=== PATIENT | female | born 1950 | race Caucasian/White ===

== ENCOUNTER 2018-11-02 14:32 | Inpatient (IN) ==
[2018-11-02 15:10] LABS: Basophils % 0.3 % (0.1-2.0); Eosinophils % 0.3 % (0.1-12.0); Hematocrit 36.7 % (37.0-47.0); Hemoglobin 11.7 g/dL (12.2-16.2); Lymphocytes # 1.4 K/mm3 (0.7-4.5); Lymphocytes % 10.4 % (10-50); Mean Corpuscular HGB Conc 31.9 g/dL (31.8-35.4); Mean Corpuscular Volume 97.7 fl (81-99); Mean Platelet Volume 9.3 fl (7.4-10.4); Monocytes # 0.6 K/mm3 (0.1-1.0); Monocytes % 4.5 % (1.7-9.3); Neutrophils # 11.2 K/mm3 (1.8-7.8); Neutrophils % 84.6 % (37.0-80.0); Platelet Count 212 K/mm3 (142-424); Red Blood Count 3.76 M/mm3 (4.20-5.40); Red Cell Distribution Width 14.8 % (11.5-17.5); White Blood Count 13.3 K/mm3 (4.8-10.8)
[2018-11-02 15:17] LABS: Albumin Level 3.2 gm/dL (3.4-5.0); Albumin/Globulin Ratio 0.7 (1.1-1.8); Anion Gap 18.6 mEq/L (5-15); Bilirubin,Total 0.7 mg/dL (0.2-1.0); Calcium 9.1 mg/dL (8.5-10.1); Globulin 4.3 gm/dl (1.3-3.2); Total Protein,Serum 7.5 gm/dL (6.4-8.2)
[2018-11-02 15:33] LABS: Microscopic, Urine URINE MICROSCOPIC (MICROSCOPIC)
[2018-11-02 15:38] LABS: Appearance,Urine CLEAR (Clear); Bilirubin,Urine Negative (Negative); Blood, Urine 1+ (Negative); Color,Urine YELLOW (Yellow); Glucose,Urine (UA) Negative (Negative); Ketones,Urine Negative (Negative); Leukocyte Esterase,Urine TRACE (Negative); PH,Urine 7.5 (5.0-8.5); Protein,Urine Negative (Negative); Specific Gravity, Urine 1.015 (1.005-1.030)
--- NOTE | 2018-11-02 15:41 | Emergency Department Note ---
ED Disposition Clinical Impression: LLL pneumonia Disposition: Admitted as Observation Condition on Discharge: Fair Referrals: Provider,Referral, [Primary Care Provider] - Time of Disposition: 16:34 - Critical Care Critical Care Time: No Attestation: On 11/02/18, the high probability of a clinically significant, sudden or life threatening deterioration of the following system(s) required my full and direct attention, intervention and personal management. The time I documented below is in addition to time spent performing reported procedures but includes the following listed in this critical care notation. Medical Decision Making - Medical Records Medical records reviewed: Yes: I reviewed the patient's medical records. - Young Inquiry Pt receiving controlled substance: No Young was queried for this patient: No Vital Signs: 11/02/18 14:47 Temperature 102.7 F H Temperature Source Oral Pulse Rate [Left Radial] 71 Respiratory Rate 20 Blood Pressure [Right Arm] 123/50 L Blood Pressure Mean [Right Arm] 74 Blood Pressure Source [Right Arm] Automatic Cuff Blood Pressure Position [Right Arm] Sitting 02 Sat by Pulse Oximetry 95 Oxygen Delivery Method Room Air - Lab Data Lab results reviewed: Yes: I reviewed the patient's lab results. Lab Results 11/02/18 14:30: WBC 13.3 H, RBC 3.76 L, Hgb 11.7 L, Hct 36.7 L, MCV 97.7, MCH 31.1, MCHC 31.9, RDW 14.8, Plt Count 212, MPV 9.3, Neut % (Auto) 84.6 H, Lymph % (Auto) 10.4, [place] % (Auto) 4.5, Eos % (Auto) 0.3, Baso % (Auto) 0.3, Neut # (Auto) 11.2 H, Lymph # (Auto) 1.4, [place] # (Auto) 0.6, Eos # (Auto) 0.0, Baso # (Auto) 0.0 11/02/18 14:30: Sodium 142, Potassium 3.6, Chloride 101, Carbon Dioxide 26, Anion Gap 18.6 H, BUN 26 H, Creatinine 1.93 H, Estimated Creat Clear 38, Estimated GFR 26 L, Est GFR ( Amer) 31 L, Glucose 189 H, Calcium 9.1, Total Bilirubin 0.7, AST 12 L, ALT 13, Alkaline Phosphatase 79, Total Protein 7.5, Albumin 3.2 L, Globulin 4.3 H, Albumin/Globulin Ratio 0.7 L 11/02/18 15:25: Urine Color Yellow, Urine Appearance Clear, Urine pH 7.5, Ur Specific [place] 1.015, Urine Protein Negative, Urine Glucose (UA) Negative, Urine Ketones Negative, Urine Blood 1+, Urine Nitrate Negative, Urine Bilirubin Negative, Urine Urobilinogen 1.0, Ur Leukocyte Esterase Trace, Urine WBC 5-10, Urine Bacteria 2+ Result diagrams: 11/02/18 14:30 11/02/18 14:30 Orders (Tests/Meds): ED MEDICATIONS Generic Name Dose Route Start Last Admin Trade Name Freq PRN Reason Stop Dose Admin Sodium Chloride 1,000 mls @ 999 mls/hr 11/02/18 16:15 11/02/18 16:19 Sod Chlor 0.9% 1000ml Bag IV 11/02/18 17:15 999 mls/hr .Q1H1M GABI Administration Azithromycin 500 mg/ Sodium 250 mls @ 250 mls/hr 11/02/18 16:30 Chloride IV 11/16/18 16:29 Q24H GABI Protocol Ceftriaxone Sodium 1 gm/ 50 mls @ 100 mls/hr 11/02/18 16:30 Sodium Chloride IV 11/16/18 16:29 Q24H GABI Protocol Discontinued Medications Generic Name Dose Route Start Last Admin Trade Name Freq PRN Reason Stop Dose Admin Acetaminophen 650 mg 11/02/18 15:26 11/02/18 16:02 Acetaminophen 650mg Suppository RC 11/02/18 15:27 Not Given ONCE ONE Acetaminophen 650 mg 11/02/18 16:01 11/02/18 16:02 Acetaminophen 325mg Tab PO 11/02/18 16:02 650 mg ONCE ONE Administration ORDERS Category Date Time Status XR chest portable Stat Exams 11/02/18 14:56 Taken XR pelvis 1-2V Stat Exams 11/02/18 14:58 Taken Blood Culture Stat Micro 11/02/18 15:10 Received Urine Culture Stat Micro 11/02/18 15:25 Received General Adult HPI - General Chief complaint: Fever Stated complaint: Fever Time Seen by Provider: 11/02/18 15:00 Mode of Arrival: EMS Source of Information: EMS Limitations: No Limitations Description of Symptoms (Recalled from ER Triage Doc. by RN): c/o fall earlier today with a decline to come to the ER per EMS. Called by EMS back to [facility] for pt being weak. Upon assessment pt had a fever - History of Present Illness HPI narrative: weakness, sat down twice to floor at [facility], weak on her feet. - Related Data Allergies Allergy/AdvReac Type Severity Reaction Status Date / Time CODEINE Allergy Mild Uncoded 02/16/17 15:39 PCN (PENICILLIN) Allergy Mild Uncoded 02/16/17 15:39 [facility] History - Hepatitis A Screen Drug use history?: No High risk sexual behaviors?: No History of sexually transmitted infection?: No Currently employed?: No Childcare worker?: No Do you have indoor plumbing?: Yes Do you have electricity?: Yes Attestation statement:: This patient has been screened for Hepatitis A risk factors. I have reviewed the patient's past medical history: Yes Medical History: Denies:: Diabetes Mellitus Type 1, Diabetes Mellitus Type 2 - Social History Smoking Status: Unknown if ever smoked Alcohol Intake: never Occupational Status: employed ROS Obtained: Yes unobtainable due to mental status - Constitutional Constitutional: Reports fever(s), Reports weakness - Cardiovascular Cardiovascular: Denies chest pain - Respiratory Respiratory: Yes cough, Yes other (rhonchi left lower lobe) - Gastrointestinal Gastrointestingal: Denies: abdominal pain - Musculoskeletal Musculoskeletal: Reports system reviewed and no additional complaints, except as docu - Integumentary/Breasts Skin/Breast: Reports rash, Reports skin pain - Neurologic Neurologic: Reports system reviewed and no additional complaints, except as docu - Hematologic/Lymphatic Henatologic/Lymphatic: Reports easy bleeding Physical Exam - General General appearance: alert, other (quiet, lying peacefully with eyes closed) - Head Head exam: atraumatic, normocephalic, normal inspection - Eye Eye exam: Present: normal appearance, PERRL, EOMI - ENT ENT exam: Present: normal exam, normal oropharynx, mucous membranes moist, TM's normal bilaterally, normal external ear exam - Neck Neck exam: Present: normal inspection, full ROM, trachea midline. Absent: meningismus, lymphadenopathy - Chest Chest inspection: Present: normal inspection, symmetric chest wall rise. Absent: tenderness - Respiratory Respiratory exam: Present: other (rhonchi left lower lobe). Absent: normal lung sounds bilaterally, respiratory distress - Cardiovascular Cardiovascular exam: Present: regular rate, normal rhythm. Absent: JVD - Abdominal Exam Abdominal exam: Present: soft, distention. Absent: tenderness - Extremities Exam Extremities exam: Present: normal inspection - Back Exam Back exam: Present: normal inspection. Absent: tenderness - Neurological Exam Neurological exam: Present: alert, CN II-XII intact, motor sensory deficit. Absent: oriented X3 - Psychiatric Psychiatric exam: Present: normal affect, normal mood - Skin Skin exam: Present: warm, dry, intact, normal color - Lymphatic Lymphatic Findings: no adenopathy
[2018-11-02 15:55] LABS: Bacteria,Urine 2+ /lpf
--- NOTE | 2018-11-02 20:04 | History & Physical Report ---
*Admission Date: 11/02/18 *Chief complaint: sob *History of present illness: this pt was sent from [facility] for weakness and change in mental status - she had fallen twice at [facility]- fall earlier today with a decline to come to the ER per EMS. Called by EMS back to [facility] for pt being weak. Upon as sessment pt had a fe weakness, sat down twice to floor at [facility], weak on her feet.pt was found to have pneumonia and was admitted - [facility] History I have reviewed the patient's past medical history: Yes Medical History: Reports:: Hyperlipidemia Denies:: Diabetes Mellitus Type 1, Diabetes Mellitus Type 2 *Have you ever received a pneumonia vaccine?: No (unknown) *Have you received a flu vaccine this season?: No (unknown) Other Medical History: Reports: Thyroid Disease (hypothyroidism) - *Social History Smoking Status: Unknown if ever smoked Alcohol Intake: never *Occupational Status:: employed *Travel in the last 8 weeks: None Family Hx:: Non-contributory Review of Systems - Review of Systems Review of systems:: pertinent systems reviewed and negative unless documented below - Constitutional Reports fever(s) - Eyes Denies change in vision - ENT Denies sore throat - *Cardiovascular Denies chest pain at rest - *Respiratory Reports cough, Denies coughing up blood - *Gastrointestinal Denies vomiting - *Genitourinary Denies blood in urine - *Musculoskeletal Denies joint pain - Integumentary/Breasts Denies rash - *Neurologic Reports frequent falls, Reports weakness, Denies seizure-like activity - Psychiatric Denies anxiety Meds Home Medications Medication Instructions Recorded Confirmed Type Atorvastatin Calcium [Atorvastatin 20 mg PO DAILY 11/02/18 11/02/18 History 20mg Tab] Furosemide [Furosemide 40MG tAB] 40 mg PO DAILY 11/02/18 11/02/18 History Levothyroxine Sodium 100 mcg PO DAILY 11/02/18 11/02/18 History [Levothyroxine 100mcg (0.1MG) Tab] Metformin HCl [Glucophage Xr] 500 mg PO DAILY 11/02/18 11/02/18 History Steele-3 Fatty Acids/Fish Oil [Fish 1,000 mg PO DAILY 11/02/18 11/02/18 History Oil 1,000 mg Capsule] Pantoprazole Sodium [Protonix 40mg 40 mg PO DAILY 11/02/18 11/02/18 History tablet] Potassium Chloride 1 dose PO DAILY 11/02/18 11/02/18 History Quetiapine Fumarate 25 mg PO DAILY PRN 11/02/18 11/02/18 History Quetiapine Fumarate 100 mg PO DAILY 11/02/18 11/02/18 History Sertraline HCl [Zoloft 50mg tablet] 50 mg PO DAILY 11/02/18 11/02/18 History Valproic Acid (As Sodium Salt) 1 dose PO DAILY 11/02/18 11/02/18 History [Valproic Acid] cloZAPine [Clozapine] 50 mg PO DAILY 11/02/18 11/02/18 History Allergies Allergy/AdvReac Type Severity Reaction Status Date / Time CODEINE Allergy Mild Uncoded 02/16/17 15:39 PCN (PENICILLIN) Allergy Mild Uncoded 02/16/17 15:39 Exam Vital signs and Labs for Last 24 Hours: Temp Pulse Resp BP Pulse Ox 98.5 F 97 H 20 103/59 L 97 11/02/18 19:46 11/02/18 19:46 11/02/18 19:46 11/02/18 19:46 11/02/18 19:46 Laboratory Results - last 24 hr 11/02/18 14:30: WBC 13.3 H, RBC 3.76 L, Hgb 11.7 L, Hct 36.7 L, MCV 97.7, MCH 31.1, MCHC 31.9, RDW 14.8, Plt Count 212, MPV 9.3, Neut % (Auto) 84.6 H, Lymph % (Auto) 10.4, [place] % (Auto) 4.5, Eos % (Auto) 0.3, Baso % (Auto) 0.3, Neut # (Auto) 11.2 H, Lymph # (Auto) 1.4, [place] # (Auto) 0.6, Eos # (Auto) 0.0, Baso # (Auto) 0.0 11/02/18 14:30: Sodium 142, Potassium 3.6, Chloride 101, Carbon Dioxide 26, Anion Gap 18.6 H, BUN 26 H, Creatinine 1.93 H, Estimated Creat Clear 38, Est imated GFR 26 L, Est GFR ( Amer) 31 L, Glucose 189 H, Calcium 9.1, Total Bilirubin 0.7, AST 12 L, ALT 13, Alkaline Phosphatase 79, Total Protein 7.5, Albumin 3.2 L, Globulin 4.3 H, Albumin/Globulin Ratio 0.7 L 11/02/18 15:08: Lactate 2.6 H 11/02/18 15:25: Urine Color Yellow, Urine Appearance Clear, Urine pH 7.5, Ur Specific [place] 1.015, Urine Protein Negative, Urine Glucose (UA) Negative, Urine Ketones Negative, Urine Blood 1+, Urine Nitrate Negative, Urine Bilirubin Negative, Urine Urobilinogen 1.0, Ur Leukocyte Esterase Trace, Urine WBC 5-10, Urine Bacteria 2+ I & O for Last 24 hours: Intake & Output 10/31/18 11/01/18 11/02/18 11/03/18 11:59 11:59 11:59 11:59 Weight 197 lb 7 oz - Constitutional no acute distress, obese - *Routine HEENT Exam Head: Present: normocephalic Eye: Present: EOMI, PERRL. Absent: conjunctival icterus ENT: Present: mucous membranes dry - *Routine Neck Exam Present: full ROM. Absent: JVD - *Routine Respiratory Exam Present: decreased breath sounds, rhonchi - *Routine Cardiovascular Exam Present: RRR, murmur, S4 - *Routine Abdominal Exam Present: soft - *Routine Extremities Exam Absent: calf tenderness - *Routine Skin Exam Present: intact - *Routine Neurological Exam Present: alert, CN II-XII intact, altered mental status, moving all extremities. Absent: motor deficit - Routine Psychiatric Exam Present: normal affect Assessment and Plan (1) LLL pneumonia Current visit: Yes Status: Acute Qualifiers: Pneumonia type: due to unspecified organism Qualified Code(s): J18.1 - Lobar pneumonia, unspecified organism Category: Medical Code(s): J18.1 - Lobar pneumonia, unspecified organism (2) Severe sepsis Current visit: Yes Status: Acute Category: Medical Code(s): A41.9 - Sepsis, unspecified organism; R65.20 - Severe sepsis without septic shock (3) Septic shock Current visit: Yes Status: Acute Category: Medical Code(s): A41.9 - Sepsis, unspecified organism; R65.21 - Severe sepsis with septic shock (4) Obesity (BMI 30-39.9) Current visit: Yes Status: Acute Category: Medical Code(s): E66.9 - Obesity, unspecified (5) Hypothyroidism (acquired) Current visit: Yes Status: Acute Category: Medical Code(s): E03.9 - Hypothyroidism, unspecified (6) Diabetes 1.5, managed as type 2 Current visit: Yes Status: Acute Category: Medical Code(s): E13.9 - Other specified diabetes mellitus without complications (7) Renal insufficiency Current visit: Yes Status: Acute Category: Medical Code(s): N28.9 - Disorder of kidney and ureter, unspecified (8) UTI (urinary tract infection) Current visit: Yes Status: Acute Qualifiers: Urinary tract infection type: site unspecified Hematuria presence: without hematuria Qualified Code(s): N39.0 - Urinary tract infection, site not specified Category: Medical Code(s): N39.0 - Urinary tract infection, site not specified
--- NOTE | 2018-11-02 23:30 | Sepsis Event Note ---
Tissue Perfusion Evaluation Sepsis Re-Evaluation Performed: Yes Date Performed: 11/02/18 Time Performed: 23:00 Sepsis Follow-Up: Yes: Respiratory exam, Cardiovascular exam, Capillary refill, Peripheral pulse strength, Vital Signs Most Recent Vital Signs: Temperature 98.5 F 11/02/18 19:46 Temperature Source Oral 11/02/18 19:46 Pulse Rate 91 H 11/02/18 21:49 Respiratory Rate 20 11/02/18 19:46 Blood Pressure 103/54 L 11/02/18 21:35 Blood Pressure Mean 70 11/02/18 21:35 Blood Pressure Source Automatic Cuff 11/02/18 21:35 Blood Pressure Position Supine 11/02/18 21:35 02 Sat by Pulse Oximetry 98 11/02/18 21:49 Oxygen Delivery Method 11/02/18 21:49 Oxygen Flow Rate (LPM) 2 11/02/18 21:49
[2018-11-03 07:13] LABS: Basophils % 0.1 % (0.1-2.0); Hematocrit 30.4 % (37.0-47.0); Lymphocytes # 1.4 K/mm3 (0.7-4.5); Lymphocytes % 9.8 % (10-50); Mean Corpuscular HGB Conc 31.7 g/dL (31.8-35.4); Mean Corpuscular Volume 99.3 fl (81-99); Mean Platelet Volume 7.5 fl (7.4-10.4); Monocytes # 0.6 K/mm3 (0.1-1.0); Monocytes % 4.4 % (1.7-9.3); Neutrophils % 85.6 % (37.0-80.0); Platelet Count 162 K/mm3 (142-424); Red Blood Count 3.06 M/mm3 (4.20-5.40); Red Cell Distribution Width 14.8 % (11.5-17.5)
[2018-11-03 07:15] LABS: Anion Gap 11.5 mEq/L (5-15)
[2018-11-03 07:20] LABS: Hemoglobin 9.7 g/dL (12.2-16.2)
[2018-11-03 07:22] LABS: Calcium 7.5 mg/dL (8.5-10.1)
--- NOTE | 2018-11-03 07:34 | Pharmacy Consult Notes ---
[facility] Pharmacy VTE Monitoring - Patient Demographics Admission date: 11/02/18 Report Date: 11/03/18 Time: 07:34 Allergies/Adverse Reactions: Patient Allergies CODEINE Allergy (Mild, Uncoded 02/16/17 15:39) PCN (PENICILLIN) Allergy (Mild, Uncoded 02/16/17 15:39) Height: 1.57 m Weight: 93.242 kg Patient Problems: Current Active Problems LLL pneumonia (Acute) Severe sepsis (Acute) Septic shock (Acute) Obesity (BMI 30-39.9) (Acute) Hypothyroidism (acquired) (Acute) Diabetes 1.5, managed as type 2 (Acute) Renal insufficiency (Acute) UTI (urinary tract infection) (Acute) - VTE Risk Labs: VTE Related Lab Results Hgb 9.7 g/dL (12.2-16.2) L D 11/03/18 06:40 Hct 30.4 % (37.0-47.0) L 11/03/18 06:40 Plt Count 162 K/mm3 (142-424) 11/03/18 06:40 BUN 24 mg/dL (7-18) H 11/03/18 06:40 Creatinine 1.38 mg/dL (0.55-1.02) H D 11/03/18 06:40 Estimated Creat Clear 59 mL/min (50-200) 11/03/18 06:40 - Prophylaxis VTE Prophylaxis Ordered?: Yes Types of VTE Prophylaxis: TEDS Knee High Location of Applied Device: Bilateral Lower Extremeties - VTE Diagnosis Confirmed Treatment or plan recommended: Continue Current Treatment
--- NOTE | 2018-11-03 08:24 | Progress Note ---
Internal Medicine - PN: Subj *Date: 11/03/18 *Time: 08:20 Interval history: pt on venti mask, lethargic, but arrousable to stimulation Exam Vital signs and Labs for Last 24 Hours: Temp Pulse Resp BP Pulse Ox 96.2 F L 95 H 20 100/60 L 90 L 11/03/18 07:37 11/03/18 07:37 11/03/18 07:37 11/03/18 08:08 11/03/18 07:37 Laboratory Results - last 24 hr 11/02/18 14:30: WBC 13.3 H, RBC 3.76 L, Hgb 11.7 L, Hct 36.7 L, MCV 97.7, MCH 31.1, MCHC 31.9, RDW 14.8, Plt Count 212, MPV 9.3, Neut % (Auto) 84.6 H, Lymph % (Auto) 10.4, [place] % (Auto) 4.5, Eos % (Auto) 0.3, Baso % (Auto) 0.3, Neut # (Auto) 11.2 H, Lymph # (Auto) 1.4, [place] # (Auto) 0.6, Eos # (Auto) 0.0, Baso # (Auto) 0.0 11/02/18 14:30: Sodium 142, Potassium 3.6, Chloride 101, Carbon Dioxide 26, Anion Gap 18.6 H, BUN 26 H, Creatinine 1.93 H, Estimated Creat Clear 38, Estimated GFR 26 L, Est GFR ( Amer) 31 L, Glucose 189 H, Calcium 9.1, Total Bilirubin 0.7, AST 12 L, ALT 13, Alkaline Phosphatase 79, Total Protein 7.5, Albumin 3.2 L, Globulin 4.3 H, Albumin/Globulin Ratio 0.7 L 11/02/18 15:08: Lactate 2.6 H 11/02/18 15:25: Urine Color Yellow, Urine Appearance Clear, Urine pH 7.5, Ur Specific [place] 1.015, Urine Protein Negative, Urine Glucose (UA) Negative, Urine Ketones Negative, Urine Blood 1+, Urine Nitrate Negative, Urine Bilirubin Negative, Urine Urobilinogen 1.0, Ur Leukocyte Esterase Trace, Urine WBC 5-10, Urine Bacteria 2+ 11/02/18 21:01: POC Glucose 158 H 11/02/18 21:13: Lactate 1.0 11/03/18 05:09: POC Glucose 193 H 11/03/18 06:40: WBC 14.0 H, RBC 3.06 L, Hgb 9.7 L D, Hct 30.4 L, MCV 99.3 H, MCH 31.5 H, MCHC 31.7 L, RDW 14.8, Plt Count 162, MPV 7.5, Neut % (Auto) 85.6 H, Lymph % (Auto) 9.8 L, [place] % (Auto) 4.4, Eos % (Auto) 0.0 L, Baso % (Auto) 0.1, Neut # (Auto) 12.0 H, Lymph # (Auto) 1.4, [place] # (Auto) 0.6, Eos # (Auto) 0.0, Baso # (Auto) 0.0 11/03/18 06:40: Sodium 145, Potassium 3.5, Chloride 110 H, Carbon Dioxide 27, Anion Gap 11.5, BUN 24 H, Creatinine 1.38 H D, Estimated Creat Clear 59, Estimated GFR 38 L, Est GFR ( Amer) 46 L D, Glucose 174 H, Calcium 7.5 L D I & O for Last 24 hours: Intake & Output 10/31/18 11/01/18 11/02/18 11/03/18 11:59 11:59 11:59 11:59 Intake Total 3326 / 3326 Output Total 1500 / 1500 Balance 1826 / 1826 Weight 205 lb 9 oz Microbiology Reports for the Last 24 Hours: Microbiology 11/02/18 15:25 Urine,Random Urine Culture - Preliminary Gram Negative Rods - Constitutional no acute distress - *Routine HEENT Exam Head: Present: normocephalic Eye: Present: PERRL ENT: Present: mucous membranes moist - *Routine Neck Exam Present: supple. Absent: lymphadenopathy - *Routine Respiratory Exam Present: rhonchi, crackles - *Routine Cardiovascular Exam Present: RRR - *Routine Abdominal Exam Present: soft, normoactive bowel sounds. Absent: tenderness - *Routine Extremities Exam Present: full ROM. Absent: cyanosis, clubbing, edema - *Routine Skin Exam Present: warm. Absent: rash - *Routine Neurological Exam Present: alert lethargic, aroused to stimulation - Routine Psychiatric Exam Present: unable to assess Assessment and Plan (1) LLL pneumonia Current visit: Yes Status: Acute Qualifiers: Pneumonia type: due to unspecified organism Qualified Code(s): J18.1 - Lobar pneumonia, unspecified organism Category: Medical Code(s): J18.1 - Lobar pneumonia, unspecified organism (2) Severe sepsis Current visit: Yes Status: Acute Category: Medical Code(s): A41.9 - Sepsis, unspecified organism; R65.20 - Severe sepsis without septic shock (3) Septic shock Current visit: Yes Status: Acute Category: Medical Code(s): A41.9 - Sepsis, unspecified organism; R65.21 - Severe sepsis with septic shock (4) Obesity (BMI 30-39.9) Current visit: Yes Status: Acute Category: Medical Code(s): E66.9 - Obesity, unspecified (5) Hypothyroidism (acquired) Current visit: Yes Status: Acute Category: Medical Code(s): E03.9 - Hypothyroidism, unspecified (6) Diabetes 1.5, managed as type 2 Current visit: Yes Status: Acute Category: Medical Code(s): E13.9 - Other specified diabetes mellitus without complications (7) Renal insufficiency Current visit: Yes Status: Acute Category: Medical Code(s): N28.9 - Disorder of kidney and ureter, unspecified (8) UTI (urinary tract infection) Current visit: Yes Status: Acute Qualifiers: Urinary tract infection type: site unspecified Hematuria presence: without hematuria Qualified Code(s): N39.0 - Urinary tract infection, site not specified Category: Medical Code(s): N39.0 - Urinary tract infection, site not specified - Assessment and plan all Dx Assessment and Plan for all problems:: Rounded with Dr. Avery all orders per Gena WALKER Start Vapotherm Continue to monitor
[2018-11-03 08:35] LABS: ABG Base Excess -0.4 mmol/L (-2.4-2.3); ABG HCO3 25.3 mmhg (22.0-26.0); ABG Oxygen Saturation 92 % (90-100); ABG PCO2 47.5 mmhg (35.0-45.0); ABG PH 7.34 mmol/L (7.35-7.45); ABG PO2 64.7 mmhg (80-100); ABG TCO2 26.7 mmhg (23-27)
[2018-11-03 08:36] LABS: Allen's Test ACCEPTABLE; Oxygen 30% %
[2018-11-03 08:37] LABS: Lymphocytes % 16 % (10-50); Monocytes % 6 % (2-9); Neutrophils % 76 % (42-76); RBC Morphology Normal; Total Cells Counted 100
--- NOTE | 2018-11-03 18:01 | Electrocardiograph Report ---
APPROVED REPORT Exam: Resting ECG HR:97 bpm ECG Measurements Heart Rate 97 AXES DC 140 P 57 QRSd 82 QRS 0 QT 368 T-29 QTc 467 <Conclusion> Normal sinus rhythm Nonspecific ST and T wave abnormality Abnormal ECG Electronically signed by : Jc Garcia, 11/03/2018 18:00:58
[2018-11-04 06:55] LABS: Basophils % 0.2 % (0.1-2.0); Hematocrit 29.5 % (37.0-47.0); Hemoglobin 9.2 g/dL (12.2-16.2); Lymphocytes # 1.5 K/mm3 (0.7-4.5); Lymphocytes % 12.5 % (10-50); Mean Corpuscular HGB Conc 31.2 g/dL (31.8-35.4); Mean Corpuscular Volume 99.3 fl (81-99); Mean Platelet Volume 8.5 fl (7.4-10.4); Monocytes # 0.5 K/mm3 (0.1-1.0); Monocytes % 4.4 % (1.7-9.3); Neutrophils # 9.8 K/mm3 (1.8-7.8); Platelet Count 186 K/mm3 (142-424); Red Blood Count 2.97 M/mm3 (4.20-5.40); Red Cell Distribution Width 14.9 % (11.5-17.5); White Blood Count 11.8 K/mm3 (4.8-10.8)
[2018-11-04 07:05] LABS: Albumin Level 2.2 gm/dL (3.4-5.0); Albumin/Globulin Ratio 0.6 (1.1-1.8); Anion Gap 13.4 mEq/L (5-15); Bilirubin,Total 0.3 mg/dL (0.2-1.0); Globulin 3.9 gm/dl (1.3-3.2); Total Protein,Serum 6.1 gm/dL (6.4-8.2)
--- NOTE | 2018-11-04 16:51 | Progress Note ---
Internal Medicine - PN: Subj *Date: 11/07/18 *Time: 08:09 Interval history: pt looks better on vasotherm and has pike as pt has sob and low sat and possible volume overload - aide to closely monitor op Exam Vital signs and Labs for Last 24 Hours: Temp Pulse Resp BP Pulse Ox 98.2 F 97 H 17 97/56 L 93 L 11/04/18 15:53 11/04/18 15:53 11/04/18 15:53 11/04/18 15:53 11/04/18 15:53 Laboratory Results - last 24 hr 11/03/18 20:18: POC Glucose 143 H 11/04/18 05:53: POC Glucose 160 H 11/04/18 06:06: WBC 11.8 H, RBC 2.97 L, Hgb 9.2 L, Hct 29.5 L, MCV 99.3 H, MCH 31.0, MCHC 31.2 L, RDW 14.9, Plt Count 186, MPV 8.5, Neut % (Auto) 83.0 H, Lymph % (Auto) 12.5, [place] % (Auto) 4.4, Eos % (Auto) 0.0 L, Baso % (Auto) 0.2, Neut # (Auto) 9.8 H, Lymph # (Auto) 1.5, [place] # (Auto) 0.5, Eos # (Auto) 0.0, Baso # (Auto) 0.0 11/04/18 06:06: Sodium 144, Potassium 3.4 L, Chloride 108 H, Carbon Dioxide 26, Anion Gap 13.4, BUN 30 H, Creatinine 1.48 H, Estimated Creat Clear 55, Estimated GFR 35 L, Est GFR ( Amer) 43 L, Glucose 163 H, Calcium 8.0 L, Total Bilirubin 0.3, AST 31 D, ALT 28 D, Alkaline Phosphatase 54, Total Protein 6.1 L, Albumin 2.2 L, Globulin 3.9 H, Albumin/Globulin Ratio 0.6 L 11/04/18 10:54: POC Glucose 161 H 11/04/18 16:31: POC Glucose 203 H I & O for Last 24 hours: Intake & Output 11/02/18 11/03/18 11/04/18 11/05/18 11:59 11:59 11:59 11:59 Intake Total 3326 / 3326 1190 / 1190 360 / 360 Output Total 1500 / 1500 2100 / 2100 Balance 1826 / 1826 -910 / -910 360 / 360 Weight 205 lb 9 oz 204 lb 6 oz 204 lb 6.002 oz Microbiology Reports for the Last 24 Hours: Microbiology 11/02/18 15:10 Blood Blood Culture - Preliminary NO GROWTH AFTER 48 HOURS 11/02/18 15:10 Blood Blood Culture - Preliminary NO GROWTH AFTER 48 HOURS 11/02/18 15:25 Urine,Random Urine Culture - Final Escherichia coli - Constitutional no acute distress, obese - *Routine HEENT Exam Head: Present: normocephalic Eye: Present: EOMI, PERRL ENT: Present: mucous membranes dry - *Routine Neck Exam Present: supple - *Routine Respiratory Exam Present: decreased breath sounds - *Routine Cardiovascular Exam Present: RRR, murmur, S4 - *Routine Abdominal Exam Present: soft - *Routine Extremities Exam Absent: calf tenderness - *Routine Skin Exam Present: intact - *Routine Neurological Exam Present: alert, CN II-XII intact - Routine Psychiatric Exam Present: normal affect Assessment and Plan (1) LLL pneumonia Current visit: Yes Status: Acute Qualifiers: Pneumonia type: due to unspecified organism Qualified Code(s): J18.1 - Lobar pneumonia, unspecified organism Category: Medical Code(s): J18.1 - Lobar pneumonia, unspecified organism (2) Severe sepsis Current visit: Yes Status: Acute Category: Medical Code(s): A41.9 - Sepsis, unspecified organism; R65.20 - Severe sepsis without septic shock (3) Septic shock Current visit: Yes Status: Acute Category: Medical Code(s): A41.9 - Sepsis, unspecified organism; R65.21 - Severe sepsis with septic shock (4) Obesity (BMI 30-39.9) Current visit: Yes Status: Acute Category: Medical Code(s): E66.9 - Obesity, unspecified (5) Hypothyroidism (acquired) Current visit: Yes Status: Acute Category: Medical Code(s): E03.9 - Hypothyroidism, unspecified (6) Diabetes 1.5, managed as type 2 Current visit: Yes Status: Acute Category: Medical Code(s): E13.9 - Other specified diabetes mellitus without complications (7) Renal insufficiency Current visit: Yes Status: Acute Category: Medical Code(s): N28.9 - Disorder of kidney and ureter, unspecified (8) UTI (urinary tract infection) Current visit: Yes Status: Acute Qualifiers: Urinary tract infection type: site unspecified Hematuria presence: without hematuria Qualified Code(s): N39.0 - Urinary tract infection, site not specified Category: Medical Code(s): N39.0 - Urinary tract infection, site not specified
--- NOTE | 2018-11-04 17:13 | Cardiology Report ---
APPROVED REPORT EXAM: Comprehensive 2D, Doppler, and color-flow Echocardiogram Instrumentation Technician: Radha Guerrero RDCS Ht: 5 ft 2 in Wt: 197lbs BSA: 1.90 BP: 103/59 mmHg Indications: Murmur, Obesity, Dyspnea, Hyperlipidemia 2D Dimensions LVOT 1.80 cm (M/F) 1.5-2.5 M-Mode Dimensions RVDd 2.00 cm (0.9-2.6)LA Diam 4.00 cm (1.9-4.0) LVDd 5.90 cm (3.5-5.7)Ao Diam 3.60 cm (2.0-3.7) LVDs 3.60 cm (3.5-5.7)AV Cusp 1.60 cm (1.5-2.6) IVSd 1.00 cm (0.6-1.1)PWd 1.00 cm (0.6-1.1) EF (Teich) 68.60% FS 39.00% EDV (Teich) 173.00 mLESV (Teich) 54.40 mL LV Diastology E/A Ratio 1.1MED E' 7.80 (< 7 cm/sec) E'/MED E' Ratio11.30 (>14)LAT E' 10.20 (<10 cm/sec) E/LAT E' Ratio 8.70 (>14) Aortic Valve LVOT Max 158.00 (70-110 cm/s)LVOT VTI 34.20 cm AoV Peak Eleazar. 175.00 (50-130 cm/s)AI PHT 407.00 ms AO Peak GR. 12.00 mmHgAO Mean GR. 7.00 (<5 mmHg) AO VTI 38.70 (18-25 cm)LOCO (VTI) 2.24 (2.5-4.5 cm2) Mitral Valve MV E Max Eleazar. 88.40 (40-130 cm/s)MV A Velocity 80.00 (40-130 cm/s) E/A Ratio 1.10 Tricuspid Valve TR P. [id number] cm/sRAP Estimate 10.00 mmHg RVSP 45.00 mmHg Left Ventricle Left atrium is mildly enlarged, left ventricle is normal size, mild concentric left ventricular hypertrophy, visually estimated ejection fraction 55% with no regional wall motion abnormality. Grade 1 diastolic dysfunction seen without tissue Doppler evidence of raise left atrial pressure. Right Ventricle Right atrium and right ventricular mildly enlarged with normal contractility. Aortic Valve Aortic valve is thickened and calcified leaflet continue to display good mobility, there is no aortic stenosis, there is trace aortic insufficiency. Mitral Valve Mitral valve leaflets are minimally thickened, there is no mitral stenosis, there is mild mitral regurgitation. Tricuspid Valve Tricuspid valve is grossly normal, there is mild tricuspid regurgitation, calculated right ventricular systolic pressure is 44 mm of [place] consistent moderate pulmonary hypertension. Pulmonic Valve Pulmonic valve is poorly visualized. Great Vessels Aortic root is normal size. Pericardium No significant pericardial effusion noted. Conclusion 1. Mild biatrial enlargement, normal left ventricular size, mild concentric left ventricular hypertrophy, visually estimated ejection fraction 55% with no regional wall motion abnormality. Grade 1 diastolic dysfunction seen without tissue Doppler evidence of raise left atrial pressure. 2. Mildly enlarged right ventricle with normal contractility. 3. Thickened and calcified aortic valve without aortic stenosis, there is trace aortic insufficiency. 4. Mild mitral and tricuspid regurgitation, calculated right ventricular systolic pressure is 44 mmHg consistent with moderate pulmonary hypertension. 5. No significant pericardial effusion noted. Electronically signed by : Matheus Lovell, 11/04/2018 17:12:53
[2018-11-05 06:50] LABS: Basophils % 0.3 % (0.1-2.0); Eosinophils % 0.1 % (0.1-12.0); Hematocrit 29.1 % (37.0-47.0); Hemoglobin 9.3 g/dL (12.2-16.2); Lymphocytes # 1.5 K/mm3 (0.7-4.5); Lymphocytes % 15.5 % (10-50); Mean Corpuscular HGB Conc 31.9 g/dL (31.8-35.4); Mean Corpuscular Volume 97.9 fl (81-99); Mean Platelet Volume 8.2 fl (7.4-10.4); Monocytes # 0.6 K/mm3 (0.1-1.0); Monocytes % 5.8 % (1.7-9.3); Neutrophils # 7.6 K/mm3 (1.8-7.8); Neutrophils % 78.2 % (37.0-80.0); Platelet Count 215 K/mm3 (142-424); Red Blood Count 2.97 M/mm3 (4.20-5.40); White Blood Count 9.8 K/mm3 (4.8-10.8)
[2018-11-05 06:58] LABS: Albumin Level 2.3 gm/dL (3.4-5.0); Albumin/Globulin Ratio 0.6 (1.1-1.8); Anion Gap 15.8 mEq/L (5-15); Bilirubin,Total 0.2 mg/dL (0.2-1.0); Calcium 8.2 mg/dL (8.5-10.1); Globulin 3.8 gm/dl (1.3-3.2); Total Protein,Serum 6.1 gm/dL (6.4-8.2)
--- NOTE | 2018-11-05 12:00 | Progress Note ---
Internal Medicine - PN: Subj *Date: 11/07/18 *Time: 08:11 Interval history: doing better off vasotherm will try to get off o2 - more alert and is sitting in chair - blood cult ok so far Exam Vital signs and Labs for Last 24 Hours: Temp Pulse Resp BP Pulse Ox 98.0 F 84 21 146/60 H 91 L 11/05/18 08:00 11/05/18 08:00 11/05/18 08:00 11/05/18 08:00 11/05/18 10:20 Laboratory Results - last 24 hr 11/04/18 16:31: POC Glucose 203 H 11/04/18 20:00: POC Glucose 307 H* 11/05/18 06:06: POC Glucose 225 H 11/05/18 06:20: WBC 9.8, RBC 2.97 L, Hgb 9.3 L, Hct 29.1 L, MCV 97.9, MCH 31.2, MCHC 31.9, RDW 15.0, Plt Count 215, MPV 8.2, Neut % (Auto) 78.2, Lymph % (Auto) 15.5, [place] % (Auto) 5.8, Eos % (Auto) 0.1, Baso % (Auto) 0.3, Neut # (Auto) 7.6, Lymph # (Auto) 1.5, Page # (Auto) 0.6, Eos # (Auto) 0.0, Baso # (Auto) 0.0 11/05/18 06:20: Sodium 139, Potassium 3.8, Chloride 102, Carbon Dioxide 25, Anion Gap 15.8 H, BUN 40 H D, Creatinine 1.60 H, Estimated Creat Clear 51, Estimated GFR 32 L, Est GFR ( Amer) 39 L, Glucose 215 H, Calcium 8.2 L, Total Bilirubin 0.2, AST 52 H D, ALT 63 D, Alkaline Phosphatase 54, Total Protein 6.1 L, Albumin 2.3 L, Globulin 3.8 H, Albumin/Globulin Ratio 0.6 L I & O for Last 24 hours: Intake & Output 11/02/18 11/03/18 11/04/18 11/05/18 11:59 11:59 11:59 11:59 Intake Total 3326 / 3326 1190 / 1190 1160 / 1160 Output Total 1500 / 1500 2100 / 2100 1575 / 1575 Balance 1826 / 1826 -910 / -910 -415 / -415 Weight 205 lb 9 oz 204 lb 6 oz 206 lb 6.002 oz Microbiology Reports for the Last 24 Hours: Microbiology 11/02/18 15:10 Blood Blood Culture - Preliminary NO GROWTH AFTER 48 HOURS 11/02/18 15:10 Blood Blood Culture - Preliminary NO GROWTH AFTER 48 HOURS - Constitutional no acute distress, obese - *Routine HEENT Exam Head: Present: normocephalic Eye: Present: EOMI, PERRL ENT: Present: mucous membranes dry - *Routine Neck Exam Present: supple - *Routine Respiratory Exam Present: decreased breath sounds - *Routine Cardiovascular Exam Present: RRR, murmur - *Routine Abdominal Exam Present: soft - *Routine Extremities Exam Absent: calf tenderness - *Routine Skin Exam Present: intact - *Routine Neurological Exam Present: alert, CN II-XII intact - Routine Psychiatric Exam Present: normal affect Assessment and Plan (1) LLL pneumonia Current visit: Yes Status: Acute Qualifiers: Pneumonia type: due to unspecified organism Qualified Code(s): J18.1 - Lobar pneumonia, unspecified organism Category: Medical Code(s): J18.1 - Lobar pneumonia, unspecified organism (2) Severe sepsis Current visit: Yes Status: Acute Category: Medical Code(s): A41.9 - Sepsis, unspecified organism; R65.20 - Severe sepsis without septic shock (3) Septic shock Current visit: Yes Status: Acute Category: Medical Code(s): A41.9 - Sepsis, unspecified organism; R65.21 - Severe sepsis with septic shock (4) Obesity (BMI 30-39.9) Current visit: Yes Status: Acute Category: Medical Code(s): E66.9 - Obesity, unspecified (5) Hypothyroidism (acquired) Current visit: Yes Status: Acute Category: Medical Code(s): E03.9 - Hypothyroidism, unspecified (6) Diabetes 1.5, managed as type 2 Current visit: Yes Status: Acute Category: Medical Code(s): E13.9 - Other specified diabetes mellitus without complications (7) Renal insufficiency Current visit: Yes Status: Acute Category: Medical Code(s): N28.9 - Disorder of kidney and ureter, unspecified (8) UTI (urinary tract infection) Current visit: Yes Status: Acute Qualifiers: Urinary tract infection type: site unspecified Hematuria presence: without hematuria Qualified Code(s): N39.0 - Urinary tract infection, site not specified Category: Medical Code(s): N39.0 - Urinary tract infection, site not specified (9) E. coli UTI (urinary tract infection) Current visit: Yes Status: Acute Category: Medical Code(s): N39.0 - Urinary tract infection, site not specified; B96.20 - Unspecified Escherichia coli [E. coli] as the cause of diseases classified elsewhere (10) Pulmonary HTN Current visit: Yes Status: Acute Category: Medical Code(s): I27.20 - Pulmonary hypertension, unspecified
[2018-11-06 06:57] LABS: Basophils # 0.1 K/mm3 (0-0.2); Basophils % 0.4 % (0.1-2.0); Eosinophils % 0.4 % (0.1-12.0); Hemoglobin 9.5 g/dL (12.2-16.2); Lymphocytes # 2.3 K/mm3 (0.7-4.5); Lymphocytes % 22.1 % (10-50); Mean Corpuscular Volume 98.1 fl (81-99); Mean Platelet Volume 8.8 fl (7.4-10.4); Monocytes # 0.7 K/mm3 (0.1-1.0); Monocytes % 6.8 % (1.7-9.3); Neutrophils # 7.3 K/mm3 (1.8-7.8); Neutrophils % 70.2 % (37.0-80.0); Platelet Count 240 K/mm3 (142-424); Red Blood Count 3.04 M/mm3 (4.20-5.40); White Blood Count 10.4 K/mm3 (4.8-10.8)
[2018-11-06 07:01] LABS: Albumin Level 2.3 gm/dL (3.4-5.0); Albumin/Globulin Ratio 0.6 (1.1-1.8); Anion Gap 13.2 mEq/L (5-15); Bilirubin,Total 0.2 mg/dL (0.2-1.0); Calcium 8.6 mg/dL (8.5-10.1); Globulin 3.8 gm/dl (1.3-3.2); Total Protein,Serum 6.1 gm/dL (6.4-8.2)
[2018-11-06 07:04] LABS: Hematocrit 29.8 % (37.0-47.0)
--- NOTE | 2018-11-06 10:05 | Progress Note ---
Internal Medicine - PN: Subj *Date: 11/07/18 *Time: 08:12 Interval history: pt with slow improvement - pt with persistant cough -cxr pending Exam Vital signs and Labs for Last 24 Hours: Temp Pulse Resp BP Pulse Ox 98.1 F 68 16 128/67 93 L 11/06/18 08:00 11/06/18 08:00 11/06/18 08:00 11/06/18 08:00 11/06/18 08:00 Laboratory Results - last 24 hr 11/05/18 11:33: POC Glucose 182 H 11/05/18 16:47: POC Glucose 201 H 11/05/18 19:59: POC Glucose 191 H 11/06/18 05:33: POC Glucose 220 H 11/06/18 06:05: WBC 10.4, RBC 3.04 L, Hgb 9.5 L, Hct 29.8 L, MCV 98.1, MCH 31.4 H, MCHC 32.0, RDW 15.0, Plt Count 240, MPV 8.8, Neut % (Auto) 70.2, Lymph % (Auto) 22.1, [place] % (Auto) 6.8, Eos % (Auto) 0.4, Baso % (Auto) 0.4, Neut # (Auto) 7.3, Lymph # (Auto) 2.3, [place] # (Auto) 0.7, Eos # (Auto) 0.0, Baso # (Auto) 0.1 11/06/18 06:05: Sodium 139, Potassium 4.2, Chloride 104, Carbon Dioxide 26, Anion Gap 13.2, BUN 41 H, Creatinine 1.39 H, Estimated Creat Clear 59, Estimated GFR 38 L, Est GFR ( Amer) 46 L, Glucose 208 H, Calcium 8.6, Total Bilirubin 0.2, AST 37 D, ALT 54, Alkaline Phosphatase 52, Total Protein 6.1 L, Albumin 2.3 L, Globulin 3.8 H, Albumin/Globulin Ratio 0.6 L I & O for Last 24 hours: Intake & Output 11/03/18 11/04/18 11/05/18 11/06/18 11:59 11:59 11:59 11:59 Intake Total 3326 / 3326 1190 / 1190 1160 / 1160 2034 / 2034 Output Total 1500 / 1500 2100 / 2100 1575 / 1575 975 / 975 Balance 1826 / 1826 -910 / -910 -415 / -415 1060 / 1060 Weight 205 lb 9 oz 204 lb 6 oz 206 lb 6.002 oz 208 lb 6 oz - Constitutional no acute distress, obese - *Routine HEENT Exam Head: Present: normocephalic Eye: Present: EOMI, PERRL ENT: Present: mucous membranes dry - *Routine Neck Exam Present: supple - *Routine Respiratory Exam Present: decreased breath sounds - *Routine Cardiovascular Exam Present: RRR, murmur - *Routine Abdominal Exam Present: soft - *Routine Extremities Exam Absent: calf tenderness - *Routine Skin Exam Present: intact - *Routine Neurological Exam Present: alert, CN II-XII intact - Routine Psychiatric Exam Present: normal affect Assessment and Plan (1) LLL pneumonia Current visit: Yes Status: Acute Qualifiers: Pneumonia type: due to unspecified organism Qualified Code(s): J18.1 - Lobar pneumonia, unspecified organism Category: Medical Code(s): J18.1 - Lobar pneumonia, unspecified organism (2) Severe sepsis Current visit: Yes Status: Acute Category: Medical Code(s): A41.9 - Sepsis, unspecified organism; R65.20 - Severe sepsis without septic shock (3) Septic shock Current visit: Yes Status: Acute Category: Medical Code(s): A41.9 - Sepsis, unspecified organism; R65.21 - Severe sepsis with septic shock (4) Obesity (BMI 30-39.9) Current visit: Yes Status: Acute Category: Medical Code(s): E66.9 - Obesity, unspecified (5) Hypothyroidism (acquired) Current visit: Yes Status: Acute Category: Medical Code(s): E03.9 - Hypothyroidism, unspecified (6) Diabetes 1.5, managed as type 2 Current visit: Yes Status: Acute Category: Medical Code(s): E13.9 - Other specified diabetes mellitus without complications (7) Renal insufficiency Current visit: Yes Status: Acute Category: Medical Code(s): N28.9 - Disorder of kidney and ureter, unspecified (8) UTI (urinary tract infection) Current visit: Yes Status: Acute Qualifiers: Urinary tract infection type: site unspecified Hematuria presence: without hematuria Qualified Code(s): N39.0 - Urinary tract infection, site not specified Category: Medical Code(s): N39.0 - Urinary tract infection, site not specified (9) Pulmonary HTN Current visit: Yes Status: Acute Category: Medical Code(s): I27.20 - Pulmonary hypertension, unspecified (10) E. coli UTI (urinary tract infection) Current visit: Yes Status: Acute Category: Medical Code(s): N39.0 - Urinary tract infection, site not specified; B96.20 - Unspecified Escherichia coli [E. coli] as the cause of diseases classified elsewhere
--- NOTE | 2018-11-07 07:45 | Progress Note ---
Internal Medicine - PN: Subj *Date: 11/07/18 *Time: 07:44 Exam Vital signs and Labs for Last 24 Hours: Temp Pulse Resp BP Pulse Ox 98.6 F 74 20 127/68 94 L 11/07/18 03:54 11/07/18 06:11 11/07/18 03:54 11/07/18 03:54 11/07/18 03:54 Laboratory Results - last 24 hr 11/06/18 11:50: POC Glucose 157 H 11/06/18 16:48: POC Glucose 259 H 11/06/18 20:53: POC Glucose 164 H 11/07/18 06:08: POC Glucose 158 H I & O for Last 24 hours: Intake & Output 11/04/18 11/05/18 11/06/18 11/07/18 23:59 23:59 23:59 23:59 Intake Total 1320 / 1320 922 / 922 1913 / 1913 Output Total 1375 / 1375 1625 / 1625 350 / 350 Balance -55 / -55 -703 / -703 1563 / 1563 Weight 92.703 kg 93.61 kg 94.517 kg 94.914 kg Assessment and Plan (1) LLL pneumonia Current visit: Yes Status: Acute Qualifiers: Pneumonia type: due to unspecified organism Qualified Code(s): J18.1 - Lobar pneumonia, unspecified organism Category: Medical Code(s): J18.1 - Lobar pneumonia, unspecified organism (2) Severe sepsis Current visit: Yes Status: Acute Category: Medical Code(s): A41.9 - Sep sis, unspecified organism; R65.20 - Severe sepsis without septic shock (3) Septic shock Current visit: Yes Status: Acute Category: Medical Code(s): A41.9 - Sepsis, unspecified organism; R65.21 - Severe sepsis with septic shock (4) Obesity (BMI 30-39.9) Current visit: Yes Status: Acute Category: Medical Code(s): E66.9 - Obesity, unspecified (5) Hypothyroidism (acquired) Current visit: Yes Status: Acute Category: Medical Code(s): E03.9 - Hypothyroidism, unspecified (6) Diabetes 1.5, managed as type 2 Current visit: Yes Status: Acute Category: Medical Code(s): E13.9 - Other specified diabetes mellitus without complications (7) Renal insufficiency Current visit: Yes Status: Acute Category: Medical Code(s): N28.9 - Disorder of kidney and ureter, unspecified (8) UTI (urinary tract infection) Current visit: Yes Status: Acute Qualifiers: Urinary tract infection type: site unspecified Hematuria presence: without hematuria Qualified Code(s): N39.0 - Urinary tract infection, site not specified Category: Medical Code(s): N39.0 - Urinary tract infection, site not specified (9) Pulmonary HTN Current visit: Yes Status: Acute Category: Medical Code(s): I27.20 - Pulmonary hypertension, unspecified (10) E. coli UTI (urinary tract infection) Current visit: Yes Status: Acute Category: Medical Code(s): N39.0 - Urinary tract infection, site not specified; B96.20 - Unspecified Escherichia coli [E. coli] as the cause of diseases classified elsewhere The patient's infection will respond to the chosen ABx?: Yes Is the patient receiving the right drug, dose, and route?: Yes Could a more targeted ABx be ordered?: No
--- NOTE | 2018-11-07 12:51 | Discharge Summary ---
General - General Admission date:: 11/02/18 Discharge date: 11/07/18 HPI HPI: [facility] for weakness and change in mental status - she had fallen twice at [facility]- fall earlier today with a decline to come to the ER per EMS. Called by EMS back to [facility] for pt being weak. Upon assessment pt had a fe weakness, sat down twice to floor at [facility], weak on her feet.pt was found to have pneumonia and was admitted - Hospital Course Hospital Course: pt admitted with sepsis with shock requiring fluid resuscitation and pike - pt has cap and dev uti - e coli -esbl - she has responded to iv invanz and labs have improved - pt was seen by pt and ot and zachery diet and off o2 - [facility] today to finish im invanz daily x 6 days and repeat labs in about 2 weeks and xray Objective Vital signs: Temp Pulse Resp BP Pulse Ox 98.4 F 63 20 119/55 L 90 L 11/07/18 07:51 11/07/18 09:36 11/07/18 07:51 11/07/18 07:51 11/07/18 07:51 no acute distress, obese - *Routine HEENT Exam Head: Present: normocephalic Eye: Present: EOMI, PERRL ENT: Present: mucous membranes dry - *Routine Neck Exam Absent: JVD - *Routine Respiratory Exam Present: decreased breath sounds - *Routine Cardiovascular Exam Present: RRR, murmur, S4 - *Routine Abdominal Exam Present: soft - *Routine Extremities Exam Absent: calf tenderness - *Routine Skin Exam Present: intact - *Routine Neurological Exam Present: alert, CN II-XII intact - Routine Psychiatric Exam Present: normal affect Results Labs on day of discharge: Labs from last 24 hours 11/07/18 11/07/18 11/06/18 10:58 06:08 20:53 POC Glucose 96 158 H 164 H 11/06/18 16:48 POC Glucose 259 H Preliminary micro results at discharge 11/02/18 15:10 Blood Culture - Preliminary Blood NO GROWTH AFTER 48 HOURS 11/02/18 15:10 Blood Culture - Preliminary Blood NO GROWTH AFTER 48 HOURS DS: Diagnosis - Discharge Diagnosis (1) LLL pneumonia Status: Acute (2) Severe sepsis Status: Acute (3) Septic shock Status: Acute (4) Obesity (BMI 30-39.9) Status: Acute (5) Hypothyroidism (acquired) Status: Acute (6) Diabetes 1.5, managed as type 2 Status: Acute (7) Renal insufficiency Status: Acute (8) UTI (urinary tract infection) Status: Acute (9) Pulmonary HTN Status: Acute (10) E. coli UTI (urinary tract infection) Status: Acute (11) Anemia Status: Acute (12) UTI due to extended-spectrum beta lactamase (ESBL) producing Escherichia coli Status: Acute Discharge Plan - Patient Discharge Instructions ACTIVITY: Continue current activity DIET: continue same diet Patient Instructions: DI for Pneumonia -- Adult, DI for Urinary Tract Infection (UTI), DI for Sepsis -- Adult, DI for Multiple Drug-resistant Organism (MDRO) Infection, Extended Spectrum Beta-Lactamase Infection - Follow up Plan Follow up with: Margarito Avery MD [Primary Care Provider] - Disposition: Home, Self-[facility] Medications: Home Medications Medication Instructions Recorded Confirmed Type Atorvastatin Calcium [Atorvastatin 20 mg PO DAILY 11/02/18 11/02/18 History 20mg Tab] Furosemide [Furosemide 40MG tAB] 40 mg PO BID 11/02/18 11/03/18 History Levothyroxine Sodium 100 mcg PO DAILY 11/02/18 11/02/18 History [Levothyroxine 100mcg (0.1MG) Tab] Metformin HCl [Glucophage Xr] 500 mg PO BID 11/02/18 11/03/18 History [place]-3 Fatty Acids/Fish Oil [Fish 1,000 mg PO BID 11/02/18 11/03/18 History Oil 1,000 mg Capsule] Pantoprazole Sodium [Protonix 40mg 40 mg PO DAILY 11/02/18 11/02/18 History tablet] Potassium Chloride 15 ml PO BID 11/02/18 11/03/18 History Quetiapine Fumarate 25 mg PO Q4HP PRN 11/02/18 11/03/18 History Quetiapine Fumarate 100 mg PO HS 11/02/18 11/03/18 History Sertraline HCl [Zoloft 50mg tablet] 50 mg PO DAILY 11/02/18 11/02/18 History Valproic Acid (As Sodium Salt) 10 ml PO TID 11/02/18 11/03/18 History [Valproic Acid] cloZAPine [Clozapine] 150 mg PO HS 11/02/18 11/03/18 History Quetiapine Fumarate 50 mg PO DAILY 11/03/18 11/03/18 History Prescriptions/Medication Reconciliation: New Quetiapine Fumarate [Seroquel] 50 mg PO DAILY tablet Continued Quetiapine Fumarate 25 mg PO Q4HP PRN PRN Reason: Agitation Quetiapine Fumarate 100 mg PO HS Pantoprazole Sodium [Protonix 40mg tablet] 40 mg PO DAILY [place]-3 Fatty Acids/Fish Oil [Fish Oil 1,000 mg Capsule] 1,000 mg PO BID Levothyroxine Sodium [Levothyroxine 100mcg (0.1MG) Tab] 100 mcg PO DAILY cloZAPine [Clozapine] 150 mg PO HS Atorvastatin Calcium [Atorvastatin 20mg Tab] 20 mg PO DAILY Quetiapine Fumarate 50 mg PO DAILY Valproic Acid (As Sodium Salt) [Valproic Acid] 10 ml PO TID Sertraline HCl [Zoloft 50mg tablet] 50 mg PO DAILY Metformin HCl [Glucophage Xr] 500 mg PO BID Discontinued Potassium Chloride 15 ml PO BID Furosemide [Furosemide 40MG tAB] 40 mg PO BID - Problem Reconciliation Problems Reviewed?: Yes
== END 2018-11-07 15:54 | disposition home or self-care (01) | DRG 871 ==
LOC: ER 14:32 → 2ND 14:32 → OBSVTOIN 18:09 → 2ND 18:10
PROVIDERS: ADMIT Emergency Medicine; ATTEND Emergency Medicine
CPT/HCPCS: 36415; 71010; 71020; 71045; 71046; 72170; 80048; 80053; 81001; 82803; 82962; 83605; 85007; 85025; 87040; 87086; 87088; 87186; 93005; 93306; 94640; 94761; 96365; 96366; 96367; 96375; 97110; 97116; 97162; 97166; 97535; 99285; J0456; J1335; J1956; J2543

== ENCOUNTER 2018-11-08 13:18 | Outpatient (CLI) | payer MEDICARE, OTHER, SELFPAY ==
[2018-11-08 14:02] VITALS: BP 138/94; PULSE 98; RESP 18; TEMP 36.6; O2SAT 96
== END 2018-11-08 14:19 | disposition home or self-care (01) ==
LOC: INF 13:18
PROVIDERS: Visit Provider Emergency Medicine
DX: J18.1 Lobar pneumonia, unspecified organism (principal); A41.9 Sepsis, unspecified organism; N39.0 Urinary tract infection, site not specified
CPT/HCPCS: 96372; J1335

== ENCOUNTER 2018-11-09 09:55 | Outpatient (CLI) | payer MEDICARE, OTHER, SELFPAY ==
[2018-11-09 10:04] VITALS: BP 115/63; PULSE 87; RESP 18; TEMP 36.6; O2SAT 96
== END 2018-11-09 10:20 | disposition home or self-care (01) ==
LOC: INF 09:55
PROVIDERS: Visit Provider Emergency Medicine
DX: J18.1 Lobar pneumonia, unspecified organism (principal); A41.9 Sepsis, unspecified organism; N39.0 Urinary tract infection, site not specified
CPT/HCPCS: 96372; J1335

== ENCOUNTER 2018-11-10 09:36 | Outpatient (CLI) | payer MEDICARE, OTHER, SELFPAY ==
[2018-11-10 10:05] VITALS: BP 132/61; PULSE 81; RESP 18
== END 2018-11-10 10:05 | disposition home or self-care (01) ==
LOC: INF 09:36
PROVIDERS: Visit Provider Emergency Medicine
DX: J18.1 Lobar pneumonia, unspecified organism (principal); A41.9 Sepsis, unspecified organism; N39.0 Urinary tract infection, site not specified
CPT/HCPCS: 96372; J1335

== ENCOUNTER 2018-11-11 10:45 | Outpatient (CLI) | payer MEDICARE, OTHER, SELFPAY ==
--- NOTE | 2018-11-11 11:13 | PC.NURSE ---
11/11/18 1105 Invanz 500mg IM R hip and 500mg L hip, total of Invanz 1 Gram IM given. Pt zachery well.
== END 2018-11-11 11:26 | disposition home or self-care (01) ==
LOC: INF 10:45
PROVIDERS: Visit Provider Emergency Medicine
DX: J18.1 Lobar pneumonia, unspecified organism (principal); A41.9 Sepsis, unspecified organism; N39.0 Urinary tract infection, site not specified
CPT/HCPCS: 96372; J1335

== ENCOUNTER 2018-11-12 07:54 | Outpatient (CLI) | payer MEDICARE, OTHER, SELFPAY ==
[2018-11-12 08:20] VITALS: BP 125/76; PULSE 82; RESP 12; TEMP 37.1; O2SAT 96
[2018-11-12 08:37] VITALS: BP 130/76; PULSE 82; RESP 20; TEMP 37.1; O2SAT 96
== END 2018-11-12 08:37 | disposition home or self-care (01) ==
LOC: INF 07:55
PROVIDERS: PCP Emergency Medicine; Visit Provider Emergency Medicine
DX: J18.1 Lobar pneumonia, unspecified organism (principal); A41.9 Sepsis, unspecified organism; N39.0 Urinary tract infection, site not specified
CPT/HCPCS: 96372; J1335

== ENCOUNTER → 2018-11-13 07:53 | Outpatient (CLI) | payer MEDICARE, OTHER, SELFPAY ==
[2018-11-13 08:10] VITALS: BP 146/76; PULSE 98; RESP 18; TEMP 36.9; O2SAT 96
== END ==
PROVIDERS: PCP Emergency Medicine; Visit Provider Emergency Medicine
DX: J18.1 Lobar pneumonia, unspecified organism (principal); A41.9 Sepsis, unspecified organism; N39.0 Urinary tract infection, site not specified
CPT/HCPCS: 96372; J1335

== ENCOUNTER → 2018-11-21 13:39 | Outpatient (CLI) | payer MEDICARE, OTHER, SELFPAY ==
--- NOTE | 2018-11-21 13:51 | XR_ITS ---
PROCEDURE: XR CHEST 2V CLINICAL HISTORY: S/P PNEUMONIA Follow-up pneumonia COMPARISON: CXR1 CHEST-PORTABLE from 06/14/2012 XR CHEST PORTABLE from 11/02/2018 XR CHEST PORTABLE from 11/03/2018 XR CHEST 2V from 11/06/2018 FINDINGS: The cardiomediastinal silhouette and pulmonary vascularity are within normal limits. Persistent consolidation in the left lower lobe with atelectatic change and small effusion. Consolidation appears slightly worse. The effusion may also be slightly larger. There is an old fracture of the left humerus proximally. No acute bony abnormalities. IMPRESSION: Slight worsening left lower lobe pneumonia with effusion Dictated by: Isiah Altamirano MD 11/21/2018 14:09 Electronically signed by Isiah Altamirano MD in [place] 11/21/2018 14:09
[2018-11-21 13:59] LABS: Basophils % 0.1 % (0.1-2.0); Eosinophils % 0.5 % (0.1-12.0); Hematocrit 32.1 % (37.0-47.0); Hemoglobin 9.9 g/dL (12.2-16.2); Lymphocytes # 2.3 K/mm3 (0.7-4.5); Lymphocytes % 43.5 % (10-50); Mean Corpuscular HGB Conc 30.7 g/dL (31.8-35.4); Mean Corpuscular Hemoglobin 31.3 pg (27.0-31.2); Mean Corpuscular Volume 101.8 fl (81-99); Mean Platelet Volume 7.5 fl (7.4-10.4); Monocytes # 0.3 K/mm3 (0.1-1.0); Neutrophils # 2.7 K/mm3 (1.8-7.8); Platelet Count 239 K/mm3 (142-424); Red Blood Count 3.16 M/mm3 (4.20-5.40); Red Cell Distribution Width 16.5 % (11.5-17.5); White Blood Count 5.3 K/mm3 (4.8-10.8)
[2018-11-21 15:14] LABS: Alanine Aminotransferase 12 U/L (12-78); Albumin Level 3.1 gm/dL (3.4-5.0); Alkaline Phosphatase 81 U/L (46-116); Anion Gap 16.4 mEq/L (5-15); Aspartate Amino Transferase 8 U/L (15-37); Bilirubin,Total 0.3 mg/dL (0.2-1.0); Blood Urea Nitrogen 5 mg/dL (7-18); Calcium 8.3 mg/dL (8.5-10.1); Carbon Dioxide 25 mmol/L (21.0-32.0); Chloride 108 mmol/L (98-107); Creatinine,Serum 0.97 mg/dL (0.55-1.02); Estimated Glomerular Filt Rate 57 ml/min (>60); GFR (African American) 70 ML/MIN (>60); Globulin 3.1 gm/dl (1.3-3.2); Glucose 112 mg/dL (74-106); Potassium 3.4 mmoL/L (3.5-5.1); Sodium 146 mmol/L (136-145); Total Protein,Serum 6.2 gm/dL (6.4-8.2)
[2018-11-26 13:48] LABS: Folate 7.5 ng/mL (>3.0); Vitamin B12 399 pg/mL (232-1245)
== END ==
PROVIDERS: Physician Assistant; Visit Provider Emergency Medicine
DX: D53.9 Nutritional anemia, unspecified (principal); J18.1 Lobar pneumonia, unspecified organism; A41.9 Sepsis, unspecified organism; N39.0 Urinary tract infection, site not specified
CPT/HCPCS: 36415; 71046; 80053; 82607; 82746; 85025

== ENCOUNTER 2018-11-30 22:36 | Inpatient (IN) ==
[2018-11-30 23:40] LABS: Basophils % 0.1 % (0.1-2.0); Eosinophils % 0.7 % (0.1-12.0); Hematocrit 34.1 % (37.0-47.0); Lymphocytes % 17.5 % (10-50); Mean Corpuscular HGB Conc 29.2 g/dL (31.8-35.4); Mean Corpuscular Volume 103.5 fl (81-99); Mean Platelet Volume 8.6 fl (7.4-10.4); Monocytes # 0.4 K/mm3 (0.1-1.0); Monocytes % 6.7 % (1.7-9.3); Neutrophils # 4.3 K/mm3 (1.8-7.8); Platelet Count 209 K/mm3 (142-424); Red Cell Distribution Width 17.7 % (11.5-17.5); White Blood Count 5.8 K/mm3 (4.8-10.8)
[2018-11-30 23:54] LABS: Alanine Aminotransferase 13 U/L (12-78); Albumin Level 2.8 gm/dL (3.4-5.0); Albumin/Globulin Ratio 0.8 (1.1-1.8); Alkaline Phosphatase 74 U/L (46-116); Anion Gap 14.5 mEq/L (5-15); Aspartate Amino Transferase 19 U/L (15-37); Bilirubin,Total 0.3 mg/dL (0.2-1.0); Blood Urea Nitrogen 14 mg/dL (7-18); Carbon Dioxide 29 mmol/L (21.0-32.0); Chloride 110 mmol/L (98-107); Globulin 3.4 gm/dl (1.3-3.2); Glucose 119 mg/dL (74-106); Sodium 149 mmol/L (136-145); Total Protein,Serum 6.2 gm/dL (6.4-8.2)
[2018-12-01 00:07] LABS: Microscopic, Urine URINE MICROSCOPIC (MICROSCOPIC)
[2018-12-01 00:19] LABS: Erythrocyte Sedimentation Rate 55 mm/hr (0-30)
[2018-12-01 00:27] LABS: Appearance,Urine CLEAR (Clear); Bilirubin,Urine Negative (Negative); Blood, Urine TRACE-I (Negative); Color,Urine YELLOW (Yellow); Glucose,Urine (UA) Negative (Negative); Ketones,Urine Negative (Negative); Leukocyte Esterase,Urine Negative (Negative); PH,Urine 6.5 (5.0-8.5); Protein,Urine Negative (Negative); Specific Gravity, Urine 1.015 (1.005-1.030)
--- NOTE | 2018-12-01 00:27 | Emergency Department Note ---
ED Disposition Clinical Impression: Pulmonary embolism on right, Hypocalcemia, Pulmonary HTN Hypothyroidism Qualifiers: Hypothyroidism type: acquired Qualified Code(s): E03.9 - Hypothyroidism, unspecified Anemia Qualifiers: Anemia type: unspecified type Qualified Code(s): D64.9 - Anemia, unspecified Disposition: Admitted As Inpatient Condition on Discharge: Good - Critical Care Critical Care Time: No Attestation: On 11/30/18, the high probability of a clinically significant, sudden or life threatening deterioration of the following system(s) required my full and direct attention, intervention and personal management. The time I documented below is in addition to time spent performing reported procedures but includes the following listed in this critical care notation. Medical Decision Making - Medical Records Medical records reviewed: Yes: I reviewed the patient's medical records. - Young Inquiry Pt receiving controlled substance: No Vital Signs: 11/30/18 22:37 12/01/18 00:06 12/01/18 02:30 Temperature 99.2 F Temperature Source Rectal Pulse Rate [Left Radial] 106 H 108 H 108 H Respiratory Rate 16 18 18 Blood Pressure [Right Arm] 112/53 L 117/47 L 128/86 Blood Pressure Mean [Right Arm] 72 70 100 Blood Pressure Source [Right Arm] Automatic Cuff 02 Sat by Pulse Oximetry 99 100 95 Oxygen Delivery Method Nasal Cannula Nasal Cannula Room Air Oxygen Flow Rate (LPM) 2 - Lab Data Lab results reviewed: Yes: I reviewed the patient's lab results. Lab Results 11/30/18 23:30: WBC 5.8, RBC 3.30 L, Hgb 10.0 L, Hct 34.1 L, MCV 103.5 H, MCH 30.2, MCHC 29.2 L, RDW 17.7 H, Plt Count 209, MPV 8.6, Neut % (Auto) 75.0, Lymph % (Auto) 17.5, [place] % (Auto) 6.7, Eos % (Auto) 0.7, Baso % (Auto) 0.1, Neut # (Auto) 4.3, Lymph # (Auto) 1.0, [place] # (Auto) 0.4, Eos # (Auto) 0.0, Baso # (Au to) 0.0, ESR 55 H 11/30/18 23:30: Sodium 149 H, Potassium 4.5, Chloride 110 H, Carbon Dioxide 29, Anion Gap 14.5, BUN 14, Creatinine 0.94, Estimated Creat Clear 63, Estimated GFR 60, Est GFR ( Amer) 72, Glucose 119 H, Calcium 6.0 L, Total Bilirubin 0.3, AST 19, ALT 13, Alkaline Phosphatase 74, Troponin I < 0.02, C-Reactive Protein 5.0 H, Total Protein 6.2 L, Albumin 2.8 L, Globulin 3.4 H, Albumin/Globulin Ratio 0.8 L 11/30/18 23:45: Lactate 2.0 11/30/18 23:53: Urine Color Yellow, Urine Appearance Clear, Urine pH 6.5, Ur Specific [place] 1.015, Urine Protein Negative, Urine Glucose (UA) Negative, Urine Ketones Negative, Urine Blood Trace-i, Urine Nitrate Negative, Urine Bilirubin Negative, Urine Urobilinogen 1.0, Ur Leukocyte Esterase Negative, Urine WBC 3-5, Ur Squamous Epith Cells 3-5, Urine Bacteria Trace 12/01/18 00:00: TSH 0.91, Thyroxine (T4) 8.2, Total Valproic Acid 51.2 12/01/18 00:00: HIV 1&2 Antibody Rapid Non-reactive 12/01/18 01:34: Specimen Source Left radial, O2 % Room air, ABG pH 7.42, ABG pCO2 46.9 H, ABG pO2 51.1 L, ABG HCO3 29.5 H, ABG Total CO2 31.0 H, ABG O2 Saturation 87 L*, ABG Base Excess 5.0 H, Isiah Test Patient unable Result diagrams: 11/30/18 23:30 11/30/18 23:30 Orders (Tests/Meds): ED MEDICATIONS Generic Name Dose Route Start Last Admin Trade Name Freq PRN Reason Stop Dose Admin Enoxaparin Sodium 70 mg 12/01/18 09:00 Lovenox 60mg/0.6ml Syringe SQ 12/31/18 08:59 BID GABI Discontinued Medications Generic Name Dose Route Start Last Admin Trade Name Freq PRN Reason Stop Dose Admin Ioversol 70 ml 12/01/18 03:25 12/01/18 03:27 Rad-Optiray 350 100ml Vial IV 12/01/18 03:26 70 ml ONCE ONE Administration Protocol Sodium Chloride 10 ml 12/01/18 03:25 12/01/18 03:27 Rad-Saline Flush 10ml Syringe IV 12/01/18 03:26 10 ml ONCE ONE Administration Sodium Chloride 40 ml 12/01/18 03:25 12/01/18 03:27 Rad-Ns 50ml Vial IV 12/01/18 03:26 40 ml ONCE ONE Administration ORDERS Category Date Time Status CT angio chest Stat Cat Scan 12/01/18 02:[address] head/brain wo con Stat Cat Scan 12/01/18 00:01 Taken Chest XR -- portable [XR chest portable] Stat Exams 11/30/18 22:52 Taken HBsAg Screen Stat Lab 12/01/18 03:00 Received HIV Panel [id number] Stat Lab 12/01/18 03:00 Received Hep B Surface Ab, Qual Stat Lab 12/01/18 03:00 Received Hepatitis C Antibody Stat Lab 12/01/18 03:00 Received Blood Culture Stat Micro 11/30/18 23:30 Received - Radiology Data #1 Image(s): Chest Image Reviewed: Yes I reviewed the patient's radiology image Preliminary Findings: Abnormal (nad) - CT Data CT Scan: Head, Chest Time Received: 06:[address] Reviewed: Yes: I have viewed the radiologist's interpretation Preliminary Findings: Abnormal (rt sided pul emboli) - ECG Data Tracing #1 Normal Sinus Rhythm: Yes Ischemic changes: non-specific ST-T wave changes Weakness HPI - General Chief complaint: Weakness Stated complaint: weakness Time Seen by Provider: 11/30/18 23:00 Mode of Arrival: EMS Source of Information: Patient, EMS, Medical Record Limitations: Physical Limitations Description of Symptoms (Recalled from ER Triage Doc. by RN): pt was found by [facility] staff using the restroom. pt stated she couldnt stand up. staff was unable to transfer her off of the toilet. per [facility] pt has been weak for the last couple of days. pt usually ambulates with a walker but has been having to use a wheelchair. - History of Present Illness HPI Narrative: reported weakness over the last few days- no sob or cough MD Complaint: generalized weakness Onset (ago): day(s) Location: generalized Migration: none Severity: moderate Associated symptoms: denies other symptoms - Related Data Home Medications Medication Instructions Recorded Confirmed Atorvastatin Calcium [Atorvastatin 20 mg PO DAILY 11/02/18 12/01/18 20mg Tab] Levothyroxine Sodium 100 mcg PO DAILY 11/02/18 12/01/18 [Levothyroxine 100mcg (0.1MG) Tab] Metformin HCl [Glucophage Xr] 500 mg PO BID 11/02/18 12/01/18 [place]-3 Fatty Acids/Fish Oil [Fish 1,000 mg PO BID 11/02/18 12/01/18 Oil 1,000 mg Capsule] Pantoprazole Sodium [Protonix 40mg 40 mg PO DAILY 11/02/18 12/01/18 tablet] Quetiapine Fumarate 25 mg PO Q4HP PRN 11/02/18 12/01/18 Quetiapine Fumarate 100 mg PO HS 11/02/18 12/01/18 Sertraline HCl [Zoloft 50mg tablet] 50 mg PO DAILY 11/02/18 12/01/18 Valproic Acid (As Sodium Salt) 10 ml PO TID 11/02/18 12/01/18 [Valproic Acid] cloZAPine [Clozapine] 150 mg PO HS 11/02/18 12/01/18 Quetiapine Fumarate 50 mg PO DAILY 11/03/18 12/01/18 Allergies Allergy/AdvReac Type Severity Reaction Status Date / Time codeine Allergy Mild Unknown Verified 11/03/18 07:51 allergy reaction Penicillins Allergy Mild Unknown Verified 11/03/18 07:51 allergy reaction [facility] History - Hepatitis A Screen Drug use history?: No High risk sexual behaviors?: No History of sexually transmitted infection?: No Currently employed?: No Childcare worker?: No Do you have indoor plumbing?: Yes Do you have electricity?: Yes Attestation statement:: This patient has been screened for Hepatitis A risk factors. I have reviewed the patient's past medical history: Yes Medical History: Reports:: Diabetes Mellitus Type 2, Hyperlipidemia Denies:: Diabetes Mellitus Type 1, Internal Pacemaker Other Medical History: Reports: Hypothyroidism, Thyroid Disease (hypothyroidism) Other Surgeries: No: Pacemaker - Social History Smoking Status: Current some day smoker Tobacco Type: cigarettes # Packs/Day (cigarettes): 1 Alcohol Intake: never Occupational Status: disabled Housing: other Household Members: other Family Hx:: Unable to obtain ROS Obtained: Yes All systems reviewed & no additional complaints - Constitutional Constitutional: Reports as per HPI, Denies fever(s), Reports weakness - Eyes Eyes: Denies change in vision - ENT Ears, Nose, Mouth, and Throat: Denies sore throat - Cardiovascular Cardiovascular: Denies chest pain - Respiratory Respiratory: No cough - Gastrointestinal Gastrointestingal: Denies: abdominal pain - Genitourinary Female Genitourinary: Denies hematuria - Musculoskeletal Musculoskeletal: Denies joint pain - Integumentary/Breasts Skin/Breast: Denies rash - Neurologic Neurologic: Reports as per HPI, Denies frequent falls, Reports weakness Physical Exam - General General appearance: alert - Head Head exam: normocephalic - Eye Eye exam: Present: PERRL, EOMI - ENT ENT exam: Present: mucous membranes dry - Neck Neck exam: Present: trachea midline - Respiratory Respiratory exam: Absent: respiratory distress - Cardiovascular Cardiovascular exam: Present: regular rate, systolic murmur - Abdominal Exam Abdominal exam: Present: soft - Extremities Exam Extremities exam: Present: pedal edema. Absent: calf tenderness - Neurological Exam Neurological exam: Present: alert, CN II-XII intact. Absent: motor sensory deficit - Psychiatric Psychiatric exam: Present: normal affect - Skin Skin exam: Absent: rash
[2018-12-01 00:39] LABS: Bacteria,Urine Trace /lpf
[2018-12-01 02:06] LABS: Thyroid Stimulating Hormone 0.91 uIU/ml (0.358-3.740)
[2018-12-01 02:08] LABS: ABG HCO3 29.5 mmhg (22.0-26.0); ABG Oxygen Saturation 87 % (90-100); ABG PCO2 46.9 mmhg (35.0-45.0); ABG PH 7.42 mmol/L (7.35-7.45); ABG PO2 51.1 mmhg (80-100)
[2018-12-01 02:09] LABS: Oxygen ROOM AIR %
[2018-12-01 02:10] LABS: Allen's Test Patient Unable
--- NOTE | 2018-12-01 07:48 | Pharmacy Consult Notes ---
[facility] Pharmacy VTE Monitoring - Patient Demographics Admission date: 12/01/18 Report Date: 12/01/18 Time: 07:48 Allergies/Adverse Reactions: Patient Allergies codeine Allergy (Mild, Verified 11/03/18 07:51) Unknown allergy reaction Penicillins Allergy (Mild, Verified 11/03/18 07:51) Unknown allergy reaction Height: 1.68 m Weight: 72.575 kg Patient Problems: Current Active Problems Pulmonary HTN (Acute) Anemia (Acute) Pulmonary embolism on right (Acute) Hypothyroidism (Acute) Hypocalcemia (Acute) - VTE Risk Labs: VTE Related Lab Results Hgb 10.0 g/dL (12.2-16.2) L 11/30/18 23:30 Hct 34.1 % (37.0-47.0) L 11/30/18 23:30 Plt Count 209 K/mm3 (142-424) 11/30/18 23:30 BUN 14 mg/dL (7-18) 11/30/18 23:30 Creatinine 0.94 mg/dL (0.55-1.02) 11/30/18 23:30 Estimated Creat Clear 63 mL/min (50-200) 11/30/18 23:30 - Prophylaxis VTE Prophylaxis Ordered?: Yes Types of VTE Prophylaxis: Pharmacological Pharmacologic Type: Enoxaparin - VTE Diagnosis Confirmed Treatment or plan recommended: Continue Current Treatment
--- NOTE | 2018-12-01 09:19 | History & Physical Report ---
*Admission Date: 12/01/18 *Chief complaint: shortness of breath *History of present illness: 67 yr old female presents to the ER per ER note pt was found by [facility] staff using the restroom. pt stated she could not stand up. staff was unable to transfer her off of the toilet. per [facility] pt has been weak for the last couple of days. pt usually ambulates with a walker but has been having to use a wheelchair. Her chest CT was found she had PE on the right patient admitted placed on Vapotherm given Lovenox. [facility] History I have reviewed the patient's past medical history: Yes Medical History: Reports:: Diabetes Mellitus Type 2, Hyperlipidemia Denies:: Diabetes Mellitus Type 1, Internal Pacemaker *Have you ever received a pneumonia vaccine?: No *Have you received a flu vaccine this season?: No Other Medical History: Reports: Hypothyroidism, Thyroid Disease (hypothyroidism) Other Surgeries: No: Pacemaker - *Social History Smoking Status: Current some day smoker Tobacco Type: cigarettes # Packs/Day (cigarettes): 1 Alcohol Intake: never *Occupational Status:: disabled Housing: other Household Members: other *Travel in the last 8 weeks: None Family Hx:: Unable to obtain Review of Systems - Review of Systems Review of systems:: pertinent systems reviewed and negative unless documented below - Constitutional Reports fatigue, Reports weakness - Eyes Denies blurry vision - ENT Denies bleeding gums - *Cardiovascular Reports shortness of breath, Denies chest pain at rest, Denies excessive sweating - *Respiratory Reports shortness of breath, Reports shortness of breath with activity - *Gastrointestinal Denies nausea, Denies vomiting - *Genitourinary Denies urinary urgency - *Musculoskeletal Denies body aches - Integumentary/Breasts Denies rash - *Neurologic Reports weakness, Denies frequent falls - Psychiatric Denies anxiety - Endocrine Denies excessive sweating - Hematologic/Lymphatic Denies enlarged lymph nodes - Allergic/Immunologic Denies lip swelling Meds Home Medications Medication Instructions Recorded Confirmed Type Atorvastatin Calcium [Atorvastatin 20 mg PO DAILY 11/02/18 12/01/18 History 20mg Tab] Levothyroxine Sodium 100 mcg PO DAILY 11/02/18 12/01/18 History [Levothyroxine 100mcg (0.1MG) Tab] Metformin HCl [Glucophage Xr] 500 mg PO BID 11/02/18 12/01/18 History [place]-3 Fatty Acids/Fish Oil [Fish 1,000 mg PO BID 11/02/18 12/01/18 History Oil 1,000 mg Capsule] Pantoprazole Sodium [Protonix 40mg 40 mg PO DAILY 11/02/18 12/01/18 History tablet] Quetiapine Fumarate 25 mg PO Q4HP PRN 11/02/18 12/01/18 History Quetiapine Fumarate 100 mg PO HS 11/02/18 12/01/18 History Sertraline HCl [Zoloft 50mg tablet] 50 mg PO DAILY 11/02/18 12/01/18 History Valproic Acid (As Sodium Salt) 10 ml PO TID 11/02/18 12/01/18 History [Valproic Acid] cloZAPine [Clozapine] 150 mg PO HS 11/02/18 12/01/18 History Quetiapine Fumarate 50 mg PO DAILY 11/03/18 12/01/18 History Allergies Allergy/AdvReac Type Severity Reaction Status Date / Time codeine Allergy Mild Unknown Verified 11/03/18 07:51 allergy reaction Penicillins Allergy Mild Unknown Verified 11/03/18 07:51 allergy reaction Exam Vital signs and Labs for Last 24 Hours: Temp Pulse Resp BP Pulse Ox 98.5 F 98 H 20 120/59 L 99 12/01/18 08:00 12/01/18 08:00 12/01/18 08:00 12/01/18 08:00 12/01/18 08:00 Laboratory Results - last 24 hr 11/30/18 23:30: WBC 5.8, RBC 3.30 L, Hgb 10.0 L, Hct 34.1 L, MCV 103.5 H, MCH 30.2, MCHC 29.2 L, RDW 17.7 H, Plt Count 209, MPV 8.6, Neut % (Auto) 75.0, Lymph % (Auto) 17.5, [place] % (Auto) 6.7, Eos % (Auto) 0.7, Baso % (Auto) 0.1, Neut # (Auto) 4.3, Lymph # (Auto) 1.0, [place] # (Auto) 0.4, Eos # (Auto) 0.0, Baso # (Auto) 0.0, ESR 55 H 11/30/18 23:30: Sodium 149 H, Potassium 4.5, Chloride 110 H, Carbon Dioxide 29, Anion Gap 14.5, BUN 14, Creatinine 0.94, Estimated Creat Clear 63, Estimated GFR 60, Est GFR ( Amer) 72, Glucose 119 H, Calcium 6.0 L, Total Bilirubin 0.3, AST 19, ALT 13, Alkaline Phosphatase 74, Troponin I < 0.02, C-Reactive Protein 5.0 H, Total Protein 6.2 L, Albumin 2.8 L, Globulin 3.4 H, Albumin/Globulin Ratio 0.8 L 11/30/18 23:45: Lactate 2.0 11/30/18 23:53: Urine Color Yellow, Urine Appearance Clear, Urine pH 6.5, Ur Specific [place] 1.015, Urine Protein Negative, Urine Glucose (UA) Negative, Urine Ketones Negative, Urine Blood Trace-i, Urine Nitrate Negative, Urine Bilirubin Negative, Urine Urobilinogen 1.0, Ur Leukocyte Esterase Negative, Urine WBC 3-5, Ur Squamous Epith Cells 3-5, Urine Bacteria Trace 12/01/18 00:00: TSH 0.91, Thyroxine (T4) 8.2, Total Valproic Acid 51.2 12/01/18 00:00: HIV 1&2 Antibody Rapid Non-reactive 12/01/18 01:34: Specimen Source Left radial, O2 % Room air, ABG pH 7.42, ABG pCO2 46.9 H, ABG pO2 51.1 L, ABG HCO3 29.5 H, ABG Total CO2 31.0 H, ABG O2 Saturation 87 L*, ABG Base Excess 5.0 H, Isiah Test Patient unable I & O for Last 24 hours: Intake & Output 11/28/18 11/29/18 11/30/18 12/01/18 11:59 11:59 11:59 11:59 Intake Total 360 / 360 Balance 360 / 360 Weight 160 lb - Constitutional no acute distress - *Routine HEENT Exam Head: Present: normocephalic Eye: Present: PERRL ENT: Present: mucous membranes moist - *Routine Neck Exam Present: supple. Absent: lymphadenopathy - *Routine Respiratory Exam Present: decreased breath sounds, wheezes - *Routine Cardiovascular Exam Present: RRR - *Routine Abdominal Exam Present: soft, normoactive bowel sounds. Absent: tenderness - *Routine Extremities Exam Present: edema, full ROM, pulses intact, normal capillary refill. Absent: cyanosis, clubbing - *Routine Skin Exam Present: warm. Absent: rash - *Routine Neurological Exam Present: alert, oriented X3 - Routine Psychiatric Exam Present: normal affect Assessment and Plan (1) Hypoxemia Current visit: Yes Status: Acute Category: Medical Code(s): R09.02 - Hypoxemia (2) Pulmonary embolism on right Current visit: Yes Status: Acute Category: Medical Code(s): I26.99 - Other pulmonary embolism without acute cor pulmonale (3) Diabetes 1.5, managed as type 2 Current visit: No Status: Acute Category: Medical Code(s): E13.9 - Other specified diabetes mellitus without complications (4) Obesity (BMI 30-39.9) Current visit: No Status: Acute Category: Medical Code(s): E66.9 - Obesity, unspecified (5) Bipolar 1 disorder Current visit: Yes Status: Acute Category: Medical Code(s): F31.9 - Bipolar disorder, unspecified (6) Schizo affective schizophrenia Current visit: Yes Status: Acute Category: Medical Code(s): F25.0 - Schizoaffective disorder, bipolar type (7) COPD (chronic obstructive pulmonary disease) Current visit: Yes Status: Acute Qualifiers: COPD type: COPD with acute exacerbation Qualified Code(s): J44.1 - Chronic obstructive pulmonary disease with (acute) exacerbation Category: Medical Code(s): J44.9 - Chronic obstructive pulmonary disease, unspecified - Assessment and plan all Dx Assessment and Plan for all problems:: Rounded with Dr. Avery all orders per Gena
--- NOTE | 2018-12-01 12:17 | Cardiology Report ---
APPROVED REPORT Bilateral Lower Extremity Venous Study for DVT. Upholstery Cleaner: VANESSA Indications Pulmonary Embolism pe Vein Imaging CFV (R): compressive, spontaneous, phasic, augmentation SFJ (R): compressive, spontaneous, phasic, augmentation FEM (R): compressive, spontaneous, phasic, augmentation POP (R): compressive, spontaneous, phasic, augmentation PTV (R): Compressible GSV (R): Compressible Peroneals (R):Not Visualized GAS (R): Compressible CFV (L): compressive, spontaneous, phasic, augmentation SFJ (L): compressive, spontaneous, phasic, augmentation FEM (L): compressive, spontaneous, phasic, augmentation POP (L): compressive, spontaneous, phasic, augmentation PTV (L): Compressible GSV (L): Compressible Peroneals (L):Not Visualized GAS (L): Compressible Findings No evidence of DVT or superficial thrombophlebitis in the veins scanned of the right lower extremity. No evidence of DVT or superficial thrombophlebitis in the veins scanned of the left lower extremity. Technically difficult exam limited by patient cooperation. Conclusion No evidence of DVT or superficial thrombophlebitis in the veins scanned of the right lower extremity. No evidence of DVT or superficial thrombophlebitis in the veins scanned of the left lower extremity. Technically difficult exam limited by patient cooperation. Electronically signed by : Keshav Colon, 12/01/2018 12:17:11
[2018-12-01 14:29] LABS: ABG HCO3 30.2 mmhg (22.0-26.0); ABG Oxygen Saturation 91 % (90-100); ABG PH 7.37 mmol/L (7.35-7.45); ABG PO2 63.6 mmhg (80-100); ABG TCO2 31.8 mmhg (23-27)
[2018-12-01 14:30] LABS: Allen's Test acceptable; Oxygen 28 %
[2018-12-01 14:32] LABS: ABG PCO2 53.1 mmhg (35.0-45.0)
--- NOTE | 2018-12-01 15:32 | Cardiology Report ---
APPROVED REPORT EXAM: Comprehensive 2D, Doppler, and color-flow Echocardiogram Canoe Inspector: Sonia Medel CRT Ht: 5 ft 6 in Wt: 160lbs BSA: 1.82 BP: 128/86 mmHg Indications: PE, Murmur, smoking, hyperlipidemia, dm, schizophrenia, bipolar 2D Dimensions LVOT 1.80 cm (M/F) 1.5-2.5 M-Mode Dimensions RVDd 2.60 cm (0.9-2.6)LA Diam 4.60 cm (1.9-4.0) LVDd 5.40 cm (3.5-5.7)Ao Diam 3.00 cm (2.0-3.7) LVDs 3.60 cm (3.5-5.7)AV Cusp 2.00 cm (1.5-2.6) IVSd 1.10 cm (0.6-1.1)PWd 0.80 cm (0.6-1.1) EF (Teich) 61.40% FS 33.30% EDV (Teich) 141.00 mLESV (Teich) 54.40 mL LV Diastology E/A Ratio 1.00MED E' 5.85 (< 7 cm/sec) E'/MED E' Ratio18.50 (>14)LAT E' 10.00 (<10 cm/sec) E/LAT E' Ratio 10.80 (>14) Aortic Valve AoV Peak Eleazar. 154.00 (50-130 cm/s)AI PHT 330.00 ms AO Peak GR. 9.00 mmHg Mitral Valve MV E Max Eleazar. 108.00 (40-130 cm/s)MV A Velocity 105.00 (40-130 cm/s) E/A Ratio 1.00 Pulmonary Valve MS End VMAX 158.00 cm/s PA Accel Time 106.00 (>120 msec) Tricuspid Valve TR P. [id number] cm/sRAP Estimate 10.00 mmHg RVSP 57.00 mmHg Left Ventricle Left atrium is mildly enlarged, left ventricle is normal size, mild concentric left ventricular hypertrophy, visually estimated ejection fraction 55% with no regional wall motion abnormality. Grade 1 diastolic dysfunction seen with tissue Doppler evidence of raise left atrial pressure. Right Ventricle Right atrium and right ventricle are moderately enlarged with normal contractility. Aortic Valve Aortic valve is thickened and calcified, leaflet continue to display good mobility, there is no aortic stenosis. There is mild aortic insufficiency. Mitral Valve Mitral valve is grossly normal, there is mild mitral regurgitation. Tricuspid Valve Tricuspid valve is grossly normal, there is moderate tricuspid regurgitation, calculated right ventricular systolic pressure is 50 mmHg consistent with moderately elevated right ventricular systolic pressure. MmHg Pulmonic Valve Pulmonic valve is poorly visualized. Great Vessels Aortic root is normal size. Pericardium No significant pericardial effusion noted. Conclusion 1. Biatrial enlargement, normal left ventricular size, mild concentric left ventricular hypertrophy, visually estimated ejection fraction 55% with no regional wall motion abnormality. Grade 1 diastolic dysfunction seen with tissue Doppler evidence of raise left atrial pressure. 2. Moderately enlarged right ventricle with normal contractility. 3. Thickened and calcified aortic valve without aortic stenosis, there is mild aortic insufficiency. 4. Mild mitral and moderate tricuspid regurgitation, calculated right ventricular systolic pressure is 50 mmHg consistent with moderately elevated right ventricular systolic pressure. 5. No significant pericardial effusion noted. Electronically signed by : Matheus Lovell, 12/01/2018 15:32:22
[2018-12-02 06:13] LABS: Basophils % 0.3 % (0.1-2.0); Eosinophils % 0.1 % (0.1-12.0); Hematocrit 31.1 % (37.0-47.0); Hemoglobin 9.1 g/dL (12.2-16.2); Lymphocytes # 1.4 K/mm3 (0.7-4.5); Lymphocytes % 30.6 % (10-50); Mean Corpuscular HGB Conc 29.4 g/dL (31.8-35.4); Mean Corpuscular Volume 103.2 fl (81-99); Mean Platelet Volume 8.7 fl (7.4-10.4); Monocytes # 0.3 K/mm3 (0.1-1.0); Monocytes % 6.3 % (1.7-9.3); Neutrophils # 2.9 K/mm3 (1.8-7.8); Neutrophils % 62.7 % (37.0-80.0); Platelet Count 207 K/mm3 (142-424); Red Blood Count 3.02 M/mm3 (4.20-5.40); Red Cell Distribution Width 16.6 % (11.5-17.5); White Blood Count 4.6 K/mm3 (4.8-10.8)
[2018-12-02 06:29] LABS: Anion Gap 9.5 mEq/L (5-15)
[2018-12-02 06:54] LABS: Calcium 8.2 mg/dL (8.5-10.1)
--- NOTE | 2018-12-02 08:48 | Pharmacy Consult Notes ---
- Pharmacy Consult Date: 12/02/18 Time: 08:47 Referring provider: DR. DUNHAM Reason for Consult:: VANCOMYCIN DOSING Allergies and ADEs:: Allergies Allergy/AdvReac Type Severity Reaction Status Date / Time codeine Allergy Mild Unknown Verified 11/03/18 07:51 allergy reaction Penicillins Allergy Mild Unknown Verified 11/03/18 07:51 allergy reaction Home Medications:: Home Medications Medication Instructions Recorded Confirmed Type Atorvastatin Calcium [Atorvastatin 20 mg PO DAILY 11/02/18 12/01/18 History 20mg Tab] Levothyroxine Sodium 100 mcg PO DAILY 11/02/18 12/01/18 History [Levothyroxine 100mcg (0.1MG) Tab] Metformin HCl [Glucophage Xr] 500 mg PO BID 11/02/18 12/01/18 History [place]-3 Fatty Acids/Fish Oil [Fish 1,000 mg PO BID 11/02/18 12/01/18 History Oil 1,000 mg Capsule] Pantoprazole Sodium [Protonix 40mg 40 mg PO DAILY 11/02/18 12/01/18 History tablet] Quetiapine Fumarate 25 mg PO Q4HP PRN 11/02/18 12/01/18 History Quetiapine Fumarate 100 mg PO HS 11/02/18 12/01/18 History Sertraline HCl [Zoloft 50mg tablet] 50 mg PO DAILY 11/02/18 12/01/18 History Valproic Acid (As Sodium Salt) 10 ml PO TID 11/02/18 12/01/18 History [Valproic Acid] cloZAPine [Clozapine] 150 mg PO HS 11/02/18 12/01/18 History Quetiapine Fumarate 50 mg PO DAILY 11/03/18 12/01/18 History Albuterol Sulfate [Albuterol HFA 1 - 2 puffs IH Q6HP PRN 12/01/18 12/01/18 History Inhaler] Height: 1.68 m Weight: 93.894 kg Laboratory Results:: Laboratory Results - last 24 hr 12/01/18 09:45: Troponin I < 0.02 12/01/18 11:32: POC Glucose 101 12/01/18 12:20: Troponin I < 0.02 12/01/18 13:26: POC Glucose 93 12/01/18 14:13: Specimen Source Left radial, O2 % 28, ABG pH 7.37, ABG pCO2 53.1 H, ABG pO2 63.6 L, ABG HCO3 30.2 H, ABG Total CO2 31.8 H, ABG O2 Saturation 91, ABG Base Excess 5.0 H, Isiah Test acceptable 12/01/18 16:58: POC Glucose 95 12/01/18 20:56: POC Glucose 87 12/02/18 05:24: WBC 4.6 L, RBC 3.02 L, Hgb 9.1 L, Hct 31.1 L, MCV 103.2 H, MCH 30.3, MCHC 29.4 L, RDW 16.6, Plt Count 207, MPV 8.7, Neut % (Auto) 62.7, Lymph % (Auto) 30.6, [place] % (Auto) 6.3, Eos % (Auto) 0.1, Baso % (Auto) 0.3, Neut # (Auto) 2.9, Lymph # (Auto) 1.4, [place] # (Auto) 0.3, Eos # (Auto) 0.0, Baso # (Auto) 0.0 12/02/18 05:24: Sodium 145, Potassium 3.5 D, Chloride 109 H, Carbon Dioxide 30, Anion Gap 9.5, BUN 9 D, Creatinine 0.68 D, Estimated Creat Clear 82, Estimated GFR 87, Est GFR ( Amer) 105 D, Glucose 88, Calcium 8.2 L D Medical History: Reports:: Diabetes Mellitus Type 2, Hyperlipidemia Denies:: Diabetes Mellitus Type 1, Internal Pacemaker Assessment and Plan (1) Hypoxemia Current visit: Yes Status: Acute Category: Medical Code(s): R09.02 - Hypoxemia (2) Pulmonary embolism on right Current visit: Yes Status: Acute Category: Medical Code(s): I26.99 - Other pulmonary embolism without acute cor pulmonale (3) Diabetes 1.5, managed as type 2 Current visit: No Status: Acute Category: Medical Code(s): E13.9 - Other specified diabetes mellitus without complications (4) Obesity (BMI 30-39.9) Current visit: No Status: Acute Category: Medical Code(s): E66.9 - Obesity, unspecified (5) Bipolar 1 disorder Current visit: Yes Status: Acute Category: Medical Code(s): F31.9 - Bipolar disorder, unspecified (6) Schizo affective schizophrenia Current visit: Yes Status: Acute Category: Medical Code(s): F25.0 - Schizoaffective disorder, bipolar type (7) COPD (chronic obstructive pulmonary disease) Current visit: Yes Status: Acute Qualifiers: COPD type: COPD with acute exacerbation Qualified Code(s): J44.1 - Chronic obstructive pulmonary disease with (acute) exacerbation Category: Medical Code(s): J44.9 - Chronic obstructive pulmonary disease, unspecified - Assessment and plan all Dx Assessment and Plan for all problems:: BASED ON PATIENT FACTORS, RECOMMEND VANCOMYCIN 2 GM IV Q18H. VANCOMYCIN TROUGH LEVEL TOMORROW MORNING PRIOR TO 3RD DOSE. PHARMACY WILL FOLLOW DAILY AND ADJUST APPROPRIATE.
--- NOTE | 2018-12-02 08:56 | Progress Note ---
Internal Medicine - PN: Subj *Date: 12/02/18 *Time: 08:53 Interval history: Patient alert and oriented sitting up in bed eating breakfast today very talkative voiced no complaints. Exam Vital signs and Labs for Last 24 Hours: Temp Pulse Resp BP Pulse Ox 99.1 F 84 22 139/68 97 12/02/18 08:40 12/02/18 08:40 12/02/18 08:40 12/02/18 08:40 12/02/18 08:40 Laboratory Results - last 24 hr 12/01/18 09:45: Troponin I < 0.02 12/01/18 11:32: POC Glucose 101 12/01/18 12:20: Troponin I < 0.02 12/01/18 13:26: POC Glucose 93 12/01/18 14:13: Specimen Source Left radial, O2 % 28, ABG pH 7.37, ABG pCO2 53.1 H, ABG pO2 63.6 L, ABG HCO3 30.2 H, ABG Total CO2 31.8 H, ABG O2 Saturation 91, ABG Base Excess 5.0 H, Isiah Test acceptable 12/01/18 16:58: POC Glucose 95 12/01/18 20:56: POC Glucose 87 12/02/18 05:24: WBC 4.6 L, RBC 3.02 L, Hgb 9.1 L, Hct 31.1 L, MCV 103.2 H, MCH 30.3, MCHC 29.4 L, RDW 16.6, Plt Count 207, MPV 8.7, Neut % (Auto) 62.7, Lymph % (Auto) 30.6, [place] % (Auto) 6.3, Eos % (Auto) 0.1, Baso % (Auto) 0.3, Neut # (Auto) 2.9, Lymph # (Auto) 1.4, [place] # (Auto) 0.3, Eos # (Auto) 0.0, Baso # (Auto) 0.0 12/02/18 05:24: Sodium 145, Potassium 3.5 D, Chloride 109 H, Carbon Dioxide 30, Anion Gap 9.5, BUN 9 D, Creatinine 0.68 D, Estimated Creat Clear 82, Estimated GFR 87, Est GFR ( Amer) 105 D, Glucose 88, Calcium 8.2 L D I & O for Last 24 hours: Intake & Output 11/29/18 11/30/18 12/01/18 12/02/18 11:59 11:59 11:59 11:59 Intake Total 360 / 360 1589 / 1589 Output Total 1350 / 1350 Balance 360 / 360 239 / 239 Weight 205 lb 207 lb Microbiology Reports for the Last 24 Hours: Microbiology 11/30/18 23:30 Blood Blood Culture - Preliminary - Constitutional no acute distress - *Routine HEENT Exam Head: Present: normocephalic Eye: Present: PERRL ENT: Present: mucous membranes moist - *Routine Neck Exam Present: supple. Absent: lymphadenopathy - *Routine Respiratory Exam Present: decreased breath sounds, wheezes - *Routine Cardiovascular Exam Present: RRR - *Routine Abdominal Exam Present: soft, normoactive bowel sounds. Absent: tenderness - *Routine Extremities Exam Present: edema - *Routine Skin Exam Present: warm. Absent: rash - *Routine Neurological Exam Present: alert, oriented X3 - Routine Psychiatric Exam Present: normal affect Assessment and Plan (1) Hypoxemia Current visit: Yes Status: Acute Category: Medical Code(s): R09.02 - Hypoxemia (2) Pulmonary embolism on right Current visit: Yes Status: Acute Category: Medical Code(s): I26.99 - Other pulmonary embolism without acute cor pulmonale (3) Diabetes 1.5, managed as type 2 Current visit: No Status: Acute Category: Medical Code(s): E13.9 - Other specified diabetes mellitus without complications (4) Obesity (BMI 30-39.9) Current visit: No Status: Acute Category: Medical Code(s): E66.9 - Obesity, unspecified (5) Bipolar 1 disorder Current visit: Yes Status: Acute Category: Medical Code(s): F31.9 - Bipolar disorder, unspecified (6) Schizo affective schizophrenia Current visit: Yes Status: Acute Category: Medical Code(s): F25.0 - Schizoaffective disorder, bipolar type (7) COPD (chronic obstructive pulmonary disease) Current visit: Yes Status: Acute Qualifiers: COPD type: COPD with acute exacerbation Qualified Code(s): J44.1 - Chronic obstructive pulmonary disease with (acute) exacerbation Category: Medical Code(s): J44.9 - Chronic obstructive pulmonary disease, unspecified - Assessment and plan all Dx Assessment and Plan for all problems:: Rounded with Dr. Avery all orders per Gena We will restart all psych meds Patient has preliminary blood cultures positive started vancomycin last night Waiting cultures to finalize if positive will have PICC line placed on Wednesday for antibiotics
[2018-12-02 09:15] LABS: HIV Screen 4th Generation wRfx Non Reactive (Non Reactive)
[2018-12-02 17:15] LABS: Hepatitis B Surface Antigen Negative (Negative); Hepatitis C Antibody <0.1 s/co ratio (0.0-0.9)
[2018-12-03 09:14] LABS: Basophils % 0.4 % (0.1-2.0); Hematocrit 30.2 % (37.0-47.0); Hemoglobin 8.8 g/dL (12.2-16.2); Lymphocytes % 49.1 % (10-50); Mean Corpuscular Volume 105.5 fl (81-99); Mean Platelet Volume 8.4 fl (7.4-10.4); Monocytes # 0.3 K/mm3 (0.1-1.0); Monocytes % 7.4 % (1.7-9.3); Neutrophils # 1.7 K/mm3 (1.8-7.8); Platelet Count 218 K/mm3 (142-424); Red Blood Count 2.86 M/mm3 (4.20-5.40); Red Cell Distribution Width 17.5 % (11.5-17.5)
--- NOTE | 2018-12-03 09:18 | Progress Note ---
Internal Medicine - PN: Subj *Date: 12/04/18 *Time: 09:28 Interval history: pt is doing better today Exam Vital signs and Labs for Last 24 Hours: Temp Pulse Resp BP Pulse Ox 97.8 F 85 18 129/69 95 12/03/18 08:00 12/03/18 08:00 12/03/18 08:00 12/03/18 08:00 12/03/18 08:00 Laboratory Results - last 24 hr 12/01/18 03:00: Hep Bs Antigen Negative, Hep Bs Antibody Non reactive, Hepatitis C Antibody <0.1, HIV 1&2 Ag/Ab, 4th Gen Non reactive 12/02/18 06:20: POC Glucose 84 12/02/18 11:52: POC Glucose 129 H 12/02/18 16:16: POC Glucose 103 12/02/18 20:30: POC Glucose 99 12/03/18 05:34: POC Glucose 94 12/03/18 09:00: WBC 4.0 L, RBC 2.86 L, Hgb 8.8 L, Hct 30.2 L, MCV 105.5 H, MCH 30.6, MCHC 29.0 L, RDW 17.5, Plt Count 218, MPV 8.4, Neut % (Auto) 43.0, Lymph % (Auto) 49.1, [place] % (Auto) 7.4, Eos % (Auto) 0.0 L, Baso % (Auto) 0.4, Neut # (Auto) 1.7 L, Lymph # (Auto) 2.0, [place] # (Auto) 0.3, Eos # (Auto) 0.0, Baso # (Auto) 0.0 I & O for Last 24 hours: Intake & Output 11/30/18 12/01/18 12/02/18 12/03/18 11:59 11:59 11:59 11:59 Intake Total 360 / 360 1829 / 1829 760 / 760 Output Total 1350 / 1350 800 / 800 Balance 360 / 360 479 / 479 -40 / -40 Weight 205 lb 207 lb 0.013 oz Microbiology Reports for the Last 24 Hours: Microbiology 11/30/18 23:30 Blood Blood Culture - Preliminary Gram Positive Cocci 11/30/18 23:30 Blood Blood Culture - Preliminary NO GROWTH AFTER 48 HOURS - Constitutional no acute distress - *Routine HEENT Exam Head: Present: normocephalic Eye: Present: EOMI, PERRL ENT: Present: mucous membranes dry - *Routine Neck Exam Present: supple - *Routine Respiratory Exam Present: decreased breath sounds - *Routine Cardiovascular Exam Present: RRR, murmur - *Routine Abdominal Exam Present: soft - *Routine Extremities Exam Absent: calf tenderness - *Routine Skin Exam Present: intact - *Routine Neurological Exam Present: alert, CN II-XII intact - Routine Psychiatric Exam Present: unable to assess Assessment and Plan (1) Hypoxemia Current visit: Yes Status: Acute Category: Medical Code(s): R09.02 - Hypoxemia (2) Pulmonary embolism on right Current visit: Yes Status: Acute Category: Medical Code(s): I26.99 - Other pulmonary embolism without acute cor pulmonale (3) Diabetes 1.5, managed as type 2 Current visit: No Status: Acute Category: Medical Code(s): E13.9 - Other specified diabetes mellitus without complications (4) Obesity (BMI 30-39.9) Current visit: No Status: Acute Category: Medical Code(s): E66.9 - Obesity, unspecified (5) Bipolar 1 disorder Current visit: Yes Status: Acute Category: Medical Code(s): F31.9 - Bipolar disorder, unspecified (6) Schizo affective schizophrenia Current visit: Yes Status: Acute Category: Medical Code(s): F25.0 - Schizoaffective disorder, bipolar type (7) COPD (chronic obstructive pulmonary disease) Current visit: Yes Status: Acute Qualifiers: COPD type: COPD with acute exacerbation Qualified Code(s): J44.1 - Chronic obstructive pulmonary disease with (acute) exacerbation Category: Medical Code(s): J44.9 - Chronic obstructive pulmonary disease, unspecified
[2018-12-03 09:53] LABS: Anion Gap 9.5 mEq/L (5-15); Vancomycin,Trough 19.9 mcg/ml (10.0-20.0)
--- NOTE | 2018-12-03 11:34 | Pharmacy Consult Notes ---
- Pharmacy Consult Date: 12/03/18 Time: 11:33 Referring provider: DR. POOLE Reason for Consult:: VANCOMYCIN DOSING Allergies and ADEs:: Allergies Allergy/AdvReac Type Severity Reaction Status Date / Time codeine Allergy Mild Unknown Verified 11/03/18 07:51 allergy reaction Penicillins Allergy Mild Unknown Verified 11/03/18 07:51 allergy reaction Home Medications:: Home Medications Medication Instructions Recorded Confirmed Type Atorvastatin Calcium [Atorvastatin 20 mg PO DAILY 11/02/18 12/01/18 History 20mg Tab] Levothyroxine Sodium 100 mcg PO DAILY 11/02/18 12/01/18 History [Levothyroxine 100mcg (0.1MG) Tab] Metformin HCl [Glucophage Xr] 500 mg PO BID 11/02/18 12/01/18 History [place]-3 Fatty Acids/Fish Oil [Fish 1,000 mg PO BID 11/02/18 12/01/18 History Oil 1,000 mg Capsule] Pantoprazole Sodium [Protonix 40mg 40 mg PO DAILY 11/02/18 12/01/18 History tablet] Quetiapine Fumarate 25 mg PO Q4HP PRN 11/02/18 12/01/18 History Quetiapine Fumarate 100 mg PO HS 11/02/18 12/01/18 History Sertraline HCl [Zoloft 50mg tablet] 50 mg PO DAILY 11/02/18 12/01/18 History Valproic Acid (As Sodium Salt) 10 ml PO TID 11/02/18 12/01/18 History [Valproic Acid] cloZAPine [Clozapine] 150 mg PO HS 11/02/18 12/01/18 History Quetiapine Fumarate 50 mg PO DAILY 11/03/18 12/01/18 History Albuterol Sulfate [Albuterol HFA 1 - 2 puffs IH Q6HP PRN 12/01/18 12/01/18 History Inhaler] Height: 1.68 m Weight: 93.894 kg Laboratory Results:: Laboratory Results - last 24 hr 12/01/18 03:00: Hep Bs Antigen Negative, Hep Bs Antibody Non reactive, Hepatitis C Antibody <0.1, HIV 1&2 Ag/Ab, 4th Gen Non reactive 12/02/18 06:20: POC Glucose 84 12/02/18 11:52: POC Glucose 129 H 12/02/18 16:16: POC Glucose 103 12/02/18 20:30: POC Glucose 99 12/03/18 05:34: POC Glucose 94 12/03/18 09:00: Sodium 147 H, Potassium 3.5, Chloride 111 H, Carbon Dioxide 30, Anion Gap 9.5, BUN 8, Creatinine 0.75, Estimated Creat Clear 82, Estimated GFR 77, Est GFR ( Amer) 94, Glucose 125 H, Calcium 8.0 L, Vancomycin Trough 19.9 12/03/18 09:00: WBC 4.0 L, RBC 2.86 L, Hgb 8.8 L, Hct 30.2 L, MCV 105.5 H, MCH 30.6, MCHC 29.0 L, RDW 17.5, Plt Count 218, MPV 8.4, Neut % (Auto) 43.0, Lymph % (Auto) 49.1, [place] % (Auto) 7.4, Eos % (Auto) 0.0 L, Baso % (Auto) 0.4, Neut # (Auto) 1.7 L, Lymph # (Auto) 2.0, [place] # (Auto) 0.3, Eos # (Auto) 0.0, Baso # (Auto) 0.0 12/03/18 11:13: POC Glucose 115 H Medical History: Reports:: Diabetes Mellitus Type 2, Hyperlipidemia Denies:: Diabetes Mellitus Type 1, Internal Pacemaker Assessment and Plan (1) Hypoxemia Current visit: Yes Status: Acute Category: Medical Code(s): R09.02 - Hypoxemia (2) Pulmonary embolism on right Current visit: Yes Status: Acute Category: Medical Code(s): I26.99 - Other pulmonary embolism without acute cor pulmonale (3) Diabetes 1.5, managed as type 2 Current visit: No Status: Acute Category: Medical Code(s): E13.9 - Other specified diabetes mellitus without complications (4) Obesity (BMI 30-39.9) Current visit: No Status: Acute Category: Medical Code(s): E66.9 - Obesity, unspecified (5) Bipolar 1 disorder Current visit: Yes Status: Acute Category: Medical Code(s): F31.9 - Bipolar disorder, unspecified (6) Schizo affective schizophrenia Current visit: Yes Status: Acute Category: Medical Code(s): F25.0 - Schizoaffective disorder, bipolar type (7) COPD (chronic obstructive pulmonary disease) Current visit: Yes Status: Acute Qualifiers: COPD type: COPD with acute exacerbation Qualified Code(s): J44.1 - Chronic obstructive pulmonary disease with (acute) exacerbation Category: Medical Code(s): J44.9 - Chronic obstructive pulmonary disease, unspecified - Assessment and plan all Dx Assessment and Plan for all problems:: CHANGING DOSING INTERVAL TO Q24H WITH VANCOMYCIN 2 GM STARTING AT 1500 TODAY.
--- NOTE | 2018-12-03 19:17 | Electrocardiograph Report ---
APPROVED REPORT Exam: Resting ECG HR:111 bpm ECG Measurements Heart Rate 111 AXES RI 158 P 81 QRSd 78 QRS 51 QT 314 T51 QTc 427 <Conclusion> Sinus tachycardia ST & T wave abnormality, consider anterior ischemia Abnormal ECG Electronically signed by : Lorenzo Byrd, 12/03/2018 19:17:13
[2018-12-04 06:10] LABS: Basophils % 0.2 % (0.1-2.0); Hemoglobin 8.5 g/dL (12.2-16.2); Lymphocytes # 1.8 K/mm3 (0.7-4.5); Lymphocytes % 43.5 % (10-50); Mean Corpuscular HGB Conc 28.9 g/dL (31.8-35.4); Mean Corpuscular Volume 105.3 fl (81-99); Mean Platelet Volume 8.2 fl (7.4-10.4); Monocytes # 0.4 K/mm3 (0.1-1.0); Monocytes % 9.7 % (1.7-9.3); Neutrophils # 1.9 K/mm3 (1.8-7.8); Neutrophils % 46.6 % (37.0-80.0); Platelet Count 225 K/mm3 (142-424); Red Blood Count 2.78 M/mm3 (4.20-5.40); Red Cell Distribution Width 17.3 % (11.5-17.5); White Blood Count 4.1 K/mm3 (4.8-10.8)
[2018-12-04 06:12] LABS: Hematocrit 29.3 % (37.0-47.0)
[2018-12-04 06:41] LABS: Calcium 7.9 mg/dL (8.5-10.1)
--- NOTE | 2018-12-04 09:46 | Progress Note ---
Internal Medicine - PN: Subj *Date: 12/05/18 *Time: 15:17 Interval history: doing better - more alert - will try to wean off o2 Exam Vital signs and Labs for Last 24 Hours: Temp Pulse Resp BP Pulse Ox 98.0 F 98 H 17 143/63 H 92 L 12/04/18 08:00 12/04/18 08:00 12/04/18 08:00 12/04/18 08:00 12/04/18 08:00 Laboratory Results - last 24 hr 12/03/18 09:00: Sodium 147 H, Potassium 3.5, Chloride 111 H, Carbon Dioxide 30, Anion Gap 9.5, BUN 8, Creatinine 0.75, Estimated Creat Clear 82, Estimated GFR 77, Est GFR ( Amer) 94, Glucose 125 H, Calcium 8.0 L, Vancomycin Trough 19.9 12/03/18 11:13: POC Glucose 115 H 12/03/18 16:36: POC Glucose 125 H 12/03/18 20:27: POC Glucose 108 12/04/18 05:34: POC Glucose 104 12/04/18 05:35: WBC 4.1 L, RBC 2.78 L, Hgb 8.5 L, Hct 29.3 L, MCV 105.3 H, MCH 30.4, MCHC 28.9 L, RDW 17.3, Plt Count 225, MPV 8.2, Neut % (Auto) 46.6, Lymph % (Auto) 43.5, [place] % (Auto) 9.7 H, Eos % (Auto) 0.0 L, Baso % (Auto) 0.2, Neut # (Auto) 1.9, Lymph # (Auto) 1.8, [place] # (Auto) 0.4, Eos # (Auto) 0.0, Baso # (Auto) 0.0 12/04/18 05:35: Sodium 148 H, Potassium 4.0, Chloride 113 H, Carbon Dioxide 31, Anion Gap 8.0, BUN 9, Creatinine 0.66, Estimated Creat Clear 82, Estimated GFR 90, Est GFR ( Amer) 108, Glucose 99 D, Calcium 7.9 L I & O for Last 24 hours: Intake & Output 12/01/18 12/02/18 12/03/18 12/04/18 11:59 11:59 11:59 11:59 Intake Total 360 / 360 1829 / 1829 760 / 760 1385 / 1385 Output Total 1350 / 1350 800 / 800 1350 / 1350 Balance 360 / 360 479 / 479 -40 / -40 35 / 35 Weight 205 lb 207 lb 0.013 oz Microbiology Reports for the Last 24 Hours: Microbiology 11/30/18 23:30 Blood Blood Culture - Preliminary Gram Positive Cocci - Constitutional no acute distress, obese - *Routine HEENT Exam Head: Present: normocephalic Eye: Present: EOMI, PERRL ENT: Present: mucous membranes dry - *Routine Neck Exam Present: supple - *Routine Respiratory Exam Present: decreased breath sounds - *Routine Cardiovascular Exam Present: RRR, murmur - *Routine Abdominal Exam Present: soft - *Routine Extremities Exam Absent: calf tenderness - *Routine Skin Exam Present: intact - *Routine Neurological Exam Present: alert, CN II-XII intact - Routine Psychiatric Exam Present: normal affect Assessment and Plan (1) Hypoxemia Current visit: Yes Status: Acute Category: Medical Code(s): R09.02 - Hypoxemia (2) Pulmonary embolism on right Current visit: Yes Status: Acute Category: Medical Code(s): I26.99 - Other pulmonary embolism without acute cor pulmonale (3) Diabetes 1.5, managed as type 2 Current visit: No Status: Acute Category: Medical Code(s): E13.9 - Other specified diabetes mellitus without complications (4) Obesity (BMI 30-39.9) Current visit: No Status: Acute Category: Medical Code(s): E66.9 - Obesity, unspecified (5) Bipolar 1 disorder Current visit: Yes Status: Acute Category: Medical Code(s): F31.9 - Bipolar disorder, unspecified (6) Schizo affective schizophrenia Current visit: Yes Status: Acute Category: Medical Code(s): F25.0 - Schizoaffective disorder, bipolar type (7) COPD (chronic obstructive pulmonary disease) Current visit: Yes Status: Acute Qualifiers: COPD type: COPD with acute exacerbation Qualified Code(s): J44.1 - Chronic obstructive pulmonary disease with (acute) exacerbation Category: Medical Code(s): J44.9 - Chronic obstructive pulmonary disease, unspecified (8) Anemia Current visit: Yes Status: Acute Qualifiers: Anemia type: unspecified type Qualified Code(s): D64.9 - Anemia, unspecified Category: Medical Code(s): D64.9 - Anemia, unspecified
[2018-12-05 05:40] LABS: Basophils % 0.4 % (0.1-2.0); Eosinophils % 0.2 % (0.1-12.0); Hemoglobin 8.4 g/dL (12.2-16.2); Lymphocytes # 2.2 K/mm3 (0.7-4.5); Lymphocytes % 44.6 % (10-50); Mean Corpuscular HGB Conc 29.4 g/dL (31.8-35.4); Mean Corpuscular Volume 103.6 fl (81-99); Mean Platelet Volume 8.3 fl (7.4-10.4); Monocytes # 0.4 K/mm3 (0.1-1.0); Monocytes % 8.9 % (1.7-9.3); Neutrophils # 2.3 K/mm3 (1.8-7.8); Neutrophils % 45.9 % (37.0-80.0); Platelet Count 232 K/mm3 (142-424); Red Blood Count 2.77 M/mm3 (4.20-5.40); Red Cell Distribution Width 17.4 % (11.5-17.5)
[2018-12-05 05:41] LABS: Hematocrit 28.7 % (37.0-47.0)
[2018-12-05 05:48] LABS: Anion Gap 11.7 mEq/L (5-15)
--- NOTE | 2018-12-06 07:41 | Progress Note ---
Internal Medicine - PN: Subj *Date: 12/05/18 *Time: 08:00 Interval history: doing better - off o2 awaiting i/d - saw pt wednesday am - late entry Exam Vital signs and Labs for Last 24 Hours: Temp Pulse Resp BP Pulse Ox 99.0 F 95 H 21 140/65 91 L 12/06/18 04:00 12/06/18 04:00 12/06/18 04:00 12/06/18 04:00 12/06/18 04:00 Laboratory Results - last 24 hr 12/05/18 11:58: POC Glucose 105 12/05/18 17:18: POC Glucose 111 H 12/05/18 20:07: POC Glucose 111 H 12/06/18 06:24: POC Glucose 97 I & O for Last 24 hours: Intake & Output 12/03/18 12/04/18 12/05/18 12/06/18 11:59 11:59 11:59 11:59 Intake Total 760 / 760 1385 / 1385 2216 / 2216 1154 / 1154 Output Total 800 / 800 1350 / 1350 Balance -40 / -40 35 / 35 2216 / 2216 1154 / 1154 Weight 210 lb Microbiology Reports for the Last 24 Hours: Microbiology 11/30/18 23:30 Blood Blood Culture - Final NO GROWTH AFTER 5 DAYS 11/30/18 23:30 Blood Blood Culture - Preliminary Aerococcus viridans Staphylococcus epidermidis - Constitutional no acute distress, obese - *Routine HEENT Exam Head: Present: normocephalic Eye: Present: EOMI, PERRL ENT: Present: mucous membranes dry - *Routine Neck Exam Absent: JVD - *Routine Respiratory Exam Present: rhonchi - *Routine Cardiovascular Exam Present: RRR, murmur, S4 - *Routine Abdominal Exam Present: soft - *Routine Extremities Exam Absent: calf tenderness - *Routine Skin Exam Present: intact - *Routine Neurological Exam Present: alert, CN II-XII intact - Routine Psychiatric Exam Present: normal affect Assessment and Plan (1) Hypoxemia Current visit: Yes Status: Acute Category: Medical Code(s): R09.02 - Hypoxemia (2) Pulmonary embolism on right Current visit: Yes Status: Acute Category: Medical Code(s): I26.99 - Other pulmonary embolism without acute cor pulmonale (3) Diabetes 1.5, managed as type 2 Current visit: No Status: Acute Category: Medical Code(s): E13.9 - Other specified diabetes mellitus without complications (4) Obesity (BMI 30-39.9) Current visit: No Status: Acute Category: Medical Code(s): E66.9 - Obesity, unspecified (5) Bipolar 1 disorder Current visit: Yes Status: Acute Category: Medical Code(s): F31.9 - Bipolar disorder, unspecified (6) Schizo affective schizophrenia Current visit: Yes Status: Acute Category: Medical Code(s): F25.0 - Schizoaffective disorder, bipolar type (7) COPD (chronic obstructive pulmonary disease) Current visit: Yes Status: Acute Qualifiers: COPD type: COPD with acute exacerbation Qualified Code(s): J44.1 - Chronic obstructive pulmonary disease with (acute) exacerbation Category: Medical Code(s): J44.9 - Chronic obstructive pulmonary disease, unspecified (8) Anemia Current visit: Yes Status: Acute Qualifiers: Anemia type: unspecified type Qualified Code(s): D64.9 - Anemia, unspecified Category: Medical Code(s): D64.9 - Anemia, unspecified
--- NOTE | 2018-12-06 09:10 | Discharge Summary ---
General - General Admission date:: 12/01/18 Discharge date: 12/06/18 HPI HPI: 67 yr old female presents to the ER per ER note pt was found by [facility] using the restroom. pt stated she could not stand up. staff was unable to transfer her off of the toilet. per [facility] pt has been weak for the last couple of days. pt usually ambulates with a walker but has been having to use a wheelchair. Her chest CT was found she had PE on the right patient admitted placed on Vapotherm given Lovenox. Hospital Course Hospital Course: chest x ray:IMPRESSION: Persistent left perihilar atelectatic or fibrotic change. No change with no acute finding echo: Conclusion 1. Biatrial enlargement, normal left ventricular size, mild concentric left ventricular hypertrophy, visually estimated ejection fraction 55% with no regional wall motion abnormality. Grade 1 diastolic dysfunction seen with tissue Doppler evidence of raise left atrial pressure. 2. Moderately enlarged right ventricle with normal contractility. 3. Thickened and calcified aortic valve without aortic stenosis, there is mild aortic insufficiency. 4. Mild mitral and moderate tricuspid regurgitation, calculated right ventricular systolic pressure is 50 mmHg consistent with moderately elevated right ventricular systolic pressure. 5. No significant pericardial effusion noted. venous doppler: neg for dvt cta: IMPRESSION: Evidence of pulmonary emboli as discussed above. Prominent main pulmonary artery suggesting pulmonary hypertension. No evidence of right ventricular strain. Small bilateral pleural effusions. Possible minimal pericardial effusion versus pericardial thickening. Left lung indistinct densities possible atelectasis or scarring. ct head:IMPRESSION: No acute intracranial process. Generalized cortical atrophy greater in the cerebellar hemispheres which could occur from chronic Dilantin therapy or alcohol use. Will discharge back to personal shelter on Xarelto and minocycline. Objective Vital signs: Temp Pulse Resp BP Pulse Ox 98.9 F 102 H 17 160/85 H 90 L 12/06/18 08:00 12/06/18 08:00 12/06/18 08:00 12/06/18 08:00 12/06/18 08:00 no acute distress - *Routine HEENT Exam Head: Present: normocephalic Eye: Present: PERRL ENT: Present: mucous membranes moist - *Routine Respiratory Exam Present: decreased breath sounds, CTA bilaterally - *Routine Cardiovascular Exam Present: RRR - *Routine Extremities Exam Present: edema, full ROM - *Routine Skin Exam Present: intact - *Routine Neurological Exam Present: alert - Routine Psychiatric Exam Present: normal affect Results Labs on day of discharge: Labs from last 24 hours 12/06/18 12/05/18 12/05/18 06:24 20:07 17:18 POC Glucose 97 111 H 111 H 12/05/18 11:58 POC Glucose 105 Preliminary micro results at discharge 11/30/18 23:30 Blood Culture - Preliminary Blood Aerococcus viridans Staphylococcus epidermidis - Additional Comments Rounded with Dr. Avery all orders per Gena DS: Diagnosis - Discharge Diagnosis (1) Hypoxemia Status: Acute (2) Pulmonary embolism on right Status: Acute (3) Diabetes 1.5, managed as type 2 Status: Acute (4) Obesity (BMI 30-39.9) Status: Acute (5) Bipolar 1 disorder Status: Acute (6) Schizo affective schizophrenia Status: Acute (7) COPD (chronic obstructive pulmonary disease) Status: Acute (8) Anemia Status: Acute Discharge Plan - Patient Discharge Instructions ACTIVITY: Continue current activity DIET: continue same diet Patient Instructions: Pulmonary Embolism, Hypothyroidism, Anemia, DI for Pulmonary Embolism, DI for Hypocalcemia, DI for Hypothyroidism, DI for Hypoxia, Hypocalcemia - Follow up Plan Follow up with: Margarito Avery MD [Primary Care Provider] - 1 week Disposition: Home, Self-Intermediate Medications: Home Medications Medication Instructions Recorded Confirmed Type Atorvastatin Calcium [Atorvastatin 20 mg PO DAILY 11/02/18 12/01/18 History 20mg Tab] Levothyroxine Sodium 100 mcg PO DAILY 11/02/18 12/01/18 History [Levothyroxine 100mcg (0.1MG) Tab] Metformin HCl [Glucophage Xr] 500 mg PO BID 11/02/18 12/01/18 History [place]-3 Fatty Acids/Fish Oil [Fish 1,000 mg PO BID 11/02/18 12/01/18 History Oil 1,000 mg Capsule] Pantoprazole Sodium [Protonix 40mg 40 mg PO DAILY 11/02/18 12/01/18 History tablet] Quetiapine Fumarate 25 mg PO Q4HP PRN 11/02/18 12/01/18 History Quetiapine Fumarate 100 mg PO HS 11/02/18 12/01/18 History Sertraline HCl [Zoloft 50mg tablet] 50 mg PO DAILY 11/02/18 12/01/18 History Valproic Acid (As Sodium Salt) 10 ml PO TID 11/02/18 12/01/18 History [Valproic Acid] cloZAPine [Clozapine] 150 mg PO HS 11/02/18 12/01/18 History Quetiapine Fumarate 50 mg PO DAILY 11/03/18 12/01/18 History Albuterol Sulfate [Albuterol HFA 1 - 2 puffs IH Q6HP PRN 12/01/18 12/01/18 History Inhaler] Minocycline HCl 100 mg PO BID 5 Days #10 tab 12/06/18 Rx Rivaroxaban [Xarelto 15mg tablet] 15 mg PO BID 15 Days #60 tab 12/06/18 Rx Prescriptions/Medication Reconciliation: New Minocycline HCl 100 mg PO BID 5 Days #10 tab Rivaroxaban [Xarelto 15mg tablet] 15 mg PO BID 15 Days #60 tab Continued Quetiapine Fumarate 25 mg PO Q4HP PRN PRN Reason: Agitation Quetiapine Fumarate 100 mg PO HS Pantoprazole Sodium [Protonix 40mg tablet] 40 mg PO DAILY [place]-3 Fatty Acids/Fish Oil [Fish Oil 1,000 mg Capsule] 1,000 mg PO BID Levothyroxine Sodium [Levothyroxine 100mcg (0.1MG) Tab] 100 mcg PO DAILY cloZAPine [Clozapine] 150 mg PO HS Atorvastatin Calcium [Atorvastatin 20mg Tab] 20 mg PO DAILY Quetiapine Fumarate 50 mg PO DAILY Albuterol Sulfate [Albuterol HFA Inhaler] 1 - 2 puffs IH Q6HP PRN PRN Reason: Shortness Of Breath Or Wheezing Valproic Acid (As Sodium Salt) [Valproic Acid] 10 ml PO TID Sertraline HCl [Zoloft 50mg tablet] 50 mg PO DAILY Metformin HCl [Glucophage Xr] 500 mg PO BID - Problem Reconciliation Problems Reviewed?: Yes
[2018-12-06 12:51] LABS: ABG HCO3 26.2 mmhg (22.0-26.0); ABG Oxygen Saturation 84 % (90-100); ABG PCO2 45.7 mmhg (35.0-45.0); ABG PH 7.38 mmol/L (7.35-7.45); ABG PO2 51.2 mmhg (80-100); ABG TCO2 27.6 mmhg (23-27); Oxygen RA %
[2018-12-06 12:52] LABS: Allen's Test acceptable
[2018-12-06 14:42] LABS: Basophils % 0.5 % (0.1-2.0); Hematocrit 30.5 % (37.0-47.0); Hemoglobin 8.9 g/dL (12.2-16.2); Lymphocytes # 1.5 K/mm3 (0.7-4.5); Lymphocytes % 24.3 % (10-50); Mean Corpuscular HGB Conc 29.1 g/dL (31.8-35.4); Mean Corpuscular Volume 104.3 fl (81-99); Monocytes # 0.5 K/mm3 (0.1-1.0); Neutrophils # 4.1 K/mm3 (1.8-7.8); Neutrophils % 67.2 % (37.0-80.0); Platelet Count 243 K/mm3 (142-424); Red Blood Count 2.93 M/mm3 (4.20-5.40); Red Cell Distribution Width 17.3 % (11.5-17.5); White Blood Count 6.1 K/mm3 (4.8-10.8)
[2018-12-06 14:47] LABS: Anion Gap 10.6 mEq/L (5-15)
--- NOTE | 2018-12-06 15:23 | Pharmacy Consult Notes ---
- Pharmacy Consult Date: 12/06/18 Time: 15:22 Referring provider: DR. DUNHAM Reason for Consult:: VANCOMYCIN TROUGH LEVEL Allergies and ADEs:: Allergies Allergy/AdvReac Type Severity Reaction Status Date / Time codeine Allergy Mild Unknown Verified 11/03/18 07:51 allergy reaction Penicillins Allergy Mild Unknown Verified 11/03/18 07:51 allergy reaction Home Medications:: Home Medications Medication Instructions Recorded Confirmed Type Atorvastatin Calcium [Atorvastatin 20 mg PO DAILY 11/02/18 12/01/18 History 20mg Tab] Levothyroxine Sodium 100 mcg PO DAILY 11/02/18 12/01/18 History [Levothyroxine 100mcg (0.1MG) Tab] Metformin HCl [Glucophage Xr] 500 mg PO BID 11/02/18 12/01/18 History [place]-3 Fatty Acids/Fish Oil [Fish 1,000 mg PO BID 11/02/18 12/01/18 History Oil 1,000 mg Capsule] Pantoprazole Sodium [Protonix 40mg 40 mg PO DAILY 11/02/18 12/01/18 History tablet] Quetiapine Fumarate 25 mg PO Q4HP PRN 11/02/18 12/01/18 History Quetiapine Fumarate 100 mg PO HS 11/02/18 12/01/18 History Sertraline HCl [Zoloft 50mg tablet] 50 mg PO DAILY 11/02/18 12/01/18 History Valproic Acid (As Sodium Salt) 10 ml PO TID 11/02/18 12/01/18 History [Valproic Acid] cloZAPine [Clozapine] 150 mg PO HS 11/02/18 12/01/18 History Quetiapine Fumarate 50 mg PO DAILY 11/03/18 12/01/18 History Albuterol Sulfate [Albuterol HFA 1 - 2 puffs IH Q6HP PRN 12/01/18 12/01/18 History Inhaler] Minocycline HCl 100 mg PO BID 5 Days #10 tab 12/06/18 Rx Rivaroxaban [Xarelto 15mg tablet] 15 mg PO BID 15 Days #60 tab 12/06/18 Rx Height: 1.68 m Weight: 95.254 kg Laboratory Results:: Laboratory Results - last 24 hr 12/05/18 17:18: POC Glucose 111 H 12/05/18 20:07: POC Glucose 111 H 12/06/18 06:24: POC Glucose 97 12/06/18 11:22: POC Glucose 115 H 12/06/18 12:34: Specimen Source Left radial, O2 % Ra, ABG pH 7.38, ABG pCO2 45.7 H, ABG pO2 51.2 L, ABG HCO3 26.2 H, ABG Total CO2 27.6 H, ABG O2 Saturation 84 L*, ABG Base Excess 1.0, Isiah Test acceptable 12/06/18 14:29: Vancomycin Trough 18.6 12/06/18 14:29: WBC 6.1, RBC 2.93 L, Hgb 8.9 L, Hct 30.5 L, MCV 104.3 H, MCH 30.4, MCHC 29.1 L, RDW 17.3, Plt Count 243, MPV 9.0, Neut % (Auto) 67.2, Lymph % (Auto) 24.3, [place] % (Auto) 8.0, Eos % (Auto) 0.0 L, Baso % (Auto) 0.5, Neut # (Auto) 4.1, Lymph # (Auto) 1.5, [place] # (Auto) 0.5, Eos # (Auto) 0.0, Baso # (Auto) 0.0 12/06/18 14:29: Sodium 148 H, Potassium 3.6, Chloride 112 H, Carbon Dioxide 29, Anion Gap 10.6, BUN 8, Creatinine 0.75, Estimated Creat Clear 83, Estimated GFR 77, Est GFR ( Amer) 94, Glucose 113 H, Calcium 8.0 L Medical History: Reports:: Diabetes Mellitus Type 2, Hyperlipidemia Denies:: Diabetes Mellitus Type 1, Internal Pacemaker Assessment and Plan (1) Hypoxemia Current visit: Yes Status: Acute Category: Medical Code(s): R09.02 - Hypoxemia (2) Pulmonary embolism on right Current visit: Yes Status: Acute Category: Medical Code(s): I26.99 - Other pulmonary embolism without acute cor pulmonale (3) Diabetes 1.5, managed as type 2 Current visit: No Status: Acute Category: Medical Code(s): E13.9 - Other specified diabetes mellitus without complications (4) Obesity (BMI 30-39.9) Current visit: No Status: Acute Category: Medical Code(s): E66.9 - Obesity, unspecified (5) Bipolar 1 disorder Current visit: Yes Status: Acute Category: Medical Code(s): F31.9 - Bipolar disorder, unspecified (6) Schizo affective schizophrenia Current visit: Yes Status: Acute Category: Medical Code(s): F25.0 - Schizoaffective disorder, bipolar type (7) COPD (chronic obstructive pulmonary disease) Current visit: Yes Status: Acute Qualifiers: COPD type: COPD with acute exacerbation Qualified Code(s): J44.1 - Chronic obstructive pulmonary disease with (acute) exacerbation Category: Medical Code(s): J44.9 - Chronic obstructive pulmonary disease, unspecified (8) Anemia Current visit: Yes Status: Acute Qualifiers: Anemia type: unspecified type Qualified Code(s): D64.9 - Anemia, unspecifie d Category: Medical Code(s): D64.9 - Anemia, unspecified - Assessment and plan all Dx Assessment and Plan for all problems:: BASED ON PATIENT FACTORS, RECOMMEND CONTINUING VANCOMYCIN 2 GM IV Q24H. PHARMACY WILL CONTINUE TO MONITOR DAILY AND ADJUST APPROPRIATE.
--- NOTE | 2018-12-09 14:40 | Electrocardiograph Report ---
APPROVED REPORT Exam: Resting ECG HR:136 bpm ECG Measurements Heart Rate 136 AXES FL 132 P 71 QRSd 78 QRS 20 QT 258 T45 QTc 388 <Conclusion> Sinus tachycardia Nonspecific ST and T wave abnormality Abnormal ECG Electronically signed by : Lorenzo Byrd, 12/09/2018 14:40:20
== END 2018-12-07 15:25 | disposition home or self-care (01) | DRG 176 ==
LOC: ER 22:36 → 2ND 12-01 06:03
PROVIDERS: ADMIT Emergency Medicine; ATTEND Emergency Medicine
CPT/HCPCS: 36415; 70450; 71010; 71045; 71275; 80048; 80053; 80164; 80202; 81001; 82803; 82962; 83605; 84436; 84443; 84484; 85025; 85651; 86140; 86703; 86706; 87040; 87077; 87186; 87340; 87380; 93005; 93306; 93970; 94660; 94760; 94761; 96372; 97116; 97162; 97165; 97530; 97535; 99285; G0432; J3370; Q9967

== ENCOUNTER 2018-12-15 07:49 | Observation (INO) ==
--- NOTE | 2018-12-15 08:50 | Emergency Department Note ---
ED Disposition Clinical Impression: Right upper lobe pneumonia, Weakness generalized, Pneumonia Disposition: Admitted as Observation Condition on Discharge: Fair Referrals: Margarito Avery MD [Primary Care Provider] - Time of Disposition: 11:14 - Critical Care Critical Care Time: No Attestation: On 12/15/18, the high probability of a clinically significant, sudden or life threatening deterioration of the following system(s) required my full and direct attention, intervention and personal management. The time I documented below is in addition to time spent performing reported procedures but includes the following listed in this critical care notation. Medical Decision Making - Medical Records Medical records reviewed: Yes: I reviewed the patient's medical records. - [place] Inquiry Pt receiving controlled substance: No Young was queried for this patient: No Vital Signs: 12/15/18 07:15 12/15/18 09:30 12/15/18 09:51 Temperature 95 F L 97.5 F L Temperature Source Rectal Oral Pulse Rate Pulse Rate [Left Radial] 89 85 Respiratory Rate 18 28 H Blood Pressure [Right Arm] 128/91 H 140/69 Blood Pressure Mean [Right Arm] 103 92 Blood Pressure Source [Right Arm] Automatic Cuff Blood Pressure Position [Right Arm] Sitting 02 Sat by Pulse Oximetry 93 L 92 L Oxygen Delivery Method Room Air Room Air Oxygen Flow Rate (LPM) 12/15/18 10:00 12/15/18 10:30 Temperature Temperature Source Pulse Rate 83 Pulse Rate [Left Radial] 78 Respiratory Rate 18 Blood Pressure [Right Arm] 148/66 H Blood Pressure Mean [Right Arm] 93 Blood Pressure Source [Right Arm] Automatic Cuff Blood Pressure Position [Right Arm] Supine 02 Sat by Pulse Oximetry 99 Oxygen Delivery Method Room Air Nasal Cannula Oxygen Flow Rate (LPM) 2 - Lab Data Lab results reviewed: Yes: I reviewed the patient's lab results. Lab Results 12/15/18 09:20: WBC 8.6, RBC 3.02 L, Hgb 9.0 L, Hct 32.2 L, MCV 106.5 H, MCH 29.7, MCHC 27.9 L, RDW 18.0 H, Plt Count 286, MPV 8.0, Neut % (Auto) 76.4, Lymph % (Auto) 16.7, [place] % (Auto) 6.1, Eos % (Auto) 0.2, Baso % (Auto) 0.6, Neut # (Auto) 6.6, Lymph # (Auto) 1.4, [place] # (Auto) 0.5, Eos # (Auto) 0.0, Baso # (Auto) 0.1 12/15/18 09:20: Sodium 148 H, Potassium 3.1 L, Chloride 109 H, Carbon Dioxide 33 H, Anion Gap 9.1, BUN 11, Creatinine 0.93, Estimated Creat Clear 67, Estimated GFR 60, Est GFR ( Amer) 73, Glucose 109 H, Calcium 7.8 L 12/15/18 10:30: Lactate 0.8 12/15/18 10:32: Specimen Source L brachial, O2 % 2lpm, ABG pH 7.36, ABG pCO2 52.7 H, ABG pO2 99.6, ABG HCO3 29.1 H, ABG Total CO2 30.7 H, ABG O2 Saturation 97, ABG Base Excess 3.7 H 12/15/18 11:35: Urine Color Shanna, Urine Appearance Clear, Urine pH 6.5, Ur Specific [place] 1.025, Urine Protein Trace, Urine Glucose (UA) Negative, Urine Ketones Negative, Urine Blood Negative, Urine Nitrate Negative, Urine Bilirubin Negative, Urine Urobilinogen 1.0, Ur Leukocyte Esterase Trace Result diagrams: 12/15/18 09:20 12/15/18 09:20 Orders (Tests/Meds): ED MEDICATIONS Discontinued Medications Generic Name Dose Route Start Last Admin Trade Name Freq PRN Reason Stop Dose Admin Sodium Chloride 500 mls @ 500 mls/hr 12/15/18 10:14 12/15/18 10:29 Sod Chlor 0.9% 500ml Bag IV 12/15/18 11:13 500 mls/hr .Q1H GABI Administration Levofloxacin/Dextrose 750 mg in 150 mls @ 100 mls/hr 12/15/18 10:15 12/15/18 10:29 Levofloxacin 750mg/150ml Premix IV 12/15/18 11:44 100 mls/hr ONCE ONE Administration Protocol ORDERS Category Date Time Status UA [Urinalysis and Microscopic] Stat Lab 12/15/18 11:35 Results Blood Culture Stat Micro 12/15/18 10:30 Ordered - Physician Consults Physician Consulted: chasity Time: 11:15 Reason -: Admission Comment/Response: talked with zeb morataya case management about nsg home placement as she was dischared little over a week ago with pulmonary embolus Fall HPI - General Chief Complaint: Fall Stated Complaint: FALL Time Seen by Provider: 12/15/18 08:47 Mode of Arrival: EMS Source of Information: Patient Limitations: Physical Limitations (general physical disability. older than stated age) Description of Symptoms (Recalled from ER Triage Doc. by RN): to ed per squad pt resident of [facility] sent for eval due to fall pt states legs gave out on her pt c/o rt hip pain, pt denies any other c/o. pt changed in hospital gown, clothes bagged and placed outside - Related Data Home Medications Medication Instructions Recorded Confirmed Atorvastatin Calcium [Atorvastatin 20 mg PO DAILY 11/02/18 12/15/18 20mg Tab] Levothyroxine Sodium 100 mcg PO DAILY 11/02/18 12/15/18 [Levothyroxine 100mcg (0.1MG) Tab] Metformin HCl [Glucophage Xr] 500 mg PO BID 11/02/18 12/15/18 [place]-3 Fatty Acids/Fish Oil [Fish 1,000 mg PO BID 11/02/18 12/15/18 Oil 1,000 mg Capsule] Pantoprazole Sodium [Protonix 40mg 40 mg PO DAILY 11/02/18 12/15/18 tablet] Quetiapine Fumarate 25 mg PO Q4HP PRN 11/02/18 12/15/18 Quetiapine Fumarate 100 mg PO HS 11/02/18 12/15/18 Sertraline HCl [Zoloft 50mg tablet] 50 mg PO DAILY 11/02/18 12/15/18 Valproic Acid (As Sodium Salt) 10 ml PO TID 11/02/18 12/15/18 [Valproic Acid] cloZAPine [Clozapine] 150 mg PO HS 11/02/18 12/15/18 Quetiapine Fumarate 50 mg PO DAILY 11/03/18 12/15/18 Albuterol Sulfate [Albuterol HFA 1 - 2 puffs IH Q6HP PRN 12/01/18 12/15/18 Inhaler] Rivaroxaban [Xarelto 15mg tablet] 15 mg PO BID 12/15/18 12/15/18 Allergies Allergy/AdvReac Type Severity Reaction Status Date / Time codeine Allergy Mild Unknown Verified 11/03/18 07:51 allergy reaction Penicillins Allergy Mild Unknown Verified 11/03/18 07:51 allergy reaction [facility] History - Hepatitis A Screen Drug use history?: No High risk sexual behaviors?: No History of sexually transmitted infection?: No Currently employed?: No Childcare worker?: No Do you have indoor plumbing?: Yes Do you have electricity?: Yes Attestation statement:: This patient has been screened for Hepatitis A risk factors. Medical History: Reports:: Diabetes Mellitus Type 2, Hyperlipidemia Denies:: Diabetes Mellitus Type 1, Internal Pacemaker Other Medical History: Reports: Anemia, Hypothyroidism, Thyroid Disease (hypothyroidism) Other Surgeries: No: Pacemaker - Social History Smoking Status: Current every day smoker Tobacco Type: cigarettes # Packs/Day (cigarettes): 0 Alcohol Intake: never Occupational Status: disabled Housing: other Household Members: other Family Hx:: Unable to obtain ROS Obtained: Yes All systems reviewed & no additional complaints - Constitutional Constitutional: Reports body ache, Reports chills, Reports malaise - Cardiovascular Cardiovascular: Denies chest pain - Respiratory Respiratory: Yes chest congestion, Yes cough, No coughing up blood - Gastrointestinal Gastrointestingal: Denies: abdominal pain - Genitourinary Female Genitourinary: Denies dysuria, Denies flank pain - Musculoskeletal Musculoskeletal: Reports muscle weakness - Integumentary/Breasts Skin/Breast: Reports rash, Reports skin pain, Reports other (except for bruising scalp) - Hematologic/Lymphatic Henatologic/Lymphatic: Denies easy bleeding, Denies easy bruising - Allergic/Immunologic Comments: sats drop to 77 when sneezing. Radiographic evidence of pneumonia Physical Exam - General General appearance: alert, lethargic, obese - Head Head exam: other (firm knot posterior scalp) - Eye Eye exam: Present: discharge - ENT ENT exam: Present: normal exam, normal oropharynx, mucous membranes moist, TM's normal bilaterally, normal external ear exam - Neck Neck exam: Present: tenderness, other (minimal) - Respiratory Respiratory exam: Present: normal lung sounds bilaterally. Absent: respiratory distress - Cardiovascular Cardiovascular exam: Present: regular rate, normal rhythm - Abdominal Exam Abdominal exam: Present: soft, normal bowel sounds. Absent: distention, tenderness, guarding, rebound, organomegaly, Menjivar's sign, ascites, mass, bruit, pulsatile mass, hernia - Extremities Exam Extremities exam: Present: other (multiple light bruises, no large hematoma or pain with manipulation of extremity). Absent: normal inspection - Neurological Exam Neurological exam: Present: alert, oriented X3, CN II-XII intact - Psychiatric Psychiatric exam: Present: normal affect, normal mood - Expanded Psychiatric Exam Expanded psych exam: Present: poor eye contact - Skin Skin exam: Present: warm, dry, other (wounds to lower legs). Absent: intact
[2018-12-15 09:38] LABS: Basophils # 0.1 K/mm3 (0-0.2); Basophils % 0.6 % (0.1-2.0); Eosinophils % 0.2 % (0.1-12.0); Hematocrit 32.2 % (37.0-47.0); Lymphocytes # 1.4 K/mm3 (0.7-4.5); Lymphocytes % 16.7 % (10-50); Mean Corpuscular HGB Conc 27.9 g/dL (31.8-35.4); Mean Corpuscular Volume 106.5 fl (81-99); Monocytes # 0.5 K/mm3 (0.1-1.0); Monocytes % 6.1 % (1.7-9.3); Neutrophils # 6.6 K/mm3 (1.8-7.8); Neutrophils % 76.4 % (37.0-80.0); Platelet Count 286 K/mm3 (142-424); Red Blood Count 3.02 M/mm3 (4.20-5.40); White Blood Count 8.6 K/mm3 (4.8-10.8)
[2018-12-15 09:52] LABS: Anion Gap 9.1 mEq/L (5-15); Calcium 7.8 mg/dL (8.5-10.1)
[2018-12-15 11:04] LABS: ABG Base Excess 3.7 mmol/L (-2.4-2.3); ABG HCO3 29.1 mmhg (22.0-26.0); ABG Oxygen Saturation 97 % (90-100); ABG PH 7.36 mmol/L (7.35-7.45); ABG PO2 99.6 mmhg (80-100); ABG TCO2 30.7 mmhg (23-27)
[2018-12-15 11:06] LABS: Oxygen 2LPM %
[2018-12-15 11:07] LABS: ABG PCO2 52.7 mmhg (35.0-45.0)
[2018-12-15 11:41] LABS: Microscopic, Urine URINE MICROSCOPIC (MICROSCOPIC)
[2018-12-15 11:42] LABS: Appearance,Urine CLEAR (Clear); Bilirubin,Urine Negative (Negative); Blood, Urine Negative (Negative); Color,Urine AMBER (Yellow); Glucose,Urine (UA) Negative (Negative); Ketones,Urine Negative (Negative); Leukocyte Esterase,Urine TRACE (Negative); PH,Urine 6.5 (5.0-8.5); Protein,Urine TRACE (Negative); Specific Gravity, Urine 1.025 (1.005-1.030)
[2018-12-15 12:00] LABS: Bacteria,Urine 2+ /lpf
[2018-12-16 06:20] LABS: Basophils % 0.5 % (0.1-2.0); Hematocrit 29.6 % (37.0-47.0); Hemoglobin 8.7 g/dL (12.2-16.2); Lymphocytes # 2.1 K/mm3 (0.7-4.5); Lymphocytes % 33.9 % (10-50); Mean Corpuscular HGB Conc 29.4 g/dL (31.8-35.4); Mean Corpuscular Volume 105.4 fl (81-99); Mean Platelet Volume 8.6 fl (7.4-10.4); Monocytes # 0.5 K/mm3 (0.1-1.0); Monocytes % 7.5 % (1.7-9.3); Neutrophils # 3.6 K/mm3 (1.8-7.8); Neutrophils % 58.1 % (37.0-80.0); Platelet Count 207 K/mm3 (142-424); White Blood Count 6.2 K/mm3 (4.8-10.8)
[2018-12-16 06:24] LABS: ABG Base Excess 1.4 mmol/L (-2.4-2.3); ABG HCO3 28.2 mmhg (22.0-26.0); ABG Oxygen Saturation 96 % (90-100); ABG PH 7.28 mmol/L (7.35-7.45); ABG PO2 92.8 mmhg (80-100); ABG TCO2 30.1 mmhg (23-27)
[2018-12-16 06:25] LABS: Allen's Test ACCEPTABLE; Anion Gap 10.5 mEq/L (5-15); Calcium 7.6 mg/dL (8.5-10.1); Oxygen 2LPM %
[2018-12-16 06:28] LABS: ABG PCO2 61.9 mmhg (35.0-45.0)
--- NOTE | 2018-12-16 07:29 | Pharmacy Consult Notes ---
[facility] Pharmacy VTE Monitoring - Patient Demographics Admission date: 12/16/18 Report Date: 12/16/18 Time: 07:28 Allergies/Adverse Reactions: Patient Allergies codeine Allergy (Mild, Verified 11/03/18 07:51) Unknown allergy reaction Penicillins Allergy (Mild, Verified 11/03/18 07:51) Unknown allergy reaction Height: 1.55 m Weight: 96.87 kg Patient Problems: Current Active Problems Right upper lobe pneumonia (Acute) Weakness generalized (Acute) Pneumonia (Acute) - VTE Risk Labs: VTE Related Lab Results Hgb 8.7 g/dL (12.2-16.2) L 12/16/18 06:10 Hct 29.6 % (37.0-47.0) L 12/16/18 06:10 Plt Count 207 K/mm3 (142-424) D 12/16/18 06:10 BUN 11 mg/dL (7-18) 12/16/18 06:10 Creatinine 0.95 mg/dL (0.55-1.02) 12/16/18 06:10 Estimated Creat Clear 85 mL/min (50-200) 12/16/18 06:10 Was VTE Risk Assessment Performed: Yes VTE Score: 5 VTE Risk Level: Low Risk Clinical Trial Participant: No - Prophylaxis VTE Prophylaxis Ordered?: Yes Types of VTE Prophylaxis: TEDS Knee High
[2018-12-16 07:58] VITALS: BP 113/55
--- NOTE | 2018-12-16 09:37 | H&P/Discharge Summary ---
General - General Admission date:: 12/15/18 Discharge date: 12/16/18 *Admission Date: 12/16/18 *Chief complaint: weakness *History of present illness: 67-year-[facility], per EMS sent for eval due to fall pt states legs gave out on her pt c/o rt hip pain, pt denies any other c/o. Patient had a recent admission for pneumonia and PE. Patient's states she feels weak. Patient was admitted waiting for long-term care placement for rehab. And monitoring of vital signs and labs. [facility] History I have reviewed the patient's past medical history: Yes Medical History: Reports:: Diabetes Mellitus Type 2, Hyperlipidemia Denies:: Cancer, Diabetes Mellitus Type 1, Internal Pacemaker, MRSA *Have you ever received a pneumonia vaccine?: No *Have you received a flu vaccine this season?: Yes Other Medical History: Reports: Anemia, Hypothyroidism, Thyroid Disease (hypothyroidism) Other Surgeries: No: Pacemaker Amputation: No - *Social History Educational Level: Completed High School Smoking Status: Never smoker Tobacco Type: cigarettes # Packs/Day (cigarettes): 0 Alcohol Intake: never *Occupational Status:: disabled Housing: other Household Members: other *Travel in the last 8 weeks: None Family Hx:: Unable to obtain Review of Systems - Review of Systems Review of systems:: pertinent systems reviewed and negative unless documented below - Constitutional Reports weakness, Denies chills, Denies fever(s) - Eyes Denies change in vision - *Cardiovascular Denies chest pain at rest - *Respiratory Denies chest congestion - *Gastrointestinal Denies bloating - *Genitourinary Denies urinary incontinence - *Musculoskeletal Reports muscle weakness - Integumentary/Breasts Denies rash - *Neurologic Denies dizziness - Psychiatric Denies lack of enjoyment, Denies behavioral changes - Endocrine Denies excessive sweating - Hematologic/Lymphatic Denies enlarged lymph nodes - Allergic/Immunologic Denies throat swelling Exam Vital signs and Labs for Last 24 Hours: Temp Pulse Resp BP Pulse Ox 98.4 F 86 22 113/55 L 96 12/16/18 07:56 12/16/18 07:56 12/16/18 07:56 12/16/18 07:56 12/16/18 08:48 Laboratory Results - last 24 hr 12/15/18 09:20: WBC 8.6, RBC 3.02 L, Hgb 9.0 L, Hct 32.2 L, MCV 106.5 H, MCH 29.7, MCHC 27.9 L, RDW 18.0 H, Plt Count 286, MPV 8.0, Neut % (Auto) 76.4, Lymph % (Auto) 16.7, [place] % (Auto) 6.1, Eos % (Auto) 0.2, Baso % (Auto) 0.6, Neut # (Auto) 6.6, Lymph # (Auto) 1.4, [place] # (Auto) 0.5, Eos # (Auto) 0.0, Baso # (Auto) 0.1 12/15/18 09:20: Sodium 148 H, Potassium 3.1 L, Chloride 109 H, Carbon Dioxide 33 H, Anion Gap 9.1, BUN 11, Creatinine 0.93, Estimated Creat Clear 67, Estimated GFR 60, Est GFR ( Amer) 73, Glucose 109 H, Calcium 7.8 L 12/15/18 10:30: Lactate 0.8 12/15/18 10:32: Specimen Source L brachial, O2 % 2lpm, ABG pH 7.36, ABG pCO2 52.7 H, ABG pO2 99.6, ABG HCO3 29.1 H, ABG Total CO2 30.7 H, ABG O2 Saturation 97, ABG Base Excess 3.7 H 12/15/18 11:35: Urine Color Shanna, Urine Appearance Clear, Urine pH 6.5, Ur Specific Shushan 1.025, Urine Protein Trace, Urine Glucose (UA) Negative, Urine Ketones Negative, Urine Blood Negative, Urine Nitrate Negative, Urine Bilirubin Negative, Urine Urobilinogen 1.0, Ur Leukocyte Esterase Trace, Urine RBC 3-5, Urine WBC 10-20, Ur Squamous Epith Cells 5-10, Urine Bacteria 2+ 12/15/18 20:29: POC Glucose 100 12/16/18 06:10: WBC 6.2 D, RBC 2.80 L, Hgb 8.7 L, Hct 29.6 L, MCV 105.4 H, MCH 31.0, MCHC 29.4 L, RDW 17.0, Plt Count 207 D, MPV 8.6, Neut % (Auto) 58.1, Lymph % (Auto) 33.9, [place] % (Auto) 7.5, Eos % (Auto) 0.0 L, Baso % (Auto) 0.5, Neut # (Auto) 3.6, Lymph # (Auto) 2.1, [place] # (Auto) 0.5, Eos # (Auto) 0.0, Baso # (Auto) 0.0 12/16/18 06:10: Sodium 149 H, Potassium 3.5, Chloride 111 H, Carbon Dioxide 31, Anion Gap 10.5, BUN 11, Creatinine 0.95, Estimated Creat Clear 85, Estimated GFR 59, Est GFR ( Amer) 71, Glucose 86 D, Calcium 7.6 L 12/16/18 06:10: Specimen Source R radial, O2 % 2lpm, ABG pH 7.28 L, ABG pCO2 61.9 H, ABG pO2 92.8, ABG HCO3 28.2 H, ABG Total CO2 30.1 H, ABG O2 Saturation 96, ABG Base Excess 1.4, Isiah Test Acceptable I & O for Last 24 hours: Intake & Output 12/13/18 12/14/18 12/15/18 12/16/18 11:59 11:59 11:59 11:59 Intake Total 1472 / 1472 Balance 1472 / 1472 Weight 168 lb 213 lb 9 oz Microbiology Reports for the Last 24 Hours: Microbiology 12/15/18 11:35 Urine,Clean Catch Urine Culture - Preliminary - Constitutional no acute distress, chronically ill appearing - *Routine HEENT Exam Head: Present: normocephalic Eye: Present: PERRL ENT: Present: mucous membranes moist - *Routine Neck Exam Present: supple. Absent: lymphadenopathy - *Routine Respiratory Exam Present: decreased breath sounds, rhonchi - *Routine Cardiovascular Exam Present: RRR - *Routine Abdominal Exam Present: soft, normoactive bowel sounds. Absent: tenderness - *Routine Extremities Exam Absent: cyanosis, clubbing, edema - *Routine Skin Exam Present: warm. Absent: rash - *Routine Neurological Exam Present: alert, oriented X3 - Routine Psychiatric Exam Present: normal affect Hospital Course Hospital Course: Patient will be discharged to [facility] for rehab. She will continue her Xarelto she was placed on while at [facility]. Patient will have a sleep study done as an outpatient to see if she qualifies for BiPAP. We will hold all Seroquel at this time due to sedation. Patient is a very sound sleeper and O2 sats dropped while sleeping. Will have a sleep study done to rule out sleep apnea. Patient will need physical therapy and Occupational Therapy at [facility]. Results Labs on day of discharge: Labs from last 24 hours 12/16/18 12/16/18 12/16/18 06:10 06:10 06:10 WBC 6.2 D RBC 2.80 L Hgb 8.7 L Hct 29.6 L MCV 105.4 H MCH 31.0 MCHC 29.4 L RDW 17.0 Plt Count 207 D MPV 8.6 Neut % (Auto) 58.1 Lymph % (Auto) 33.9 Greeley % (Auto) 7.5 Eos % (Auto) 0.0 L Baso % (Auto) 0.5 Neut # (Auto) 3.6 Lymph # (Auto) 2.1 Greeley # (Auto) 0.5 Eos # (Auto) 0.0 Baso # (Auto) 0.0 Specimen Source R radial O2 % 2lpm ABG pH 7.28 L ABG pCO2 61.9 H ABG pO2 92.8 ABG HCO3 28.2 H ABG Total CO2 30.1 H ABG O2 Saturation 96 ABG Base Excess 1.4 Isiah Test Acceptable Sodium 149 H Potassium 3.5 Chloride 111 H Carbon Dioxide 31 Anion Gap 10.5 BUN 11 Creatinine 0.95 Estimated Creat Clear 85 Estimated GFR 59 Est GFR ( Amer) 71 Glucose 86 D POC Glucose Lactate Calcium 7.6 L Urine Color Urine Appearance Urine pH Ur Specific Shushan Urine Protein Urine Glucose (UA) Urine Ketones Urine Blood Urine Nitrate Urine Bilirubin Urine Urobilinogen Ur Leukocyte Esterase Urine RBC Urine WBC Ur Squamous Epith Cells Urine Bacteria 12/15/18 12/15/18 12/15/18 20:29 11:35 10:32 WBC RBC Hgb Hct MCV MCH MCHC RDW Plt Count MPV Neut % (Auto) Lymph % (Auto) Greeley % (Auto) Eos % (Auto) Baso % (Auto) Neut # (Auto) Lymph # (Auto) [place] # (Auto) Eos # (Auto) Baso # (Auto) Specimen Source L brachial O2 % 2lpm ABG pH 7.36 ABG pCO2 52.7 H ABG pO2 99.6 ABG HCO3 29.1 H ABG Total CO2 30.7 H ABG O2 Saturation 97 ABG Base Excess 3.7 H Isiah Test Sodium Potassium Chloride Carbon Dioxide Anion Gap BUN Creatinine Estimated Creat Clear Estimated GFR Est GFR ( Amer) Glucose POC Glucose 100 Lactate Calcium Urine Color Shanna Urine Appearance Clear Urine pH 6.5 Ur Specific Shushan 1.025 Urine Protein Trace Urine Glucose (UA) Negative Urine Ketones Negative Urine Blood Negative Urine Nitrate Negative Urine Bilirubin Negative Urine Urobilinogen 1.0 Ur Leukocyte Esterase Trace Urine RBC 3-5 Urine WBC 10-20 Ur Squamous Epith Cells 5-10 Urine Bacteria 2+ 12/15/18 12/15/18 12/15/18 10:30 09:20 09:20 WBC 8.6 RBC 3.02 L Hgb 9.0 L Hct 32.2 L MCV 106.5 H MCH 29.7 MCHC 27.9 L RDW 18.0 H Plt Count 286 MPV 8.0 Neut % (Auto) 76.4 Lymph % (Auto) 16.7 Greeley % (Auto) 6.1 Eos % (Auto) 0.2 Baso % (Auto) 0.6 Neut # (Auto) 6.6 Lymph # (Auto) 1.4 Greeley # (Auto) 0.5 Eos # (Auto) 0.0 Baso # (Auto) 0.1 Specimen Source O2 % ABG pH ABG pCO2 ABG pO2 ABG HCO3 ABG Total CO2 ABG O2 Saturation ABG Base Excess Isiah Test Sodium 148 H Potassium 3.1 L Chloride 109 H Carbon Dioxide 33 H Anion Gap 9.1 BUN 11 Creatinine 0.93 Estimated Creat Clear 67 Estimated GFR 60 Est GFR ( Amer) 73 Glucose 109 H POC Glucose Lactate 0.8 Calcium 7.8 L Urine Color Urine Appearance Urine pH Ur Specific Shushan Urine Protein Urine Glucose (UA) Urine Ketones Urine Blood Urine Nitrate Urine Bilirubin Urine Urobilinogen Ur Leukocyte Esterase Urine RBC Urine WBC Ur Squamous Epith Cells Urine Bacteria Preliminary micro results at discharge 12/15/18 11:35 Urine Culture - Preliminary Urine,Clean Catch - Additional Comments Rounded with Dr. Avery all orders per Gena DS: Diagnosis - Discharge Diagnosis (1) Pneumonia Status: Acute (2) Weakness generalized Status: Acute (3) Diabetes 1.5, managed as type 2 Status: Acute (4) Pulmonary embolism Status: Acute (5) Schizo affective schizophrenia Status: Acute Discharge Plan - Patient Discharge Instructions ACTIVITY: Continue current activity DIET: continue same diet - Follow up Plan Follow up with: Manas Carlson APRN [Advanced Practice Nurse] - Disposition: Xfer [facility] Home Medications: Home Medications Medication Instructions Recorded Confirmed Type Atorvastatin Calcium [Atorvastatin 20 mg PO DAILY 11/02/18 12/15/18 History 20mg Tab] Levothyroxine Sodium 100 mcg PO DAILY 11/02/18 12/15/18 History [Levothyroxine 100mcg (0.1MG) Tab] Metformin HCl [Glucophage Xr] 500 mg PO BID 11/02/18 12/15/18 History [place]-3 Fatty Acids/Fish Oil [Fish 1,000 mg PO BID 11/02/18 12/15/18 History Oil 1,000 mg Capsule] Pantoprazole Sodium [Protonix 40mg 40 mg PO DAILY 11/02/18 12/15/18 History tablet] Quetiapine Fumarate 25 mg PO Q4HP PRN 11/02/18 12/15/18 History Quetiapine Fumarate 100 mg PO HS 11/02/18 12/15/18 History Sertraline HCl [Zoloft 50mg tablet] 50 mg PO DAILY 11/02/18 12/15/18 History Valproic Acid (As Sodium Salt) 10 ml PO TID 11/02/18 12/15/18 History [Valproic Acid] cloZAPine [Clozapine] 150 mg PO HS 11/02/18 12/15/18 History Quetiapine Fumarate 50 mg PO DAILY 11/03/18 12/15/18 History Albuterol Sulfate [Albuterol HFA 1 - 2 puffs IH Q6HP PRN 12/01/18 12/15/18 History Inhaler] Rivaroxaban [Xarelto 15mg tablet] 15 mg PO BID 12/15/18 12/15/18 History Prescriptions/Medication Reconciliation: Continued Pantoprazole Sodium [Protonix 40mg tablet] 40 mg PO DAILY [place]-3 Fatty Acids/Fish Oil [Fish Oil 1,000 mg Capsule] 1,000 mg PO BID Levothyroxine Sodium [Levothyroxine 100mcg (0.1MG) Tab] 100 mcg PO DAILY cloZAPine [Clozapine] 150 mg PO HS Atorvastatin Calcium [Atorvastatin 20mg Tab] 20 mg PO DAILY Albuterol Sulfate [Albuterol HFA Inhaler] 1 - 2 puffs IH Q6HP PRN PRN Reason: Shortness Of Breath Or Wheezing Valproic Acid (As Sodium Salt) [Valproic Acid] 10 ml PO TID Sertraline HCl [Zoloft 50mg tablet] 50 mg PO DAILY Metformin HCl [Glucophage Xr] 500 mg PO BID Rivaroxaban [Xarelto 15mg tablet] 15 mg PO BID Discontinued Quetiapine Fumarate 25 mg PO Q4HP PRN PRN Reason: Agitation Quetiapine Fumarate 100 mg PO HS Quetiapine Fumarate 50 mg PO DAILY - Problem Reconciliation Problems Reviewed?: Yes
== END 2018-12-16 11:43 ==
LOC: 2ND 07:49 → ER 07:49 → 2ND 18:21
PROVIDERS: ADMIT Family Medicine; ATTEND Emergency Medicine
CPT/HCPCS: 36415; 70450; 71010; 71045; 72125; 73502; 80048; 81001; 82803; 82962; 83605; 85025; 87040; 87086; 87088; 87186; 94660; 96365; 96367; 99285; G0378; J1956

== ENCOUNTER 2018-12-17 09:19 | Inpatient (IN) ==
--- NOTE | 2018-12-17 09:39 | Emergency Department Note ---
ED Disposition Clinical Impression: Delirium due to general medical condition, Altered mental status, LLL pneumonia, Sepsis Disposition: Admitted As Inpatient Condition on Discharge: Serious Instructions: DI for Altered Mental Status Referrals: Provider,Referral, MD [Primary Care Provider] - Time of Disposition: 11:52 - Critical Care Critical Care Time: No Attestation: On 12/17/18, the high probability of a clinically significant, sudden or life t hreatening deterioration of the following system(s) required my full and direct attention, intervention and personal management. The time I documented below is in addition to time spent performing reported procedures but includes the following listed in this critical care notation. Medical Decision Making - Medical Records Medical records reviewed: Yes: I reviewed the patient's medical records. - Young Inquiry Pt receiving controlled substance: No Young was queried for this patient: No Vital Signs: 12/17/18 09:15 12/17/18 09:16 12/17/18 09:44 Temperature 98.6 F Temperature Source Rectal Pulse Rate [Right Brachial] 108 H 96 H Respiratory Rate 31 H 30 H Blood Pressure [Right Arm] 133/58 L 153/55 H Blood Pressure Mean [Right Arm] 83 87 Blood Pressure Source [Right Arm] Automatic Cuff Automatic Cuff Blood Pressure Position [Right Arm] Sitting Supine 02 Sat by Pulse Oximetry 92 L 75 L 88 L Oxygen Delivery Method BiPAP BiPAP BiPAP 12/17/18 10:09 Temperature Temperature Source Pulse Rate [Right Brachial] 94 H Respiratory Rate Blood Pressure [Right Arm] 119/49 L Blood Pressure Mean [Right Arm] 72 Blood Pressure Source [Right Arm] Blood Pressure Position [Right Arm] 02 Sat by Pulse Oximetry 94 L Oxygen Delivery Method BiPAP - Lab Data Lab results reviewed: Yes: I reviewed the patient's lab results. Lab Results 12/17/18 09:16: Specimen Source Left brachial, O2 % 90, ABG pH 7.19 L*, ABG pCO2 69.5 H, ABG pO2 101.6 H, ABG HCO3 25.9, ABG Total CO2 28.1 H, ABG O2 Saturation 97, ABG Base Excess -2.3, Isiah Test Non applicable, Vent Rate 18, Tidal Volume bipap 18 12/17/18 09:30: Urine Color Yellow, Urine Appearance Clear, Urine pH 6.0, Ur Specific Mason 1.025, Urine Protein Trace, Urine Glucose (UA) Negative, Urine Ketones Trace, Urine Blood Trace-i, Urine Nitrate Negative, Urine Bilirubin Negative, Urine Urobilinogen 0.2, Ur Leukocyte Esterase Negative, Urine RBC 3-5, Urine WBC Occasional, Ur Squamous Epith Cells Occasional 12/17/18 09:33: POC Glucose 169 H 12/17/18 09:38: WBC 10.4 D, RBC 2.95 L, Hgb 9.0 L, Hct 32.8 L, MCV 111.4 H, MCH 30.6, MCHC 27.4 L, RDW 16.9, Plt Count 223, MPV 8.1, Neut % (Auto) 82.1 H, Lymph % (Auto) 13.4, Alfalfa % (Auto) 2.6, Eos % (Auto) 0.5, Baso % (Auto) 1.3, Neut # (Auto) 8.5 H, Lymph # (Auto) 1.4, Alfalfa # (Auto) 0.3, Eos # (Auto) 0.1, Baso # (Auto) 0.1 12/17/18 09:38: Sodium 149 H, Potassium 3.9, Chloride 111 H, Carbon Dioxide 32, Anion Gap 9.9, BUN 11, Creatinine 1.14 H, Estimated Creat Clear 40, Estimated GFR 48 L, Est GFR ( Amer) 58 L, Glucose 178 H, Calcium 8.3 L, Total Bilirubin 0.3, AST 13 L, ALT 10 L, Alkaline Phosphatase 80, Troponin I < 0.02, Total Protein 6.1 L, Albumin 2.6 L, Globulin 3.5 H, Albumin/Globulin Ratio 0.7 L Result diagrams: 12/17/18 09:38 12/17/18 09:38 Orders (Tests/Meds): ED MEDICATIONS Generic Name Dose Route Start Last Admin Trade Name Freq PRN Reason Stop Dose Admin Ertapenem 1 gm/ Sodium 50 mls @ 100 mls/hr 12/17/18 11:45 12/17/18 12:06 Chloride IV 12/31/18 11:44 100 mls/hr Q24H GABI Administration Protocol Discontinued Medications Generic Name Dose Route Start Last Admin Trade Name Freq PRN Reason Stop Dose Admin Furosemide 100 mg 12/17/18 12:09 12/17/18 12:09 Lasix 100mg/10ml Vial IV 12/17/18 12:10 100 mg ONCE ONE Administration ORDERS Category Date Time Status Blood Culture Stat Micro 12/17/18 12:11 Ordered - Physician Consults Physician Consulted: deng Time: 12:13 Reason -: Admission Resp/SOB HPI - General Chief Complaint: Altered Mental Status Stated Complaint: Respiratory failure Time Seen by Provider: 12/17/18 09:25 Mode of Arrival: Family Vehicle Source of Information: Patient Limitations: No Limitations Description of Symptoms (Recalled from ER Triage Doc. by RN): arrives in resp failure, new onset per nh report. ems with bipap in place - History of Present Illness presens with respiratory failure, low sats, pain in lower quads. - Related Data Home Medications Medication Instructions Recorded Confirmed Atorvastatin Calcium [Atorvastatin 20 mg PO DAILY 11/02/18 12/17/18 20mg Tab] Levothyroxine Sodium 100 mcg PO DAILY 11/02/18 12/17/18 [Levothyroxine 100mcg (0.1MG) Tab] Metformin HCl [Glucophage Xr] 500 mg PO BID 11/02/18 12/17/18 [place]-3 Fatty Acids/Fish Oil [Fish 1,000 mg PO BID 11/02/18 12/17/18 Oil 1,000 mg Capsule] Pantoprazole Sodium [Protonix 40mg 40 mg PO DAILY 11/02/18 12/17/18 tablet] Sertraline HCl [Zoloft 50mg tablet] 50 mg PO DAILY 11/02/18 12/17/18 Valproic Acid (As Sodium Salt) 10 ml PO TID 11/02/18 12/17/18 [Valproic Acid] cloZAPine [Clozapine] 150 mg PO HS 11/02/18 12/17/18 Albuterol Sulfate [Albuterol HFA 1 - 2 puffs IH Q6HP PRN 12/01/18 12/17/18 Inhaler] Rivaroxaban [Xarelto 15mg tablet] 15 mg PO BID 12/15/18 12/17/18 Allergies Allergy/AdvReac Type Severity Reaction Status Date / Time codeine Allergy Mild Unknown Verified 11/03/18 07:51 allergy reaction Penicillins Allergy Mild Unknown Verified 11/03/18 07:51 allergy reaction H History - Hepatitis A Screen Drug use history?: No High risk sexual behaviors?: No History of sexually transmitted infection?: No Currently employed?: No Childcare worker?: No Do you have indoor plumbing?: Yes Do you have electricity?: Yes Attestation statement:: This patient has been screened for Hepatitis A risk factors. I have reviewed the patient's past medical history: Yes Medical History: Reports:: Diabetes Mellitus Type 2, Hyperlipidemia Denies:: Cancer, Diabetes Mellitus Type 1, Internal Pacemaker, MRSA Other Medical History: Reports: Anemia, Hypothyroidism, Thyroid Disease (hypothyroidism) Other Surgeries: No: Pacemaker Amputation: No - Social History Smoking Status: Never smoker Tobacco Type: cigarettes # Packs/Day (cigarettes): 0 Alcohol Intake: never Occupational Status: disabled Housing: other Household Members: other Family Hx:: Unable to obtain ROS Obtained: Yes All systems reviewed & no additional complaints - Constitutional Constitutional: Denies fever(s) - ENT Ears, Nose, Mouth, and Throat: Reports throat swelling - Cardiovascular Cardiovascular: Denies acrocyanosis, Denies chest pain, Denies chest pain at rest, Denies dyspnea - Respiratory Respiratory: No cough, Yes dyspnea, Yes dyspnea on exertion - Gastrointestinal Gastrointestingal: Denies: abdominal pain - Musculoskeletal Musculoskeletal: Denies joint pain, Denies joint stiffness, Denies joint swelling - Integumentary/Breasts Skin/Breast: Denies rash, Denies skin pain - Neurologic Neurologic: Denies abnormal gait, Denies abnormal movements, Denies abnormal speech - Hematologic/Lymphatic Henatologic/Lymphatic: Denies easy bleeding, Denies easy bruising Physical Exam - General General appearance: in no apparent distress, obtunded - Head Head exam: atraumatic, normocephalic, normal inspection - Eye Eye exam: Present: normal appearance, PERRL, EOMI, other (pipoint pupils) - ENT ENT exam: Present: normal exam, normal oropharynx, mucous membranes moist, TM's normal bilaterally, normal external ear exam - Chest Chest inspection: Present: normal inspection, symmetric chest wall rise. Absent: tenderness - Respiratory Respiratory exam: Present: normal lung sounds bilaterally, respiratory distress, wheezes, accessory muscle use, prolonged expiratory phase - Cardiovascular Cardiovascular exam: Present: regular rate, normal rhythm. Absent: JVD - Abdominal Exam Abdominal exam: Present: soft, normal bowel sounds. Absent: distention, tenderness, guarding - Extremities Exam Extremities exam: Present: normal inspection, full ROM, normal capillary refill. Absent: calf tenderness - Back Exam Back exam: Present: normal inspection. Absent: tenderness - Neurological Exam Neurological exam: Present: alert. Absent: oriented X3, normal gait, motor sensory deficit, reflexes normal - Psychiatric Psychiatric exam: Present: normal affect, normal mood - Skin Skin exam: Present: warm, dry, intact, normal color
[2018-12-17 09:46] LABS: Microscopic, Urine URINE MICROSCOPIC (MICROSCOPIC)
[2018-12-17 09:50] LABS: ABG Base Excess -2.3 mmol/L (-2.4-2.3); ABG HCO3 25.9 mmhg (22.0-26.0); ABG Oxygen Saturation 97 % (90-100); ABG PO2 101.6 mmhg (80-100); ABG TCO2 28.1 mmhg (23-27)
[2018-12-17 09:51] LABS: Oxygen 90 %
[2018-12-17 09:52] LABS: Allen's Test Non Applicable
[2018-12-17 09:53] LABS: ABG PCO2 69.5 mmhg (35.0-45.0); ABG PH 7.19 mmol/L (7.35-7.45)
[2018-12-17 09:55] LABS: Basophils # 0.1 K/mm3 (0-0.2); Basophils % 1.3 % (0.1-2.0); Eosinophils # 0.1 K/mm3 (0.0-0.4); Eosinophils % 0.5 % (0.1-12.0); Hematocrit 32.8 % (37.0-47.0); Lymphocytes # 1.4 K/mm3 (0.7-4.5); Lymphocytes % 13.4 % (10-50); Mean Corpuscular HGB Conc 27.4 g/dL (31.8-35.4); Mean Corpuscular Volume 111.4 fl (81-99); Mean Platelet Volume 8.1 fl (7.4-10.4); Monocytes # 0.3 K/mm3 (0.1-1.0); Monocytes % 2.6 % (1.7-9.3); Neutrophils # 8.5 K/mm3 (1.8-7.8); Neutrophils % 82.1 % (37.0-80.0); Platelet Count 223 K/mm3 (142-424); Red Blood Count 2.95 M/mm3 (4.20-5.40); Red Cell Distribution Width 16.9 % (11.5-17.5); White Blood Count 10.4 K/mm3 (4.8-10.8)
[2018-12-17 09:57] LABS: Appearance,Urine CLEAR (Clear); Bilirubin,Urine Negative (Negative); Blood, Urine TRACE-I (Negative); Color,Urine YELLOW (Yellow); Glucose,Urine (UA) Negative (Negative); Ketones,Urine TRACE (Negative); Leukocyte Esterase,Urine Negative (Negative); Protein,Urine TRACE (Negative); Specific Gravity, Urine 1.025 (1.005-1.030); Urobilinogen,Urine 0.2 EU/dl (0.2)
[2018-12-17 10:05] LABS: Alanine Aminotransferase 10 U/L (12-78); Albumin Level 2.6 gm/dL (3.4-5.0); Albumin/Globulin Ratio 0.7 (1.1-1.8); Alkaline Phosphatase 80 U/L (46-116); Anion Gap 9.9 mEq/L (5-15); Aspartate Amino Transferase 13 U/L (15-37); Bilirubin,Total 0.3 mg/dL (0.2-1.0); Blood Urea Nitrogen 11 mg/dL (7-18); Calcium 8.3 mg/dL (8.5-10.1); Carbon Dioxide 32 mmol/L (21.0-32.0); Chloride 111 mmol/L (98-107); Globulin 3.5 gm/dl (1.3-3.2); Glucose 178 mg/dL (74-106); Sodium 149 mmol/L (136-145); Total Protein,Serum 6.1 gm/dL (6.4-8.2)
[2018-12-17 10:23] LABS: Squamous Epithelial Cell,Urine Occasional #/hpf (0-5); WBC,Urine Occasional #/hpf (0-3)
--- NOTE | 2018-12-17 12:55 | History & Physical Report ---
*Admission Date: 12/17/18 *Chief complaint: respiratory failure *History of present illness: Ms. Albert is a 67-year-old female former resident of [facility] who has had a progressive course over the past few weeks with pneumonia/PE/falls. She was last seen yesterday in our institution where she was discharged to [facility] for further management. She presents today to the ER via EMS due to acute worsening of her respiratory failure. She presented on BiPAP, obtunded, work-up showing respiratory acidosis and complete opacification of left side of chest. Of note, she was previously seen earlier this month where she was diagnosed with worsening pneumonia and pulmonary emboli. She has been on oral therapy for this consisting of Xarelto. Upon discharge yesterday patient was at her baseline, mentating appropriately, able to make decisions for herself. Upon arrival to the floor I am unable to obtain any history from the patient. Per documentation her current status is an abrupt change clinically from where she was approximately 24 hours ago. [facility] the [facility] she decided she wanted to be DNR, however the only documentation that she presents with and that is completed is EMS DNR paperwork. Patient has no advanced directives, unable to contact next of kin is their phone number is disconnected, and is unable to interact meaningfully at this time with staff. As there is no legal documentation to cover her admission to the hospital showing DNR status, patient defaults to full CODE STATUS. Unable to obtain history or review of systems from patient due to her obtundation to confirm her wishes for her care. Attempting to contact next of kin and oncology social work at this time. Medicine for further management Addendum -Patient's repeat blood gas after arriving to the floor showed worsening respiratory acidosis with a PCO2 going from 60-98 on aggressive BiPAP settings. Patient showing clinical decline necessitating intubation for respiratory failure. [facility] History I have reviewed the patient's past medical history: Yes (From documentation) Medical History: Reports:: Diabetes Mellitus Type 2, Hyperlipidemia Denies:: Cancer, Diabetes Mellitus Type 1, Internal Pacemaker, MRSA *Have you ever received a pneumonia vaccine?: No *Have you received a flu vaccine this season?: No Other Medical History: Reports: Anemia, Hypothyroidism, Thyroid Disease (hypothyroidism) Other Surgeries: No: Pacemaker Amputation: No - *Social History Smoking Status: Never smoker Tobacco Type: cigarettes # Packs/Day (cigarettes): 0 Alcohol Intake: never *Occupational Status:: disabled Housing: other Household Members: other *Travel in the last 8 weeks: None Family Hx:: Unable to obtain Review of Systems - Review of Systems Review of systems:: unable to obtain (obtunded, no family at bedside) - *Neurologic Denies abnormal walking, Denies abnormal movements, Denies abnormal speech Meds Home Medications Medication Instructions Recorded Confirmed Type Atorvastatin Calcium [Atorvastatin 20 mg PO DAILY 11/02/18 12/17/18 History 20mg Tab] Levothyroxine Sodium 100 mcg PO DAILY 11/02/18 12/17/18 History [Levothyroxine 100mcg (0.1MG) Tab] Metformin HCl [Glucophage Xr] 500 mg PO BID 11/02/18 12/17/18 History [place]-3 Fatty Acids/Fish Oil [Fish 1,000 mg PO BID 11/02/18 12/17/18 History Oil 1,000 mg Capsule] Pantoprazole Sodium [Protonix 40mg 40 mg PO DAILY 11/02/18 12/17/18 History tablet] Sertraline HCl [Zoloft 50mg tablet] 50 mg PO DAILY 11/02/18 12/17/18 History Valproic Acid (As Sodium Salt) 10 ml PO TID 11/02/18 12/17/18 History [Valproic Acid] cloZAPine [Clozapine] 150 mg PO HS 11/02/18 12/17/18 History Albuterol Sulfate [Albuterol HFA 1 - 2 puffs IH Q6HP PRN 12/01/18 12/17/18 History Inhaler] Rivaroxaban [Xarelto 15mg tablet] 15 mg PO BID 12/15/18 12/17/18 History Allergies Allergy/AdvReac Type Severity Reaction Status Date / Time codeine Allergy Mild Unknown Verified 11/03/18 07:51 allergy reaction Penicillins Allergy Mild Unknown Verified 11/03/18 07:51 allergy reaction Exam Vital signs and Labs for Last 24 Hours: Temp Pulse Resp BP Pulse Ox 98.6 F 87 26 H 137/63 90 L 12/17/18 09:16 12/17/18 12:09 12/17/18 12:09 12/17/18 12:09 12/17/18 12:09 Laboratory Results - last 24 hr 12/17/18 09:16: Specimen Source Left brachial, O2 % 90, ABG pH 7.19 L*, ABG pCO2 69.5 H, ABG pO2 101.6 H, ABG HCO3 25.9, ABG Total CO2 28.1 H, ABG O2 Saturation 97, ABG Base Excess -2.3, Isiah Test Non applicable, Vent Rate 18, Tidal Volume bipap 18 12/17/18 09:30: Urine Color Yellow, Urine Appearance Clear, Urine pH 6.0, Ur Specific [place] 1.025, Urine Protein Trace, Urine Glucose (UA) Negative, Urine Ketones Trace, Urine Blood Trace-i, Urine Nitrate Negative, Urine Bilirubin Negative, Urine Urobilinogen 0.2, Ur Leukocyte Esterase Negative, Urine RBC 3-5, Urine WBC Occasional, Ur Squamous Epith Cells Occasional 12/17/18 09:33: POC Glucose 169 H 12/17/18 09:38: WBC 10.4 D, RBC 2.95 L, Hgb 9.0 L, Hct 32.8 L, MCV 111.4 H, MCH 30.6, MCHC 27.4 L, RDW 16.9, Plt Count 223, MPV 8.1, Neut % (Auto) 82.1 H, Lymph % (Auto) 13.4, [place] % (Auto) 2.6, Eos % (Auto) 0.5, Baso % (Auto) 1.3, Neut # (Auto) 8.5 H, Lymph # (Auto) 1.4, [place] # (Auto) 0.3, Eos # (Auto) 0.1, Baso # (Auto) 0.1 12/17/18 09:38: Sodium 149 H, Potassium 3.9, Chloride 111 H, Carbon Dioxide 32, Anion Gap 9.9, BUN 11, Creatinine 1.14 H, Estimated Creat Clear 40, Estimated GFR 48 L, Est GFR ( Amer) 58 L, Glucose 178 H, Calcium 8.3 L, Total Bilirubin 0.3, AST 13 L, ALT 10 L, Alkaline Phosphatase 80, Troponin I < 0.02, Total Protein 6.1 L, Albumin 2.6 L, Globulin 3.5 H, Albumin/Globulin Ratio 0.7 L I & O for Last 24 hours: Intake & Output 10/12/15/18 12/16/18 12/17/18 23:59 23:59 23:59 23:59 Weight 124.738 kg - Constitutional moderate distress, obese, chronically ill appearing, obtunded - *Routine HEENT Exam Head: Present: normocephalic, atraumatic Eye: Present: PERRL ENT: Present: mucous membranes moist - *Routine Neck Exam Present: supple. Absent: lymphadenopathy - *Routine Respiratory Exam Comments: On BiPAP at time of exam, rhonchorous with bronchial breath sounds bilaterally. Crackles in posterior lung llanes. Poor air movement on left compared to right. - *Routine Cardiovascular Exam Present: RRR - *Routine Abdominal Exam Present: soft, normoactive bowel sounds. Absent: tenderness - *Routine Extremities Exam Present: edema (1+ to knees). Absent: cyanosis, clubbing - *Routine Skin Exam Present: pallor, warm. Absent: rash - *Routine Neurological Exam Present: altered mental status Minimal spontaneous movement and occasional groan. Assessment and Plan (1) Acute and chronic respiratory failure with hypercapnia Current visit: Yes Status: Acute Category: Medical Code(s): J96.22 - Acute and chronic respiratory failure with hypercapnia (2) Pulmonary HTN Current visit: No Status: Acute Category: Medical Code(s): I27.20 - Pulmonary hypertension, unspecified (3) Pulmonary embolism Current visit: No Status: Acute Category: Medical Code(s): I26.99 - Other pulmonary embolism without acute cor pulmonale (4) Schizo affective schizophrenia Current visit: No Status: Acute Category: Medical Code(s): F25.0 - Schizoaffective disorder, bipolar type (5) Severe sepsis Current visit: No Status: Acute Category: Medical Code(s): A41.9 - Sepsis, unspecified organism; R65.20 - Severe sepsis without septic shock (6) Hypernatremia Current visit: Yes Status: Acute Category: Medical Code(s): E87.0 - Hyperosmolality and hypernatremia (7) Uncompensated respiratory acidosis Current visit: Yes Status: Acute Category: Medical Code(s): E87.2 - Acidosis (8) Hyperchloremia Current visit: Yes Status: Acute Category: Medical Code(s): E87.8 - Other disorders of electrolyte and fluid balance, not elsewhere classified (9) Acute kidney injury Current visit: Yes Status: Acute Category: Medical Code(s): N17.9 - Acute kidney failure, unspecified (10) Acute encephalopathy Current visit: Yes Status: Acute Category: Medical Code(s): G93.40 - Encephalopathy, unspecified - Assessment and plan all Dx Assessment and Plan for all problems:: Ms. Albert is a 67-year-old female with recent history of pneumonia, PEs, falls who is had an acute change in mentation over the past 24 hours. She presents with severe sepsis, altered mental status/encephalopathy, acute on chronic hypoxemic and hypercarbic respiratory failure with respiratory acidosis, and hypernatremia/hyperchloremia concerning for free water deficit. Additionally has an acute kidney injury. At this time patient is critically ill necessitating intubation. We will plan for fluid resuscitation, broad-spectrum antibiotics, blood cultures and urine cultures obtained. Will monitor for improvement in respiratory acidosis after initiation of invasive mechanical ventilation. Will pursue repeat CT PE in the setting of worsening respiratory failure given her history of pulmonary hypertension noted recently suspected due to presence of PEs. Initiating therapeutic Lovenox in the setting of patient being obtunded and unable to take oral therapy. NG placed upon intubation. GI prophylaxis with Protonix DVT prophylaxis with therapeutic Lovenox due to PEs Sedation with propofol, KIKI -1 to +1 LR at 125 cc/h Blood pressure currently normal not necessitating any inotropes/vasopressors Patient at this time is full code even in the setting of recent reports of changing to DNR as there is no legal documentation, surrogate medical decision- maker, or ability of patient to make decisions for herself to say otherwise. We will continue to attempt to contact family as we move forward with care. Patient's condition is grave, prognosis poor.
[2018-12-17 14:10] LABS: ABG Base Excess 1.8 mmol/L (-2.4-2.3); ABG HCO3 31.2 mmhg (22.0-26.0); ABG Oxygen Saturation 98 % (90-100); ABG PO2 115.7 mmhg (80-100); ABG TCO2 34.2 mmhg (23-27); Oxygen 90 %; Tidal Volume BIPAP 18/10
[2018-12-17 14:11] LABS: Allen's Test Patient Unable
[2018-12-17 14:13] LABS: ABG PCO2 98.8 mmhg (35.0-45.0); ABG PH 7.12 mmol/L (7.35-7.45)
[2018-12-17 18:09] LABS: ABG Base Excess 6.3 mmol/L (-2.4-2.3); ABG Oxygen Saturation 91 % (90-100); ABG PH 7.41 mmol/L (7.35-7.45); ABG PO2 53.6 mmhg (80-100); ABG TCO2 32.5 mmhg (23-27); Allen's Test Y; Oxygen 80 %; PEEP 5; Tidal Volume 400
[2018-12-17 18:10] LABS: ABG PCO2 50.2 mmhg (35.0-45.0)
[2018-12-17 18:24] LABS: Basophils % 0.2 % (0.1-2.0); Eosinophils # 0.1 K/mm3 (0.0-0.4); Eosinophils % 0.6 % (0.1-12.0); Hematocrit 35.7 % (37.0-47.0); Lymphocytes # 0.7 K/mm3 (0.7-4.5); Lymphocytes % 4.2 % (10-50); Mean Corpuscular HGB Conc 28.5 g/dL (31.8-35.4); Mean Corpuscular Volume 109.6 fl (81-99); Mean Platelet Volume 9.1 fl (7.4-10.4); Monocytes # 0.5 K/mm3 (0.1-1.0); Monocytes % 3.2 % (1.7-9.3); Neutrophils % 91.8 % (37.0-80.0); Platelet Count 191 K/mm3 (142-424); Red Blood Count 3.26 M/mm3 (4.20-5.40); Red Cell Distribution Width 16.7 % (11.5-17.5); White Blood Count 16.3 K/mm3 (4.8-10.8)
[2018-12-17 18:41] LABS: Hemoglobin 10.2 g/dL (12.2-16.2)
[2018-12-17 18:51] LABS: Albumin Level 2.6 gm/dL (3.4-5.0); Albumin/Globulin Ratio 0.7 (1.1-1.8); Anion Gap 14.6 mEq/L (5-15); Bilirubin,Total 0.4 mg/dL (0.2-1.0); Calcium 8.5 mg/dL (8.5-10.1); Globulin 3.5 gm/dl (1.3-3.2); Total Protein,Serum 6.1 gm/dL (6.4-8.2)
[2018-12-17 18:52] LABS: Lymphocytes % 3 % (10-50); Macrocytosis 2+; Monocytes % 1 % (2-9); Neutrophils % 83 % (42-76); Total Cells Counted 100
[2018-12-17 18:53] LABS: Anisocytosis 1+; Hypochromasia 3+
[2018-12-17 23:46] LABS: ABG Base Excess 6.3 mmol/L (-2.4-2.3); ABG HCO3 30.5 mmhg (22.0-26.0); ABG Oxygen Saturation 98 % (90-100); ABG PCO2 46.3 mmhg (35.0-45.0); ABG PH 7.44 mmol/L (7.35-7.45); ABG PO2 94.2 mmhg (80-100); Oxygen 100 %; Tidal Volume 400
[2018-12-17 23:47] LABS: Allen's Test Y; PEEP 5
[2018-12-18 06:33] LABS: Basophils % 0.1 % (0.1-2.0); Eosinophils # 0.1 K/mm3 (0.0-0.4); Eosinophils % 0.7 % (0.1-12.0); Hematocrit 30.2 % (37.0-47.0); Lymphocytes # 1.9 K/mm3 (0.7-4.5); Lymphocytes % 13.1 % (10-50); Mean Corpuscular HGB Conc 29.5 g/dL (31.8-35.4); Mean Corpuscular Volume 103.9 fl (81-99); Mean Platelet Volume 10.1 fl (7.4-10.4); Monocytes # 0.6 K/mm3 (0.1-1.0); Monocytes % 3.8 % (1.7-9.3); Neutrophils % 82.2 % (37.0-80.0); Platelet Count 158 K/mm3 (142-424); Red Blood Count 2.91 M/mm3 (4.20-5.40); Red Cell Distribution Width 16.9 % (11.5-17.5); White Blood Count 14.6 K/mm3 (4.8-10.8)
[2018-12-18 06:34] LABS: Hemoglobin 8.9 g/dL (12.2-16.2)
[2018-12-18 06:50] LABS: Albumin Level 2.3 gm/dL (3.4-5.0); Albumin/Globulin Ratio 0.7 (1.1-1.8); Anion Gap 10.4 mEq/L (5-15); Bilirubin,Total 0.4 mg/dL (0.2-1.0); Calcium 8.3 mg/dL (8.5-10.1); Globulin 3.2 gm/dl (1.3-3.2); Total Protein,Serum 5.5 gm/dL (6.4-8.2)
[2018-12-18 07:31] LABS: ABG Base Excess 5.9 mmol/L (-2.4-2.3); ABG HCO3 30.4 mmhg (22.0-26.0); ABG Oxygen Saturation 97 % (90-100); ABG PCO2 48.8 mmhg (35.0-45.0); ABG PH 7.41 mmol/L (7.35-7.45); ABG PO2 100.6 mmhg (80-100); ABG TCO2 31.9 mmhg (23-27)
[2018-12-18 07:37] LABS: Allen's Test ACCEPTABLE; Oxygen 60 %; PEEP 5; Tidal Volume 400
--- NOTE | 2018-12-18 07:51 | Progress Note ---
Internal Medicine - PN: Subj *Date: 12/18/18 *Time: 15:50 Interval history: Ms. Albert has done well respiratorily since intubation. Her blood gas has normalized. Tolerated vent overnight with gradual weaning of oxygen. This morning the ventilator was transitioned to pressure support for a spontaneous breathing trial. Propofol was discontinued early this morning. Patient has been breathing on her own on the vent through most of the day. Unfortunately she has remained difficult to arouse and has not been able to follow commands meaningfully or cough showing that she can protect her airway. Decision was made not to extubate. Otherwise is remained afebrile, hemodynamically stable, responsive to painful stimuli and will nod spontaneously to questions. Exam Vital signs and Labs for Last 24 Hours: Temp Pulse Resp BP Pulse Ox 99.2 F 78 14 141/57 H 100 12/18/18 04:00 12/18/18 06:59 12/18/18 06:59 12/18/18 06:59 12/18/18 06:59 Laboratory Results - last 24 hr 12/17/18 09:16: Specimen Source Left brachial, O2 % 90, ABG pH 7.19 L*, ABG pCO2 69.5 H, ABG pO2 101.6 H, ABG HCO3 25.9, ABG Total CO2 28.1 H, ABG O2 Saturation 97, ABG Base Excess -2.3, Isiah Test Non applicable, Vent Rate 18, Tidal Volume bipap 18 12/17/18 09:30: Urine Color Yellow, Urine Appearance Clear, Urine pH 6.0, Ur Specific [place] 1.025, Urine Protein Trace, Urine Glucose (UA) Negative, Urine Ketones Trace, Urine Blood Trace-i, Urine Nitrate Negative, Urine Bilirubin Negative, Urine Urobilinogen 0.2, Ur Leukocyte Esterase Negative, Urine RBC 3-5, Urine WBC Occasional, Ur Squamous Epith Cells Occasional 12/17/18 09:33: POC Glucose 169 H 12/17/18 09:38: WBC 10.4 D, RBC 2.95 L, Hgb 9.0 L, Hct 32.8 L, MCV 111.4 H, MCH 30.6, MCHC 27.4 L, RDW 16.9, Plt Count 223, MPV 8.1, Neut % (Auto) 82.1 H, Lymph % (Auto) 13.4, [place] % (Auto) 2.6, Eos % (Auto) 0.5, Baso % (Auto) 1.3, Neut # (Auto) 8.5 H, Lymph # (Auto) 1.4, [place] # (Auto) 0.3, Eos # (Auto) 0.1, Baso # (Auto) 0.1 12/17/18 09:38: Sodium 149 H, Potassium 3.9, Chloride 111 H, Carbon Dioxide 32, Anion Gap 9.9, BUN 11, Creatinine 1.14 H, Estimated Creat Clear 40, Estimated GFR 48 L, Est GFR ( Amer) 58 L, Glucose 178 H, Calcium 8.3 L, Total Bilirubin 0.3, AST 13 L, ALT 10 L, Alkaline Phosphatase 80, Troponin I < 0.02, Total Protein 6.1 L, Albumin 2.6 L, Globulin 3.5 H, Albumin/Globulin Ratio 0.7 L 12/17/18 09:38: Lactate 0.2 L 12/17/18 14:00: Specimen Source Right radial, O2 % 90, ABG pH 7.12 L*, ABG pCO2 98.8 H, ABG pO2 115.7 H, ABG HCO3 31.2 H, ABG Total CO2 34.2 H, ABG O2 Saturation 98, ABG Base Excess 1.8, Isiah Test Patient unable, Vent Rate 18, Tidal Volume Bipap 1812/17/18 18:07: Specimen Source R/r, O2 % 80, ABG pH 7.41, ABG pCO2 50.2 H, ABG pO2 53.6 L, ABG HCO3 31.0 H, ABG Total CO2 32.5 H, ABG O2 Saturation 91, ABG Base Excess 6.3 H, Isiah Test Y, Vent Rate 16, Tidal Volume 400, PEEP 5 12/17/18 18:10: WBC 16.3 H D, RBC 3.26 L, Hgb 10.2 L D, Hct 35.7 L, MCV 109.6 H, MCH 31.2, MCHC 28.5 L, RDW 16.7, Plt Count 191, MPV 9.1, Neut % (Auto) 91.8 H, Lymph % (Auto) 4.2 L, [place] % (Auto) 3.2, Eos % (Auto) 0.6, Baso % (Auto) 0.2, Neut # (Auto) 15.0 H, Lymph # (Auto) 0.7, [place] # (Auto) 0.5, Eos # (Auto) 0.1, Baso # (Auto) 0.0, Total Counted 100, Neutrophils % (Manual) 83 H, Band Neutrophils % 13.0 H, Lymphocytes % (Manual) 3 L, Monocytes % (Manual) 1 L, Platelet Estimate Normal, Hypochromasia 3+, Anisocytosis 1+, Macrocytosis 2+ 12/17/18 18:10: Sodium 150 H, Potassium 3.6, Chloride 109 H, Carbon Dioxide 30, Anion Gap 14.6, BUN 13, Creatinine 1.27 H, Estimated Creat Clear 64, Estimated GFR 42 L, Est GFR ( Amer) 51 L, Glucose 177 H, Calcium 8.5, Magnesium 1.6, Total Bilirubin 0.4, AST 9 L D, ALT 9 L, Alkaline Phosphatase 78, Total Protein 6.1 L, Albumin 2.6 L, Globulin 3.5 H, Albumin/Globulin Ratio 0.7 L 12/17/18 20:50: POC Glucose 142 H 12/17/18 23:44: Specimen Source R/r, O2 % 100, ABG pH 7.44, ABG pCO2 46.3 H, ABG pO2 94.2, ABG HCO3 30.5 H, ABG Total CO2 32.0 H, ABG O2 Saturation 98, ABG Base Excess 6.3 H, Isiah Test Y, Vent Rate 16, Tidal Volume 400, PEEP 5 12/18/18 06:15: WBC 14.6 H, RBC 2.91 L, Hgb 8.9 L D, Hct 30.2 L, MCV 103.9 H, MCH 30.7, MCHC 29.5 L, RDW 16.9, Plt Count 158, MPV 10.1, Neut % (Auto) 82.2 H, Lymph % (Auto) 13.1, [place] % (Auto) 3.8, Eos % (Auto) 0.7, Baso % (Auto) 0.1, Neut # (Auto) 12.0 H, Lymph # (Auto) 1.9, [place] # (Auto) 0.6, Eos # (Auto) 0.1, Baso # (Auto) 0.0 12/18/18 06:15: Sodium 149 H, Potassium 3.4 L, Chloride 109 H, Carbon Dioxide 33 H, Anion Gap 10.4, BUN 14, Creatinine 1.02, Estimated Creat Clear 79, Estimated GFR 54 L, Est GFR ( Amer) 66 D, Glucose 101 D, Calcium 8.3 L, Magnesium 1.4 D, Total Bilirubin 0.4, AST 14 L D, ALT 7 L, Alkaline Phosphatase 66, Total Protein 5.5 L, Albumin 2.3 L D, Globulin 3.2, Albumin/Globulin Ratio 0.7 L 12/18/18 06:23: POC Glucose 75 12/18/18 06:47: Specimen Source Right radial, O2 % 60, ABG pH 7.41, ABG pCO2 48.8 H, ABG pO2 100.6 H, ABG HCO3 30.4 H, ABG Total CO2 31.9 H, ABG O2 Saturation 97, ABG Base Excess 5.9 H, Isiah Test Acceptable, Vent Rate 14, Tidal Volume 400, PEEP 5 I & O for Last 24 hours: Intake & Output 12/15/18 12/16/18 12/17/18 12/18/18 23:59 23:59 23:59 23:59 Intake Total 1071 / 1071 1743 / 1743 Output Total 1885 / 1945 335 / 335 Balance -814 / -874 1408 / 1408 Weight 93.61 kg 92.164 kg Microbiology Reports for the Last 24 Hours: Microbiology 12/17/18 Unknown Sputum - Endotracheal Tube Aspirate Gram Stain - Final Narrative: - Constitutional mild distress, obese, chronically ill appearing, somnolent - *Routine HEENT Exam Head: Present: normocephalic, atraumatic Eye: Present: PERRL ENT: Present: mucous membranes moist - *Routine Neck Exam Present: supple. Absent: lymphadenopathy - *Routine Respiratory Exam Comments: Mechanically ventilated, interval improvement in air movement bilaterally, minimal rhonchi with no wheeze or crackles in anterior lung llanes. Crackles in posterior lung llanes. - *Routine Cardiovascular Exam Present: RRR - *Routine Abdominal Exam Present: soft, normoactive bowel sounds. Absent: tenderness - *Routine Extremities Exam Present: edema (1+ to knees). Absent: cyanosis, clubbing - *Routine Skin Exam Present: pallor, warm. Absent: rash - *Routine Neurological Exam Present: altered mental status Focalizes to pain, responds intermittently to questions, cannot follow commands. Assessment and Plan (1) ARDS (adult respiratory distress syndrome) Current visit: Yes Status: Acute Category: Medical Code(s): J80 - Acute respiratory distress syndrome On admission/after intubation patient's PaO2:FiO2 ratio 66. Meeting definition of severe arts. Patient's PaO2:FiO2 ratio of 166 this morning. Meeting criteria for moderate ARDS Patient has shown significant improvement after intubation with improvement of imaging showing expansion of left lung previously with full opacification prior to intubation. Additionally significant thick purulent sputum was suctioned out during intubation. Suspect patient may have had mucous plugging given prompt improvement in respiratory acidosis after intubation. This morning patient is continuing to be weaned down. Currently has FiO2 of 50%. Respiratory acidosis is resolved. Will progress with weaning sedation/propofol, repeat chest x-ray, spontaneous breathing trial. If passes breathing trial, will move to extubate today. (2) Acute and chronic respiratory failure with hypercapnia Current visit: Yes Status: Acute Category: Medical Code(s): J96.22 - Acute and chronic respiratory failure with hypercapnia (3) Pulmonary HTN Current visit: No Status: Acute Category: Medical Code(s): I27.20 - Pul monary hypertension, unspecified (4) Pulmonary embolism Current visit: No Status: Acute Category: Medical Code(s): I26.99 - Other pulmonary embolism without acute cor pulmonale (5) Schizo affective schizophrenia Current visit: No Status: Acute Category: Medical Code(s): F25.0 - Schizoaffective disorder, bipolar type (6) Severe sepsis Current visit: No Status: Acute Category: Medical Code(s): A41.9 - Sepsis, unspecified organism; R65.20 - Severe sepsis without septic shock (7) Hypernatremia Current visit: Yes Status: Acute Category: Medical Code(s): E87.0 - Hyperosmolality and hypernatremia (8) Uncompensated respiratory acidosis Current visit: Yes Status: Acute Category: Medical Code(s): E87.2 - Acidosis (9) Hyperchloremia Current visit: Yes Status: Acute Category: Medical Code(s): E87.8 - Other disorders of electrolyte and fluid balance, not elsewhere classified (10) Acute kidney injury Current visit: Yes Status: Acute Category: Medical Code(s): N17.9 - Acute kidney failure, unspecified (11) Acute encephalopathy Current visit: Yes Status: Acute Category: Medical Code(s): G93.40 - Encephalopathy, unspecified - Assessment and plan all Dx Assessment and Plan for all problems:: 67-year-old female who continues to remain critically ill. Continue ventilatory support today. Blood gases normalized. Has ARDS clinically. We will continue to hold sedation. Plan to transition back to ventilatory support overnight with retrial spontaneous breathing tomorrow morning in an attempt to extubate tomorrow. Additionally we are holding her VPA at this time. Ammonia level and VPA levels pending. Patient remains critically ill. Her prognosis is poor. Critical CARE time: 30 minutes the high probability of a clinically significant, sudden or life threatening deterioration of patient required my full and direct attention, intervention and personal management. The time I documented is in addition to time spent performing reported procedures but includes the following listed in this critical care notation. Ventilatory management and adjustments per blood gas, attempted extubation today with inability to follow commands.
--- NOTE | 2018-12-18 12:57 | Pharmacy Consult Notes ---
[facility] Pharmacy VTE Monitoring - Patient Demographics Admission date: 12/17/18 Report Date: 12/18/18 Time: 12:56 Allergies/Adverse Reactions: Patient Allergies codeine Allergy (Mild, Verified 11/03/18 07:51) Unknown allergy reaction Penicillins Allergy (Mild, Verified 11/03/18 07:51) Unknown allergy reaction Height: 1.6 m Weight: 93.576 kg Patient Problems: Current Active Problems LLL pneumonia (Acute) Delirium due to general medical condition (Acute) Altered mental status (Acute) Sepsis (Acute) Acute and chronic respiratory failure with hypercapnia (Acute) Hypernatremia (Acute) Uncompensated respiratory acidosis (Acute) Hyperchloremia (Acute) Acute kidney injury (Acute) Acute encephalopathy (Acute) ARDS (adult respiratory distress syndrome) (Acute) - VTE Risk Labs: VTE Related Lab Results Hgb 8.9 g/dL (12.2-16.2) L D 12/18/18 06:15 Hct 30.2 % (37.0-47.0) L 12/18/18 06:15 Plt Count 158 K/mm3 (142-424) 12/18/18 06:15 BUN 14 mg/dL (7-18) 12/18/18 06:15 Creatinine 1.02 mg/dL (0.55-1.02) 12/18/18 06:15 Estimated Creat Clear 79 mL/min (50-200) 12/18/18 06:15 Was VTE Risk Assessment Performed: Yes VTE Score: 6 VTE Risk Level: Moderate Risk - Prophylaxis VTE Prophylaxis Ordered?: Yes Types of VTE Prophylaxis: Pharmacological Pharmacologic Type: Enoxaparin - VTE Diagnosis Confirmed Treatment or plan recommended: Continue Current Treatment
--- NOTE | 2018-12-18 14:10 | Electrocardiograph Report ---
APPROVED REPORT Exam: Resting ECG HR:84 bpm ECG Measurements Heart Rate 84 AXES MA 132 P 53 QRSd 76 QRS 39 QT 364 T36 QTc 430 <Conclusion> Normal sinus rhythm Nonspecific ST abnormality Abnormal ECG Electronically signed by : Lorenzo Byrd, 12/18/2018 14:10:12
--- NOTE | 2018-12-18 14:11 | Electrocardiograph Report ---
APPROVED REPORT Exam: Resting ECG HR:102 bpm ECG Measurements Heart Rate 102 AXES AR 124 P 56 QRSd 90 QRS -5 QT 324 T72 QTc 422 <Conclusion> Sinus tachycardia with premature atrial complexes Otherwise normal ECG Electronically signed by : Lorenzo Byrd, 12/18/2018 14:11:08
[2018-12-19 06:09] LABS: Basophils % 0.1 % (0.1-2.0); Eosinophils # 0.1 K/mm3 (0.0-0.4); Eosinophils % 0.4 % (0.1-12.0); Hemoglobin 8.2 g/dL (12.2-16.2); Lymphocytes # 2.4 K/mm3 (0.7-4.5); Lymphocytes % 22.4 % (10-50); Mean Corpuscular HGB Conc 31.4 g/dL (31.8-35.4); Mean Corpuscular Volume 99.6 fl (81-99); Mean Platelet Volume 9.4 fl (7.4-10.4); Monocytes # 0.5 K/mm3 (0.1-1.0); Monocytes % 4.7 % (1.7-9.3); Neutrophils # 7.6 K/mm3 (1.8-7.8); Neutrophils % 72.4 % (37.0-80.0); Platelet Count 165 K/mm3 (142-424); Red Blood Count 2.61 M/mm3 (4.20-5.40); White Blood Count 10.6 K/mm3 (4.8-10.8)
[2018-12-19 06:22] LABS: Albumin Level 2.2 gm/dL (3.4-5.0); Albumin/Globulin Ratio 0.7 (1.1-1.8); Alkaline Phosphatase 57 U/L (46-116); Anion Gap 7.6 mEq/L (5-15); Aspartate Amino Transferase 13 U/L (15-37); Bilirubin,Total 0.5 mg/dL (0.2-1.0); Blood Urea Nitrogen 14 mg/dL (7-18); Calcium 7.9 mg/dL (8.5-10.1); Carbon Dioxide 36 mmol/L (21.0-32.0); Chloride 106 mmol/L (98-107); Glucose 91 mg/dL (74-106); Sodium 147 mmol/L (136-145); Total Protein,Serum 5.2 gm/dL (6.4-8.2)
[2018-12-19 06:43] LABS: Alanine Aminotransferase 6 U/L (12-78)
[2018-12-19 07:21] LABS: ABG Base Excess 16.2 mmol/L (-2.4-2.3); ABG HCO3 38.1 mmhg (22.0-26.0); ABG Oxygen Saturation 99 % (90-100); ABG PCO2 41.6 mmhg (35.0-45.0); ABG PO2 134.6 mmhg (80-100); ABG TCO2 39.4 mmhg (23-27)
[2018-12-19 07:23] LABS: Oxygen 35 %; PEEP 5; Tidal Volume 400
[2018-12-19 07:24] LABS: ABG PH 7.58 mmol/L (7.35-7.45); Allen's Test ACCEPTABLE
--- NOTE | 2018-12-19 07:28 | Progress Note ---
Internal Medicine - PN: Subj *Date: 12/19/18 *Time: 07:25 Interval history: Events of the weekend noted. Overnight patient did well after being placed on SIMV, but continues to over breathe the vent. Is much more alert than yesterday. Is able to respond to questions with nodding and shaking of the head appropriately. Exam Vital signs and Labs for Last 24 Hours: Temp Pulse Resp BP Pulse Ox 99.9 F H 72 14 108/56 L 94 L 12/19/18 03:00 12/19/18 06:56 12/19/18 06:56 12/19/18 06:56 12/19/18 06:56 Laboratory Results - last 24 hr 12/18/18 06:47: Specimen Source Right radial, O2 % 60, ABG pH 7.41, ABG pCO2 48.8 H, ABG pO2 100.6 H, ABG HCO3 30.4 H, ABG Total CO2 31.9 H, ABG O2 Saturation 97, ABG Base Excess 5.9 H, Isiah Test Acceptable, Vent Rate 14, Tidal Volume 400, PEEP 5 12/18/18 11:04: POC Glucose 93 12/18/18 17:20: POC Glucose 108 12/18/18 21:23: POC Glucose 105 12/19/18 05:38: POC Glucose 89 12/19/18 05:49: WBC 10.6 D, RBC 2.61 L, Hgb 8.2 L, Hct 26.0 L, MCV 99.6 H, MCH 31.3 H, MCHC 31.4 L, RDW 17.0, Plt Count 165, MPV 9.4, Neut % (Auto) 72.4, Lymph % (Auto) 22.4, [place] % (Auto) 4.7, Eos % (Auto) 0.4, Baso % (Auto) 0.1, Neut # (Auto) 7.6, Lymph # (Auto) 2.4, [place] # (Auto) 0.5, Eos # (Auto) 0.1, Baso # (Auto) 0.0 12/19/18 05:49: Sodium 147 H, Potassium 2.6 L* D, Chloride 106, Carbon Dioxide 36 H, Anion Gap 7.6, BUN 14, Creatinine 0.79 D, Estimated Creat Clear 78, Estimated GFR 73, Est GFR ( Amer) 88 D, Glucose 91, Calcium 7.9 L, Magnesium 1.9 D, Total Bilirubin 0.5, AST 13 L, ALT 6 L, Alkaline Phosphatase 57, Total Protein 5.2 L, Albumin 2.2 L, Globulin 3.0, Albumin/Globulin Ratio 0.7 L, Total Valproic Acid < 0.7 L* 12/19/18 05:49: Ammonia 19 12/19/18 06:00: Specimen Source Right radial, O2 % 35, ABG pH 7.58 H*, ABG pCO2 41.6, ABG pO2 134.6 H, ABG HCO3 38.1 H, ABG Total CO2 39.4 H, ABG O2 Saturation 99, ABG Base Excess 16.2 H, Isiah Test Acceptable, Vent Rate 14, Tidal Volume 400, PEEP 5 I & O for Last 24 hours: Intake & Output 12/16/18 12/17/18 12/18/18 12/19/18 11:59 11:59 11:59 11:59 Intake Total 3444 / 3569 2466 / 2466 Output Total 3550 / 4450 3805 / 3805 Balance -106 / -881 -1339 / -1339 Weight 275 lb 206 lb 4.8 oz 206 lb 4.796 oz Microbiology Reports for the Last 24 Hours: Microbiology 12/17/18 09:38 Blood Blood Culture - Preliminary 12/17/18 09:38 Blood Blood Culture - Preliminary Narrative: Patient intubated. In no distress. NG tube in the left nostril. Anterior lung llanes have good air movement. Heart rate regular. Abdomen is obese, soft. No peripheral edema noted. Neurologic status improving/responsive as noted above. Assessment and Plan (1) ARDS (adult respiratory distress syndrome) Current visit: Yes Status: Acute Category: Medical Code(s): J80 - Acute respiratory distress syndrome (2) Acute and chronic respiratory failure with hypercapnia Current visit: Yes Status: Acute Category: Medical Code(s): J96.22 - Acute and chronic respiratory failure with hypercapnia (3) Pulmonary HTN Current visit: No Status: Acute Category: Medical Code(s): I27.20 - Pulmonary hypertension, unspecified (4) Pulmonary embolism Current visit: No Status: Acute Category: Medical Code(s): I26.99 - Other pulmonary embolism without acute cor pulmonale (5) Schizo affective schizophrenia Current visit: No Status: Acute Category: Medical Code(s): F25.0 - Schizoaffective disorder, bipolar type (6) Severe sepsis Current visit: No Status: Acute Category: Medical Code(s): A41.9 - Sepsis, unspecified organism; R65.20 - Severe sepsis without septic shock (7) Hypernatremia Current visit: Yes Status: Acute Category: Medical Code(s): E87.0 - Hyperosmolality and hypernatremia (8) Uncompensated respiratory acidosis Current visit: Yes Status: Acute Category: Medical Code(s): E87.2 - Acidosis (9) Hyperchloremia Current visit: Yes Status: Acute Category: Medical Code(s): E87.8 - Other disorders of electrolyte and fluid balance, not elsewhere classified (10) Acute kidney injury Current visit: Yes Status: Acute Category: Medical Code(s): N17.9 - Acute kidney failure, unspecified (11) Acute encephalopathy Current visit: Yes Status: Acute Category: Medical Code(s): G93.40 - Encephalopathy, unspecified - Assessment and plan all Dx Assessment and Plan for all problems:: Overall patient is improving. Plan to extubate today. Extubate to 40% mask. Remove NG tube. Potassium is extremely low. Orders already given for correcting potassium. We will follow this at 6:00 this afternoon. Continue to investigate DNR status. Care management consult for this.
--- NOTE | 2018-12-19 08:27 | Pharmacy Consult Notes ---
- Pharmacy Consult Date: 12/19/18 Time: 08:24 Referring provider: DWIGTH Reason for Consult:: VANCOMYCIN CONSULT Allergies and ADEs:: Allergies Allergy/AdvReac Type Severity Reaction Status Date / Time codeine Allergy Mild Unknown Verified 11/03/18 07:51 allergy reaction Penicillins Allergy Mild Unknown Verified 11/03/18 07:51 allergy reaction Home Medications:: Home Medications Medication Instructions Recorded Confirmed Type Atorvastatin Calcium [Atorvastatin 20 mg PO DAILY 11/02/18 12/17/18 History 20mg Tab] Levothyroxine Sodium 100 mcg PO DAILY 11/02/18 12/17/18 History [Levothyroxine 100mcg (0.1MG) Tab] Metformin HCl [Glucophage Xr] 500 mg PO BID 11/02/18 12/17/18 History [place]-3 Fatty Acids/Fish Oil [Fish 1,000 mg PO BID 11/02/18 12/17/18 History Oil 1,000 mg Capsule] Pantoprazole Sodium [Protonix 40mg 40 mg PO DAILY 11/02/18 12/17/18 History tablet] Sertraline HCl [Zoloft 50mg tablet] 50 mg PO DAILY 11/02/18 12/17/18 History Valproic Acid (As Sodium Salt) 10 ml PO TID 11/02/18 12/17/18 History [Valproic Acid] cloZAPine [Clozapine] 150 mg PO HS 11/02/18 12/17/18 History Albuterol Sulfate [Albuterol HFA 1 - 2 puffs IH Q6HP PRN 12/01/18 12/17/18 History Inhaler] Rivaroxaban [Xarelto 15mg tablet] 15 mg PO BID 12/15/18 12/17/18 History Height: 1.6 m Weight: 90.6 kg Laboratory Results:: Laboratory Results - last 24 hr 12/18/18 11:04: POC Glucose 93 12/18/18 17:20: POC Glucose 108 12/18/18 21:23: POC Glucose 105 12/19/18 05:38: POC Glucose 89 12/19/18 05:49: WBC 10.6 D, RBC 2.61 L, Hgb 8.2 L, Hct 26.0 L, MCV 99.6 H, MCH 31.3 H, MCHC 31.4 L, RDW 17.0, Plt Count 165, MPV 9.4, Neut % (Auto) 72.4, Lymph % (Auto) 22.4, [place] % (Auto) 4.7, Eos % (Auto) 0.4, Baso % (Auto) 0.1, Neut # (Auto) 7.6, Lymph # (Auto) 2.4, [place] # (Auto) 0.5, Eos # (Auto) 0.1, Baso # (Auto) 0.0 12/19/18 05:49: Sodium 147 H, Potassium 2.6 L* D, Chloride 106, Carbon Dioxide 36 H, Anion Gap 7.6, BUN 14, Creatinine 0.79 D, Estimated Creat Clear 78, Estimated GFR 73, Est GFR ( Amer) 88 D, Glucose 91, Calcium 7.9 L, Magnesium 1.9 D, Total Bilirubin 0.5, AST 13 L, ALT 6 L, Alkaline Phosphatase 57, Total Protein 5.2 L, Albumin 2.2 L, Globulin 3.0, Albumin/Globulin Ratio 0.7 L, Total Valproic Acid < 0.7 L* 12/19/18 05:49: Ammonia 19 12/19/18 06:00: Specimen Source Right radial, O2 % 35, ABG pH 7.58 H*, ABG pCO2 41.6, ABG pO2 134.6 H, ABG HCO3 38.1 H, ABG Total CO2 39.4 H, ABG O2 Saturation 99, ABG Base Excess 16.2 H, Isiah Test Acceptable, Vent Rate 14, Tidal Volume 400, PEEP 5 Medical History: Reports:: Diabetes Mellitus Type 2, Hyperlipidemia Denies:: Cancer, Diabetes Mellitus Type 1, Internal Pacemaker, MRSA Assessment and Plan (1) ARDS (adult respiratory distress syndrome) Current visit: Yes Status: Acute Category: Medical Code(s): J80 - Acute respiratory distress syndrome (2) Acute and chronic respiratory failure with hypercapnia Current visit: Yes Status: Acute Category: Medical Code(s): J96.22 - Acute and chronic respiratory failure with hypercapnia (3) Pulmonary HTN Current visit: No Status: Acute Category: Medical Code(s): I27.20 - Pulmonary hypertension, unspecified (4) Pulmonary embolism Current visit: No Status: Acute Category: Medical Code(s): I26.99 - Other pulmonary embolism without acute cor pulmonale (5) Schizo affective schizophrenia Current visit: No Status: Acute Category: Medical Code(s): F25.0 - Schizoaffective disorder, bipolar type (6) Severe sepsis Current visit: No Status: Acute Category: Medical Code(s): A41.9 - Sepsis, unspecified organism; R65.20 - Severe sepsis without septic shock (7) Hypernatremia Current visit: Yes Status: Acute Category: Medical Code(s): E87.0 - Hyperosmolality and hypernatremia (8) Uncompensated respiratory acidosis Current visit: Yes Status: Acute Category: Medical Code(s): E87.2 - Acidosis (9) Hyperchloremia Current visit: Yes Status: Acute Category: Medical Code(s): E87.8 - Other disorders of electrolyte and fluid balance, not elsewhere classified (10) Acute kidney injury Current visit: Yes Status: Acute Category: Medical Code(s): N17.9 - Acute kidney failure, unspecified (11) Acute encephalopathy Current visit: Yes Status: Acute Category: Medical Code(s): G93.40 - Encephalopathy, unspecified - Assessment and plan all Dx Assessment and Plan for all problems:: CRITICALLY ILL PT, SEPSIS SUSPECTED. VANCOMYCIN ADDED BY PRIMARY CARE PHYSICIAN, PHARMACY CONSULTED TO MANAGE THERAPY. WILL START VANCOMYCIN 2000MG EVERY 24 HOURS. WILL ADJUST NECESSARY BASED ON LEVELS. THANK YOU.
--- NOTE | 2018-12-20 07:47 | Progress Note ---
Internal Medicine - PN: Subj *Date: 12/20/18 *Time: 07:45 Interval history: Patient is done well overnight. Diuresed well with Lasix yesterday. Edema is less. Exam Vital signs and Labs for Last 24 Hours: Temp Pulse Resp BP Pulse Ox 99.0 F 85 30 H 130/66 96 12/20/18 04:00 12/20/18 06:08 12/20/18 06:00 12/20/18 06:00 12/20/18 06:08 Laboratory Results - last 24 hr 12/19/18 10:58: POC Glucose 94 12/19/18 16:37: POC Glucose 94 12/19/18 20:38: POC Glucose 93 12/20/18 05:11: POC Glucose 88 I & O for Last 24 hours: Intake & Output 12/17/18 12/18/18 12/19/18 12/20/18 11:59 11:59 11:59 11:59 Intake Total 3444 / 3569 3279 / 3475 2374 / 2374 Output Total 3550 / 4450 3980 / 4040 4676 / 4676 Balance -106 / -881 -701 / -565 -2302 / -2302 Weight 275 lb 206 lb 4.8 oz 206 lb 4.796 oz 196 lb 3.382 oz Microbiology Reports for the Last 24 Hours: Microbiology 12/17/18 09:38 Blood Blood Culture - Final Staphylococcus epidermidis 12/17/18 09:38 Blood Blood Culture - Final Staphylococcus epidermidis 12/17/18 Unknown Sputum - Endotracheal Tube Aspirate Gram Stain - Final 12/17/18 Unknown Sputum - Endotracheal Tube Aspirate Sputum Culture - Preliminary Narrative: Patient is somewhat somnolent but does arouse. Nursing staff report that she is somewhat "up-and-down" with her discussions/conversation/level of understanding. Has apparently been requesting breakfast. We are pending feeding her given bedside speech evaluation. Anterior lung llanes have some rhonchi but good air movement. Heart rate regular. Abdomen is soft. 1+ ankle edema. Better than yesterday. Neurologic examination is nonfocal but is up-and-down in regards to level of consciousness. Assessment and Plan (1) ARDS (adult respiratory distress syndrome) Current visit: Yes Status: Acute Category: Medical Code(s): J80 - Acute respiratory distress syndrome (2) Acute and chronic respiratory failure with hypercapnia Current visit: Yes Status: Acute Category: Medical Code(s): J96.22 - Acute and chronic respiratory failure with hypercapnia (3) Pulmonary HTN Current visit: No Status: Acute Category: Medical Code(s): I27.20 - Pulmonary hypertension, unspecified (4) Pulmonary embolism Current visit: No Status: Acute Category: Medical Code(s): I26.99 - Other pulmonary embolism without acute cor pulmonale (5) Schizo affective schizophrenia Current visit: No Status: Acute Category: Medical Code(s): F25.0 - Schizoaffective disorder, bipolar type (6) Severe sepsis Current visit: No Status: Acute Category: Medical Code(s): A41.9 - Sepsis, unspecified organism; R65.20 - Severe sepsis without septic shock (7) Hypernatremia Current visit: Yes Status: Acute Category: Medical Code(s): E87.0 - Hyperosmolality and hypernatremia (8) Uncompensated respiratory acidosis Current visit: Yes Status: Acute Category: Medical Code(s): E87.2 - Acidosis (9) Hyperchloremia Current visit: Yes Status: Acute Category: Medical Code(s): E87.8 - Other disorders of electrolyte and fluid balance, not elsewhere classified (10) Acute kidney injury Current visit: Yes Status: Acute Category: Medical Code(s): N17.9 - Acute kidney failure, unspecified (11) Acute encephalopathy Current visit: Yes Status: Acute Category: Medical Code(s): G93.40 - Encephalopathy, unspecified - Assessment and plan all Dx Assessment and Plan for all problems:: Patient is overall improved from a respiratory standpoint. No changes in plan. Continue oxygen, continue antibiotics. Replace potassium today. Await speech evaluation. Diet institution is recommended. APS involvement today to assess guardianship issues given her schizoaffective disorder and long-term fluctuating level of consciousness in regards to her own medical decision making.
[2018-12-21 06:37] LABS: Anion Gap 9.4 mEq/L (5-15); Calcium 8.2 mg/dL (8.5-10.1)
--- NOTE | 2018-12-21 07:06 | Discharge Summary ---
General - General Admission date:: 12/17/18 Discharge date: 12/21/18 HPI HPI: Ms. Albert is a 67-year-old female former resident of [facility] who has had a progressive course over the past few weeks with pneumonia/PE/falls. She was last seen yesterday in our institution where she was discharged to [facility] for further management. She presents today to the ER via EMS due to acute worsening of her respiratory failure. She presented on BiPAP, obtunded, work-up showing respiratory acidosis and complete opacification of left side of chest. Of note, she was previously seen earlier this month where she was diagnosed with worsening pneumonia and pulmonary emboli. She has been on oral therapy for this consisting of Xarelto. Upon discharge yesterday patient was at her baseline, mentating appropriately, able to make decisions for herself. Upon arrival to the floor I am unable to obtain any history from the patient. Per documentation her current status is an abrupt change clinically from where she was approximately 24 hours ago. At time of arrival at the correction she decided she wanted to be DNR, however the only documentation that she presents with and that is completed is EMS DNR paperwork. Patient has no advanced directives, unable to contact next of kin is their phone number is disconnected, and is unable to interact meaningfully at this time with staff. As there is no legal documentation to cover her admission to the hospital showing DNR status, patient defaults to full CODE STATUS. Unable to obtain history or review of systems from patient due to her obtundation to confirm her wishes for her care. Attempting to contact next of kin and social services specialist at this time. Medicine for further management Addendum -Patient's repeat blood gas after arriving to the floor showed worsening respiratory acidosis with a PCO2 going from 60-98 on aggressive BiPAP settings. Patient showing clinical decline necessitating intubation for respiratory failure. Hospital Course Hospital Course: Patient was admitted as noted. Intubated for the first 24 hours of her stay, but the following morning after clearance of a lot of mucus plugging we were able to extubate her without incident. She remained on nasal cannula oxygen for the rest of her stay. Several of her psychotropic medications were held which resulted in improving but not normalized mental status for her. Blood culture showed staph epidermidis, felt to be contaminant but sputum cultures were negative. Given patient's significant psych disease she is really unable to make decisions for herself, although her EMS DNR remains in place. As a result we continued appropriate medical therapy. She was treated with Invanz throughout her hospital stay for her infection. Labs were monitored and renal and liver function were appropriate. She was found to have a stepwise worsening of her baseline anemia, felt to be delusional. No evidence of blood loss was noted. This morning patient was at baseline. Nurses report that through the night she would wake up, interact, talk and eat well. This morning she is somewhat somnolent and does not wish to communicate with me. Plan will be to discharge her back to the [facility]. Follow-up will be per her regular physicians rounds there. Facility needs to make an effort about establishing DNR status either with family members or with guardianship or determining if patient can in the future make her own decisions. We will cover her with doxycycline 100 twice daily for 5 days to finish up therapy for bacterial infection, I will hold some of her psychotropic medications as noted in the discharge medication reconciliation list to help with mental status issues. We will also prescribe daily Lasix given her ongoing edema and respiratory issues. She will need to have a CBC and BMP on 12/26/2018. Objective Vital signs: Temp Pulse Resp BP Pulse Ox 98.5 F 76 20 122/67 98 12/21/18 04:00 12/21/18 06:04 12/21/18 04:00 12/21/18 04:00 12/21/18 04:00 Narrative: Patient is somnolent. Difficult to arouse. This is her baseline in the morning. Please see nursing staff notes on mental status improvement during the evenings. Heart rate regular. Lungs have good air movement. On 2 L nasal cannula. Abdomen soft. Trace ankle edema. Improving over baseline. No skin rash. Able to move extremities well spontaneously. Results Labs on day of discharge: Labs from last 24 hours 12/21/18 12/21/18 12/20/18 05:42 05:41 20:02 Sodium 145 Potassium 4.4 D Chloride 109 H Carbon Dioxide 31 Anion Gap 9.4 BUN 9 D Creatinine 0.79 Estimated Creat Clear 78 Estimated GFR 73 Est GFR ( Amer) 88 Glucose 88 POC Glucose 86 92 Calcium 8.2 L 12/20/18 12/20/18 16:19 11:42 Sodium Potassium Chloride Carbon Dioxide Anion Gap BUN Creatinine Estimated Creat Clear Estimated GFR Est GFR ( Amer) Glucose POC Glucose 78 84 Calcium Preliminary micro results at discharge 12/17/18 Unknown Sputum Culture - Preliminary Sputum - Endotracheal Tube Aspirate DS: Diagnosis - Discharge Diagnosis (1) ARDS (adult respiratory distress syndrome) Status: Resolved (2) Acute and chronic respiratory failure with hypercapnia Status: Resolved (3) Pulmonary HTN Status: Chronic (4) Pulmonary embolism Status: Chronic (5) Schizo affective schizophrenia Status: Chronic (6) Severe sepsis Status: Acute (7) Hypernatremia Status: Resolved (8) Uncompensated respiratory acidosis Status: Resolved (9) Hyperchloremia Status: Resolved (10) Acute kidney injury Status: Resolved (11) Acute encephalopathy Status: Chronic Discharge Plan - Patient Discharge Instructions ACTIVITY: Continue current activity DIET: continue same diet Patient Instructions: Intubation and Mechanical Ventilation, Pneumonia-Adult, Sepsis, Delirium, Acute Respiratory Distress Syndrome, DI for Pneumonia -- Adult , Encephalopathy, DI for Respiratory Failure, DI for Altered Mental Status - Follow up Plan Follow up with: Margarito Avery MD [Staff Physician] - Disposition: Xfer [facility] Home Medications: Home Medications Medication Instructions Recorded Confirmed Type Atorvastatin Calcium [Atorvastatin 20 mg PO DAILY 11/02/18 12/17/18 History 20mg Tab] Levothyroxine Sodium 100 mcg PO DAILY 11/02/18 12/17/18 History [Levothyroxine 100mcg (0.1MG) Tab] Metformin HCl [Glucophage Xr] 500 mg PO BID 11/02/18 12/17/18 History [place]-3 Fatty Acids/Fish Oil [Fish 1,000 mg PO BID 11/02/18 12/17/18 History Oil 1,000 mg Capsule] Pantoprazole Sodium [Protonix 40mg 40 mg PO DAILY 11/02/18 12/17/18 History tablet] Sertraline HCl [Zoloft 50mg tablet] 50 mg PO DAILY 11/02/18 12/17/18 History Valproic Acid (As Sodium Salt) 10 ml PO TID 11/02/18 12/17/18 History [Valproic Acid] cloZAPine [Clozapine] 150 mg PO HS 11/02/18 12/17/18 History Albuterol Sulfate [Albuterol HFA 1 - 2 puffs IH Q6HP PRN 12/01/18 12/17/18 History Inhaler] Rivaroxaban [Xarelto 15mg tablet] 15 mg PO BID 12/15/18 12/17/18 History Doxycycline Hyclate [Doxycycline 100 mg PO BID #14 cap 12/21/18 Rx 100mg Capsule] Furosemide [Lasix 20mg tab] 20 mg PO DAILY #30 tab 12/21/18 Rx Prescriptions/Medication Reconciliation: New Doxycycline Hyclate [Doxycycline 100mg Capsule] 100 mg PO BID #14 cap Furosemide [Lasix 20mg tab] 20 mg PO DAILY #30 tab Continued Pantoprazole Sodium [Protonix 40mg tablet] 40 mg PO DAILY [place]-3 Fatty Acids/Fish Oil [Fish Oil 1,000 mg Capsule] 1,000 mg PO BID Levothyroxine Sodium [Levothyroxine 100mcg (0.1MG) Tab] 100 mcg PO DAILY cloZAPine [Clozapine] 150 mg PO HS Atorvastatin Calcium [Atorvastatin 20mg Tab] 20 mg PO DAILY Albuterol Sulfate [Albuterol HFA Inhaler] 1 - 2 puffs IH Q6HP PRN PRN Reason: Shortness Of Breath Or Wheezing Sertraline HCl [Zoloft 50mg tablet] 50 mg PO DAILY Metformin HCl [Glucophage Xr] 500 mg PO BID Rivaroxaban [Xarelto 15mg tablet] 15 mg PO BID Discontinued Valproic Acid (As Sodium Salt) [Valproic Acid] 10 ml PO TID - Problem Reconciliation Problems Reviewed?: Yes
[2018-12-21 07:11] LABS: Basophils % 0.7 % (0.1-2.0); Hematocrit 26.6 % (37.0-47.0); Hemoglobin 8.1 g/dL (12.2-16.2); Lymphocytes # 2.2 K/mm3 (0.7-4.5); Lymphocytes % 33.9 % (10-50); Mean Corpuscular HGB Conc 30.6 g/dL (31.8-35.4); Mean Corpuscular Volume 102.5 fl (81-99); Mean Platelet Volume 9.4 fl (7.4-10.4); Monocytes # 0.4 K/mm3 (0.1-1.0); Monocytes % 5.7 % (1.7-9.3); Neutrophils # 3.8 K/mm3 (1.8-7.8); Neutrophils % 59.7 % (37.0-80.0); Platelet Count 161 K/mm3 (142-424); Red Cell Distribution Width 16.8 % (11.5-17.5); White Blood Count 6.3 K/mm3 (4.8-10.8)
== END 2018-12-21 14:07 | DRG 208 ==
LOC: ER 09:19 → 2ND 12:19
PROVIDERS: ADMIT Internal Medicine Adolescent Medicine; ATTEND Emergency Medicine
CPT/HCPCS: 36415; 70371; 70450; 71010; 71045; 72125; 73502; 80048; 80053; 80164; 81001; 82140; 82803; 82962; 83605; 83735; 84484; 85007; 85025; 87040; 87070; 87077; 87086; 87088; 87186; 87205; 92610; 92611; 93005; 94002; 94003; 94640; 94660; 94761; 96365; 96367; 96375; 99285; G0378; J1335; J1956; J2704; J3370

== ENCOUNTER → 2018-12-24 11:39 | Outpatient (CLI) | payer OTHER, MEDICARE, SELFPAY ==
[2018-12-24 11:55] LABS: Hemoglobin 9.1 g/dL (12.2-16.2)
== END ==
PROVIDERS: Visit Provider Emergency Medicine
DX: D64.9 Anemia, unspecified (principal)
CPT/HCPCS: 85014; 85018

== ENCOUNTER → 2019-01-23 20:30 | Outpatient (CLI) | payer MEDICARE, OTHER, SELFPAY | PROVIDERS: PCP Emergency Medicine; Visit Provider Emergency Medicine | DX: G47.33 Obstructive sleep apnea (adult) (pediatric) (principal) | CPT/HCPCS: 95810 ==

== ENCOUNTER → 2019-02-16 10:55 | Outpatient (CLI) | payer MEDICARE, MEDICAID, SELFPAY ==
--- NOTE | 2019-02-16 10:57 | FL_ITS ---
PROCEDURE: FL BARIUM SWALLOW MODIFIED CLINICAL INDICATION: DYSPHAGIA COMPARISON: No exams were available for comparison TECHNIQUE: Patient administered varying consistencies of barium contrast, while viewed in lateral position under real-time fluoroscopy with cine recording. FLUOROSCOPY TIME:1 minutes and 21 seconds The study was performed in conjunction with speech pathologist. Please see that report & recommendations. FINDINGS: Patient was given varying consistencies of barium. Was some minimal vestibular penetration with thin liquids. No radha tracheal aspiration.. IMPRESSION: Minimal vestibular penetration with thin liquids otherwise negative Please see speech pathologist report and recommendations. Dictated by: Isiah Altamirano MD 03/02/2019 09:47 Electronically signed by Isiah Altamirano MD in [place] 03/02/2019 09:47
--- NOTE | 2019-02-16 13:56 | HMH.SLMBS2 ---
Speech & Language Evaluation Speech/Language Mod Barium Swallow Start: 02/16/19 13:33 Freq: once Status: Complete Protocol: Document 02/16/19 13:33 RIKI (Rec: 02/16/19 13:56 RIKI [id number]) MBS Recommendations Diet Dietary Recommendations Dysphagia Mechanical Soft, Ground Meats,Pudding Liquids Mod Barium Swallow Impressions Summary and Impressions Oral Phase Impression No Impairment (WFL) Oral Phase Summary Ms. Albert was given the following consistencies: thins via straw and open cup, nectar via straw and open cup, honey, pudding, pureed, and mechanical soft. No impairments noted with oral phase of swallowing. Pharyngeal Phase Impression Mild Impairment Pharyngeal Phase Summary Ms. Albert exhibited deep penetration to the vocal folds with thins, nectar, and honey thick consistencies. No cough noted and aspiration not noted. She is as risk for aspiration during meals. At this time, it is recommended that she be placed on mechanical soft diet with pudding thick liquids. Speech/Language MBS Assessment/Goals/Plan Assessment Date of Evaluation: 02/16/19 Evaluation Type Initial Certification Assessment/Problems Dysphagia Does Patient Qualify for Service No Qualify/Failure Comment Patient will be followed up by [facility] at [facility] Recommendations PHYSICIAN CERTIFICATION: The specified therapy services are required, authorized, and reviewed every 30 days. Diet Recommendations Dysphagia Mechanical Soft Liquid Type Recommendations Pudding Consistency SL Swallow Guidelines Standard Aspiration Prec. Plan Pt/Guardian verbally ack understanding Yes of dx/prognosis/goals G -code Required Yes G-CODES ST Current Status [id number] ST Current Status Modifier CK-At least 40% but less than 60% impaired, limited or restricted ST Goal Status [id number] ST Goal Status Modifier CK-At least 40% but less than 60% impaired, limited or restricted Mod Barium Swallow Setup Exam Setup Radiologist Nathan Gil Level of Consciousness Awake,Alert,Appropriate Position (degrees)
== END ==
PROVIDERS: PCP Emergency Medicine; Visit Provider Emergency Medicine
DX: R13.10 Dysphagia, unspecified (principal)
CPT/HCPCS: 70371; 92611

== ENCOUNTER → 2019-07-09 04:32 | Outpatient (CLI) | payer MEDICARE, MEDICAID, SELFPAY ==
[2019-07-09 05:51] LABS: Microscopic, Urine URINE MICROSCOPIC (MICROSCOPIC)
[2019-07-09 05:54] LABS: Basophils # 0.1 K/mm3 (0-0.2); Basophils % 0.6 % (0.1-2.0); Eosinophils % 0.3 % (0.1-12.0); Hematocrit 37.8 % (37.0-47.0); Hemoglobin 11.8 g/dL (12.2-16.2); Lymphocytes # 2.8 K/mm3 (0.7-4.5); Lymphocytes % 37.3 % (10-50); Mean Corpuscular HGB Conc 31.2 g/dL (31.8-35.4); Mean Corpuscular Hemoglobin 28.1 pg (27.0-31.2); Mean Corpuscular Volume 90.1 fl (81-99); Mean Platelet Volume 9.4 fl (7.4-10.4); Monocytes # 0.4 K/mm3 (0.1-1.0); Monocytes % 4.9 % (1.7-9.3); Neutrophils # 4.3 K/mm3 (1.8-7.8); Neutrophils % 56.9 % (37.0-80.0); Platelet Count 324 K/mm3 (142-424); Red Blood Count 4.19 M/mm3 (4.20-5.40); Red Cell Distribution Width 15.7 % (11.5-17.5); White Blood Count 7.6 K/mm3 (4.8-10.8)
[2019-07-09 06:17] LABS: Appearance,Urine CLEAR (Clear); Bilirubin,Urine Negative (Negative); Blood, Urine Negative (Negative); Color,Urine YELLOW (Yellow); Glucose,Urine (UA) Negative (Negative); Ketones,Urine Negative (Negative); Leukocyte Esterase,Urine 1+ (Negative); Nitrate,Urine Negative (Negative); Protein,Urine Negative (Negative); Urobilinogen,Urine 0.2 EU/dl (0.2)
[2019-07-09 06:18] LABS: Alanine Aminotransferase 13 U/L (12-78); Albumin Level 4.2 g/dl (3.5-5.0); Albumin/Globulin Ratio 1.5 (1.1-1.8); Alkaline Phosphatase 91 U/L (38-126); Anion Gap 9.3 mEq/L (5-15); Aspartate Amino Transferase 23 U/L (14-36); Bilirubin,Total 0.3 mg/dl (0.2-1.3); Blood Urea Nitrogen 13 mg/dl (7-17); Calcium 9.4 mg/dl (8.4-10.2); Carbon Dioxide 29 mmol/L (22.0-30.0); Chloride 106 mmol/L (98-107); Estimated Glomerular Filt Rate 83 ml/min (>60); GFR (African American) 101 ML/MIN (>60); Globulin 2.8 g/dL (1.3-3.2); Glucose 94 mg/dl (74-100); Potassium 4.3 mmoL/L (3.5-5.1); Sodium 140 mmol/L (136-145)
== END ==
LOC: LAB 04:34 → LAB.DROPOF 07-10 09:23
PROVIDERS: PCP Emergency Medicine; Visit Provider Emergency Medicine
DX: R10.9 Unspecified abdominal pain (principal); R30.0 Dysuria
CPT/HCPCS: 80053; 81001; 85025; 87086; 87088; 87186

== ENCOUNTER → 2020-03-15 18:48 | Outpatient (CLI) | payer MEDICARE, MEDICAID, SELFPAY | PROVIDERS: PCP Emergency Medicine; Visit Provider Nurse Practitioner Family | DX: U07.1 COVID-19 (principal) | CPT/HCPCS: U0003 ==

== ENCOUNTER → 2020-03-19 02:25 | Outpatient (CLI) | payer MEDICARE, MEDICAID, SELFPAY ==
[2020-03-19 03:45] LABS: Basophils % 0.7 % (0.1-2.0); Eosinophils % 0.1 % (0.1-12.0); Hematocrit 35.7 % (37.0-47.0); Hemoglobin 11.1 g/dL (12.2-16.2); Lymphocytes # 1.3 K/mm3 (0.7-4.5); Lymphocytes % 29.9 % (10-50); Mean Corpuscular HGB Conc 31.2 g/dL (31.8-35.4); Mean Corpuscular Hemoglobin 28.3 pg (27.0-31.2); Mean Corpuscular Volume 90.6 fl (81-99); Mean Platelet Volume 9.4 fl (7.4-10.4); Monocytes # 0.3 K/mm3 (0.1-1.0); Monocytes % 7.9 % (1.7-9.3); Neutrophils # 2.6 K/mm3 (1.8-7.8); Neutrophils % 61.5 % (37.0-80.0); Platelet Count 175 K/mm3 (142-424); Red Blood Count 3.93 M/mm3 (4.20-5.40); Red Cell Distribution Width 15.6 % (11.5-17.5); White Blood Count 4.2 K/mm3 (4.8-10.8)
[2020-03-19 04:08] LABS: Hemoglobin A1C 6.3 % (4.0-6.0)
[2020-03-19 14:22] LABS: MANUAL DIFFERENTIAL MANUAL DIFFERENTIAL (MANUAL DIFF)
[2020-03-19 14:57] LABS: Hypochromasia 1+; Lymphocytes % 21 % (10-50); Monocytes % 11 % (2-9); Neutrophils % 67 % (42-76); Platelet Estimate Normal; RBC Morphology Normal; Total Cells Counted 100
== END ==
PROVIDERS: Visit Provider Emergency Medicine
DX: E13.9 Other specified diabetes mellitus without complications (principal); Z79.84 Long term (current) use of oral hypoglycemic drugs
CPT/HCPCS: 83036; 85007; 85025

== ENCOUNTER → 2020-12-06 14:58 | Outpatient (CLI) | payer MEDICARE, MEDICAID, SELFPAY ==
[2020-12-06 15:40] LABS: Basophils # 0.1 K/mm3 (0-0.2); Basophils % 0.8 % (0.1-2.0); Hematocrit 38.3 % (37.0-47.0); Lymphocytes # 2.4 K/mm3 (0.7-4.5); Lymphocytes % 38.2 % (10-50); Mean Corpuscular HGB Conc 31.3 g/dL (31.8-35.4); Mean Corpuscular Hemoglobin 29.4 pg (27.0-31.2); Monocytes # 0.4 K/mm3 (0.1-1.0); Monocytes % 6.8 % (1.7-9.3); Neutrophils # 3.4 K/mm3 (1.8-7.8); Neutrophils % 54.2 % (37.0-80.0); Platelet Count 214 K/mm3 (142-424); Red Blood Count 4.08 M/mm3 (4.20-5.40); Red Cell Distribution Width 15.1 % (11.5-17.5); White Blood Count 6.2 K/mm3 (4.8-10.8)
== END ==
PROVIDERS: Visit Provider Emergency Medicine
DX: I10 Essential (primary) hypertension (principal)
CPT/HCPCS: 85025

== ENCOUNTER 2021-02-15 15:50 | Emergency (ER) | payer MEDICARE, MEDICAID, SELFPAY ==
[2021-02-15] VITALS (9 sets, daily range): BP systolic 92–134; BP diastolic 25–68; PULSE 85–114; RESP 18; TEMP 36.8–36.9; O2SAT 94–98; BMI 20.9; BMI 35.2
--- NOTE | 2021-02-15 15:05 | XR_ITS ---
PROCEDURE INFORMATION: Exam: XR Chest Exam date and time: 02/15/2021 3:05 PM Age: 70 years old Clinical indication: Shortness of breath; Additional info: Cough and chest congestion x2 days TECHNIQUE: Imaging protocol: XR of the chest. Views: 1 view. COMPARISON: CR XR CHEST PORTABLE 01/21/2019 6:15 PM FINDINGS: Lungs: Discoid atelectasis in the left mid lung . No focal opacity Pleural spaces: Unremarkable. No pleural effusion. No pneumothorax. 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 IMPRESSION: No focal opacity
[2021-02-15 15:34] LABS: Chloride 102 mmol/L (98-107); Potassium 4.1 mmoL/L (3.5-5.1); Sodium 142 mmol/L (136-145)
[2021-02-15 15:36] LABS: Basophils # 0.1 K/mm3 (0-0.2); Basophils % 0.7 % (0.1-2.0); Blood Urea Nitrogen 17 mg/dl (7-17); Creatinine Clearance Estimated 80 mL/min (50-200); Eosinophils % 0.1 % (0.1-12.0); Estimated Glomerular Filt Rate 62 ml/min (>60); GFR (African American) 75 ML/MIN (>60); Hematocrit 40.3 % (37.0-47.0); Hemoglobin 12.6 g/dL (12.2-16.2); Lymphocytes % 34.4 % (10-50); Mean Corpuscular HGB Conc 31.2 g/dL (31.8-35.4); Mean Corpuscular Hemoglobin 28.5 pg (27.0-31.2); Mean Corpuscular Volume 91.3 fl (81-99); Mean Platelet Volume 9.1 fl (7.4-10.4); Monocytes # 0.4 K/mm3 (0.1-1.0); Monocytes % 4.9 % (1.7-9.3); Neutrophils # 5.3 K/mm3 (1.8-7.8); Platelet Count 277 K/mm3 (142-424); Red Blood Count 4.41 M/mm3 (4.20-5.40); White Blood Count 8.8 K/mm3 (4.8-10.8)
[2021-02-15 15:37] LABS: Alanine Aminotransferase 17 U/L (12-78); Albumin Level 4.1 g/dl (3.5-5.0); Albumin/Globulin Ratio 1.3 (1.1-1.8); Alkaline Phosphatase 112 U/L (38-126); Anion Gap 11.1 mEq/L (5-15); Aspartate Amino Transferase 28 U/L (14-36); Bilirubin,Total 0.2 mg/dl (0.2-1.3); Calcium 8.2 mg/dl (8.4-10.2); Carbon Dioxide 33 mmol/L (22.0-30.0); Globulin 3.1 g/dL (1.3-3.2); Glucose 140 mg/dl (74-100); Total Protein,Serum 7.2 g/dl (6.3-8.2)
--- NOTE | 2021-02-15 16:18 | HMH.EDGENADL ---
ED Disposition Clinical Impression: COPD exacerbation Disposition: Home, Self-Care Condition on Discharge: Good Additional Instructions: Take prescription as advised, continue taking your inhaler. Return to the emergency department for any new or concerning symptoms. Prescriptions: Azithromycin 250 mg PO DAILY #1 packet Transmission Status: Pending to [facility] Referrals: Margarito Avery MD [Primary Care Provider] - - Critical Care Critical Care Time: No Attestation: On 02/15/21, the high probability of a clinically significant, sudden or life threatening deterioration of the following system(s) required my full and direct attention, intervention and personal management. The time I documented below is in addition to time spent performing reported procedures but includes the following listed in this critical care notation. Medical Decision Making - Medical Records Medical records reviewed: Yes: I reviewed the patient's medical records. - Young Inquiry Pt receiving controlled substance: No Vital Signs: 02/15/21 14:56 02/15/21 15:31 Temperature 98.4 F Temperature Source Oral Pulse Rate 89 Pulse Rate [Right Radial] 89 Respiratory Rate 18 Blood Pressure [Right Arm] 134/64 Blood Pressure Mean [Right Arm] 87 02 Sat by Pulse Oximetry 96 96 Oxygen Delivery Method Room Air Room Air - Lab Data Lab Results 02/15/21 14:50: WBC 8.8, RBC 4.41, Hgb 12.6, Hct 40.3, MCV 91.3, MCH 28.5, MCHC 31.2 L, RDW 15.0, Plt Count 277, MPV 9.1, Neut % (Auto) 60.0, Lymph % (Auto) 34.4, [place] % (Auto) 4.9, Eos % (Auto) 0.1, Baso % (Auto) 0.7, Neut # (Auto) 5.3, Lymph # (Auto) 3.0, [place] # (Auto) 0.4, Eos # (Auto) 0.0, Baso # (Auto) 0.1 02/15/21 14:50: Sodium 142, Potassium 4.1, Chloride 102, Carbon Dioxide 33 H, Anion Gap 11.1, BUN 17, Creatinine 0.90, Estimated Creat Clear 80, Estimated GFR 62, Est GFR ( Amer) 75, Glucose 140 H, Calcium 8.2 L, Total Bilirubin 0.2, AST 28, ALT 17, Alkaline Phosphatase 112, Total Protein 7.2, Albumin 4.1, Globulin 3.1, Albumin/Globulin Ratio 1.3 Result diagrams: 02/15/21 14:50 02/15/21 14:50 Orders (Tests/Meds): ED MEDICATIONS Discontinued Medications Generic Name Dose Route Start Last Admin Trade Name Yanelis PRN Reason Stop Dose Admin Albuterol/Ipratropium 3 ml 02/15/21 15:05 02/15/21 15:30 Ipratropium/Albuterol 3 Ml Neb IH 02/15/21 15:06 3 ml ONCE ONE Administration Dexamethasone Sodium Phosphate 10 mg 02/15/21 17:17 Dexamethasone 4mg/Ml 1ml Vial IV 02/15/21 17:18 ONCE ONE Medical Decision Narrative: Patient 70-year-old female with significant past medical history presented to emergency department with chief complaint of cough, choking, concern for altered mental status. Patient states that she has had 2 days of coughing, runny nose. On examination she had wheezing throughout the lung llanes. Differential diagnosis for the patient includes pneumonia, viral infection, urinary tract infection, COPD exacerbation among others. Given this plan to order CBC, CMP, UA, chest x-ray, treat patient with a DuoNeb and reassess. Patient denies any significant leukocytosis, signs of infection, improvement of wheezing on reevaluation, given this we will discharge patient with a Z-Linwood, give a dose of steroids. General Adult HPI - General Chief complaint: Upper Respiratory Infection Stated complaint: Upper Respiratory Time Seen by Provider: 02/15/21 15:55 Mode of Arrival: EMS Limitations: No Limitations Description of Symptoms (Recalled from ER Triage Doc. by RN): [facility] called report as pt in room with decreased LOC and foaming at the mouth . Upon arrival to ED, pt A&O x3 and states that she has had a cough and chest congestion x2 days. - History of Present Illness HPI narrative: Patient 70-year-old female [facility] due to concerns for altered mental status, coughing, foaming at the mouth. Per report thi
--- NOTE | 2021-02-15 17:31 | PC.NURSE ---
REPORT CALLED TO CARMELITA MURRY AT [facility]
--- NOTE | 2021-02-15 17:32 | PC.NURSE ---
[facility] CALLED FOR TRANSPORT
== END 2021-02-15 17:54 | disposition home or self-care (01) ==
PROVIDERS: Emergency Provider Emergency Medicine; PCP Emergency Medicine
DX: J44.1 Chronic obstructive pulmonary disease with (acute) exacerbation (principal); F03.90 Unspecified dementia, unspecified severity, without behavioral disturbance, psychotic disturbance, mood disturbance, and anxiety; E11.9 Type 2 diabetes mellitus without complications; E78.5 Hyperlipidemia, unspecified; I10 Essential (primary) hypertension; F33.1 Major depressive disorder, recurrent, moderate; Z79.899 Other long term (current) drug therapy
CPT/HCPCS: 71045; 80053; 85025; 96374; 99283

== ENCOUNTER → 2021-04-05 15:45 | Outpatient (CLI) | payer MEDICARE, MEDICAID, SELFPAY | PROVIDERS: Visit Provider Emergency Medicine | DX: U07.1 COVID-19 (principal) | CPT/HCPCS: C9803; U0003; U0005 ==

== ENCOUNTER 2021-04-06 15:32 | Emergency (ER) | payer MEDICARE, MEDICAID, SELFPAY ==
[2021-04-06] VITALS (7 sets, daily range): BP systolic 126–147; BP diastolic 67–81; PULSE 82–96; RESP 18–22; TEMP 36.7–37; O2SAT 93–100; BMI 32.9
--- NOTE | 2021-04-06 15:51 | HMH.EDGENADL ---
ED Disposition Clinical Impression: COPD exacerbation Disposition: Home, Self-Care Condition on Discharge: Good Additional Instructions: Prednisone and Zithromax as prescribed. Nasal cannula oxygen up to 3 L/min as needed to keep pulse ox greater than 90%. Continue albuterol inhaler treatments. Prescriptions: predniSONE [Prednisone 20mg Tab] 20 mg PO BID #10 tab Prescription Printed Azithromycin [Zithromax 250mg tab] 250 mg PO DAILY #4 tab Prescription Printed Referrals: Provider,Referral, [Referring] - - Critical Care Critical Care Time: No Attestation: On 04/06/21, the high probability of a clinically significant, sudden or life threatening deterioration of the following system(s) required my full and direct attention, intervention and personal management. The time I documented below is in addition to time spent performing reported procedures but includes the following listed in this critical care notation. Medical Decision Making - Medical Records Medical records reviewed: Yes: I reviewed the patient's medical records. MR Comment: Positive Covid PCR at this facility on 03/15/2020 and 04/05/2021. - Young Inquiry Pt receiving controlled substance: No Vital Signs: 04/06/21 15:33 04/06/21 16:00 04/06/21 16:31 Temperature 98.6 F Temperature Source Oral Pulse Rate 87 84 Pulse Rate [Left Radial] 96 H Respiratory Rate 20 18 22 Blood Pressure 147/71 H 126/67 Blood Pressure [Right Arm] 145/76 H Blood Pressure Mean 113 92 Blood Pressure Mean [Right Arm] 99 Blood Pressure Source [Right Arm] Automatic Cuff Blood Pressure Position [Right Arm] Sitting 02 Sat by Pulse Oximetry 93 L 100 100 Oxygen Delivery Method Room Air Room Air Room Air 04/06/21 17:45 Temperature Temperature Source Pulse Rate 83 Pulse Rate [Left Radial] Respiratory Rate 21 Blood Pressure Blood Pressure [Right Arm] Blood Pressure Mean Blood Pressure Mean [Right Arm] Blood Pressure Source [Right Arm] Blood Pressure Position [Right Arm] 02 Sat by Pulse Oximetry 95 Oxygen Delivery Method Room Air - Lab Data Lab Results 04/06/21 16:24: Specimen Source r/r, O2 % r/a, ABG pH 7.33 L, ABG pCO2 59.1 H, ABG pO2 60.0 L, ABG HCO3 30.6 H, ABG Total CO2 32.4 H, ABG O2 Saturation 90, ABG Base Excess 4.7 H, Isiah Test y 04/06/21 17:04: WBC 7.7, RBC 4.68, Hgb 13.6, Hct 44.4, MCV 94.8, MCH 29.0, MCHC 30.6 L, RDW 15.3, Plt Count 229, MPV 8.1, Neut % (Auto) 84.2 H, Lymph % (Auto) 12.2, [place] % (Auto) 2.3, Eos % (Auto) 0.1, Baso % (Auto) 1.1, Neut # (Auto) 6.5, Lymph # (Auto) 0.9, [place] # (Auto) 0.2, Eos # (Auto) 0.0, Baso # (Auto) 0.1 04/06/21 17:04: Sodium 143, Potassium 3.9, Chloride 100, Carbon Dioxide 36 H, Anion Gap 10.9, BUN 17, Creatinine 1.00, Estimated Creat Clear 68, Estimated GFR 55 L, Est GFR ( Amer) 67, Glucose 195 H, Calcium 9.2, Total Bilirubin 0.6, AST 27, ALT 20, Alkaline Phosphatase 115, Troponin I < 0.01, Total Protein 7.8, Albumin 4.5, Globulin 3.3 H, Albumin/Globulin Ratio 1.4 04/06/21 17:04: Lactate 0.9 04/06/21 17:04: NT-Pro-B Natriuret Pep 2390 H Result diagrams: 04/06/21 17:04 04/06/21 17:04 Orders (Tests/Meds): ED MEDICATIONS Discontinued Medications Generic Name Dose Route Start Last Admin Trade Name Freq PRN Reason Stop Dose Admin Albuterol/Ipratropium 2 puff 04/06/21 17:23 Combivent 20mcg/100mcg Respimat Inhaler IH 04/06/21 17:24 ONCE ONE Methylprednisolone Sodium Succinate 125 mg 04/06/21 17:23 04/06/21 17:28 Methylprednisolone Sod Succ 125mg Vial IV 04/06/21 17:24 125 mg ONCE ONE Administration ORDERS Category Date Time Status Troponin I Q3H Lab 04/06/21 19:30 Ordered Troponin I Q3H Lab 04/06/21 22:30 Ordered Blood Culture Stat Micro 02/06/22 17:04 Received - ECG Data Tracing #1 EKG interpreted by Dante Omalley MD: Rhythm: sinus Rate: 84 Byron: normal Ectopy: none Conduction: normal ST Segment Changes:
--- NOTE | 2021-04-06 16:24 | XR_ITS ---
PROCEDURE INFORMATION: Exam: XR Chest Exam date and time: 04/06/2021 4:24 PM Age: 70 years old Clinical indication: Condition or disease; Patient HX: Hypoxia, covid positive. TECHNIQUE: Imaging protocol: XR of the chest. Views: 1 view. COMPARISON: CR XR CHEST PORTABLE 02/15/2021 3:16 PM FINDINGS: Lungs: Lingular atelectasis versus scarring unchanged from 02/15/2021. Pleural spaces: Unremarkable. No pleural effusion. No pneumothorax. Heart/Mediastinum: Unremarkable. No cardiomegaly. Bones/joints: Unremarkable. IMPRESSION: Lingular atelectasis versus scarring unchanged from 02/15/2021.
--- NOTE | 2021-04-06 16:34 | ECG_ITS ---
APPROVED REPORT Exam: Resting ECG HR:84 bpm ECG Measurements Heart Rate 84 AXES OR 158 P 50 QRSd 104 QRS -21 QT 375 T 2 QTc 416 Conclusion SINUS RHYTHM BORDERLINE LEFT AXIS DEVIATION [QRS AXIS < -20] S1-S2-S3 PATTERN, CONSISTENT WITH PULMONARY DISEASE, RVH, OR NORMAL VARIANT BORDERLINE ECG UNCONFIRMED REPORT Electronically signed by : Lorenzo Byrd MD 04/07/2021 20:35:46
--- NOTE | 2021-04-06 16:37 | PC.NURSE ---
warm blanket given to patient upon her request
--- NOTE | 2021-04-06 17:05 | PC.NURSE ---
rad at bedside
[2021-04-06 17:19] LABS: Basophils # 0.1 K/mm3 (0-0.2); Basophils % 1.1 % (0.1-2.0); Eosinophils % 0.1 % (0.1-12.0); Hematocrit 44.4 % (37.0-47.0); Hemoglobin 13.6 g/dL (12.2-16.2); Lymphocytes # 0.9 K/mm3 (0.7-4.5); Lymphocytes % 12.2 % (10-50); Mean Corpuscular HGB Conc 30.6 g/dL (31.8-35.4); Mean Corpuscular Volume 94.8 fl (81-99); Mean Platelet Volume 8.1 fl (7.4-10.4); Monocytes # 0.2 K/mm3 (0.1-1.0); Monocytes % 2.3 % (1.7-9.3); Neutrophils # 6.5 K/mm3 (1.8-7.8); Neutrophils % 84.2 % (37.0-80.0); Platelet Count 229 K/mm3 (142-424); Red Blood Count 4.68 M/mm3 (4.20-5.40); Red Cell Distribution Width 15.3 % (11.5-17.5); White Blood Count 7.7 K/mm3 (4.8-10.8)
[2021-04-06 17:19] LABS: ABG Base Excess 4.7 mmol/L (-2.4-2.3); ABG HCO3 30.6 mmhg (22.0-26.0); ABG Oxygen Saturation 90 % (90-100); ABG PH 7.33 mmol/L (7.35-7.45); ABG TCO2 32.4 mmhg (23-27)
[2021-04-06 17:20] LABS: Allen's Test y; Oxygen r/a %
[2021-04-06 17:21] LABS: ABG PCO2 59.1 mmhg (35.0-45.0)
[2021-04-06 17:26] LABS: Alanine Aminotransferase 20 U/L (12-78); Albumin Level 4.5 g/dl (3.5-5.0); Albumin/Globulin Ratio 1.4 (1.1-1.8); Alkaline Phosphatase 115 U/L (38-126); Anion Gap 10.9 mEq/L (5-15); Aspartate Amino Transferase 27 U/L (14-36); Bilirubin,Total 0.6 mg/dl (0.2-1.3); Blood Urea Nitrogen 17 mg/dl (7-17); Calcium 9.2 mg/dl (8.4-10.2); Carbon Dioxide 36 mmol/L (22.0-30.0); Chloride 100 mmol/L (98-107); Creatinine Clearance Estimated 68 mL/min (50-200); Estimated Glomerular Filt Rate 55 ml/min (>60); GFR (African American) 67 ML/MIN (>60); Globulin 3.3 g/dL (1.3-3.2); Glucose 195 mg/dl (74-100); Lactic Acid 0.9 mmol/L (0.7-2.1); Potassium 3.9 mmoL/L (3.5-5.1); Sodium 143 mmol/L (136-145); Total Protein,Serum 7.8 g/dl (6.3-8.2)
[2021-04-06 17:35] LABS: NT Pro Brain Natriuretic Pep. 2390 pg/mL (0-125)
[2021-04-06 17:38] LABS: Troponin I < 0.01 ng/ml (0.00-0.034)
--- NOTE | 2021-04-06 18:05 | PC.NURSE ---
Dr Omalley speaking with Dr Baer at this time
--- NOTE | 2021-04-06 18:58 | PC.NURSE ---
Report called to Ever TOVAR
== END 2021-04-06 19:44 | disposition home or self-care (01) ==
PROVIDERS: Emergency Provider Emergency Medicine; PCP Emergency Medicine
DX: J44.1 Chronic obstructive pulmonary disease with (acute) exacerbation (principal); R06.09 Other forms of dyspnea; U07.1 COVID-19; E11.9 Type 2 diabetes mellitus without complications; E78.5 Hyperlipidemia, unspecified; F03.90 Unspecified dementia, unspecified severity, without behavioral disturbance, psychotic disturbance, mood disturbance, and anxiety; F32.9 Major depressive disorder, single episode, unspecified; I10 Essential (primary) hypertension; N28.9 Disorder of kidney and ureter, unspecified; E03.9 Hypothyroidism, unspecified; Z79.899 Other long term (current) drug therapy
CPT/HCPCS: 71045; 80053; 82803; 83605; 83880; 84484; 85025; 87040; 87077; 87186; 93005; 96365; 96375; 99284; J0456

== ENCOUNTER 2022-06-21 19:53 | Observation (INO) | payer MEDICARE, MEDICAID, SELFPAY ==
[2022-06-21] VITALS (13 sets, daily range): BP systolic 95–129; BP diastolic 56–104; PULSE 76–111; RESP 16–18; TEMP 36.9–38; O2SAT 87–98; BMI 36.6; BMI 36.7
--- NOTE | 2022-06-21 19:51 | CT_ITS ---
PROCEDURE INFORMATION: Exam: CT Head Without Contrast Exam date and time: 06/21/2022 8:04 PM Age: 71 years old Clinical indication: Injury or trauma; Fall; Blunt trauma (contusions or hematomas); Additional info: Fall, unwitnessed, no loc TECHNIQUE: Imaging protocol: Computed tomography of the head without contrast. Radiation optimization: All CT scans at this facility use at least one of these dose optimization techniques: automated exposure control; mA and/or kV adjustment per patient size (includes targeted exams where dose is matched to clinical indication); or iterative reconstruction. REPORTING DATA: Count of CT and Cardiac NM exams in prior 12 months: This patient has received 0 known CTs and 0 known cardiac nuclear medicine studies in the 12 months prior to the current study. COMPARISON: CT HEAD/BRAIN WO CON 01/21/2019 6:18 PM FINDINGS: Brain: No acute infarct. No hemorrhage. Stable involutional changes of the brain. No mass effect. Cerebral ventricles: Stable ventricular size. No ventriculomegaly. Paranasal sinuses: Scattered paranasal sinus mucosal thickening, without air-fluid level present. Mastoid air cells: Visualized mastoid air cells are well aerated. Bones/joints: Unremarkable. No acute fracture. Soft tissues: Unremarkable. IMPRESSION: No acute intracranial abnormality.
--- NOTE | 2022-06-21 19:51 | CT_ITS ---
PROCEDURE INFORMATION: Exam: CT Cervical Spine Without Contrast Exam date and time: 06/21/2022 8:06 PM Age: 71 years old Clinical indication: Injury or trauma; Fall; Blunt trauma; Additional info: Fall, unwitnessed, no loc TECHNIQUE: Imaging protocol: Computed tomography of the cervical spine without contrast. Radiation optimization: All CT scans at this facility use at least one of these dose optimization techniques: automated exposure control; mA and/or kV adjustment per patient size (includes targeted exams where dose is matched to clinical indication); or iterative reconstruction. REPORTING DATA: Count of CT and Cardiac NM exams in prior 12 months: This patient has received 0 known CTs and 0 known cardiac nuclear medicine studies in the 12 months prior to the current study. COMPARISON: CT CERVICAL SPINE WO CON 12/15/2018 7:38 AM FINDINGS: Bones/joints: No acute fracture. Normal alignment. Mild multilevel degenerative changes. No severe spinal canal stenosis. No significant neural foraminal narrowing. Lungs: Lung apices are normal. Soft tissues: Unremarkable. IMPRESSION: No acute findings.
--- NOTE | 2022-06-21 19:51 | XR_ITS ---
PROCEDURE INFORMATION: Exam: XR Chest Exam date and time: 06/21/2022 8:23 PM Age: 71 years old Clinical indication: Injury or trauma; Fall; Blunt trauma (contusions or hematomas); Additional info: Fall, unwitnessed, no loc TECHNIQUE: Imaging protocol: Radiologic exam of the chest. Views: 1 view. COMPARISON: CR XR CHEST PORTABLE 04/06/2021 5:03 PM FINDINGS: Lungs: Patchy airspace opacity left mid and lower lung zones. Right lung clear. Pleural spaces: Unremarkable. No pleural effusion. No pneumothorax. Heart/Mediastinum: Unremarkable. No cardiomegaly. Bones/joints: Severe degenerative changes left shoulder. IMPRESSION: Patchy airspace opacity left mid and lower lung zones.
--- NOTE | 2022-06-21 19:51 | XR_ITS ---
PROCEDURE INFORMATION: Exam: XR Pelvis Exam date and time: 06/21/2022 8:23 PM Age: 71 years old Clinical indication: Injury or trauma; Fall; Blunt trauma (contusions or hematomas); Bilateral; Pelvic region; Additional info: Unwitnessed fall, no loc TECHNIQUE: Imaging protocol: Radiologic exam of the pelvis. Views: 1 or 2 view. COMPARISON: CR XR HIP RT 2-3V W/PELVIS 12/15/2018 7:44 AM FINDINGS: Bones/joints: Unremarkable. No acute fracture. Soft tissues: Unremarkable. IMPRESSION: No acute findings.
--- NOTE | 2022-06-21 19:53 | ECG_ITS ---
APPROVED REPORT Exam: Resting ECG HR:110 bpm ECG Measurements Heart Rate 110 AXES QRSd 96 QRS -26 QT 302 T 15 QTc 367 Conclusion SUPRAVENTRICULAR TACHYCARDIA ABNORMAL ECG UNCONFIRMED REPORT Electronically signed by : Lorenzo Byrd MD 06/22/2022 19:44:00
[2022-06-21 20:04] LABS: Basophils % 0.3 % (0.1-2.0); Eosinophils # 0.1 K/mm3 (0.0-0.4); Eosinophils % 0.7 % (0.1-12.0); Hematocrit 42.2 % (37.0-47.0); Hemoglobin 12.8 g/dL (12.2-16.2); Lymphocytes # 2.2 K/mm3 (0.7-4.5); Lymphocytes % 14.5 % (10-50); Mean Corpuscular HGB Conc 30.2 g/dL (31.8-35.4); Mean Corpuscular Hemoglobin 28.9 pg (27.0-31.2); Mean Corpuscular Volume 95.8 fl (81-99); Mean Platelet Volume 8.2 fl (7.4-10.4); Monocytes # 0.5 K/mm3 (0.1-1.0); Monocytes % 2.9 % (1.7-9.3); Neutrophils # 12.5 K/mm3 (1.8-7.8); Neutrophils % 81.6 % (37.0-80.0); Platelet Count 267 K/mm3 (142-424); Red Blood Count 4.41 M/mm3 (4.20-5.40); Red Cell Distribution Width 14.6 % (11.5-17.5); White Blood Count 15.3 K/mm3 (4.8-10.8)
[2022-06-21 20:07] LABS: MANUAL DIFFERENTIAL MANUAL DIFFERENTIAL (MANUAL DIFF)
[2022-06-21 20:14] LABS: Alanine Aminotransferase 24 U/L (12-78); Albumin/Globulin Ratio 1.4 (1.1-1.8); Alkaline Phosphatase 105 U/L (38-126); Anion Gap 10.9 mEq/L (5-15); Aspartate Amino Transferase 29 U/L (14-36); Bilirubin,Total 0.4 mg/dl (0.2-1.3); Blood Urea Nitrogen 12 mg/dl (7-17); Calcium 8.2 mg/dl (8.4-10.2); Carbon Dioxide 34 mmol/L (22.0-30.0); Chloride 101 mmol/L (98-107); Creatinine Clearance Estimated 75 mL/min (50-200); Estimated Glomerular Filt Rate 62 ml/min (>60); GFR (African American) 75 ML/MIN (>60); Globulin 2.8 g/dL (1.3-3.2); Glucose 168 mg/dl (74-100); Potassium 3.9 mmoL/L (3.5-5.1); Sodium 142 mmol/L (136-145); Total Protein,Serum 6.8 g/dl (6.3-8.2)
[2022-06-21 20:16] LABS: Lactic Acid 2.9 mmol/L (0.7-2.1)
[2022-06-21 20:22] LABS: C-Reactive Protein 22.9 mg/L (0-4)
[2022-06-21 20:26] LABS: Lymphocytes % 21 % (10-50); Monocytes % 5 % (2-9); Neutrophils % 74 % (42-76); Platelet Estimate Normal; RBC Morphology Normal; Total Cells Counted 100; Troponin I 0.07 ng/ml (0.00-0.034)
[2022-06-21 20:28] LABS: NT Pro Brain Natriuretic Pep. 1510 pg/mL (0-125)
[2022-06-21 20:30] LABS: Procalcitonin 0.061 ng/mL (0.0-2.0)
[2022-06-21 20:31] LABS: Erythrocyte Sedimentation Rate 24 mm/hr (0-30)
[2022-06-21 20:36] LABS: T4 (Thyroxine) 9.2 ug/dl (5.53-11.0)
[2022-06-21 20:38] LABS: Microscopic, Urine URINE MICROSCOPIC (MICROSCOPIC)
[2022-06-21 20:39] LABS: Appearance,Urine CLEAR (Clear); Bilirubin,Urine Negative (Negative); Blood, Urine TRACE-I (Negative); Color,Urine YELLOW (Yellow); Glucose,Urine (UA) Negative (Negative); Ketones,Urine Negative (Negative); Leukocyte Esterase,Urine Negative (Negative); Nitrate,Urine Negative (Negative); Protein,Urine Negative (Negative); Specific Gravity, Urine 1.015 (1.005-1.030); Urobilinogen,Urine 0.2 EU/dl (0.2)
--- NOTE | 2022-06-21 20:39 | HMH.EDFALL ---
Discharge Plan Disposition Patient Disposition: Admitted As Inpatient Chief Complaint: Fall Prescriptions Prescriptions: No Action atorvastatin 20 mg tablet 20 mg PO DAILY Qty: 90 0RF albuterol sulfate 18 GM HFA aerosol inhaler 1 - 2 puffs inhalation Q6HP PRN (Reason: Shortness Of Breath Or Wheezing) cetirizine [Zyrtec] 10 mg Tablet 10 mg PO DAILY prednisone 20 MG tablet 20 mg PO BID levothyroxine 100 MCG tablet 100 mcg PO DAILY pantoprazole 40 MG tablet,delayed release (DR/EC) 40 mg PO DAILY metformin 500 MG tablet extended release 24 hr 500 mg PO DAILY sertraline 50 MG tablet 50 mg PO DAILY clozapine 50 MG tablet 150 mg PO HS omega-3 fatty acids-fish oil 1,000 capsule 1,000 mg PO BID rivaroxaban 15 MG tablet 15 mg PO BID Rx Instructions: then switch to 20 mg po daily furosemide 20 MG tablet 20 mg PO DAILY Referrals Follow up/Referrals: Margarito Avery MD [Primary Care Provider] - See instructions Clinical Impressions Clinical Impression: Fall, Pneumonia, Severe sepsis with acute organ dysfunction Discharge ED Provider: Gena (ED)Margarito Fall HPI General Chief Complaint: Fall Stated Complaint: Fall Time Seen by Provider: 06/21/22 20:00 Mode of Arrival: EMS Source of Information: Patient, EMS and Medical Record Limitations: No Limitations Description of Symptoms (Recalled from ER Triage Doc. by RN): Pt states that she was walking to the restroom when she slipped and fell. C/O head pain and abrasions on her toes on her bilateral feet. Denies any known loss of consciousness. History of Present Illness HPI Narrative: pt reports going to bathroom and slipped and fell but ecf uncertain - pt with reported cough complaint: fall Onset (ago): hour(s) Fall from: walking Fall witnessed: no Place fall occurred: sn[facility]NF Loss of consciousness: none Prolonged down time: no Symptoms prior to fall: none Context: tripped/slipped Severity: moderate Related Data Home Medications Medication Instructions Recorded Confirmed clozapine 50 mg tablet 150 mg PO HS mood 11/02/18 06/21/22 levothyroxine 100 mcg tablet 100 mcg PO DAILY thyroid 11/02/18 06/21/22 metformin 500 mg tablet,extended 500 mg PO DAILY Diabetes 11/02/18 06/21/22 release 24 hr omega-3 fatty acids-fish oil 340 1,000 mg PO BID Cholesterol 11/02/18 06/21/22 mg-1,000 mg capsule pantoprazole 40 mg tablet,delayed 40 mg PO DAILY GERD 11/02/18 06/21/22 release sertraline 50 mg tablet 50 mg PO DAILY MOOD 11/02/18 06/21/22 albuterol sulfate 90 mcg/actuation 1 - 2 puffs inhalation Q6HP PRN 12/01/18 06/21/22 aerosol inhaler Shortness Of Breath Or Wheezing rivaroxaban 15 mg tablet 15 mg PO BID Blood thinner 12/15/18 06/21/22 furosemide 20 mg tablet 20 mg PO DAILY Edema 01/21/19 06/21/22 cetirizine 10 mg tablet (Zyrtec) 10 mg PO DAILY Allergy symptoms 06/21/22 06/21/22 prednisone 20 mg tablet 20 mg PO BID ANTIINFLAMMATORY 06/21/22 06/21/22 Previous Rx's Medication Instructions Recorded atorvastatin 20 mg tablet 20 mg PO DAILY Cholesterol #90 tabs 05/13/20 Allergies Allergy/AdvReac Type Severity Reaction Status Date / Time codeine Allergy Mild Unknown Verified 03/25/22 05:55 allergy reaction Penicillins Allergy Mild Unknown Verified 03/25/22 05:55 allergy reaction PFSH PFSH Disclaimer: The information contained in this section may have been updated after the patient was seen, as this information can be updated by other users. 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
[2022-06-21 20:40] LABS: Coronavirus 19, PCR Not Detected (NotDetected); Influenza A, PCR Not Detected (NotDetected); Influenza B, PCR Not Detected (NotDetected)
[2022-06-21 20:49] LABS: Thyroid Stimulating Hormone 0.14 uIU/mL (0.465-4.68)
[2022-06-21 20:53] LABS: Bacteria,Urine Trace /lpf; RBC,Urine Occasional #/hpf (0-3)
--- NOTE | 2022-06-21 22:24 | PC.NURSE ---
SPOKE WITH HOSPITALIST FOR ADMISSION HOUSE NOTIFIED
--- NOTE | 2022-06-21 22:36 | PC.NURSE ---
patient doesnt trigger sepsis bolus. Order changed per md
--- NOTE | 2022-06-21 22:39 | EXP.HP ---
History of Present Illness *Admission Date: 06/21/22 *Reason for visit:: Fall *History of present illness: Ms. Albert is a 71-year-old female who is a resident of a long-term healthcare facility. She has a past medical history of DM, Bipolar Disorder, COPD, PE on the Right on chronic anticoagulation, Hypothyroidism and Hyperlipidemia. [facility] She underwent imaging at the facility that included a CT of the cervical spine, CT of the head and Pelvic xray that showed no acute findings. Her cxray showed patchy airspace opacities in the mid and lower lung lobes on the left. She had an elevated WBC at 15.3. Lactic acid was elevated at 2.9. On presentation she had a temperature of 100.4, HR of 111, oxygen was 87% on room air and blood pressure was 95/66. She will be admitted with initial impression: Sepsis. [facility] Disclaimer: The information contained in this section may have been updated after the patient was seen, as this information can be updated by other users. 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, managed as type 2 Hypothyroidism Hypothyroidism (acquired) Obesity (BMI 30-39.9) Pulmonary embolism on right Weakness generalized Social History (Updated 06/21/22 @ 23:26 by Leanna Pedro RN) Smoking Status: Former smoker second hand exposure: No alcohol intake: never current occupational status: disabled Travel in the last 8 weeks: None household members: other housing: [facility] current occupational exposures/hazards: No caffeine: Yes Review of Systems Review of Systems Review of systems:: pertinent systems reviewed and negative unless documented below Constitutional Constitutional: Reports body ache(s), Reports fatigue and Reports weakness Eyes Eyes: Reports system reviewed and no additional complaints, except as documented ENT Ears, Nose, Mouth, and Throat: Reports system reviewed and no additional complaints, except as documented *Cardiovascular Cardiovascular: Reports system reviewed and no additional complaints, except as documented and Reports dyspnea *Respiratory Respiratory: Reports cough and Reports dyspnea *Gastrointestinal Gastrointestinal: Reports system reviewed and no additional complaints, except as documented *Genitourinary Genitourinary: Reports system reviewed and no additional complaints, except as documented *Musculoskeletal Musculoskeletal: Reports muscle weakness Integumentary/Breasts Skin/Breast: Reports system reviewed and no additional complaints, except as documented *Neurologic Neurologic: Reports system reviewed and no additional complaints, except as documented and Reports weakness Psychiatric Psychiatric: Reports system reviewed and no additional complaints, except as documented Endocrine Endocrine: Reports fatigue Hematologic/Lymphatic Hematologic/Lymphatic: Reports system reviewed and no additional complaints, except as documented Allergic/Immunologic Allergic/Immunologic: Reports system reviewed and no additional complaints, except as documented Meds Home Medications and Allergies Home Medications Medication Instructions Recorded Confirmed Type clozapine 50 mg tablet 50 mg PO HS mood 11/02/18 06/22/22 History levothyroxine 100 mcg tablet 100 mcg PO DAILY thyroid 11/02/18 06/22/22 History metformin 500 mg tablet,extended 500 mg PO AM Diabetes 11/02/18 06/22/22 History release 24 hr furosemide 20 mg tablet 20 mg PO DAILY Fluid 01/21/19 06/22/22 History atorvastatin 20 mg tablet 20 mg PO DAILY Cholesterol #90 tabs 05/13/20 06/22/22 Rx cetirizine 10 mg tablet (Zyrtec) 10 mg PO HS Allergy symptoms 06/21/22 06/22/22 History acetaminophen 500 mg capsule 500 mg PO QID PRN Pain/Fever 06/22/22 06/22/22 H
--- NOTE | 2022-06-21 23:07 | PC.NURSE ---
PT ARRIVED TO FLOOR AT THIS TIME
[2022-06-21 23:29] LABS: Troponin I 0.06 ng/ml (0.00-0.034)
[2022-06-22] VITALS (10 sets, daily range): BP systolic 103–128; BP diastolic 49–57; PULSE 73–107; RESP 16–20; TEMP 36.7–37.2; O2SAT 91–97; BMI 36.5
[2022-06-22 00:08] LABS: Reflex Lactic Add Lactic Reflex
[2022-06-22 00:44] LABS: Lactic Acid Follow Up (RFLX 1) 1.8 mmol/L (0.7-2.1)
[2022-06-22 02:32] LABS: Troponin I 0.05 ng/ml (0.00-0.034)
--- NOTE | 2022-06-22 04:06 | PC.NURSE ---
Pt. is from [facility] and states she fell on her way to the restroom. aox 1, 20g L AC SL, 02- 2L NC and states she doesn't wear oxygen at the home, bottom is red and blanchable with a mepilex applied, bed alarm is on.
[2022-06-22 05:13] LABS: POC Glucose,Bedside 128 (70-110)
--- NOTE | 2022-06-22 06:59 | EXP.SEPSISRE ---
[facility] Tissue Perfusion Eval Sepsis Re-Evaluation Performed: Yes Date Performed: 06/21/22 Time Performed: 23:50
--- NOTE | 2022-06-22 07:17 | EXP.ACUTE.PN ---
Subjective *Date: 06/22/22 *Time: 10:58 Medical Exam Vital signs and Labs for Last 24 Hours: Vital Signs Temp Pulse Pulse Resp BP BP Pulse Ox 06/22/22 06:06 101 H 06/22/22 06:06 103 H 06/22/22 06:06 96 06/22/22 04:00 99.0 F 104 H 16 118/50 L 97 06/22/22 01:32 73 18 06/21/22 23:07 98.8 F 108 H 18 99/75 L 98 06/21/22 23:32 98 06/21/22 22:55 98.6 F 76 18 116/56 L 06/21/22 22:13 76 06/21/22 22:13 77 06/21/22 21:50 110 H 87 L 06/21/22 21:50 116/56 L 06/21/22 21:45 109 H 89 L 06/21/22 21:31 110 H 90 L 06/21/22 21:30 129/104 H 06/21/22 21:15 109 H 94 L 06/21/22 21:00 110 H 94 L 06/21/22 20:45 111 H 98/69 L 91 L 06/21/22 20:15 100.4 F H 111 H 110/66 91 L 06/21/22 19:55 98.4 F 105 H 16 95/66 L 92 L Intake and Output 06/21/22 06/21/22 06/22/22 15:59 23:59 07:59 Intake Total 240 / 240 Output Total 0 / 0 Balance 240 / 240 Intake: Intake, Oral Amount 240 / 240 Output: Output, Urine Amount 0 / 0 Other: Number of Unmeasured Voids 1 Weight 90.463 kg 90.01 kg Patient Weight 06/22/22 23:59 Weight 90.01 kg Laboratory Results - last 24 hr 06/21/22 19:54: WBC 15.3 H, RBC 4.41, Hgb 12.8, Hct 42.2, MCV 95.8, MCH 28.9, MCHC 30.2 L, RDW 14.6, Plt Count 267, MPV 8.2, Neut % (Auto) 81.6 H, Lymph % (Auto) 14.5, [place] % (Auto) 2.9, Eos % (Auto) 0.7, Baso % (Auto) 0.3, Neut # (Auto) 12.5 H, Lymph # (Auto) 2.2, [place] # (Auto) 0.5, Eos # (Auto) 0.1, Baso # (Auto) 0.0, Total Counted 100, Neutrophils % (Manual) 74, Lymphocytes % (Manual) 21, Monocytes % (Manual) 5, Platelet Estimate Normal, RBC Morphology Normal 06/21/22 19:54: Sodium 142, Potassium 3.9, Chloride 101, Carbon Dioxide 34 H, Anion Gap 10.9, BUN 12, Creatinine 0.90, Estimated Creat Clear 75, Estimated GFR 62, Est GFR ( Amer) 75, Glucose 168 H, Calcium 8.2 L, Total Bilirubin 0.4, AST 29, ALT 24, Alkaline Phosphatase 105, Troponin I 0.07 H, Total Protein 6.8, Albumin 4.0, Globulin 2.8, Albumin/Globulin Ratio 1.4 06/21/22 19:54: Lactate 2.9 H 06/21/22 19:54: C-Reactive Protein 22.9 H, NT-Pro-B Natriuret Pep 1510 H, TSH 0.14 L, Thyroxine (T4) 9.2 06/21/22 19:54: ESR 24 06/21/22 19:54: Procalcitonin 0.061 06/21/22 20:28: Urine Color Yellow, Urine Appearance Clear, Urine pH 6.0, Ur Specific [place] 1.015, Urine Protein Negative, Urine Glucose (UA) Negative, Urine Ketones Negative, Urine Blood Trace-i, Urine Nitrate Negative, Urine Bilirubin Negative, Urine Urobilinogen 0.2, Ur Leukocyte Esterase Negative, Urine RBC Occasional, Urine WBC None, Ur Squamous Epith Cells None, Urine Bacteria Trace 06/21/22 20:30: SARS-CoV-2 (PCR) Not detected, Influenza A Untype (PCR) Not detected, Influenza Type B (PCR) Not detected 06/21/22 23:00: Troponin I 0.06 H 06/22/22 00:15: Lactate 1.8 06/22/22 02:02: Troponin I 0.05 H 06/22/22 05:03: POC Glucose 128 H I & O for Labs for Last 24 Hours: Intake & Output 04/21/23 04/22/23 04/23/23 04/24/23 23:59 23:59 23:59 23:59 Intake Total 240 / 240 Output Total 0 / 0 Balance 240 / 240 Weight 90.463 kg 90.01 kg Assessment and Plan *Assessment and plan (1) Pneumonia: Status: Acute Qualifiers: Laterality: left Category: Medical Code(s): J18.9 - Pneumonia, unspecified organism (2) (HFpEF) heart failure with preserved ejection fraction: Status: Acute Qualifiers: Heart failure chronicity: acute on chronic Qualified Code(s): I50.33 - Acute on chronic diastolic (congestive) heart failure Category: Medical Code(s): I50.30 - Unspecified diastolic (congestive) heart failure (3) Sepsis: Status: Resolved Category: Medical Code(s): A41.9 - Sepsis, unspecified organism (4) Hypoxia: Status: Acute Category: Medical Code(s): R09.02 - Hypoxemia (5) Diabetes:
[2022-06-22 07:25] LABS: Basophils % 0.3 % (0.1-2.0); Eosinophils % 0.4 % (0.1-12.0); Hematocrit 39.1 % (37.0-47.0); Lymphocytes # 2.1 K/mm3 (0.7-4.5); Lymphocytes % 23.1 % (10-50); Mean Corpuscular HGB Conc 30.8 g/dL (31.8-35.4); Mean Corpuscular Hemoglobin 29.9 pg (27.0-31.2); Mean Corpuscular Volume 97.2 fl (81-99); Mean Platelet Volume 8.4 fl (7.4-10.4); Monocytes # 0.4 K/mm3 (0.1-1.0); Monocytes % 4.3 % (1.7-9.3); Neutrophils # 6.6 K/mm3 (1.8-7.8); Neutrophils % 71.9 % (37.0-80.0); Platelet Count 208 K/mm3 (142-424); Red Blood Count 4.02 M/mm3 (4.20-5.40); Red Cell Distribution Width 14.7 % (11.5-17.5); White Blood Count 9.2 K/mm3 (4.8-10.8)
--- NOTE | 2022-06-22 07:25 | P.CONPHA_ITS ---
Pharmacy Intervention Comments: Reconciled patient's home medications using list from [facility] ([facility]).
--- NOTE | 2022-06-22 07:25 | HMH.PHAINT1 ---
Pharmacy Intervention Comments: Reconciled patient's home medications using list from group home ([facility]).
[2022-06-22 07:57] LABS: Chloride 103 mmol/L (98-107); Sodium 140 mmol/L (136-145)
[2022-06-22 08:00] LABS: Alanine Aminotransferase 18 U/L (12-78); Alkaline Phosphatase 90 U/L (38-126); Aspartate Amino Transferase 25 U/L (14-36); Bilirubin,Total 0.6 mg/dl (0.2-1.3); Blood Urea Nitrogen 12 mg/dl (7-17); Creatinine Clearance Estimated 74 mL/min (50-200); Estimated Glomerular Filt Rate 71 ml/min (>60); GFR (African American) 86 ML/MIN (>60)
[2022-06-22 08:01] LABS: Albumin Level 3.8 g/dl (3.5-5.0); Albumin/Globulin Ratio 1.7 (1.1-1.8); Calcium 8.1 mg/dl (8.4-10.2); Carbon Dioxide 29 mmol/L (22.0-30.0); Globulin 2.3 g/dL (1.3-3.2); Glucose 154 mg/dl (74-100); Total Protein,Serum 6.1 g/dl (6.3-8.2)
--- NOTE | 2022-06-22 10:08 | SW/DCPLANNER ---
This patient currently resides at [facility] level of care. I will continue to follow up with Olimpia at [facility] regarding discharge date. Updated patient information has been faxed.
[2022-06-22 11:49] LABS: POC Glucose,Bedside 123 (70-110)
[2022-06-22 16:43] LABS: POC Glucose,Bedside 216 (70-110)
--- NOTE | 2022-06-22 16:56 | PC.NURSE ---
PT IS SITTING UP IN THE CHAIR. ALERT AND ORIENTED X2. PT HAS REFUSED TO GET OOB FOR STAFF AND PHYSICAL THERAPY T/O THE SHIFT UNTIL NOW. PT WAS A 2 MODERATE ASSIST TO GET OOB. PT STATES I'M JUST SO SICK AND HURT ALL OVER . PT HAS BEEN SLEEPING MOST OF THE DAY. PT HAS BEEN INCONTINENT AND [place] HAS BEEN IN PLACE. DIURESING WELL. LUNG SOUNDS DIMINISHED WITH SCATTERED RHONCHI. ROOM AIR SATURATION 91%. WILL CONTINUE TO MONITOR.
[2022-06-22 20:24] LABS: POC Glucose,Bedside 164 (70-110)
--- NOTE | 2022-06-22 20:42 | PC.NURSE ---
Lab called with positive blood culture results. Sukhdeep Manley DNP was contacted and notified of results.
[2022-06-23] VITALS: BP 120/54; PULSE 103; RESP 18; TEMP 36.8; O2SAT 89
[2022-06-23 00:01] VITALS: PULSE 80; PULSE 81
[2022-06-23 04:00] VITALS: BP 109/54; PULSE 104; RESP 18; TEMP 36.8; O2SAT 87; BMI 38.0
[2022-06-23 05:57] LABS: Basophils % 0.1 % (0.1-2.0); Eosinophils # 0.2 K/mm3 (0.0-0.4); Eosinophils % 1.2 % (0.1-12.0); Hematocrit 36.7 % (37.0-47.0); Hemoglobin 11.3 g/dL (12.2-16.2); Lymphocytes # 1.3 K/mm3 (0.7-4.5); Lymphocytes % 10.4 % (10-50); Mean Corpuscular HGB Conc 30.9 g/dL (31.8-35.4); Mean Corpuscular Hemoglobin 29.2 pg (27.0-31.2); Mean Corpuscular Volume 94.3 fl (81-99); Mean Platelet Volume 8.2 fl (7.4-10.4); Monocytes # 0.4 K/mm3 (0.1-1.0); Monocytes % 2.9 % (1.7-9.3); Neutrophils # 10.9 K/mm3 (1.8-7.8); Neutrophils % 85.5 % (37.0-80.0); Platelet Count 229 K/mm3 (142-424); Red Blood Count 3.89 M/mm3 (4.20-5.40); Red Cell Distribution Width 14.6 % (11.5-17.5); White Blood Count 12.8 K/mm3 (4.8-10.8)
[2022-06-23 06:00] VITALS: PULSE 100; PULSE 98; O2SAT 93
[2022-06-23 06:05] LABS: Chloride 99 mmol/L (98-107)
[2022-06-23 06:06] LABS: Potassium 3.9 mmoL/L (3.5-5.1); Sodium 137 mmol/L (136-145)
[2022-06-23 06:09] LABS: POC Glucose,Bedside 187 (70-110)
[2022-06-23 06:09] LABS: Anion Gap 8.9 mEq/L (5-15); Blood Urea Nitrogen 16 mg/dl (7-17); Calcium 7.9 mg/dl (8.4-10.2); Carbon Dioxide 33 mmol/L (22.0-30.0); Creatinine Clearance Estimated 77 mL/min (50-200); Estimated Glomerular Filt Rate 71 ml/min (>60); GFR (African American) 86 ML/MIN (>60); Glucose 200 mg/dl (74-100)
[2022-06-23 06:18] LABS: MANUAL DIFFERENTIAL MANUAL DIFFERENTIAL (MANUAL DIFF)
--- NOTE | 2022-06-23 07:03 | XR_ITS ---
FINAL REPORT CLINICAL HISTORY: dyspnea COMPARISON: 06/21/2022 FINDINGS: A single view of the chest was obtained. The heart is normal in size. The mediastinum is unremarkable. Persistent but partially improved left lung opacities favored to represent atelectasis. There is no pleural effusion. There is no pneumothorax. A chronic fracture of the proximal left humerus is noted. IMPRESSION: Persistent, but partially improved left lung opacities favored to represent atelectasis. Reviewed, Interpreted and Dictated by Kolby Callahan III, MD Transcribed by Joanie Santiago Authenticated and . [facility]
--- NOTE | 2022-06-23 07:08 | EXP.DC.SUM ---
General Admission date:: 06/21/22 Discharge date: 06/23/22 HPI HPI HPI: Ms. Albert is a 71-year-old female who is a resident of a long-term healthcare facility. She has a past medical history of DM, Bipolar Disorder, COPD, PE on the Right on chronic anticoagulation, Hypothyroidism and Hyperlipidemia. She presents to [facility] due to an unwitnessed fall at the [facility]. She underwent imaging at the facility that included a CT of the cervical spine, CT of the head and Pelvic xray that showed no acute findings. Her cxray showed patchy airspace opacities in the mid and lower lung lobes on the left. She had an elevated WBC at 15.3. Lactic acid was elevated at 2.9. On presentation she had a temperature of 100.4, HR of 111, oxygen was 87% on room air and blood pressure was 95/66. She will be admitted with initial impression: Sepsis. Hospital Course Hospital Course Hospital Course: 71-year-old female who is a resident of a long-term healthcare facility presents due to a fall in the facility, meets criteria for sepsis on admission due to Pneumonia. Started on empiric antibiotics. Has done well during hospitalization, able to wean to room air. Medically stable for discharge back to her facility. Problems addressed as follows: - Sepsis, resolved -Pneumonia -Acute hypoxemic respiratory failure -HFpEF Sepsis criteria met on admission:? Temperature 100.4, HR 111, WBC 15.3, Cxray with patchy airspace opacities in left mid and lower lung lobes. Unable to obtain a sputum culture as patient's cough has been nonproductive. Blood cultures obtained, 1 bottle grew staph and Madeline. Given rapid improvement clinically, this is likely contaminant/commensal and therefore we will monitor but not treat according to this culture. Patient was started on Levaquin, has done well with improvement in white cell count. Additionally, concern for component of volume overload and heart failure as patient's BNP was mildly elevated. She was diuresed x1 with IV Lasix with good response. Was weaned to room air after diuresis. Plan to continue empiric course of antibiotics for 5 days. Would also recommend increasing daily diuretic. Medically stable for discharge to complete outpatient therapy. - Fall Unwitnessed at [place], PT/OT consulted. Patient poorly cooperative with therapy. No acute findings on imaging. Would benefit from reevaluation for therapy once returns back to the [facility] to improve mobility. - Diabetes: Sliding Scale while inpatient, resume metformin at discharge - Bipolar Disorder: Resume close pain at discharge - Pulmonary Embolism: Continue Xarelto for history of PE and DVT prophylaxis - Hypothyroidism: Resume home regimen Exam Data for Last 24 hours Vital signs and Labs for Last 24 Hours: Temp Pulse Resp BP Pulse Ox 98.3 F 100 H 18 109/54 L 93 L 06/23/22 04:00 06/23/22 06:00 06/23/22 04:00 06/23/22 04:00 06/23/22 06:00 Laboratory Results - last 24 hr 06/22/22 07:17: WBC 9.2 D, RBC 4.02 L, Hgb 12.0 L, Hct 39.1, MCV 97.2, MCH 29.9, MCHC 30.8 L, RDW 14.7, Plt Count 208, MPV 8.4, Neut % (Auto) 71.9, Lymph % (Auto) 23.1, [place] % (Auto) 4.3, Eos % (Auto) 0.4, Baso % (Auto) 0.3, Neut # (Auto) 6.6, Lymph # (Auto) 2.1, [place] # (Auto) 0.4, Eos # (Auto) 0.0, Baso # (Auto) 0.0 06/22/22 07:17: Sodium 140, Potassium 4.0, Chloride 103, Carbon Dioxide 29, Anion Gap 12.0, BUN 12, Creatinine 0.80, Estimated Creat Clear 74, Estimated GFR 71, Est GFR ( Amer) 86, Glucose 154 H, Calcium 8.1 L, Total Bilirubin 0.6, AST 25, ALT 18, Alkaline Phosphatase 90, Total Protein 6.1 L, Albumin 3.8, Globulin 2.3, Albumin/Globulin Ratio 1.7 06/22/22 11:37: POC Glucose 123 H 06/22/22 16:35: POC Glucose 216 H 06/22/22 20:15: POC Glucose 164 H 06/23/22 05:40: WBC 12.8 H D, RBC 3.89 L, Hgb 11.3 L, Hct 36.7 L, MCV 94.3, MCH 29.2, MCHC 30.9 L, RDW 14.6, Plt Count 229, MPV 8.2, Neut % (Auto) 85.5 H, Lymph % (Auto) 10.4, [place] % (
[2022-06-23 07:15] LABS: Anisocytosis 1+; Hypochromasia 1+; Lymphocytes % 8 % (10-50); Macrocytosis 1+; Monocytes % 3 % (2-9); Neutrophils % 89 % (42-76); Platelet Estimate Normal; Total Cells Counted 100
[2022-06-23 07:22] VITALS: BP 100/48; PULSE 101; RESP 18; TEMP 36.6; O2SAT 90
--- NOTE | 2022-06-23 09:51 | PC.NURSE ---
Attempted to call report to nurse Ever unavailable for report. Will retry.
[2022-06-23 11:11] VITALS: BP 123/64; PULSE 97; RESP 18; TEMP 36.9; O2SAT 93
--- NOTE | 2022-06-23 12:34 | PC.NURSE ---
Called facility. Report given to GUY Roldan
--- NOTE | 2022-06-24 13:59 | CARE MANAGER ---
Spoke with patient nurse at [facility] and she states no issues at this time.
== END 2022-06-23 13:26 ==
LOC: ER 22:23 → 2ND 22:33
PROVIDERS: Internal Medicine Adolescent Medicine; Admitting Provider Student in an Organized Health Care Education/Training Program; Emergency Provider Emergency Medicine; PCP Emergency Medicine; Visit Provider Student in an Organized Health Care Education/Training Program
DX: J18.9 Pneumonia, unspecified organism (principal); J96.01 Acute respiratory failure with hypoxia; F31.9 Bipolar disorder, unspecified; E11.9 Type 2 diabetes mellitus without complications; I11.0 Hypertensive heart disease with heart failure; I27.82 Chronic pulmonary embolism; E03.9 Hypothyroidism, unspecified; I50.33 Acute on chronic diastolic (congestive) heart failure; Z79.01 Long term (current) use of anticoagulants; Z87.891 Personal history of nicotine dependence; Z79.899 Other long term (current) drug therapy; R29.6 Repeated falls; Z20.822 Contact with and (suspected) exposure to COVID-19; W01.0XXA Fall on same level from slipping, tripping and stumbling without subsequent striking against object, initial encounter; Z91.81 History of falling; Y92.121 Bathroom in nursing home as the place of occurrence of the external cause
CPT/HCPCS: G0378; 36415; 70450; 71045; 72125; 72170; 80048; 80053; 81001; 82962; 83605; 83880; 84145; 84436; 84443; 84484; 85007; 85025; 85651; 86140; 87040; 87077; 87186; 93005; 94640; 99285; C9803; J1956; U0003; U0005

== ENCOUNTER → 2022-11-07 15:49 | Outpatient (CLI) | payer MEDICARE, MEDICAID, SELFPAY ==
[2022-11-07 15:59] LABS: Microscopic, Urine URINE MICROSCOPIC (MICROSCOPIC)
[2022-11-07 17:05] LABS: Appearance,Urine CLEAR (Clear); Bilirubin,Urine Negative (Negative); Blood, Urine 1+ (Negative); Color,Urine YELLOW (Yellow); Glucose,Urine (UA) Negative (Negative); Ketones,Urine Negative (Negative); Leukocyte Esterase,Urine 2+ (Negative); Nitrate,Urine Negative (Negative); Protein,Urine Negative (Negative); Specific Gravity, Urine 1.015 (1.005-1.030); Urobilinogen,Urine 0.2 EU/dl (0.2)
[2022-11-07 17:55] LABS: Bacteria,Urine 3+ /lpf
== END ==
PROVIDERS: PCP Emergency Medicine; Visit Provider Emergency Medicine
DX: N39.0 Urinary tract infection, site not specified (principal)
CPT/HCPCS: 81001; 87086

== ENCOUNTER 2024-02-25 19:07 | Outpatient (CLI) | payer MEDICARE, MEDICAID, SELFPAY ==
[2024-02-25 19:43] LABS: Bilirubin,Urine Negative (Negative); Blood, Urine NEGATIVE (Negative); Glucose,Urine (UA) Negative (Negative); Ketones,Urine TRACE (Negative); Leukocyte Esterase,Urine 1+ (Negative); Nitrate,Urine NEGATIVE (Negative); Protein,Urine NEGATIVE (Negative)
[2024-02-25 19:53] LABS: Appearance,Urine Slightly Cloudy (Clear); Color,Urine Dark Yellow (Yellow)
[2024-02-25 19:55] LABS: Microscopic, Urine URINE MICROSCOPIC (MICROSCOPIC)
[2024-02-25 20:41] LABS: WBC,Urine 20-50 #/hpf (0-3)
[2024-02-25 20:42] LABS: Bacteria,Urine 4+ /lpf; Calcium Oxalate Crystals,Urine 1+ /lpf
== END 2024-02-25 23:59 | disposition home or self-care (01) ==
LOC: LAB.DROPOF 19:10
PROVIDERS: PCP Family Medicine; Visit Provider Family Medicine
DX: R30.0 Dysuria (principal)
CPT/HCPCS: 81015; 87086

== ENCOUNTER 2024-06-12 07:26 | Outpatient (CLI) | payer MEDICARE, MEDICAID, SELFPAY ==
[2024-06-12 07:44] LABS: Basophils % 0.6 % (0.1-2.0); Hematocrit 38.3 % (37.0-47.0); Lymphocytes # 3.1 K/mm3 (0.7-4.5); Mean Corpuscular HGB Conc 31.3 g/dL (31.8-35.4); Mean Corpuscular Volume 92.5 fl (81-99); Mean Platelet Volume 10.7 fl (7.4-10.4); Monocytes # 0.5 K/mm3 (0.1-1.0); Monocytes % 7.3 % (1.7-9.3); Neutrophils # 3.2 K/mm3 (1.8-7.8); Neutrophils % 46.7 % (37.0-80.0); Nucleated Red Blood Cells # 0 10^3/uL; Nucleated Red Blood Cells % 0 %; Platelet Count 217 K/mm3 (142-424); Red Blood Count 4.14 M/mm3 (4.20-5.40); Red Cell Distribution Width 15.9 % (11.5-17.5); Red Cell Distribution Width-SD 54.3 fL; White Blood Count 6.9 K/mm3 (4.8-10.8)
== END 2024-06-12 23:59 | disposition home or self-care (01) ==
PROVIDERS: PCP Nurse Practitioner Family; Visit Provider Nurse Practitioner Family
DX: D64.9 Anemia, unspecified (principal)
CPT/HCPCS: 36415; 85025

== ENCOUNTER 2024-06-30 07:19 | Outpatient (CLI) | payer MEDICARE, MEDICAID, SELFPAY ==
[2024-06-30 07:21] LABS: MANUAL DIFFERENTIAL MANUAL DIFFERENTIAL (MANUAL DIFF)
[2024-06-30 07:46] LABS: Basophils % 0.3 % (0.1-2.0); Eosinophils # 0.1 Kmm3 (0.0-0.4); Eosinophils % 1.4 % (0.1-12.0); Hemoglobin 12.3 g/dL (12.2-16.2); Lymphocytes # 2.9 K/mm3 (0.7-4.5); Lymphocytes % 44.6 % (10-50); Mean Corpuscular HGB Conc 31.5 g/dL (31.8-35.4); Mean Corpuscular Hemoglobin 29.2 pg (27.0-31.2); Mean Corpuscular Volume 92.6 fl (81-99); Mean Platelet Volume 10.6 fl (7.4-10.4); Monocytes # 0.4 K/mm3 (0.1-1.0); Neutrophils # 3.1 K/mm3 (1.8-7.8); Neutrophils % 47.2 % (37.0-80.0); Platelet Count 212 K/mm3 (142-424); Red Blood Count 4.21 M/mm3 (4.20-5.40); Red Cell Distribution Width 15.9 % (11.5-17.5); White Blood Count 6.5 K/mm3 (4.8-10.8)
[2024-06-30 09:03] LABS: Lymphocytes % 50 % (10-50); Monocytes % 7 % (2-9); Neutrophils % 43 % (42-76); Platelet Estimate Normal; RBC Morphology Normal; Total Cells Counted 100
== END 2024-06-30 23:59 | disposition home or self-care (01) ==
PROVIDERS: PCP Nurse Practitioner Family; Visit Provider Nurse Practitioner Family
DX: E11.9 Type 2 diabetes mellitus without complications (principal); Z79.84 Long term (current) use of oral hypoglycemic drugs
CPT/HCPCS: 36415; 85007; 85014; 85018; 85048; 85049

== ENCOUNTER 2024-07-03 07:36 | Outpatient (CLI) | payer MEDICARE, MEDICAID, SELFPAY ==
[2024-07-03 08:02] LABS: Albumin Level 3.3 g/dl (3.5-5.0); Chloride 107 mmol/L (98-107); Potassium 3.8 mmoL/L (3.5-5.1); Sodium 139 mmol/L (136-145)
[2024-07-03 08:05] LABS: Alanine Aminotransferase 13 U/L (12-78); Albumin/Globulin Ratio 1.5 (1.1-1.8); Alkaline Phosphatase 67 U/L (38-126); Anion Gap 5.8 mEq/L (5-15); Aspartate Amino Transferase 17 U/L (14-36); Bilirubin,Total 0.3 mg/dl (0.2-1.3); Blood Urea Nitrogen 14 mg/dl (7-17); Carbon Dioxide 30 mmol/L (22.0-30.0); Cholesterol 125 mg/dl (140-200); Estimated Glomerular Filt Rate 71 ml/min (>60); GFR (African American) 85 ML/MIN (>60); Globulin 2.2 g/dL (1.3-3.2); Total Protein,Serum 5.5 g/dl (6.3-8.2); Triglycerides 104 mg/dl (30-150); VLDL Cholesterol 21 mg/dL (0-40)
[2024-07-03 08:06] LABS: Calcium 8.2 mg/dl (8.4-10.2); Chol/HDL Ratio 2.6 (1-3.5); Glucose 106 mg/dl (74-100); HDL Cholesterol 49 mg/dl (40-60)
[2024-07-03 08:14] LABS: Hemoglobin A1C 5.8 % (4.0-6.0)
[2024-07-03 08:16] LABS: Direct LDL Cholesterol 48.34 mg/dL (100-129)
== END 2024-07-03 23:59 | disposition home or self-care (01) ==
PROVIDERS: PCP Family Medicine; Visit Provider Family Medicine
DX: E03.9 Hypothyroidism, unspecified (principal); E11.9 Type 2 diabetes mellitus without complications; E78.5 Hyperlipidemia, unspecified; Z79.84 Long term (current) use of oral hypoglycemic drugs
CPT/HCPCS: 36415; 80053; 80061; 83036; 84443

== ENCOUNTER 2024-07-28 08:08 | Outpatient (CLI) | payer MEDICARE, MEDICAID, SELFPAY ==
[2024-07-28 08:21] LABS: MANUAL DIFFERENTIAL MANUAL DIFFERENTIAL (MANUAL DIFF)
[2024-07-28 08:34] LABS: Basophils % 0.6 % (0.1-2.0); Eosinophils # 0.1 Kmm3 (0.0-0.4); Eosinophils % 1.7 % (0.1-12.0); Hematocrit 36.5 % (37.0-47.0); Hemoglobin 11.7 g/dL (12.2-16.2); Mean Corpuscular HGB Conc 32.1 g/dL (31.8-35.4); Mean Corpuscular Hemoglobin 29.5 pg (27.0-31.2); Mean Corpuscular Volume 92.2 fl (81-99); Mean Platelet Volume 10.9 fl (7.4-10.4); Monocytes # 0.4 K/mm3 (0.1-1.0); Monocytes % 6.3 % (1.7-9.3); Neutrophils # 3.3 K/mm3 (1.8-7.8); Platelet Count 231 K/mm3 (142-424); Red Blood Count 3.96 M/mm3 (4.20-5.40); Red Cell Distribution Width 15.5 % (11.5-17.5); White Blood Count 6.9 K/mm3 (4.8-10.8)
[2024-07-28 08:54] LABS: Lymphocytes % 54 % (10-50); Monocytes % 1 % (2-9); Neutrophils % 45 % (42-76); Total Cells Counted 100
[2024-07-28 08:55] LABS: Ovalocytes 1+; Platelet Estimate Normal
== END 2024-07-28 23:59 | disposition home or self-care (01) ==
PROVIDERS: PCP Family Medicine; Visit Provider Nurse Practitioner Family
DX: E25.9 Adrenogenital disorder, unspecified (principal)
CPT/HCPCS: 36415; 85007; 85014; 85018; 85048; 85049

== ENCOUNTER 2024-09-14 21:02 | Observation (INO) | payer MEDICARE, MEDICAID, SELFPAY ==
--- OUTSIDE RECORDS SUMMARY | 2024-09-14 21:11 | XMS_ITS | Clinical Summary ---
Author Organization [facility] Address [address] [place] [address] [address] [place] [address] Phone Care Team Providers Care Document Coordinator Name Role Phone Unavailable Unavailable Conditions or Problems No information available. Medications No information available. Medications Administered No information available. Allergies, Adverse Reactions, Alerts No information available. Results No information available. Plan of Care No information available. Procedures No information available. Vital Signs No information available. Immunizations No information available. Advance Directives No information available.
--- OUTSIDE RECORDS SUMMARY | 2024-09-14 21:12 | XMS_ITS | Clinical Summary ---
Author Organization [facility] Address [address] [place] [address] Phone Care Team Providers Care Motion Picture Narrator Name Role Phone Unavailable Primary Care Provider Unavailabl e Allergies Active Allergy Reactions Criticality Noted Date Comments Codeine 05/16/2010 Penicillins 06/30/2009 Medications * This document contains information received from the source organization and may not represent a complete record from that organization. sertraline (ZOLOFT) 100 mg tablet Take 50 mg by mouth daily. Active lithium 150 mg capsule Take 1 Cap by mouth 3 times daily. Active diphenhydrAMINE (BENADRYL) 50 mg capsule Take 25 mg by mouth nightly. Active risperidone (RISPERDAL) 1 mg tablet Take by mouth nightly. Active valproic acid (DEPAKENE) 250 mg capsule Take by mouth 3 times daily. Active multivitamin capsule Take 1 Cap by mouth daily. Active UNABLE TO FIND Blood sugar check every morning Active Blood Sugar Diagnostic (ONE TOUCH ULTRA TEST) Strp TEST BLOOD SUGAR DIRECTED 100 Strip 1 1 Active potassium chloride SA (K-DUR;KLOR-CON ) 20 mEq tablet TAKE 2 TABLETS BY MOUTH ONCE DAILY 60 Tab 2 1 Active ferrous sulfate 325 mg (65 mg iron) tablet TAKE 1 TABLET BY MOUTH THREE TIMES DAILY 90 Tab 0 1 Active glyBURIDE (DIABETA) 2.5 mg 1 TABLET BY MOUTH ONCE DAILY 30 Tab 2 1 Active PRILOSEC OTC 20 mg tablet TAKE 1 TABLET BY MOUTH TWICE DAILY 60 Tab 1 2 Active metFORMIN (GLUCOPHAGE) 500 mg tablet TAKE 1 TABLET BY MOUTH TWICE DAILY WITH FOOD 60 Tab 2 2 Active levothyroxine (SYNTHROID) 175 mcg tablet TAKE 1 TABLET BY MOUTH EVERY MORNING 30 Tab 2 2 Active cloZAPine (CLOZARIL) 100 mg Oral TabletIndicatio ns:Schizoaffect leonard disorder, bipolar type (HCC) Take 1 Tablet by mouth nightly. 30 Tablet 3 4 Active cloZAPine (CLOZARIL) 50 mg Oral TabletIndicatio ns:Schizoaffect leonard disorder, bipolar type (HCC) Take 1 tablet nightly in conjunction with 100 mg dose 30 Tablet 3 4 Active Active Problems Problem Noted Date Diagnosed Date Medication side effect, initial encounter 2018 Medication monitoring encounter 01/04/2016 Bipolar affective disorder in remission 03/22/19 16 Major vascular neurocognitiv e disorder, probable, with behavioral disturbance 03/22/2015 Schizophrenia 05/16/2010 Mental retardation 05/16/2010 Diabetes type 2, controlled Hypothyroid Seizure disorder Immunizations Immunization Administration Dates Next Due DT 06/20/2010 PPD Test 04/25/2010 Medical History Medical History Date Comments Schizophrenia (HCC) Bipolar disorder (HCC) MR (mental retardation) Acid reflux Diabetes mellitus (HCC) Thyroid disease CAD (coronary artery disease) Social History Tobacco Use Types Packs/Day Years Used Date Smoking Tobacco: Some Days Cigarettes Smokeless Tobacco: Never Alcohol Use Standard Drinks/Week Comments No 0 (1 standard drink = 0.6 oz pur e alcohol) Sexually Active Control Partners Comments Never Comments No Sex and Gender Information Value Date Recorded Sex Assigned at Not on file Legal Sex Female 7:35 AM EDT Gender Identity Not on file Sexual Orientation Not on file Obstetrics History Last Filed Vital Signs Vital Sign Reading Time Taken Comments Blood Pressure 150/75 07/08/2010 8:08 PM EDT Pulse 103 07/08/2010 8:08 PM EDT Temperature 36.4 C (97.6 F) 07/08/2010 8:08 PM EDT Respiratory Rate 20 07/08/2010 8:08 PM EDT Oxygen Saturation 95% 07/08/2010 8:08 PM EDT Inhaled Oxygen Concentration - - Weight 89.8 kg (198 lb) 06/21/2010 12:26 AM EDT Height 165.1 cm (5' 5 ) 06/21/2010 12:26 AM EDT Body Mass Index 32.95 06/21/2010 12:26 AM EDT Plan of Treatment Health Maintenance Due Date Last Done Comments Wellness Exam Medicare 12/19/1954 Kidney Health: uACR 12/19/1961 Diabetic Eye Exam 12/19/1969 Hepatitis C Screening 12/19/1969 Pneumococcal Vaccine 50+ (1 of 2 - PCV) 12/19/1970 Cologuard 12/19/1996 Colon Cancer Screening 12/19/1996 Colonoscopy 12/19/1996 FIT 12/19/1996 Sigmoidoscopy 12/19/1996 Virtual Colonography 12/19/1996 Zoster (1 of 2) 12/19/2001 Hemoglobin A1c 07/01/2010 01/01/2010 Kidney Health: eGFR 01/08/2012 01/07/2011, 06/25/2010, 06/23/2010, Additional history exists Lipids 01/08/2012 01/07/2011, 10/2010, 01/01/2010 Breast Cancer Screening 08/20/2012 08/21/19 11, 07/24/2009, 07/17/2009 Bone Density Screening 12/19/2016 DTaP/TDaP/Td (2 - Tdap) 06/20/2020 06/20/2010 COVID-19 Vaccine ( season) 2023 Influenza Vaccine (#1) 2024 Hepatitis B Vaccine Aged Out No longe r eligible based on patient's age to complete this topic Meningococcal B Vaccine Aged Out No l onger eligible based on patient's age to complete this topic Procedures Procedure Name Priority Date/Time Associated Diagnosis Comments RENAL FUNCTION PANEL Routine 01/07/2011 8:24 AM EST Diabetes type 2, controlled (HCC) Hypothyroid Seizure disorder (HCC) Schizophrenia (HCC) Mental retardation LIPID PANEL REFLEX Routine 01/07/2011 8: 24 AM EST Diabetes type 2, controlled (HCC) Hypothyroid Seizure disorder (HCC) Schizophrenia (HCC) Mental retardation MM MAMMO DIGITAL DIAGNOSTIC W CAD BILAT Routine 08/20/2010 9:45 AM EDT Breast asymmetry in female HEMOGLOBIN A1C Routine 01/01/2010 8:08 AM EDT Encounter for long-term (current) use of other medications Diabetes type 2, controlled (HCC) Hypothyroid Seizure disorder (HCC) from Last 3 Months or Most Recently Relevant to Health Maintenance Results * LIPID PANEL REFLEX (01/07/2011 8:24 AM EST) Cholesterol 196 <=200 mg/dL [facility] Comment: < 200 Desirable 200 - 239 Borderline High >= 240 High Triglyceride 95 <=150 mg/dL [facility] Comment: < 150 Normal 150 - 199 Borderline High 200 - 499 High >= 500 Very High HDL 55 >=40 mg/dL [facility] Comment: > 60 Optimal 40 - 60 Acceptable < 40 Low Blood specimen (specimen) UPPER LIMB STRUCTURE / Unknown 01/07/2011 8:24 AM EST 01/07/2011 2:35 PM EST us Mario Hardy MD CHEMISTRY ORDERABLES Final Resu lt [facility] [address] [place] [address] * (ABNORMAL) RENAL FUNCTION PANEL (01/07/2011 8:24 AM EST) Sodium 141 135 - 143 mmol/L [facility] Potassium 4.4 3.5 - 5.0 mmol/L [facility] Chloride 107 98 - 108 mmol/L [facility] Total CO2 29 22 - 31 mmol/L [facility] Anion Gap 5(L) 7 - 16 mmol/L [facility] Calcium 9.3 8.6 - 10.3 mg/dL [facility] Glucose Lvl 91 70 - 100 mg/dL [facility] BUN 15 7 - 19 mg/dL [facility] Creatinine 0.7 0.6 - 1.0 mg/dL [facility] Albumin 3.7 3.5 - 4.5 gm/dL [facility] Phosphorus 4.0 2.7 - 4.5 mg/dL [facility] GFR Afr Am >60 [facility] Comment: GFR is estimated using creatinine, age, gender, and race. GFR has been validated for patients between 18 and 70 years of age. GFR has not been validated for women, patients with serious comorbid conditions, or persons with extremes of body size, muscle mass, or nutritional status. For additional information: www.kidney.org. Chronic kidney disease stage GFR (ml/min/1.73 square meters) Stage 3 30 - 59 Stage 4 15 - 29 Stage 5 14 or less GFR Non Afr Am >60 [facility] Blood specimen (specimen) UPPER LIMB STRUCTURE / Unknown 01/07/2011 8:24 AM EST 01/07/2011 8:24 AM EST us Mario Hardy MD CHEMISTRY ORDERABLES Edited [facility] [address] [place] [address] * MM MAMMO DIGITAL DIAGNOSTIC W CAD BILAT (08/20/2010 9:45 AM EDT) Anatomical Region Laterality Modality Breast Bilateral Mammography 08/21/2010 12:3 8 PM EDT Impressions 08/21/2010 12:39 PM EDT : No radiographic evidence of malignancy ([id number]) Stable asymmetric right breast tissue. No direct/indirect evidence of malignancy. Advise annual screening evaluation of this patient. ~ RECOMMENDATION: Routine screening mammogram in 1 year. ~ * The patient with a palpable abnormality, unexplained by breast imaging, should be managed on clinical basis by the attending physician. * Breast imaging has a false negative rate of 15%. * The patient was notified by mail of the results of this examination. The mammogram was reviewed by a Radiologist and CAD. Narrative 08/21/2010 12:39 PM EDT Procedure:MM MAMMO DIGITAL DIAGNOSTIC W CAD BILAT ~ Reason for exam: follow-up at short interval from prior study. ~ MM MAMMO DIGITAL DIAG CAD BILAT Bilateral CC and MLO view(s) were taken. BILATERAL DIGITAL DIAGNOSTIC MAMMOGRAM WITH CAD, 08-20-10: History: Follow-up asymmetric right breast density. Comparison with 07-24-09 and 07-17-09 studies. ~ Asymmetric density within the central and lateral right breast is again noted. There are several scattered bilateral calcifications which remain stable. No focal dominant mass or architectural change. ~ Procedure Note Gilbert Saleh R - 08/21/2010 Procedure:MM MAMMO DIGITAL DIAGNOSTIC W CAD BILAT ~ Reason for exam: follow-up at short interval from prior study. ~ MM MAMMO DIGITAL DIAG CAD BILAT Bilateral CC and MLO view(s) were taken. BILATERAL DIGITAL DIAGNOSTIC MAMMOGRAM WITH CAD, 08-20-10: History: Follow-up asymmetric right breast density. Comparison with 07-24-09 and 07-17-09 studies. ~ Asymmetric density within the central and lateral right breast is again noted. There are several scattered bilateral calcifications which remain stable. No focal dominant mass or architectural change. ~ IMPRESSION: No radiographic evidence of malignancy ([id number]) Stable asymmetric right breast tissue. No direct/indirect evidence of malignancy. Advise annual screening evaluation of this patient. ~ RECOMMENDATION: Routine screening mammogram in 1 year. ~ * The patient with a palpable abnormality, unexplained by breast imaging, should be managed on clinical basis by the attending physician. * Breast imaging has a false negative rate of 15%. * The patient was notified by mail of the results of this examination. The mammogram was reviewed by a Radiologist and CAD. us Emma Clarke MD IMG MAMMOGRAPHY ORDERABLES Fin al Result * HEMOGLOBIN A1C (01/01/2010 8:08 AM EDT) Hgb A1c 5.4 <=7.0 % [facility] Comment: Reference Interval for Hgb A1c Hgb A1c Interpretation < 6.0 Non-Diabetic Range 6.0 - 7.0 ADA Therapeutic Target > 7.0 Action suggested Blood specimen (specimen) UPPER LIMB STRUCTURE / Unknown 01/01/2010 8:08 AM EDT 01/01/2010 2:27 PM EDT us Mario Hardy MD CHEMISTRY ORDERABLES Final Resu lt [facility] [address] [place] [address] from Last 3 Months or Most Recently Relevant to Health Maintenance Insurance [facility] [address] [facility] [address] MEDICARE PART B [facility] [place] [address] MEDICARE PART B
[2024-09-14 21:14] VITALS: BP 163/77; PULSE 121; RESP 18; TEMP 37.2; O2SAT 99; BMI 36.6
[2024-09-14 21:20] VITALS: BP 163/77; PULSE 104; O2SAT 99
--- NOTE | 2024-09-14 21:27 | ECG_ITS ---
APPROVED REPORT Exam: Resting ECG HR:101 bpm ECG Measurements Heart Rate 101 AXES QRSd 91 QRS -23 QT 340 T 17 QTc 398 Conclusion ATRIAL FIBRILLATION WITH RAPID VENTRICULAR RESPONSE BORDERLINE LEFT AXIS DEVIATION [QRS AXIS < -20] ABNORMAL RHYTHM ECG UNCONFIRMED REPORT Electronically signed by : JUANY JARVIS, 09/17/2024 06:33:56
--- NOTE | 2024-09-14 21:34 | PC.NURSE ---
GUY Mitchell placed purewick on pt
--- NOTE | 2024-09-14 21:41 | PC.NURSE ---
lab work drawn and sent to labheather placed in attempt to obtain urine for testing.
[2024-09-14 21:44] LABS: Hematocrit 37.2 % (37.0-47.0); Hemoglobin 12.1 g/dL (12.2-16.2); Immature Granulocytes % 0.5 %; Mean Corpuscular HGB Conc 32.5 g/dL (31.8-35.4); Mean Corpuscular Hemoglobin 29.9 pg (27.0-31.2); Mean Corpuscular Volume 91.9 fl (81-99); Nucleated Red Blood Cells % 0 %; Platelet Count 226 K/mm3 (142-424); Red Blood Count 4.05 M/mm3 (4.20-5.40); Red Cell Distribution Width-SD 50.3 fL; White Blood Count 9.6 K/mm3 (4.8-10.8)
[2024-09-14 21:49] LABS: Albumin Level 4.4 g/dl (3.5-5.0); Chloride 102 mmol/L (98-107)
[2024-09-14 21:50] LABS: Potassium 3.5 mmoL/L (3.5-5.1); Sodium 140 mmol/L (136-145)
[2024-09-14 21:52] LABS: Alanine Aminotransferase 18 U/L (12-78); Albumin/Globulin Ratio 1.6 (1.1-1.8); Anion Gap 13.5 mEq/L (5-15); Aspartate Amino Transferase 28 U/L (14-36); Blood Urea Nitrogen 22 mg/dl (7-17); Carbon Dioxide 28 mmol/L (22.0-30.0); Creatinine Clearance Estimated 61 mL/min (50-200); Creatinine,Serum 1.20 mg/dl (0.52-1.04); Estimated Glomerular Filt Rate 44 ml/min (>60); GFR (African American) 53 ML/MIN (>60); Globulin 2.7 g/dL (1.3-3.2); Total Protein,Serum 7.1 g/dl (6.3-8.2)
[2024-09-14 21:53] LABS: Alkaline Phosphatase 92 U/L (38-126); Bilirubin,Total 0.3 mg/dl (0.2-1.3); Calcium 8.7 mg/dl (8.4-10.2); Glucose 121 mg/dl (74-100)
[2024-09-14 21:54] LABS: Acetaminophen < 10 ug/ml (10-30); Salicylate < 1.0 mg/dL (2.0-20.0)
[2024-09-14 22:01] VITALS: BP 127/72; PULSE 96; RESP 19; O2SAT 99
--- NOTE | 2024-09-14 22:07 | CT_ITS ---
PROCEDURE INFORMATION: Exam: CT Head Without Contrast Exam date and time: 09/14/2024 10:25 PM Age: 73 years old Clinical indication: Altered mental status/memory loss; Additional info: AMS TECHNIQUE: Imaging protocol: Computed tomography of the head without contrast. Radiation optimization: All CT scans at this facility use at least one of these dose optimization techniques: automated exposure control; mA and/or kV adjustment per patient size (includes targeted exams where dose is matched to clinical indication); or iterative reconstruction. COMPARISON: CT HEAD/BRAIN WO CON 06/21/2022 8:04 PM FINDINGS: Brain: No hemorrhage. Underlying periventricular white matter changes and parenchymal cortical volume loss. No mass effect. Cerebral ventricles: No ventriculomegaly. Paranasal sinuses: Visualized sinuses are unremarkable. No fluid levels. Mastoid air cells: Visualized mastoid air cells are well aerated. Bones: Unremarkable. No acute fracture. Soft tissues: Unremarkable. IMPRESSION: No acute intracranial abnormality.
--- NOTE | 2024-09-14 22:07 | HMH.EDGENADL ---
Discharge Plan Disposition Patient Disposition: Admitted Prescriptions Prescriptions: No Action acetaminophen 500 mg capsule 500 mg PO Q4H PRN (Reason: Pain/Fever) atorvastatin 20 mg tablet 20 mg PO DAILY Qty: 90 0RF clozapine 100 mg tablet 100 mg PO HS Rx Instructions: TAKE 1 TABLET BY MOUTH AT BEDTIME (PLEASE FAX CBC WITH DIFF TO PHARMACY EVERY 4 WEEKS) furosemide 40 mg tablet 40 mg PO DAILY 30 Days Qty: 30 0RF Rx Instructions: Take one tablet by mouth once daily levothyroxine 100 mcg tablet 100 mcg PO DAILY omeprazole 20 mg capsule,delayed release(DR/EC) 20 mg PO DAILY Xarelto 20 mg tablet 20 mg PO DAILY Rx Instructions: take one tab po at 5pm dextromethorphan-guaifenesin [Diabetic Tussin DM] 10-100 mg/5 mL liquid 10 ml PO Q6H PRN (Reason: Cough) clozapine 50 mg tablet 50 mg PO HS Rx Instructions: TAKE 1 TABLET BY MOUTH AT BEDTIME, GIVE WITH 100MG TABLET TO TOTAL 150MG metformin 500 mg tablet 500 mg PO DAILY lactulose 10 gram/15 mL Solution 30 ml PO DAILY PRN (Reason: Bowel care) Referrals Follow up/Referrals: Provider,Referral, MD [Primary Care Provider, Medical] - See instructions Clinical Impressions Clinical Impression: Acute UTI, Suicidal ideation Print Language Print Language: Czech Discharge ED Provider: Shanna Euceda General Adult HPI <Shanna Euceda DO - Last Filed: 09/14/24 23:32> General Chief complaint: Psychiatric Symptoms Stated complaint: psych Time Seen by Provider: 09/14/24 21:10 Mode of Arrival: EMS Source of Information: Patient and EMS Description of Symptoms (Recalled from ER Triage Doc. by RN): Pt presents from [facility] for evaluation of SI that began after other residents of the facility were being rude. Pt reports they made me mad and I wanted to hit something but that didn't make me feel any better Pt reports active SI when asked how she would do it she states I don't know, with something sharp Pt reports I'm not happy there and I want to be somewhere, I want to stay here for awhile at least until i can get a top case assembler or something Pt denies HI at this time. Pt denies that she feels someone is going to hurt her physically but does say that she does not feel safe at the facility. Pt AOx3, gcs 15. History of Present Illness HPI narrative: This patient is a 73-year-old female with a history of schizoaffective schizophrenia, hypertension, hyperlipidemia, prior history of PE, CHF, COPD, hypothyroidism, and diabetes presenting to the emergency department for evaluation of suicidal ideation. Patient reportedly called police herself because she wanted to kill her self. Patient states that she thinks that the nursing facility is giving her medications that they are not supposed to. She states that she is getting very nervous there and has had thoughts of wanting to kill her self. She denies any thoughts of wanting to hurt anyone else. She states that her plan would be to do it with a sharp object. Patient states that she has had arguments with a roommate and was removed to a different room, and she is not happy at [facility] and does not want to stay there. Patient arrives by EMS who noted she was stable en route. Patient answers the date and where she is but is not able to tell me the year. She denies any hallucinations. She also denies any physical concerns or complaint such as headache, vision change, chest pain, shortness of breath, abdominal pain, vomiting, or other concerns. Related Data Home Medications ?Medication ?Instructions ?Recorded ?Confirmed lactulose 10 gram/15 mL oral 30 ml PO DAILY PRN Bowel care 06/22/22 09/05/24 solution acetaminophen 500 mg capsule 500 mg PO Q4H PRN Pain/Fever 02/12/23 09/05/24 clozapine 100 mg tablet 100 mg PO HS Mood 02/12/23 09/05/24 clozapine 50 mg tablet 50 mg PO HS mood 02/12/23 09/05/24 dextromethorphan-guaifenesin 10 10 ml PO Q6H PRN Cough 02/12/23 09/05/24 mg-100 mg/5 mL oral liquid (Diabetic Tussin DM) levothyroxine 100 mcg tablet 100 mcg PO DAILY thyroid 02/12/23 09/05/24 omeprazole 20 mg capsule,delayed 20 mg PO DAILY Acid reflux 02/12/23 09/05/24 release rivaroxaban 20 mg tablet (Xarelto) 20 mg PO DAILY Blood thinner/hx PE 02/12/23 09/05/24 metformin 500 mg tablet 500 mg PO DAILY 02/19/23 09/05/24 Previous Rx's ?Medication ?Instructions ?Recorded atorvastatin 20 mg tablet 20 mg PO DAILY Cholesterol #90 tabs 02/12/23 furosemide 40 mg tablet 40 mg PO DAILY edema 30 days #30 02/12/23 tabs Allergies Allergy/AdvReac Type Severity Reaction Status Date / Time codeine Allergy Mild Unknown Verified 09/05/24 13:04 allergy reaction Penicillins Allergy Mild Unknown Verified 09/05/24 13:04 allergy reaction PFSH <Shanna Euceda DO - Last Filed: 09/14/24 23:32> [facility] Disclaimer: The information contained in this section may have been updated after the patient was seen, as this information can be updated by other users. Medical History Weight loss Pulmonary embolism Diabetes Schizo affective schizophrenia Hyperlipidemia Delirium due to general medical condition Weakness generalized COPD (chronic obstructive pulmonary disease) Hypothyroidism Pulmonary HTN Hypothyroidism (acquired) Obesity (BMI 30-39.9) Social History Smoking Status: Former smoker tobacco type: cigarettes packs per day: 0 second hand exposure: No alcohol intake: never current occupational status: disabled Travel in the last 8 weeks?: None household members: other housing: retirement current occupational exposures/hazards: No caffeine: Yes Have you lived/traveled outside [place] in past 30 days?: No Contact w/someone who lives/traveled outside US past 30 days?: No Exposure to someone with infectious disease in past 14 days?: No Do you have a fever (greater than 100.4 F or 38 C)?: No Have you tested positive for COVID-19?: No Exposed to someone with COVID-19 in past 14 days?: No Do you have a sore throat?: No Do you have a cough?: No Do you have any weakness?: No Do you have any diarrhea?: No Are you experiencing any unusual bleeding?: No Do you have any muscle aches/pain?: No Do you have any abdominal pain?: No Are you experiencing loss of taste or smell?: No Other Medical History Have you received the Flu Vaccine for this season: No (not in season) Have you received the Pneumonia Vaccine: Yes (12/10/18,06/12/20) <Shanna Euceda DO - Last Filed: 09/14/24 23:32> ROS Obtained: Yes All systems reviewed & no additional complaints except as documented Physical Exam <Shanna Euceda DO - Last Filed: 09/14/24 23:32> General General appearance: alert and in no apparent distress Head Head exam: atraumatic and normocephalic Eye Eye exam: Present normal appearance, PERRL and EOMI ENT ENT exam: Present normal exam, normal oropharynx, mucous membranes moist and normal external ear exam Neck Neck exam: Present normal inspection, full ROM and trachea midline; Absent tenderness Chest Chest inspection: Present normal inspection and symmetric chest wall rise; Absent tenderness Respiratory Respiratory exam: Present normal lung sounds bilaterally; Absent respiratory distress, wheezes, stridor or accessory muscle use Cardiovascular Cardiovascular exam: Present regular rate and normal rhythm Abdominal Exam Abdominal exam: Present soft; Absent distention, tenderness or guarding Extremities Exam Extremities exam: Present normal inspection, full ROM and normal capillary refill; Absent tenderness or edema Back Exam Back exam: Present normal inspection and full ROM; Absent tenderness Neurological Exam Neurological exam: Present alert, CN II-XII intact and normal gait; Absent oriented X3 (Oriented to person, place, date but not year) or motor sensory deficit Psychiatric Psychiatric exam: Present suicidal ideation Skin Skin exam: Present warm and dry Medical Decision Making <Shanna Euceda DO - Last Filed: 09/14/24 23:32> Medical Records Medical records reviewed: Yes I reviewed the patient's medical records. Screening: Per USPSTF and CDC recommendations, given the prevalence of disease in our region, it is our hospital?s policy to screen for HIV and viral Hepatitis for all patients aged 18 and over and those with ongoing risk factors. Young Inquiry Pt receiving controlled substance: No Vital Signs: 09/14/24 21:14 09/14/24 21:20 09/14/24 22:01 Temperature 98.9 F Temperature Source Oral Pulse Rate 104 H 96 H Pulse Rate [Radial] 121 H Respiratory Rate 18 19 Blood Pressure 163/77 H 127/72 Blood Pressure [Right Arm] 163/77 H Blood Pressure Mean [Right Arm] 105 Blood Pressure Position [Right Arm] Sitting 02 Sat by Pulse Oximetry 99 99 99 Oxygen Delivery Method Room Air 09/14/24 22:30 09/14/24 23:00 09/14/24 23:30 Temperature Temperature Source Pulse Rate 98 H 95 H 92 H Pulse Rate [Radial] Respiratory Rate 21 16 21 Blood Pressure 130/65 145/64 H 135/104 H Blood Pressure [Right Arm] Blood Pressure Mean [Right Arm] Blood Pressure Position [Right Arm] 02 Sat by Pulse Oximetry 98 98 99 Oxygen Delivery Method 09/15/24 00:00 09/15/24 00:30 Temperature Temperature Source Pulse Rate 81 91 H Pulse Rate [Radial] Respiratory Rate 12 14 Blood Pressure 130/63 140/69 Blood Pressure [Right Arm] Blood Pressure Mean [Right Arm] Blood Pressure Position [Right Arm] 02 Sat by Pulse Oximetry 98 97 Oxygen Delivery Method Lab Data Lab results reviewed: Yes I reviewed the patient's lab results. Lab Results 09/14/24 21:37: WBC 9.6, RBC 4.05 L, Hgb 12.1 L, Hct 37.2, MCV 91.9, MCH 29.9, MCHC 32.5, RDW 14.7, Plt Count 226, MPV 10.3, Neut % (Auto) 59.0, Lymph % (Auto) 32.8, Swain % (Auto) 7.5, Eos % (Auto) 0.0 L, Baso % (Auto) 0.2, Neut # (Auto) 5.7, Lymph # (Auto) 3.2, Swain # (Auto) 0.7, Eos # (Auto) 0.0, Baso # (Auto) 0.0, Sodium 140, Potassium 3.5, Chloride 102, Carbon Dioxide 28, Anion Gap 13.5, BUN 22 H, Creatinine 1.20 H, Estimated Creat Clear 61, Estimated GFR 44 L, Est GFR ( Amer) 53 L, Glucose 121 H, Calcium 8.7, Total Bilirubin 0.3, AST 28, ALT 18, Alkaline Phosphatase 92, Total Protein 7.1 D, Albumin 4.4, Globulin 2.7, Albumin/Globulin Ratio 1.6, TSH 0.77, Thyroxine (T4) 12.6 H, Salicylates < 1.0 L, Acetaminophen < 10 L, Plasma/Serum Alcohol < 10, HCV Ab DANIELLE w/Rflx PCR Qn Negative, HIV Ag/Ab Combo Qual Negative 09/14/24 21:57: Urine Color Yellow, Urine Appearance Clear, Urine pH 6.0, Ur Specific [place] 1.015, Urine Protein Negative, Urine Glucose (UA) Negative, Urine Ketones Trace, Urine Blood Trace-i, Urine Nitrate Negative, Urine Bilirubin Negative, Urine Urobilinogen 1.0, Ur Leukocyte Esterase 3+ A, Urine RBC 3-5, Urine WBC Tntc, Ur Squamous Epith Cells 20-50, Urine Bacteria 3+ 09/14/24 21:59: Urine Opiates Screen Negative, Urine Methadone Screen Negative, Ur Barbituates Screen Negative, Ur Phencyclidine Scrn Negative, Ur Amphetamines Screen Negative, U Benzodiazepines Scrn Negative, Urine Cocaine Screen Negative, U Marijuana (THC) Screen Negative 09/14/24 23:00: Ammonia < 9 L 09/14/24 21:37 09/14/24 21:37 Orders (Tests/Meds): ED MEDICATIONS Discontinued Medications Generic Name Dose Route Start Last Admin Trade Name Freq PRN Reason Stop Dose Admin Sodium Chloride 1,000 mls @ 999 mls/hr 09/14/24 22:51 09/14/24 23:15 Sod Chlor 0.9% 1000ml Bag IV 09/14/24 23:51 999 mls/hr .Q1H1M ONE Administration Ceftriaxone Sodium 2 gm/ 100 mls @ 200 mls/hr 09/14/24 22:52 09/14/24 23:15 Sodium Chloride IV 09/14/24 23:21 200 mls/hr ONCE ONE Administration ORDERS Category Date Time Status CT head/brain wo con Stat Cat Scan 09/14/24 22:07 Completed Consult to Behavioral Health [CONS] Stat Cons 09/14/24 21:20 Active Acetaminophen Stat Lab 09/14/24 21:37 Completed Ammonia Stat Lab 09/14/24 23:00 Completed Complete Blood Count Auto Diff Stat Lab 09/14/24 21:37 Completed Comprehensive Metabolic Panel Stat Lab 09/14/24 21:37 Completed Ethyl Alcohol Stat Lab 09/14/24 21:37 Completed HIV Combo Stat Lab 09/14/24 21:37 Completed Hepatitis C Ab Qual. W/ RFX Stat Lab 09/14/24 21:37 Completed Salicylate Stat Lab 09/14/24 21:37 Completed T4 (Thyroxine) Stat Lab 09/14/24 21:37 Completed TSH [Thyroid Stimulating Hormone] Stat Lab 09/14/24 21:37 Completed UA [Urinalysis and Microscopic] Stat Lab 09/14/24 21:57 Completed UDS [Drug Screen,Urine] Stat Lab 09/14/24 21:59 Completed Urine Culture Stat Micro 09/14/24 21:57 Received ECG Data Tracing #1: I reviewed this ECG and interpreted as documented below: Sinus tachycardia with a ventricular to 101 bpm with occasional PACs. No acute ST changes concerning for ischemia. ECG initial impression date: 09/14/24 ECG initial impression time: 21:30 Medical Decision Narrative: In summary, this patient is a 73-year-old female presenting to the Emergency Department for evaluation of suicide ideation. Differential diagnoses considered include but are not limited to suicidal ideation, homicidal ideation, AVH, delirium, maladaptive behaviors. Ruling out the most morbid conditions drove assessment. It should be noted patient's history includes psychiatric history, CHF, COPD, hypothyroidism, diabetes which may or may not be at goal therapy. This complicates all aspects of care by increasing patient's risk for morbidity. I reviewed patient's past medical records and noted prior evaluations by PCP in the nursing facility. On exam, the patient is sitting upright in no acute distress. She is alert and oriented to person, place, and date but denies knowing what the year is. She states that she wants to kill herself with something sharp because she is not happy at [facility] where she resides, but she denies any other concerns or complaints. workup included CBC, CMP, TSH, T4, acetaminophen level, salicylate level, ethanol level, urinalysis, urine drug screen, EKG, CT head without contrast. Patient was placed under one-to-one observation for safety and suicide precautions. On reassessment, the patient is resting calmly with no other concerns or complaints. Labs demonstrate reassuring CBC with no significant leukocytosis. She does have mild anemia, which is unchanged from prior labs. Chemistry demonstrates a very mild MARLIN with a creatinine of 1.2 from a baseline of around 0.8-1. She was given a bolus of IV fluids. Urinalysis is contaminated squamous cells but is concerning for possible urinary tract infection. She has 3+ leukocyte esterase and too numerous to count white blood cells with 3+ bacteria. In addition to the bolus of IV fluids for the mild MARLIN, she was given IV Rocephin. I independently interpreted CT head without contrast prior to the radiologist read and noted no intracranial hemorrhage, no large mass, no large new area of ischemia. Please see their read for final interpretation. Ultimately, I had an interactive discussion with her hospitalist, however we do not have psychiatric care here inpatient and she recommended transfer to higher level of care with psychiatry inpatient. Given this, conversations were initiated with [facility] to see if they would accept the patient for transfer. Callback pending at time of signout to oncoming provider, Dr. Jules <Clarissa Jules MD - Last Filed: 09/15/24 01:00> Vital Signs: 09/14/24 21:14 09/14/24 21:20 09/14/24 22:01 Temperature 98.9 F Temperature Source Oral Pulse Rate 104 H 96 H Pulse Rate [Radial] 121 H Respiratory Rate 18 19 Blood Pressure 163/77 H 127/72 Blood Pressure [Right Arm] 163/77 H Blood Pressure Mean [Right Arm] 105 Blood Pressure Position [Right Arm] Sitting 02 Sat by Pulse Oximetry 99 99 99 Oxygen Delivery Method Room Air 09/14/24 22:30 09/14/24 23:00 09/14/24 23:30 Temperature Temperature Source Pulse Rate 98 H 95 H 92 H Pulse Rate [Radial] Respiratory Rate 21 16 21 Blood Pressure 130/65 145/64 H 135/104 H Blood Pressure [Right Arm] Blood Pressure Mean [Right Arm] Blood Pressure Position [Right Arm] 02 Sat by Pulse Oximetry 98 98 99 Oxygen Delivery Method 09/15/24 00:00 09/15/24 00:30 Temperature Temperature Source Pulse Rate 81 91 H Pulse Rate [Radial] Respiratory Rate 12 14 Blood Pressure 130/63 140/69 Blood Pressure [Right Arm] Blood Pressure Mean [Right Arm] Blood Pressure Position [Right Arm] 02 Sat by Pulse Oximetry 98 97 Oxygen Delivery Method Lab Data Lab Results 09/14/24 21:37: WBC 9.6, RBC 4.05 L, Hgb 12.1 L, Hct 37.2, MCV 91.9, MCH 29.9, MCHC 32.5, RDW 14.7, Plt Count 226, MPV 10.3, Neut % (Auto) 59.0, Lymph % (Auto) 32.8, Swain % (Auto) 7.5, Eos % (Auto) 0.0 L, Baso % (Auto) 0.2, Neut # (Auto) 5.7, Lymph # (Auto) 3.2, Swain # (Auto) 0.7, Eos # (Auto) 0.0, Baso # (Auto) 0.0, Sodium 140, Potassium 3.5, Chloride 102, Carbon Dioxide 28, Anion Gap 13.5, BUN 22 H, Creatinine 1.20 H, Estimated Creat Clear 61, Estimated GFR 44 L, Est GFR ( Amer) 53 L, Glucose 121 H, Calcium 8.7, Total Bilirubin 0.3, AST 28, ALT 18, Alkaline Phosphatase 92, Total Protein 7.1 D, Albumin 4.4, Globulin 2.7, Albumin/Globulin Ratio 1.6, TSH 0.77, Thyroxine (T4) 12.6 H, Salicylates < 1.0 L, Acetaminophen < 10 L, Plasma/Serum Alcohol < 10, HCV Ab DANIELLE w/Rflx PCR Qn Negative, HIV Ag/Ab Combo Qual Negative 09/14/24 21:57: Urine Color Yellow, Urine Appearance Clear, Urine pH 6.0, Ur Specific [place] 1.015, Urine Protein Negative, Urine Glucose (UA) Negative, Urine Ketones Trace, Urine Blood Trace-i, Urine Nitrate Negative, Urine Bilirubin Negative, Urine Urobilinogen 1.0, Ur Leukocyte Esterase 3+ A, Urine RBC 3-5, Urine WBC Tntc, Ur Squamous Epith Cells 20-50, Urine Bacteria 3+ 09/14/24 21:59: Urine Opiates Screen Negative, Urine Methadone Screen Negative, Ur Barbituates Screen Negative, Ur Phencyclidine Scrn Negative, Ur Amphetamines Screen Negative, U Benzodiazepines Scrn Negative, Urine Cocaine Screen Negative, U Marijuana (THC) Screen Negative 09/14/24 23:00: Ammonia < 9 L Orders (Tests/Meds): ED MEDICATIONS Discontinued Medications Generic Name Dose Route Start Last Admin Trade Name Freq PRN Reason Stop Dose Admin Sodium Chloride 1,000 mls @ 999 mls/hr 09/14/24 22:51 09/14/24 23:15 Sod Chlor 0.9% 1000ml Bag IV 09/14/24 23:51 999 mls/hr .Q1H1M ONE Administration Ceftriaxone Sodium 2 gm/ 100 mls @ 200 mls/hr 09/14/24 22:52 09/14/24 23:15 Sodium Chloride IV 09/14/24 23:21 200 mls/hr ONCE ONE Administration ORDERS Category Date Time Status CT head/brain wo con Stat Cat Scan 09/14/24 22:07 Completed Consult to Behavioral Health [CONS] Stat Cons 09/14/24 21:20 Active Acetaminophen Stat Lab 09/14/24 21:37 Completed Ammonia Stat Lab 09/14/24 23:00 Completed Complete Blood Count Auto Diff Stat Lab 09/14/24 21:37 Completed Comprehensive Metabolic Panel Stat Lab 09/14/24 21:37 Completed Ethyl Alcohol Stat Lab 09/14/24 21:37 Completed HIV Combo Stat Lab 09/14/24 21:37 Completed Hepatitis C Ab Qual. W/ RFX Stat Lab 09/14/24 21:37 Completed Salicylate Stat Lab 09/14/24 21:37 Completed T4 (Thyroxine) Stat Lab 09/14/24 21:37 Completed TSH [Thyroid Stimulating Hormone] Stat Lab 09/14/24 21:37 Completed UA [Urinalysis and Microscopic] Stat Lab 09/14/24 21:57 Completed UDS [Drug Screen,Urine] Stat Lab 09/14/24 21:59 Completed Urine Culture Stat Micro 09/14/24 21:57 Received Medical Decision Narrative: In summary, this patient is a 73-year-old female presenting to the Emergency Department for evaluation of suicide ideation. Differential diagnoses considered include but are not limited to suicidal ideation, homicidal ideation, AVH, delirium, maladaptive behaviors. Ruling out the most morbid conditions drove assessment. It should be noted patient's history includes psychiatric history, CHF, COPD, hypothyroidism, diabetes which may or may not be at goal therapy. This complicates all aspects of care by increasing patient's risk for morbidity. I reviewed patient's past medical records and noted prior evaluations by PCP in the nursing facility. On exam, the patient is sitting upright in no acute distress. She is alert and oriented to person, place, and date but denies knowing what the year is. She states that she wants to kill herself with something sharp because she is not happy at [facility] where she resides, but she denies any other concerns or complaints. workup included CBC, CMP, TSH, T4, acetaminophen level, salicylate level, ethanol level, urinalysis, urine drug screen, EKG, CT head without contrast. Patient was placed under one-to-one observation for safety and suicide precautions. On reassessment, the patient is resting calmly with no other concerns or complaints. Labs demonstrate reassuring CBC with no significant leukocytosis. She does have mild anemia, which is unchanged from prior labs. Chemistry demonstrates a very mild MARLIN with a creatinine of 1.2 from a baseline of around 0.8-1. She was given a bolus of IV fluids. Urinalysis is contaminated squamous cells but is concerning for possible urinary tract infection. She has 3+ leukocyte esterase and too numerous to count white blood cells with 3+ bacteria. In addition to the bolus of IV fluids for the mild MARLIN, she was given IV Rocephin. I independently interpreted CT head without contrast prior to the radiologist read and noted no intracranial hemorrhage, no large mass, no large new area of ischemia. Please see their read for final interpretation. Ultimately, I had an interactive discussion with her hospitalist, however we do not have psychiatric care here inpatient and she recommended transfer to higher level of care with psychiatry inpatient. Given this, conversations were initiated with [facility] to see if they would accept the patient for transfer. Callback pending at time of signout to oncoming provider, Dr. Jules Jules: I assumed care of this patient from Dr. Euceda. At that time patient was alert, oriented to self and location, she would have significantly tangential speech and is still reporting suicidal ideation with a plan. She is otherwise resting comfortably and well-appearing. She has tolerated ER interventions well. I agree with the assessment and plan from Dr. Euceda. Eventually [facility] called back. The coordinator spoke to nursing staff and myself and reports that Dr. Dill is declining the patient because when she spoke to the patient by phone, the patient stated that she gets riled up but denied being suicidal. Patient has repeated to all of us that she is suicidal and has a plan to stab herself. I am suspicious that the patient is changing her story when speaking with [facility] because she also does not want to go there. She is only transiently oriented, and has episodes of disorientation. Ultimately [facility] is refusing to accept this patient which is disappointing since she has previously been treated there and I believe she needs psychiatric help. Will reach out to other facilities. Awaiting a callback from [facility] at this time. Raghav called back and I spoke with Dr. Floyd. We reviewed this case, he believes that the patient's symptoms are more likely related to urinary tract infection and that her suicidal ideation, maladaptive behaviors, and transient alterations of awareness (believing that the nurses at the retirement are from the [employer]) are related to infection and medical delirium. I can appreciate his thoughts and believe this is a reasonable consideration though I have lower suspicion that her presentation is from the UTI/delirium. He refused this patient and recommends further management of ongoing medical problems before considering psychiatric evaluation. I appreciate his recommendations. Ultimately I discussed this case with the hospitalist, Veronique, we reviewed this case including her lab abnormalities, urinary tract infection, elevated free T4 with normal TSH, and refusal from multiple psych facilities. She graciously excepted this patient for admission. Patient was admitted in stable condition. Critical Care <Shanna Euceda, DO - Last Filed: 09/14/24 23:32> Critical Care Time Critical Care Time: Yes Attestation: On 09/14/24, the high probability of a clinically significant, sudden or life threatening deterioration of the following system(s) required my full and direct attention, intervention and personal management. The time I documented below is in addition to time spent performing reported procedures but includes the following listed in this critical care notation. Total Time Total Critical Care Time: 35
[2024-09-14 22:10] LABS: T4 (Thyroxine) 12.6 ug/dl (5.53-11.0)
[2024-09-14 22:13] LABS: Microscopic, Urine URINE MICROSCOPIC (MICROSCOPIC)
[2024-09-14 22:14] LABS: Bilirubin,Urine Negative (Negative); Color,Urine YELLOW (Yellow); Glucose,Urine (UA) Negative (Negative); Ketones,Urine TRACE (Negative); Leukocyte Esterase,Urine 3+ (Negative); PH,Urine 6.0 (5.0-8.5); Protein,Urine Negative (Negative); Specific Gravity, Urine 1.015 (1.005-1.030); Urobilinogen,Urine 1.0 EU/dl (0.2)
[2024-09-14 22:23] LABS: Thyroid Stimulating Hormone 0.77 uIU/mL (0.465-4.68)
[2024-09-14 22:25] LABS: Barbiturates Screen,Urine Negative ng/ml (<200)
[2024-09-14 22:26] LABS: Amphetamine/Metha Screen,Urine Negative ng/ml (<1000); Benzodiazepines Screen,Urine Negative ng/ml (<200)
[2024-09-14 22:27] LABS: Bacteria,Urine 3+ /lpf; Squamous Epithelial Cell,Urine 20-50 #/hpf (0-5); WBC,Urine TNTC #/hpf (0-3)
[2024-09-14 22:28] LABS: Methadone Screen,Urine Negative ng/ml (<300)
[2024-09-14 22:29] LABS: Opiate Screen,Urine Negative ng/ml (<300); Phencyclidine Screen,Urine Negative ng/ml (<25)
[2024-09-14 22:30] VITALS: BP 130/65; PULSE 98; RESP 21; O2SAT 98
[2024-09-14 23:00] VITALS: BP 145/64; PULSE 95; RESP 16; O2SAT 98
[2024-09-14 23:06] LABS: Hepatitis C Ab Qual. W/ RFX NEGATIVE (Negative)
[2024-09-14] MEDS: 0.9 % SODIUM CHLORIDE 1000ML 1,000 ML 999 ML IV (23:15)
[2024-09-14 23:17] LABS: Ammonia < 9 umol/L (9-30)
[2024-09-14 23:30] VITALS: BP 135/104; PULSE 92; RESP 21; O2SAT 99
--- NOTE | 2024-09-14 23:44 | PC.NURSE ---
called carlos alberto butler at 10:53 for a possible pt transfer
[2024-09-15] VITALS (8 sets, daily range): BP systolic 104–156; BP diastolic 48–69; PULSE 78–96; RESP 12–18; TEMP 36.3–37.2; O2SAT 94–100; BMI 33.1; BMI 33.5
--- NOTE | 2024-09-15 00:03 | PC.NURSE ---
pt currently on the phone with carlos alberto butler
--- NOTE | 2024-09-15 00:32 | PC.NURSE ---
[facility] calls to report that they are comfortable sending patient back to senior care. Ed provider Dr Jules on the phone speaking with facility at this time. Dr Jules requesting to speak to other facilities regarding possible transfer to psych facility.
--- NOTE | 2024-09-15 00:37 | PC.NURSE ---
Called for a transfer to [facility]. Stated they would call back
--- NOTE | 2024-09-15 01:14 | PC.NURSE ---
report given to Adela TOVAR on the floor.
--- NOTE | 2024-09-15 01:25 | PC.NURSE ---
Pt depends changed with [facility] complete. Pt readjusted in bed, awaiting transportation to the floor.
--- NOTE | 2024-09-15 01:44 | P.HP_ITS ---
<Statement entered by Lukas Cisse MD - 09/17/24 09:00> Personally examined patient and agree with plan of care as outlined by the [employer]. History of Present Illness *Admission Date: 09/15/24 *Reason for visit:: Encephalopathy *History of present illness: This is a 73-year-old female with a past medical history of schizophrenia, DM 2, COPD, hypothyroidism who presents to the emergency department today from [facility] for evaluation of suicidal ideation. Patient initially stated that the facility made her mad and she did not want to go back there. Reports that she wanted to hit something but it did not make her feel any better. She states that she does not like it there and would stab herself if she had to go back. Does have a history of schizophrenia. Does endorse mild dysuria. On assessment is noted to have waxing and waning mentation. Emergency department workup notable for acute cystitis with too numerous to count white cells, leuk esterase, +3 bacteria. Mildly elevated creatinine of 1.2. ER provider graciously attempted to place patient in a facility that was more feasible for psychiatric services. [facility] did evaluate patient but according to [facility] Cort[facility], patient is not suicidal although she did disclose that she was to the ER provider. [facility] was consulted and recommends treatment for her urinary tract infection and once medically cleared can reevaluate for possible placement. Given no safe discharge plan as patient is likely suicidal if discharged back to [facility], will treat for acute cystitis and reevaluate for need for psychiatric services at discharge. [facility] Disclaimer: The information contained in this section may have been updated after the patient was seen, as this information can be updated by other users. Medical History Weight loss Pulmonary embolism Diabetes Schizo affective schizophrenia Hyperlipidemia Delirium due to general medical condition Weakness generalized COPD (chronic obstructive pulmonary disease) Hypothyroidism Pulmonary HTN Hypothyroidism (acquired) Obesity (BMI 30-39.9) Social History Smoking Status: Former smoker tobacco type: cigarettes packs per day: 0 second hand exposure: No alcohol intake: never current occupational status: disabled Travel in the last 8 weeks?: None household members: other housing: group home current occupational exposures/hazards: No caffeine: Yes Have you lived/traveled outside [place] in past 30 days?: No Contact w/someone who lives/traveled outside US past 30 days?: No Exposure to someone with infectious disease in past 14 days?: No Do you have a fever (greater than 100.4 F or 38 C)?: No Have you tested positive for COVID-19?: No Exposed to someone with COVID-19 in past 14 days?: No Do you have a sore throat?: No Do you have a cough?: No Do you have any weakness?: No Do you have any diarrhea?: No Are you experiencing any unusual bleeding?: No Do you have any muscle aches/pain?: No Do you have any abdominal pain?: No Are you experiencing loss of taste or smell?: No Other Medical History Have you received the Flu Vaccine for this season: No (not in season) Have you received the Pneumonia Vaccine: Yes (12/10/18,06/12/20) Review of Systems Review of Systems Review of systems:: pertinent systems reviewed and negative unless documented below Review of systems (narrative): Negative except for HPI Meds Home Medications and Allergies Home Medications ?Medication ?Instructions ?Recorded ?Confirmed ?Type lactulose 10 gram/15 mL oral 30 ml PO DAILY PRN Bowel care 06/22/22 09/05/24 History solution acetaminophen 500 mg capsule 500 mg PO Q4H PRN Pain/Fe vargas 02/12/23 09/05/24 History atorvastatin 20 mg tablet 20 mg PO DAILY Cholesterol # 90 tabs 02/12/23 09/05/24 Rx clozapine 100 mg tablet 100 mg PO HS Mood 02/12/23 0 09/05/24 History clozapine 50 mg tablet 50 mg PO HS mood 02/12/23 History dextromethorphan-guaifenesin 10 10 ml PO Q6H PRN Cough 02/12/23 09/05/24 History mg-100 mg/5 mL oral liquid (Diabetic Tussin DM) furosemide 40 mg tablet 40 mg PO DAILY edema 30 days #30 02/12/23 09/05/24 Rx tabs levothyroxine 100 mcg tablet 100 mcg PO DAILY thyroid 02/12/23 09/05/24 History omeprazole 20 mg capsule,delayed 20 mg PO DAILY Acid r eflux 02/12/23 09/05/24 History release rivaroxaban 20 mg tablet (Xarelto) 20 mg PO DAILY Bloo d thinner/hx PE 02/12/23 09/05/24 History metformin 500 mg tablet 500 mg PO DAILY 02/19/2310/23 History New Prescriptions to Start Prescriptions: Allergies Allergy/AdvReac Type Severity Reaction Status Date / Time codeine Allergy Mild Unknown Verified 09/05/24 13:04 allergy reaction Penicillins Allergy Mild Unknown Verified 09/05/24 13:04 allergy reaction Exam Data for Last 24 hours Vital signs and Labs for Last 24 Hours: Temp Pulse Resp BP Pulse Ox O2 Del Method 98.9 F 78 14 156/66 H 98 Room Air 09/15/24 01:30 09/15/24 01:30 09/15/24 01:30 09/15/24 01:30 09/15/24 01:00 09/15/24 01:30 Laboratory Results - last 24 hr 09/14/24 21:37: WBC 9.6, RBC 4.05 L, Hgb 12.1 L, Hct 37.2, MCV 91.9, MCH 29.9, MCHC 32.5, RDW 14.7, Plt Count 226, MPV 10.3, Neut % (Auto) 59.0, Lymph % (Auto) 32.8, [place] % (Auto) 7.5, Eos % (Auto) 0.0 L, Baso % (Auto) 0.2, Neut # (Auto) 5.7, Lymph # (Auto) 3.2, [place] # (Auto) 0.7, Eos # (Auto) 0.0, Baso # (Auto) 0.0, Sodium 140, Potassium 3.5, Chloride 102, Carbon Dioxide 28, Anion Gap 13.5, BUN 22 H, Creatinine 1.20 H, Estimated Creat Clear 61, Estimated GFR 44 L, Est GFR ( Amer) 53 L, Glucose 121 H, Calcium 8.7, Total Bilirubin 0.3, AST 28, ALT 18, Alkaline Phosphatase 92, Total Protein 7.1 D, Albumin 4.4, Globulin 2.7, Albumin/Globulin Ratio 1.6, TSH 0.77, Thyroxine (T4) 12.6 H, Salicylates < 1.0 L, Acetaminophen < 10 L, Plasma/Serum Alcohol < 10, HCV Ab DANIELLE w/Rflx PCR Qn Negative, HIV Ag/Ab Combo Qual Negative 09/14/24 21:57: Urine Color Yellow, Urine Appearance Clear, Urine pH 6.0, Ur Specific [place] 1.015, Urine Protein Negative, Urine Glucose (UA) Negative, Urine Ketones Trace, Urine Blood Trace-i, Urine Nitrate Negative, Urine Bilirubin Negative, Urine Urobilinogen 1.0, Ur Leukocyte Esterase 3+ A, Urine RBC 3-5, Urine WBC Tntc, Ur Squamous Epith Cells 20-50, Urine Bacteria 3+ 09/14/24 21:59: Urine Opiates Screen Negative, Urine Methadone Screen Negative, Ur Barbituates Screen Negative, Ur Phencyclidine Scrn Negative, Ur Amphetamines Screen Negative, U Benzodiazepines Scrn Negative, Urine Cocaine Screen Negative, U Marijuana (THC) Screen Negative 09/14/24 23:00: Ammonia < 9 L I & O for Last 24 hours: Intake & Output 09/12/24 09/13/24 09/14/24 09/15/24 23:59 23:59 23:59 23:59 Weight 90.718 kg Constitutional Constitutional: no acute distress *Routine HEENT Exam Head: Present normocephalic Eye: Present EOMI and PERRL ENT: Present mucous membranes moist *Routine Neck Exam Neck: Present supple; Absent lymphadenopathy *Routine Respiratory Exam Respiratory: Present CTA bilaterally *Routine Cardiovascular Exam Cardiovascular: Present RRR *Routine Abdominal Exam Abdominal: Present soft and normoactive bowel sounds; Absent tenderness *Routine Rectal Exam Rectal:: deferred *Routine Genitalia Exam Genitalia:: deferred *Routine Extremities Exam Extremities: Absent cyanosis, clubbing or edema *Routine Skin Exam Skin: Present warm; Absent rash *Routine Neurological Exam Neurological: Present alert and oriented X3 Assessment and Plan *Assessment and plan (1) Acute UTI: Status: Acute Category: Medical Code(s): N39.0 - Urinary tract infection, site not specified (2) Suicidal ideation: Status: Acute Category: Medical Code(s): R45.851 - Suicidal ideations (3) Hyperlipidemia: Status: Acute Category: Medical Code(s): E78.5 - Hyperlipidemia, unspecified (4) Diabetes: Status: Acute Category: Medical Code(s): E11.9 - Type 2 diabetes mellitus without complications Plan #Acute cystitis #Metabolic encephalopathy Patient with waxing and waning mentation with positive urinalysis. Will treat with Rocephin. Reorient as needed Monitoring urine output #Suicidal ideation #Schizophrenia Suicidal ideation seems to be situational given patient was acutely upset today. Will need reevaluation for possible placement after medically cleared. Attempted St[facility] Carter at [facility] but denied secondary to saying patient was not suicidal. On my exam patient states she would have stabbed herself with scissors she was so mad today. Unsure if patient has active suicide or with more passive in nature. Does have a history of schizophrenia per Continue one-to-one observation Continue home medications #DM2 Sinew sliding scale insulin
--- NOTE | 2024-09-15 01:51 | PC.NURSE ---
Pt cannot recall any of her medications she takes daily. Pt stated she knows what the pills look like, but doesn't know names of them. med rec could not be completed.
[2024-09-15] MEDS: 0.9 % SODIUM CHLORIDE 1000ML 1,000 ML 75 ML IV (02:15)
--- NOTE | 2024-09-15 05:47 | PC.NURSE ---
New Admit. v/s, ox4, RA. Pt placed 1-1 due to suicidal ideation. Plan of care ongoing.
[2024-09-15 06:21] LABS: Hematocrit 34.7 % (37.0-47.0); Hemoglobin 11.1 g/dL (12.2-16.2); Immature Granulocytes % 0.6 %; Mean Corpuscular HGB Conc 32.0 g/dL (31.8-35.4); Mean Corpuscular Hemoglobin 29.4 pg (27.0-31.2); Mean Corpuscular Volume 91.8 fl (81-99); Nucleated Red Blood Cells % 0 %; Platelet Count 187 K/mm3 (142-424); Red Blood Count 3.78 M/mm3 (4.20-5.40); Red Cell Distribution Width-SD 50.1 fL; White Blood Count 7.1 K/mm3 (4.8-10.8)
[2024-09-15 06:24] LABS: Anion Gap 13.7 mEq/L (5-15); Blood Urea Nitrogen 17 mg/dl (7-17); Calcium 8.1 mg/dl (8.4-10.2); Carbon Dioxide 29 mmol/L (22.0-30.0); Chloride 103 mmol/L (98-107); Creatinine Clearance Estimated 60 mL/min (50-200); Creatinine,Serum 1.10 mg/dl (0.52-1.04); Estimated Glomerular Filt Rate 49 ml/min (>60); GFR (African American) 59 ML/MIN (>60); Glucose 100 mg/dl (74-100); Potassium 3.7 mmoL/L (3.5-5.1); Sodium 142 mmol/L (136-145)
[2024-09-15 07:18] LABS: POC Glucose,Bedside 124 (70-110)
--- NOTE | 2024-09-15 08:32 | SW/DCPLANNER ---
Addendum entered by Cassandra Demarco 09/15/24 11:29: All facilities (waiting to hear back from [facility]) have denied patient. Per MD the plan for patient is to return to [facility] level of care today. I have updated Dominique w/ [facility]. Addendum entered by Cassandra Demarco 09/15/24 09:05: Information also faxed to [facility]. Addendum entered by Cassandra Demarco 09/15/24 09:03: Patient information has been faxed to [facility], [facility], [facility], [facility] and [facility]. Original Note: Patient currently resides at [facility] level of care. Per documentation patient expressed in ED suicidal thoughts due to being unhappy at [facility]. Patient was diagnosed w/ UTI. During my visit w/ patient at bedside this AM she is resting comfortably. Patient was able to wake up and communicate w/ me. Patient stated that she has been at [facility] for about 7-8 months and was at another long term prior. Patient voiced that she feels better and no longer wants to harm herself. Patient stated that she is open to returning to [facility] or another [facility] within the area. I will reach out to surrounding counties regarding bed availability. I followed up w/ Dominique at [facility]: this is not typical behavior of patient and they are willing to accept patient back once medically stable for discharge. I will continue to follow up w/ , patient, [facility] and other local facilities.
[2024-09-15 10:11] LABS: POC Glucose,Bedside 112 (70-110)
--- NOTE | 2024-09-15 13:19 | P.DS_ITS ---
General Admission date:: 09/15/24 HPI HPI HPI: This is a 73-year-old female with a past medical history of schizophrenia, DM 2, COPD, hypothyroidism who presents to the emergency department today from [facility] for evaluation of suicidal ideation. Patient initially stated that the facility made her mad and she did not want to go back there. Reports that she wanted to hit something but it did not make her feel any better. She states that she does not like it there and would stab herself if she had to go back. Does have a history of schizophrenia. Does endorse mild dysuria. On assessment is noted to have waxing and waning mentation. Emergency department workup notable for acute cystitis with too numerous to count white cells, leuk esterase, +3 bacteria. Mildly elevated creatinine of 1.2. ER provider graciously attempted to place patient in a facility that was more feasible for psychiatric services. Ivett Cortés did evaluate patient but according to Ivett Cortés, patient is not suicidal although she did disclose that she was to the ER provider. [facility] was consulted and recommends treatment for her urinary tract infection and once medically cleared can reevaluate for possible placement. Given no safe discharge plan as patient is likely suicidal if discharged back to [facility], will treat for acute cystitis and reevaluate for need for psychiatric services at discharge. Hospital Course Hospital Course Hospital Course: Ramin Albert is a 73-year-old female who presented with confusion, suicidal ideation and [facility] and was admitted for acute metabolic encephalopathy in the setting of UTI. #UTI #Metabolic encephalopathy ? UA grossly abnormal, urine culture pending. ? Clinically improved with IV ceftriaxone, transitioned to levofloxacin 750 mg for 6 more days. ? Patient is alert and oriented, answering all questions appropriately. Although drowsy this morning, but improved into the afternoon. No longer endorsing suicidal ideation, has no plan. She is willing to go back to [place] today. #Suicidal ideation #Schizophrenia ? Suicidal ideation seems to be situational given patient was acutely upset today, but also in the setting of UTI/encephalopathy. ? Patient is alert and oriented, answering all questions appropriately. Although drowsy this morning, but improved into the afternoon. No longer endorsing suicidal ideation, has no plan. She is willing to go back to [place] today. ? Continue clozapine 150 mg nightly. #DM2 ?Continue metformin 5 mg daily. #GERD ? Continue home PPI #Hypothyroidism ? Continue home levothyroxine 100 mcg. #History of PE ? Continue home Xarelto 20 mg daily. Total time spent on discharge: 32 minutes on chart review, counseling, documen tation, and direct care with patient. Exam Data for Last 24 hours Vital signs and Labs for Last 24 Hours: Temp Pulse Resp BP Pulse Ox O2 Del Method 97.6 F 92 H 18 121/66 94 L Room Air 09/15/24 12:00 09/15/24 12:00 09/15/24 12:00 09/15/24 12:00 09/15/24 12:00 09/15/24 12:36 Laboratory Results - last 24 hr 09/14/24 21:37: WBC 9.6, RBC 4.05 L, Hgb 12.1 L, Hct 37.2, MCV 91.9, MCH 29.9, MCHC 32.5, RDW 14.7, Plt Count 226, MPV 10.3, Neut % (Auto) 59.0, Lymph % (Auto) 32.8, [place] % (Auto) 7.5, Eos % (Auto) 0.0 L, Baso % (Auto) 0.2, Neut # (Auto) 5.7, Lymph # (Auto) 3.2, [place] # (Auto) 0.7, Eos # (Auto) 0.0, Baso # (Auto) 0.0, Sodium 140, Potassium 3.5, Chloride 102, Carbon Dioxide 28, Anion Gap 13.5, BUN 22 H, Creatinine 1.20 H, Estimated Creat Clear 61, Estimated GFR 44 L, Est GFR ( Amer) 53 L, Glucose 121 H, Calcium 8.7, Total Bilirubin 0.3, AST 28, ALT 18, Alkaline Phosphatase 92, Total Protein 7.1 D, Albumin 4.4, Globulin 2.7, Albumin/Globulin Ratio 1.6, TSH 0.77, Thyroxine (T4) 12.6 H, Salicylates < 1.0 L, Acetaminophen < 10 L, Plasma/Serum Alcohol < 10, HCV Ab DANIELLE w/Rflx PCR Qn Negative, HIV Ag/Ab Combo Qual Negative 09/14/24 21:57: Urine Color Yellow, Urine Appearance Clear, Urine pH 6.0, Ur Specific [place] 1.015, Urine Protein Negative, Urine Glucose (UA) Negative, Urine Ketones Trace, Urine Blood Trace-i, Urine Nitrate Negative, Urine Bilirubin Negative, Urine Urobilinogen 1.0, Ur Leukocyte Esterase 3+ A, Urine RBC 3-5, Urine WBC Tntc, Ur Squamous Epith Cells 20-50, Urine Bacteria 3+ 09/14/24 21:59: Urine Opiates Screen Negative, Urine Methadone Screen Negative, Ur Barbituates Screen Negative, Ur Phencyclidine Scrn Negative, Ur Amphetamines Screen Negative, U Benzodiazepines Scrn Negative, Urine Cocaine Screen Negative, U Marijuana (THC) Screen Negative 09/14/24 23:00: Ammonia < 9 L 09/15/24 05:44: WBC 7.1 D, RBC 3.78 L, Hgb 11.1 L, Hct 34.7 L, MCV 91.8, MCH 29.4, MCHC 32.0, RDW 14.9, Plt Count 187, MPV 11.0 H, Neut % (Auto) 47.2, Lymph % (Auto) 41.0, [place] % (Auto) 9.1, Eos % (Auto) 1.7, Baso % (Auto) 0.4, Neut # (Auto) 3.4, Lymph # (Auto) 2.9, [place] # (Auto) 0.7, Eos # (Auto) 0.1, Baso # (Auto) 0.0, Sodium 142, Potassium 3.7, Chloride 103, Carbon Dioxide 29, Anion Gap 13.7, BUN 17, Creatinine 1.10 H, Estimated Creat Clear 60, Estimated GFR 49 L, Est GFR ( Amer) 59, Glucose 100, Calcium 8.1 L 09/15/24 07:12: POC Glucose 124 H 09/15/24 10:04: POC Glucose 112 H I & O for Last 24 hours: Intake & Output 09/12/24 09/13/24 09/14/24 09/15/24 23:59 23:59 23:59 23:59 Intake Total 150 / 150 Balance 150 / 150 Weight 90.718 kg 82.611 kg Constitutional Constitutional: no acute distress and obese *Routine HEENT Exam Head: Present normocephalic Eye: Present EOMI and PERRL ENT: Present mucous membranes moist *Routine Neck Exam Neck: Present supple; Absent lymphadenopathy *Routine Respiratory Exam Respiratory: Present CTA bilaterally *Routine Cardiovascular Exam Cardiovascular: Present RRR *Routine Abdominal Exam Abdominal: Present soft and normoactive bowel sounds; Absent tenderness *Routine Extremities Exam Extremities: Absent cyanosis, clubbing or edema *Routine Skin Exam Skin: Present warm; Absent rash *Routine Neurological Exam Neurological: Present alert Results Data Completed and Pending Labs on day of discharge: Labs from last 24 hours 09/15/24 09/15/24 09/15/24 10:04 07:12 05:44 WBC 7.1 D RBC 3.78 L Hgb 11.1 L Hct 34.7 L MCV 91.8 MCH 29.4 MCHC 32.0 RDW 14.9 Plt Count 187 MPV 11.0 H Neut % (Auto) 47.2 Lymph % (Auto) 41.0 [place] % (Auto) 9.1 Eos % (Auto) 1.7 Baso % (Auto) 0.4 Neut # (Auto) 3.4 Lymph # (Auto) 2.9 [place] # (Auto) 0.7 Eos # (Auto) 0.1 Baso # (Auto) 0.0 Sodium 142 Potassium 3.7 Chloride 103 Carbon Dioxide 29 Anion Gap 13.7 BUN 17 Creatinine 1.10 H Estimated Creat Clear 60 Estimated GFR 49 L Est GFR ( Amer) 59 Glucose 100 POC Glucose 112 H 124 H Calcium 8.1 L Total Bilirubin AST ALT Alkaline Phosphatase Ammonia Total Protein Albumin Globulin Albumin/Globulin Ratio TSH Thyroxine (T4) Urine Color Urine Appearance Urine pH Ur Specific [place] Urine Protein Urine Glucose (UA) Urine Ketones Urine Blood Urine Nitrate Urine Bilirubin Urine Urobilinogen Ur Leukocyte Esterase Urine RBC Urine WBC Ur Squamous Epith Cells Urine Bacteria Salicylates Urine Opiates Screen Urine Methadone Screen Acetaminophen Ur Barbituates Screen Ur Phencyclidine Scrn Ur Amphetamines Screen U Benzodiazepines Scrn Urine Cocaine Screen U Marijuana (THC) Screen Plasma/Serum Alcohol HCV Ab DANIELLE w/Rflx PCR Qn HIV Ag/Ab Combo Qual 09/14/24 09/14/24 09/14/24 23:00 21:59 21:57 WBC RBC Hgb Hct MCV MCH MCHC RDW Plt Count MPV Neut % (Auto) Lymph % (Auto) [place] % (Auto) Eos % (Auto) Baso % (Auto) Neut # (Auto) Lymph # (Auto) [place] # (Auto) Eos # (Auto) Baso # (Auto) Sodium Potassium Chloride Carbon Dioxide Anion Gap BUN Creatinine Estimated Creat Clear Estimated GFR Est GFR ( Amer) Glucose POC Glucose Calcium Total Bilirubin AST ALT Alkaline Phosphatase Ammonia < 9 L Total Protein Albumin Globulin Albumin/Globulin Ratio TSH Thyroxine (T4) Urine Color Yellow Urine Appearance Clear Urine pH 6.0 Ur Specific [place] 1.015 Urine Protein Negative Urine Glucose (UA) Negative Urine Ketones Trace Urine Blood Trace-i Urine Nitrate Negative Urine Bilirubin Negative Urine Urobilinogen 1.0 Ur Leukocyte Esterase 3+ A Urine RBC 3-5 Urine WBC Tntc Ur Squamous Epith Cells 20-50 Urine Bacteria 3+ Salicylates Urine Opiates Screen Negative Urine Methadone Screen Negative Acetaminophen Ur Barbituates Screen Negative Ur Phencyclidine Scrn Negative Ur Amphetamines Screen Negative U Benzodiazepines Scrn Negative Urine Cocaine Screen Negative U Marijuana (THC) Screen Negative Plasma/Serum Alcohol HCV Ab DANIELLE w/Rflx PCR Qn HIV Ag/Ab Combo Qual 09/14/24 21:37 WBC 9.6 RBC 4.05 L Hgb 12.1 L Hct 37.2 MCV 91.9 MCH 29.9 MCHC 32.5 RDW 14.7 Plt Count 226 MPV 10.3 Neut % (Auto) 59.0 Lymph % (Auto) 32.8 [place] % (Auto) 7.5 Eos % (Auto) 0.0 L Baso % (Auto) 0.2 Neut # (Auto) 5.7 Lymph # (Auto) 3.2 [place] # (Auto) 0.7 Eos # (Auto) 0.0 Baso # (Auto) 0.0 Sodium 140 Potassium 3.5 Chloride 102 Carbon Dioxide 28 Anion Gap 13.5 BUN 22 H Creatinine 1.20 H Estimated Creat Clear 61 Estimated GFR 44 L Est GFR ( Amer) 53 L Glucose 121 H POC Glucose Calcium 8.7 Total Bilirubin 0.3 AST 28 ALT 18 Alkaline Phosphatase 92 Ammonia Total Protein 7.1 D Albumin 4.4 Globulin 2.7 Albumin/Globulin Ratio 1.6 TSH 0.77 Thyroxine (T4) 12.6 H Urine Color Urine Appearance Urine pH Ur Specific [place] Urine Protein Urine Glucose (UA) Urine Ketones Urine Blood Urine Nitrate Urine Bilirubin Urine Urobilinogen Ur Leukocyte Esterase Urine RBC Urine WBC Ur Squamous Epith Cells Urine Bacteria Salicylates < 1.0 L Urine Opiates Screen Urine Methadone Screen Acetaminophen < 10 L Ur Barbituates Screen Ur Phencyclidine Scrn Ur Amphetamines Screen U Benzodiazepines Scrn Urine Cocaine Screen U Marijuana (THC) Screen Plasma/Serum Alcohol < 10 HCV Ab DANIELLE w/Rflx PCR Qn Negative HIV Ag/Ab Combo Qual Negative DS: Diagnosis Discharge Diagnosis (1) Acute UTI: Status: Acute Code(s): N39.0 - Urinary tract infection, site not specified (2) Suicidal ideation: Status: Acute Code(s): R45.851 - Suicidal ideations (3) Hyperlipidemia: Status: Acute Code(s): E78.5 - Hyperlipidemia, unspecified (4) Diabetes: Status: Acute Code(s): E11.9 - Type 2 diabetes mellitus without complications Meds Home Medications and Allergies Home Medications ?Medication ?Instructions ?Recorded ?Confirmed ?Type lactulose 10 gram/15 mL oral 30 ml PO DAILY PRN Bowel care 06/22/22 09/15/24 History solution acetaminophen 500 mg capsule 500 mg PO Q4H PRN Pain/Fe vargas 02/12/23 09/15/24 History atorvastatin 20 mg tablet 20 mg PO DAILY Cholesterol # 90 tabs 02/12/23 09/15/24 Rx clozapine 100 mg tablet 100 mg PO HS Mood 02/12/23 0 09/15/24 History clozapine 50 mg tablet 50 mg PO HS mood 02/12/23 History dextromethorphan-guaifenesin 10 10 ml PO Q6HP PRN Coug h 02/12/23 09/15/24 History mg-100 mg/5 mL oral liquid (Diabetic Tussin DM) furosemide 40 mg tablet 40 mg PO DAILY edema 30 days #30 02/12/23 09/15/24 Rx tabs levothyroxine 100 mcg tablet 100 mcg PO DAILY thyroid 02/12/23 09/15/24 History omeprazole 20 mg capsule,delayed 20 mg PO DAILY Acid r eflux 02/12/23 09/15/24 History release rivaroxaban 20 mg tablet (Xarelto) 20 mg PO QPMWITHMEA L Blood 02/12/23 09/15/24 History thinner/hx PE metformin 500 mg tablet 500 mg PO DAILY 02/19/23 History levofloxacin 750 mg tablet 750 mg PO DAILY 6 days #6 t abs 09/15/24 Rx New Prescriptions to Start Prescriptions: levoLukas [place] Allergies Allergy/AdvReac Type Severity Reaction Status Date / Time codeine Allergy Mild Unknown Verified 09/05/24 13:04 allergy reaction Penicillins Allergy Mild Unknown Verified 09/05/24 13:04 allergy reaction Discharge Plan Disposition Patient Disposition: Xfer SNF Condition: Fair Discharge Order Discharge Orders: Discharge Order (Routine); Ordered 09/15/24 Ordered By: Lukas Cisse Follow up Plan Prescriptions/Medication Reconciliation: New levofloxacin 750 mg tablet 750 mg PO DAILY 6 Days Qty: 6 0RF Continued acetaminophen 500 mg capsule 500 mg PO Q4H PRN (Reason: Pain/Fever) atorvastatin 20 mg tablet 20 mg PO DAILY Qty: 90 0RF clozapine 100 mg tablet 100 mg PO HS Rx Instructions: TAKE 1 TABLET BY MOUTH AT BEDTIME (PLEASE FAX CBC WITH DIFF TO PHARMACY EVERY 4 WEEKS) furosemide 40 mg tablet 40 mg PO DAILY 30 Days Qty: 30 0RF Rx Instructions: Take one tablet by mouth once daily levothyroxine 100 mcg tablet 100 mcg PO DAILY omeprazole 20 mg capsule,delayed release(DR/EC) 20 mg PO DAILY Xarelto 20 mg tablet 20 mg PO QPMWITHMEAL Rx Instructions: take one tab po at 5pm dextromethorphan-guaifenesin [Diabetic Tussin DM] 10-100 mg/5 mL liquid 10 ml PO Q6HP PRN (Reason: Cough) clozapine 50 mg tablet 50 mg PO HS Rx Instructions: TAKE 1 TABLET BY MOUTH AT BEDTIME, GIVE WITH 100MG TABLET TO TOTAL 150MG metformin 500 mg tablet 500 mg PO DAILY lactulose 10 gram/15 mL Solution 30 ml PO DAILY PRN (Reason: Bowel care) Problem Reconciliation Problems Reviewed?: Yes Patient Discharge Instructions Print Language: Lao Providers Primary Care Provider: Provider,Referral Admit Provider: Lukas Cisse Attending Provider: Lukas Cisse
== END 2024-09-15 17:31 ==
LOC: ER 09-15 01:00 → 2ND 09-15 01:52
PROVIDERS: Nurse Practitioner Acute Care; Admitting Provider Student in an Organized Health Care Education/Training Program; Emergency Provider Emergency Medicine; Visit Provider Student in an Organized Health Care Education/Training Program
DX: R45.851 Suicidal ideations (principal); G93.41 Metabolic encephalopathy; N30.00 Acute cystitis without hematuria; E78.5 Hyperlipidemia, unspecified; E11.9 Type 2 diabetes mellitus without complications; I27.20 Pulmonary hypertension, unspecified; K21.9 Gastro-esophageal reflux disease without esophagitis; F20.9 Schizophrenia, unspecified; I11.0 Hypertensive heart disease with heart failure; I50.9 Heart failure, unspecified; J44.9 Chronic obstructive pulmonary disease, unspecified; E66.9 Obesity, unspecified; E03.9 Hypothyroidism, unspecified; Z88.0 Allergy status to penicillin; Z88.5 Allergy status to narcotic agent; Z87.891 Personal history of nicotine dependence; Z86.711 Personal history of pulmonary embolism; Z79.890 Hormone replacement therapy; Z79.899 Other long term (current) drug therapy; Z79.84 Long term (current) use of oral hypoglycemic drugs; Z79.01 Long term (current) use of anticoagulants; Z68.33 Body mass index [BMI] 33.0-33.9, adult; I48.20 Chronic atrial fibrillation, unspecified
CPT/HCPCS: 36415; 70450; 80048; 80053; 80307; 80320; 80329; 81001; 82140; 82962; 84436; 84443; 85025; 86803; 87086; 87389; 93005; 96361; 96374; 99291; G0378; J0696; J7030

== ENCOUNTER 2024-09-18 08:02 | Observation (INO) | payer MEDICARE, MEDICAID, SELFPAY ==
[2024-09-18] VITALS (17 sets, daily range): BP systolic 75–163; BP diastolic 43–89; PULSE 93–123; RESP 11–30; TEMP 36.8–36.9; O2SAT 97–100; BMI 36.6; BMI 34.4
--- NOTE | 2024-09-18 08:01 | CT_ITS ---
FINAL REPORT TECHNIQUE: Thin section axial CT with sagittal reconstruction without contrast This study was performed with techniques to keep radiation doses as low as reasonably achievable, (ALARA). Individualized dose reduction techniques using automated exposure control or adjustment of mA and/or kV according to the patient''s size were employed. CLINICAL HISTORY: Fall, AMS COMPARISON: 06/21/2022 FINDINGS: No fracture is seen. Alignment is normal. No obvious bony spinal canal stenosis is present. There are mild diffuse degenerative disc changes. Mild facet arthropathy is noted. IMPRESSION: No acute findings. Reviewed, Interpreted and Dictated by Vidhi Saxena MD Transcribed by Brinda García Authenticated and [facility]
--- NOTE | 2024-09-18 08:01 | XR_ITS ---
FINAL REPORT CLINICAL HISTORY: Fall, AMS COMPARISON: 06/23/2022 FINDINGS: A single frontal view of the chest was obtained. No acute pulmonary opacity is present. There is no evidence of effusion or pneumothorax. Mediastinum is unremarkable. Heart size is normal. IMPRESSION: No acute abnormality. Reviewed, Interpreted and Dictated by Vidhi Saxena MD Transcribed by Brinda García Authenticated and [facility]
--- NOTE | 2024-09-18 08:01 | XR_ITS ---
FINAL REPORT CLINICAL HISTORY: Fall, AMS COMPARISON: None FINDINGS: SINGLE VIEW PELVIS: A single view of the pelvis was obtained. There is no acute fracture or dislocation. Vizualized joint spaces are normally aligned. Soft tissues are unremarkable. IMPRESSION: No acute bony abnormality. Reviewed, Interpreted and Dictated by Vidhi Saxena MD Transcribed by Brinda García Authenticated and [facility]
--- NOTE | 2024-09-18 08:01 | CT_ITS ---
FINAL REPORT TECHNIQUE: Noncontrast exam This study was performed with techniques to keep radiation doses as low as reasonably achievable, (ALARA). Individualized dose reduction techniques using automated exposure control or adjustment of mA and/or kV according to the patient''s size were employed. CLINICAL HISTORY: AMS, forehead contusion COMPARISON: 09/14/2024 FINDINGS: There is a chronic lacunar infarct in the left occipital lobe. Mild atrophy and chronic microvascular changes are noted. There is no hemorrhage. No mass effect is seen. Bone windows show no evidence of fracture. IMPRESSION: No acute findings Reviewed, Interpreted and Dictated by Vidhi Saxena MD Transcribed by Brinda García Authenticated and [facility]
--- NOTE | 2024-09-18 08:03 | XR_ITS ---
FINAL REPORT CLINICAL HISTORY: Fall, right wrist pain COMPARISON: None FINDINGS: Two views of the right wrist were obtained. Chronic posttraumatic change. An old healed fracture deformity is noted. There is no acute osseous abnormality. The joint spaces are well preserved. There is no acute soft tissue abnormality. IMPRESSION: No acute abnormality identified. Reviewed, Interpreted and Dictated by Vidhi Saxena MD Transcribed by Brinda García Authenticated and . [facility]
--- NOTE | 2024-09-18 08:03 | XR_ITS ---
FINAL REPORT CLINICAL HISTORY: Fall, right forearm pain COMPARISON: None FINDINGS: 2 views of the right forearm were obtained. There is no acute fracture or dislocation. Old healed distal radius fracture is noted. The joints are intact. There are no soft tissue abnormalities. IMPRESSION: No acute process. Reviewed, Interpreted and Dictated by Vidhi Saxena MD Transcribed by Brinda García Authenticated and [facility]
--- NOTE | 2024-09-18 08:04 | ECG_ITS ---
APPROVED REPORT Exam: Resting ECG HR:103 bpm ECG Measurements Heart Rate 103 AXES QRSd 89 QRS -20 QT 345 T 46 QTc 405 Conclusion ATRIAL FIBRILLATION WITH RAPID VENTRICULAR RESPONSE ABNORMAL RHYTHM ECG UNCONFIRMED REPORT Artifact in lead V2, however likely sinus tachycardia with ventricular rate of [address] elevation or depression. Electronically signed by : ARIA CROW, 09/19/2024 07:32:45
--- NOTE | 2024-09-18 08:04 | HMH.EDGENADL ---
Discharge Plan Disposition Patient Disposition: Admitted Prescriptions Prescriptions: No Action acetaminophen 500 mg capsule 500 mg PO Q4H PRN (Reason: Pain/Fever) atorvastatin 20 mg tablet 20 mg PO DAILY Qty: 90 0RF clozapine 100 mg tablet 100 mg PO HS Rx Instructions: TAKE 1 TABLET BY MOUTH AT BEDTIME (PLEASE FAX CBC WITH DIFF TO PHARMACY EVERY 4 WEEKS) furosemide 40 mg tablet 40 mg PO DAILY 30 Days Qty: 30 0RF Rx Instructions: Take one tablet by mouth once daily levothyroxine 100 mcg tablet 100 mcg PO DAILY omeprazole 20 mg capsule,delayed release(DR/EC) 20 mg PO DAILY Xarelto 20 mg tablet 20 mg PO QPMWITHMEAL Rx Instructions: take one tab po at 5pm dextromethorphan-guaifenesin [Diabetic Tussin DM] 10-100 mg/5 mL liquid 10 ml PO Q6HP PRN (Reason: Cough) clozapine 50 mg tablet 50 mg PO HS Rx Instructions: TAKE 1 TABLET BY MOUTH AT BEDTIME, GIVE WITH 100MG TABLET TO TOTAL 150MG metformin 500 mg tablet 500 mg PO DAILY lactulose 10 gram/15 mL Solution 30 ml PO DAILY PRN (Reason: Bowel care) levofloxacin 750 mg tablet 750 mg PO DAILY 6 Days Qty: 6 0RF Referrals Follow up/Referrals: Provider,Referral, MD [Primary Care Provider, Medical] - See instructions Clinical Impressions Clinical Impression: Altered mental status, Suicidal ideation, Metabolic acidosis Print Language Print Language: Yoruba Discharge ED Provider: Luis Carlos Brush General Adult HPI General Chief complaint: Fall Stated complaint: TRAUMA ALERT Time Seen by Provider: 09/18/24 08:02 Mode of Arrival: EMS Source of Information: EMS Limitations: Altered Mental Status History of Present Illness HPI narrative: Ramin Albert is a 73y female with a history of recent UTI on levofloxacin, hyperlipidemia, schizoaffective schizophrenia, obesity, COPD who presents to the emergency department via EMS from [facility] for decreased responsiveness. Per EMS and [facility] report, patient took her morning medications this morning and approximately 10 minutes later was found in the floor and altered. Initially they state that she had snoring respirations. EMS states that en route, she became more alert and was moving all extremities with fingerstick blood glucose of 170. No meds were given and route. On arrival, patient is alert, responding to questions, oriented to self only. They state that she baseline has some confusion. Patient does take Xarelto. Patient complains of pain to her right forearm. Related Data Home Medications ?Medication ?Instructions ?Recorded ?Confirmed lactulose 10 gram/15 mL oral 30 ml PO DAILY PRN Bowel care 06/22/22 09/18/24 solution acetaminophen 500 mg capsule 500 mg PO Q4H PRN Pain/Fever 02/12/23 09/18/24 clozapine 100 mg tablet 100 mg PO HS Mood 02/12/23 09/18/24 clozapine 50 mg tablet 50 mg PO HS mood 02/12/23 09/18/24 dextromethorphan-guaifenesin 10 10 ml PO Q6HP PRN Cough 02/12/23 09/18/24 mg-100 mg/5 mL oral liquid (Diabetic Tussin DM) levothyroxine 100 mcg tablet 100 mcg PO DAILY thyroid 02/12/23 09/18/24 omeprazole 20 mg capsule,delayed 20 mg PO DAILY Acid reflux 02/12/23 09/18/24 release rivaroxaban 20 mg tablet (Xarelto) 20 mg PO QPMWITHMEAL Blood 02/12/23 09/18/24 thinner/hx PE metformin 500 mg tablet 500 mg PO DAILY 02/19/23 09/18/24 Previous Rx's ?Medication ?Instructions ?Recorded atorvastatin 20 mg tablet 20 mg PO DAILY Cholesterol #90 tabs 02/12/23 furosemide 40 mg tablet 40 mg PO DAILY edema 30 days #30 02/12/23 tabs levofloxacin 750 mg tablet 750 mg PO DAILY 6 days #6 tabs 09/15/24 Allergies Allergy/AdvReac Type Severity Reaction Status Date / Time codeine Allergy Mild Unknown Verified 09/18/24 08:19 allergy reaction Penicillins Allergy Mild Unknown Verified 09/18/24 08:19 [facility] Dis[facility]: The information contained in this section may have been updated after the patient was seen, as this information can be updated by other users. Medical History Weight loss Pulmonary embolism Diabetes Schizo affective schizophrenia Hyperlipidemia Delirium due to general medical condition Weakness generalized COPD (chronic obstructive pulmonary disease) Hypothyroidism Pulmonary HTN Hypothyroidism (acquired) Obesity (BMI 30-39.9) Social History Smoking Status: Former smoker tobacco type: cigarettes packs per day: 0 second hand exposure: No alcohol intake: never current occupational status: disabled Travel in the last 8 weeks?: None household members: other housing: [facility] current occupational exposures/hazards: No caffeine: Yes Have you lived/traveled outside US in past 30 days?: No Contact w/someone who lives/traveled outside US past 30 days?: No Exposure to someone with infectious disease in past 14 days?: No Do you have a fever (greater than 100.4 F or 38 C)?: No Have you tested positive for COVID-19?: No Exposed to someone with COVID-19 in past 14 days?: No Do you have a sore throat?: No Do you have a cough?: No Do you have any weakness?: No Do you have any diarrhea?: No Are you experiencing any unusual bleeding?: No Do you have any muscle aches/pain?: No Do you have any abdominal pain?: No Are you experiencing loss of taste or smell?: No Other Medical History Have you received the Flu Vaccine for this season: No Have you received the Pneumonia Vaccine: No ROS Obtained: Yes Systems reviewed as appropriate & no additional complaints except as documented Physical Exam General General appearance: alert, in no apparent distress and obese Head Head exam: other (small hematoma and bruising to mid anterior forehead.) Eye Eye exam: Present normal appearance, PERRL and EOMI ENT ENT exam: Present normal external ear exam Neck Neck exam: Present other (Cervical collar in place. No midline C/T/L-spine tenderness.) Chest Chest inspection: Present symmetric chest wall rise; Absent tenderness Respiratory Respiratory exam: Present normal lung sounds bilaterally; Absent respiratory distress, wheezes or stridor Cardiovascular Cardiovascular exam: Present regular rate and normal rhythm Abdominal Exam Abdominal exam: Present soft; Absent distention, tenderness or guarding Extremities Exam Extremities exam: Present normal inspection, tenderness (Right mid forearm without deformity) and other (Moving all extremities spontaneously, no deformity, tenderness other than the right forearm) Back Exam Back exam: Present normal inspection; Absent tenderness (No tenderness to the C/T/L-spine) Neurological Exam Neurological exam: Present alert and other (Oriented to self only, following commands appropriately, moving all extremities spontaneously. GCS 14) Skin Skin exam: Present warm and dry Medical Decision Making Medical Records Screening: Per USPSTF and CDC recommendations, given the prevalence of disease in our region, it is our hospital?s policy to screen for HIV and viral Hepatitis for all patients aged 18 and over and those with ongoing risk factors. Young Inquiry Pt receiving controlled substance: No Vital Signs: 09/18/24 07:51 09/18/24 08:01 09/18/24 08:09 Temperature 98.2 F Temperature Source Oral Pulse Rate 106 H Pulse Rate [Left Radial] 105 H 109 H Respiratory Rate 18 17 20 Blood Pressure 120/73 Blood Pressure [Right Arm] 140/80 136/70 Blood Pressure Mean Blood Pressure Mean [Right Arm] 100 92 Blood Pressure Source [Right Arm] Manual Cuff/ Auscultation 02 Sat by Pulse Oximetry 97 99 97 Oxygen Delivery Method Room Air Room Air 09/18/24 08:54 09/18/24 09:00 09/18/24 09:30 Temperature Temperature Source Pulse Rate 103 H Pulse Rate [Left Radial] Respiratory Rate 21 11 L 18 Blood Pressure 163/83 H 157/89 H 151/63 H Blood Pressure [Right Arm] Blood Pressure Mean Blood Pressure Mean [Right Arm] Blood Pressure Source [Right Arm] 02 Sat by Pulse Oximetry 98 Oxygen Delivery Method 09/18/24 10:00 09/18/24 10:30 09/18/24 11:00 Temperature Temperature Source Pulse Rate 100 H 101 H 106 H Pulse Rate [Left Radial] Respiratory Rate 18 20 18 Blood Pressure 159/83 H 145/65 H 137/55 L Blood Pressure [Right Arm] Blood Pressure Mean 93 94 82 Blood Pressure Mean [Right Arm] Blood Pressure Source [Right Arm] 02 Sat by Pulse Oximetry 99 99 98 Oxygen Delivery Method 09/18/24 11:30 Temperature Temperature Source Pulse Rate 100 H Pulse Rate [Left Radial] Respiratory Rate 20 Blood Pressure 137/77 Blood Pressure [Right Arm] Blood Pressure Mean 97 Blood Pressure Mean [Right Arm] Blood Pressure Source [Right Arm] 02 Sat by Pulse Oximetry 99 Oxygen Delivery Method Lab Data Lab Results 09/18/24 07:59: WBC 9.3, RBC 3.96 L, Hgb 11.5 L, Hct 36.8 L, MCV 92.9, MCH 29.0, MCHC 31.3 L, RDW 15.2, Plt Count 231, MPV 10.3, Neut % (Auto) 41.7, Lymph % (Auto) 51.4 H, Scott % (Auto) 5.8, Eos % (Auto) 0.0 L, Baso % (Auto) 0.3, Neut # (Auto) 3.9, Lymph # (Auto) 4.8 H, Scott # (Auto) 0.5, Eos # (Auto) 0.0, Baso # (Auto) 0.0, VBG pH 7.27 L, VBG pCO2 45.1, VBG pO2 45.0 H, VBG HCO3 20.3 L, VBG Total CO2 21.7 L, VBG O2 Saturation 77.6 H, VBG Base Excess -6.6 L, VBG Lactic Acid 4.7 H, Sodium 140, Potassium 3.1 L, Chloride 106, Carbon Dioxide 25, Anion Gap 12.1, BUN 14, Creatinine 1.10 H, Estimated Creat Clear 66, Estimated GFR 49 L, Est GFR ( Amer) 59, Glucose 187 H, Calcium 8.6, Magnesium 1.6, Total Bilirubin 0.7, AST 30, ALT 18, Alkaline Phosphatase 127 H, Total Creatine Kinase 88, Troponin I < 0.01, Total Protein 6.2 L, Albumin 4.1, Globulin 2.1, Albumin/Globulin Ratio 2.0 H, Salicylates < 1.0 L, Acetaminophen < 10 L, Plasma/Serum Alcohol < 10 09/18/24 08:10: Urine Color Yellow, Urine Appearance Clear, Urine pH 6.5, Ur Specific Pease 1.015, Urine Protein Negative, Urine Glucose (UA) Negative, Urine Ketones Negative, Urine Blood Trace A, Urine Nitrate Negative, Urine Bilirubin Negative, Urine Urobilinogen 0.2, Ur Leukocyte Esterase Negative, Urine RBC 5-10, Urine WBC Occasional, Ur Squamous Epith Cells Occasional, Urine Bacteria Trace 09/18/24 08:11: Urine Opiates Screen Positive H, Urine Methadone Screen Negative, Ur Barbituates Screen Negative, Ur Phencyclidine Scrn Negative, Ur Amphetamines Screen Negative, U Benzodiazepines Scrn Negative, Urine Cocaine Screen Negative, U Marijuana (THC) Screen Negative 09/18/24 09:05: Ammonia 22 09/18/24 10:31: VBG pH 7.38, VBG pCO2 45.1, VBG pO2 63.2 H, VBG HCO3 26.2, VBG Total CO2 27.6 H, VBG O2 Saturation 91.9 H, VBG Base Excess 0.8, VBG Lactic Acid 2.5 H 09/18/24 07:59 09/18/24 07:59 Orders (Tests/Meds): ED MEDICATIONS Discontinued Medications Generic Name Dose Route Start Last Admin Trade Name Yanelis PRN Reason Stop Dose Admin Lactated Ringer's 500 mls @ 250 mls/hr 09/18/24 08:17 09/18/24 08:49 Lactated Ringer's 1000 Ml Bag IV 09/18/24 10:16 250 mls/hr .Q2H ONE Administration Iopamidol 75 ml 09/18/24 08:23 09/18/24 08:25 Iopamidol-370 (76%);100ml Bottle IV 09/18/24 08:24 75 ml ONCE ONE Administration Sodium Chloride 50 ml 09/18/24 08:23 09/18/24 08:25 0.9 % Sodium Chloride 50 Ml Vial IV 09/18/24 08:24 50 ml ONCE ONE Administration Sodium Chloride 10 ml 09/18/24 08:23 09/18/24 08:25 Sodium Chloride 0.9% 10ml Syr (Rad Only) IV 09/18/24 08:24 10 ml ONCE ONE Administration ORDERS Category Date Time Status CT abdomen pelvis w con Stat Cat Scan 09/18/24 11:[address] angio chest PE protocol Stat Cat Scan 09/18/24 08:[address] cervical spine wo con Stat Cat Scan 09/18/24 08:[address] head/brain wo con Stat Cat Scan 09/18/24 08:01 Completed Behavioral Health Consult [Consult to Behavioral Health Cons 09/18/24 11:41 Active ] [CONS] Routine CXR --portable [XR chest portable] Stat Exams 09/18/24 08:01 Completed Forearm XR right 2 views [XR forearm RT 2V] Stat Exams 09/18/24 08:03 Completed Pelvis XR 1-2 views [XR pelvis 1-2V] Stat Exams 09/18/24 08:01 Completed Wrist XR right 2 views [XR wrist RT 2V] Stat Exams 09/18/24 08:03 Completed Acetaminophen Stat Lab 09/18/24 07:59 Completed Ammonia Stat Lab 09/18/24 09:05 Completed Blood alcohol [Ethyl Alcohol] Stat Lab 09/18/24 07:59 Completed CBC w/Auto Diff [Complete Blood Count Auto Diff] Stat Lab 09/18/24 07:59 Completed CK [Creatine Kinase] Stat Lab 09/18/24 07:59 Completed CMP [Comprehensive Metabolic Panel] Stat Lab 09/18/24 07:59 Completed Magnesium Stat Lab 09/18/24 07:59 Completed Salicylate Stat Lab 09/18/24 07:59 Completed Troponin I Q3H Lab 09/18/24 11:20 Received Troponin I Q3H Lab 09/18/24 14:15 Ordered Troponin I Stat Lab 09/18/24 07:59 Completed UA [Urinalysis and Microscopic] Stat Lab 09/18/24 08:10 Completed UDS [Drug Screen,Urine] Stat Lab 09/18/24 08:11 Completed Blood Culture Stat Micro 09/18/24 08:53 Received VBG [Venous Blood Gas] Stat RT 09/18/24 07:59 Completed VBG [Venous Blood Gas] Stat RT 09/18/24 08:30 Ordered VBG [Venous Blood Gas] Stat RT 09/18/24 10:31 Completed ECG Data Tracing #1: I reviewed this ECG and interpreted as documented below: Significant artifact with EKG. No obvious STEMI. Appears to be sinus tachycardia. Will obtain repeat EKG Tracing #2: I reviewed this ECG and interpreted as documented below: Sinus tachycardia with a ventricular rate of [address] elevation or depression. Stable for amount of artifact, likely from patient shivering she states that she is cold at this time Medical Decision Narrative: Ramin Albert is a 73y female with a history of recent UTI on levofloxacin, DM, hyperlipidemia, schizoaffective schizophrenia, intellectual disability, obesity, COPD who presents to the emergency department via EMS from [facility] for decreased responsiveness. Per EMS and [facility] report, patient took her morning medications this morning and approximately 10 minutes later was found in the floor and altered. Initially they state that she had snoring respirations. EMS states that en route, she became more alert and was moving all extremities with fingerstick blood glucose of 170. No meds were given and route. On arrival, patient is alert, responding to questions, oriented to self only. They state that she baseline has some confusion. Patient does take Xarelto. Patient complains of pain to her right forearm. On arrival, patient was trauma alerted as it is suspected the patient fell out of the bed, hitting her head. Patient is mildly tachycardic with a heart rate of 103 bpm. Normotensive. Breathing comfortably on room air with appropriate oxygen saturation. Afebrile. Physical exam, as stated above, revealed an alert female in no significant distress. Breath sounds are present bilaterally. She is maintaining her airway appropriately and answering questions. Fingerstick blood glucose on arrival is 180. She is moving all extremities spontaneously. GCS 14 due to confusion. She has no tenderness over the anterior chest wall or abdomen. Abdomen is soft and nondistended. She has tenderness over the right mid forearm but no deformity and pulses are intact throughout all extremities. Full range of motion of the wrist and shoulder. She has some edema in her bilateral lower extremities. No tenderness over the mid C/T/L spine without deformity or step-off. Patient is a DNR. Differential diagnosis includes, but is not limited to: Intracranial hemorrhage, pulmonary embolism, cervical spine fracture, polypharmacy, electrolyte derangement, metabolic derangement, TIA, pneumonia, hyperammonemia, sepsis, among others. Per documentation review, patient was recently admitted to the hospital and discharged on 09/15/2024 for the hospitalist service after being diagnosed with a urinary tract infection. She was also having some suicidal ideation at that time. Reportedly at the time of discharge, she is alert and oriented and was answering all questions appropriately but was drowsy but improved by that afternoon. She denied any suicidal ideation at that time. Medication list sent with patient from [facility] includes acetaminophen, Guaiasorb, lactulose, atorvastatin, clozapine at night, Levaquin 750 mg daily, furosemide, levothyroxine, metformin, omeprazole, Xarelto. She does have a history of unspecified encephalopathy in the past. CT imaging interpreted by me personally prior to official radiology read. No intracranial hemorrhage, mass or midline shift. There does appear to be senescent changes. No cervical spine fractures. No pulmonary embolism or groundglass opacities to suggest pneumonia. Will follow-up with official radiology interpretation. Radiology interpretation without traumatic injury or other acute findings within the chest. Laboratory studies show VBG with metabolic acidosis with pH of 7.27, lactic acid of 4.7. pCO2 normal at 45.1 and bicarbonate low at 20.3. Will obtain blood cultures and give 1 L of lactated ringer. CMP shows sodium normal at 140, potassium mildly low at 3, no elevated anion gap. Creatinine stable at 1.10 and BUN normal at 14. Glucose normal at 187. Liver enzymes within normal limits. Salicylate and acetaminophen levels negative. No leukocytosis, hemoglobin stably low at 11.5, hematocrit 36.8, platelets normal at 231, initial troponin less than 0.01. Ammonia normal at 22, UA with occasional white blood cells, trace bacteria but nitrate negative and leukocyte Estrace negative. There is blood in her urine, however this could be from catheterized urine sample. UDS is positive for opiates but otherwise negative. Alcohol level negative. We called [facility] again who confirmed that the medication list that we have is her active medication list and she is not currently on any opiate medications. On reassessment, patient still somnolent but will awaken with verbal stimuli. She is oriented to self and knows that she is in a hospital but does not know which 1. She does not know what year it is. Based on previous documentation, patient was completely alert and oriented upon discharge. Will obtain repeat VBG, however given her continued confusion and mild tachycardia despite IV fluids, is felt that she would benefit from admission until she returns to her baseline mental status and her tachycardia improves. I discussed the patient case with Dr. Cisse who agreed to come evaluate the patient as he concurs this is likely polypharmacy given her positive opiate UDS without prescriptions for opiates. Patient's repeat VBG shows improvement of lactate to 2.7 and she is no longer acidotic and HR is around 100bpm Upon Dr. Cisse's evaluation, patient is complaining of some passive suicidal ideation and states that she has been falling recently. He called [facility] who stated that she has not had any opiate medication given to her that they are aware of. Given patient's continued confusion, now with passive suicidal ideation, I am in agreement with Dr. Cisse for her to be admitted for behavioral health evaluation when she returns to her baseline. Critical Care Critical Care Time Critical Care Time: Yes Attestation: On 09/18/24, the high probability of a clinically significant, sudden or life threatening deterioration of the following system(s) required my full and direct attention, intervention and personal management. The time I documented below is in addition to time spent performing reported procedures but includes the following listed in this critical care notation. Total Time Total Critical Care Time: 35
[2024-09-18 08:08] LABS: VBG HCO3 20.3 mmol/L (23-30); VBG PCO2 45.1 mmol/L (35-51); VBG PH 7.27 mmol/L (7.31-7.41); VBG PO2 45.0 mmol/L (28-40)
--- NOTE | 2024-09-18 08:10 | CT_ITS ---
FINAL REPORT TECHNIQUE: Thin section axial CT with contrast with multiplanar reconstruction This study was performed with techniques to keep radiation doses as low as reasonably achievable, (ALARA). Individualized dose reduction techniques using automated exposure control or adjustment of mA and/or kV according to the patient's size were employed. CLINICAL HISTORY: AMS, syncope COMPARISON: 12/01/2018 FINDINGS: CTA CHEST: Pulmonary vessels enhance in normal fashion without evidence of embolism. There is enlargement of the pulmonary central vasculature suggesting pulmonary hypertension. Thoracic aorta shows no dissection or aneurysm. Scattered mild atelectasis is present. There is no evidence of pneumonia or pulmonary edema. There is no significant pleural effusion. There is no significant pericardial effusion. No mediastinal or hilar adenopathy is present. A small hiatal hernia is present. There is a moderate T9 compression fracture, favor chronic, new since 2019. There is also an old left proximal humeral fracture. IMPRESSION: 1. No evidence of pulmonary embolism or dissection. 2. Enlargement of the pulmonary central vasculature suggesting pulmonary hypertension. 3. Moderate T9 compression fracture, favor chronic, new since 2019. Reviewed, Interpreted and Dictated by Vidhi Saxena MD Transcribed by Varsha Jiménez Authenticated and [facility]
[2024-09-18 08:15] LABS: Microscopic, Urine URINE MICROSCOPIC (MICROSCOPIC)
[2024-09-18 08:17] LABS: Lactate Venous 4.7 mmol/L (0.4-2.0)
[2024-09-18] MEDS: 0.9 % SODIUM CHLORIDE 50 ML VIAL IV (08:25)
[2024-09-18] MEDS: IOPAMIDOL-370 (76%);100ML BOTTLE 75 ML IV ×2 (08:25→12:30)
[2024-09-18] MEDS: SODIUM CHLORIDE 0.9% 10ML SYR (RAD ONLY) 10 ML IV ×2 (08:25→12:30)
[2024-09-18 08:42] LABS: Anion Gap 12.1 mEq/L (5-15); Blood Urea Nitrogen 14 mg/dl (7-17); Carbon Dioxide 25 mmol/L (22.0-30.0); Chloride 106 mmol/L (98-107); Creatinine Clearance Estimated 66 mL/min (50-200); Creatinine,Serum 1.10 mg/dl (0.52-1.04); Estimated Glomerular Filt Rate 49 ml/min (>60); GFR (African American) 59 ML/MIN (>60); Potassium 3.1 mmoL/L (3.5-5.1); Sodium 140 mmol/L (136-145); Troponin I < 0.01 ng/ml (0.00-0.034)
--- OUTSIDE RECORDS SUMMARY | 2024-09-18 08:42 | XMS_ITS | Clinical Summary ---
Author Organization [facility] Address [address] [place] [address] [address] [place] [address] Phone Care Team Providers Care Minibus Driver Name Role Phone Unavailable Unavailable Conditions or Problems No information available. Medications No information available. Medications Administered No information available. Allergies, Adverse Reactions, Alerts No information available. Results No information available. Plan of Care No information available. Procedures No information available. Vital Signs No information available. Immunizations No information available. Advance Directives No information available.
[2024-09-18 08:43] LABS: Alanine Aminotransferase 18 U/L (12-78); Albumin Level 4.1 g/dl (3.5-5.0); Albumin/Globulin Ratio 2.0 (1.1-1.8); Alkaline Phosphatase 127 U/L (38-126); Aspartate Amino Transferase 30 U/L (14-36); Bilirubin,Total 0.7 mg/dl (0.2-1.3); Calcium 8.6 mg/dl (8.4-10.2); Globulin 2.1 g/dL (1.3-3.2); Glucose 187 mg/dl (74-100); Magnesium 1.6 mg/dl (1.6-2.3); Salicylate < 1.0 mg/dL (2.0-20.0); Total Protein,Serum 6.2 g/dl (6.3-8.2)
--- OUTSIDE RECORDS SUMMARY | 2024-09-18 08:43 | XMS_ITS | Clinical Summary ---
Author Organization [facility] Address [address] [place] [address] Phone Care Team Providers Care Therapist Rrt Name Role Phone Unavailable Primary Care Provider [...] 8:24 AM EST) Cholesterol 196 <=200 mg/dL [facility] Comment: < 200 Desirable 200 - 239 Borderline High >= 240 High Triglyceride 95 <=150 mg/dL [facility] Comment: < 150 Normal 150 - 199 Borderline High 200 - 499 High >= 500 Very High HDL 55 >=40 mg/dL [facility] Comment: > 60 Optimal 40 - 60 Acceptable < 40 Low Blood specimen (specimen) UPPER LIMB STRUCTURE / Unknown 01/07/2011 8:24 AM EST 01/07/2011 2:35 PM EST us Mario Hardy MD CHEMISTRY ORDERABLES Final Resu lt [facility] [address] [place] [address] * (ABNORMAL) RENAL FUNCTION PANEL (01/07/2011 8:24 AM EST) Sodium 141 135 - 143 mmol/L [facility] Potassium 4.4 3.5 - 5.0 mmol/L [facility] Chloride 107 98 - 108 mmol/L [facility] Total CO2 29 22 - 31 mmol/L [facility] Anion Gap 5(L) 7 - 16 mmol/L [facility] Calcium 9.3 8.6 - 10.3 mg/dL [facility] Glucose Lvl 91 70 - 100 mg/dL [facility] BUN 15 7 - 19 mg/dL [facility] Creatinine 0.7 0.6 - 1.0 mg/dL [facility] Albumin 3.7 3.5 - 4.5 gm/dL [facility] Phosphorus 4.0 2.7 - 4.5 mg/dL [facility] GFR Afr Am >60 [facility] Comment: GFR is estimated using creatinine, [...] or less GFR Non Afr Am >60 [facility] Blood specimen (specimen) UPPER LIMB STRUCTURE / Unknown 01/07/2011 8:24 AM EST 01/07/2011 8:24 AM EST us Mario Hardy MD CHEMISTRY ORDERABLES Edited [facility] [address] [place] [address] * MM MAMMO DIGITAL DIAGNOSTIC W CAD BILAT (08/20/2010 9:45 AM EDT) Anatomical Region Laterality Modality Breast Bilateral Mammography 08/21/2010 12:3 8 PM EDT Impressions 08/21/2010 12:39 PM EDT : No radiographic evidence of malignancy ([id number]) Stable asymmetric right breast tissue. No direct/indirect [...] ~ IMPRESSION: No radiographic evidence of malignancy ([id number]) Stable asymmetric right breast tissue. No direct/indirect [...] AM EDT) Hgb A1c 5.4 <=7.0 % [facility] Comment: Reference Interval for Hgb A1c Hgb A1c Interpretation < 6.0 Non-Diabetic Range 6.0 - 7.0 ADA Therapeutic Target > 7.0 Action suggested Blood specimen (specimen) UPPER LIMB STRUCTURE / Unknown 01/01/2010 8:08 AM EDT 01/01/2010 2:27 PM EDT us Mario Hardy MD CHEMISTRY ORDERABLES Final Resu lt [facility] [address] [place] [address] from Last 3 Months or Most Recently Relevant to Health Maintenance Insurance [facility] [address] [facility] [address] MEDICARE PART B [facility] [place] [address] MEDICARE PART B
[2024-09-18 08:44] LABS: Acetaminophen < 10 ug/ml (10-30)
--- NOTE | 2024-09-18 08:45 | ECG_ITS ---
APPROVED REPORT Exam: Resting ECG HR:107 bpm ECG Measurements Heart Rate 107 AXES QRSd 90 QRS -27 QT 343 T 36 QTc 405 Conclusion SUPRAVENTRICULAR TACHYCARDIA BORDERLINE LEFT AXIS DEVIATION [QRS AXIS < -20] ABNORMAL RHYTHM ECG UNCONFIRMED REPORT Significant artifact, however appears to be sinus tachycardia. No ST elevation or depression. Electronically signed by : ARIA CROW, 09/19/2024 07:36:37
[2024-09-18] MEDS: LACTATED RINGERS 1000ML 500 ML 250 ML IV (08:49)
[2024-09-18 08:59] LABS: Hematocrit 36.8 % (37.0-47.0); Hemoglobin 11.5 g/dL (12.2-16.2); Mean Corpuscular HGB Conc 31.3 g/dL (31.8-35.4); Mean Corpuscular Hemoglobin 29.0 pg (27.0-31.2); Mean Corpuscular Volume 92.9 fl (81-99); Platelet Count 231 K/mm3 (142-424); Red Blood Count 3.96 M/mm3 (4.20-5.40); Red Cell Distribution Width-SD 52.0 fL; White Blood Count 9.3 K/mm3 (4.8-10.8)
[2024-09-18 09:00] LABS: Immature Granulocytes % 0.8 %; Nucleated Red Blood Cells % 0 %
[2024-09-18 09:21] LABS: Color,Urine Yellow (Yellow)
[2024-09-18 09:22] LABS: Bilirubin,Urine Negative (Negative); Glucose,Urine (UA) Negative (Negative); Ketones,Urine Negative (Negative); PH,Urine 6.5 (5.0-8.5); Protein,Urine Negative (Negative); Specific Gravity, Urine 1.015 (1.005-1.030)
[2024-09-18 09:23] LABS: Leukocyte Esterase,Urine Negative (Negative); Urobilinogen,Urine 0.2 EU/dl (0.2)
[2024-09-18 09:34] LABS: WBC,Urine Occasional #/hpf (0-3)
[2024-09-18 09:35] LABS: Bacteria,Urine Trace /lpf; Squamous Epithelial Cell,Urine Occasional #/hpf (0-5)
[2024-09-18 09:45] LABS: Amphetamine/Metha Screen,Urine Negative ng/ml (<1000); Barbiturates Screen,Urine Negative ng/ml (<200); Benzodiazepines Screen,Urine Negative ng/ml (<200); Methadone Screen,Urine Negative ng/ml (<300); Opiate Screen,Urine Positive ng/ml (<300); Phencyclidine Screen,Urine Negative ng/ml (<25)
[2024-09-18 09:50] LABS: Ammonia 22 umol/L (9-30)
[2024-09-18 10:26] LABS: Creatine Kinase 88 U/L (30-135)
[2024-09-18 10:50] LABS: VBG HCO3 26.2 mmol/L (23-30); VBG PCO2 45.1 mmol/L (35-51); VBG PH 7.38 mmol/L (7.31-7.41); VBG PO2 63.2 mmol/L (28-40)
[2024-09-18 10:51] LABS: Lactate Venous 2.5 mmol/L (0.4-2.0)
--- NOTE | 2024-09-18 11:35 | PC.NURSE ---
DR HAAS AT BEDSIDE
--- NOTE | 2024-09-18 11:41 | CT_ITS ---
FINAL REPORT TECHNIQUE: IV contrast enhanced exam This study was performed with techniques to keep radiation doses as low as reasonably achievable, (ALARA). Individualized dose reduction techniques using automated exposure control or adjustment of mA and/or kV according to the patient's size were employed. CLINICAL HISTORY: RLQ pain COMPARISON: None FINDINGS: CT ABDOMEN PELVIS WITH CONTRAST: Abdomen: Lung bases are clear. A small hiatal hernia is present. The gallbladder is unremarkable. Liver has an unremarkable CT appearance. The spleen, pancreas and adrenal glands are unremarkable. There is mild left renal scarring present, as well as a small right renal cyst. No evidence of free air or free fluid is identified. No bowel obstruction or fluid collection is seen. Pelvis: The appendix is normal in appearance. Pelvic bowel loops are unremarkable. No fluid collection or adenopathy is seen. The bladder is distended from a prior CT during which intravenous contrast was administered. No fracture of the bony pelvis is identified. IMPRESSION: 1. No evidence of bowel obstruction or appendicitis. 2. No acute abnormality in the abdomen or pelvis. Reviewed, Interpreted and Dictated by Vidhi Saxena MD Transcribed by Varsha Jiménez Authenticated and [facility]
[2024-09-18 11:55] LABS: Troponin I < 0.01 ng/ml (0.00-0.034)
[2024-09-18 12:10] LABS: Reflex Lactic Add Lactic Reflex
--- NOTE | 2024-09-18 12:11 | PC.NURSE ---
called general warehouse associate for bed assignment
--- NOTE | 2024-09-18 12:37 | PC.NURSE ---
called report to kaila alfonso
--- NOTE | 2024-09-18 12:39 | P.HP_ITS ---
History of Present Illness *Admission Date: 09/18/24 *Reason for visit:: Fall, confusion *History of present illness: Ramin Albert is a 73-year-old female with medical history significant for schizophrenia, type 2 diabetes, hypothyroidism, pulmonary embolism, GERD who presents from [facility] for a fall and altered mental status. Per nursing, patient was doing well until she was given her morning meds, and after 10 minutes was heard yelling from her room and altered. Per nursing, at baseline patient is alert and oriented, pleasant, and ambulates independently. On my evaluation, patient was quite confused, talking nonsensically, but also endorsing passive suicidal ideation. She stated she tried suicide attempt at home, and when asked why she said there is heaven and there is hell and there is only one way to get there . When asked to elaborate, patient was again speaking nonsensically. I called [facility] personally and they stated they gave patient her regular morning medications including atorvastatin, Lasix, levofloxacin, levothyroxine, metformin, omeprazole. UDS was positive for opioids here, so I inquired about that and they stated that was not part of her med list. Stated it may be false positive for getting Rocephin in our facility a few days ago. At this time, patient does not seem medically stable or at baseline mentation for psychiatric evaluation by empath in the ED. Therefore, I discussed case with ED provider and decision was made to admit patient for acute toxic encephalopathy and suicidal ideation. [facility] Disclaimer: The information contained in this section may have been updated after the patient was seen, as this information can be updated by other users. Medical History Weight loss Pulmonary embolism Diabetes Schizo affective schizophrenia Hyperlipidemia Delirium due to general medical condition Weakness generalized COPD (chronic obstructive pulmonary disease) Hypothyroidism Pulmonary HTN Hypothyroidism (acquired) Obesity (BMI 30-39.9) Social History (Updated 09/18/24 @ 13:09 by Leanna Pedro RN) Smoking Status: Former smoker tobacco type: cigarettes packs per day: 0 second hand exposure: No alcohol intake: never current occupational status: disabled Travel in the last 8 weeks?: None household members: other housing: detention current occupational exposures/hazards: No caffeine: Yes Have you lived/traveled outside [place] in past 30 days?: No Contact w/someone who lives/traveled outside US past 30 days?: No Exposure to someone with infectious disease in past 14 days?: No Do you have a fever (greater than 100.4 F or 38 C)?: No Have you tested positive for COVID-19?: No Exposed to someone with COVID-19 in past 14 days?: No Do you have a sore throat?: No Do you have a cough?: No Do you have any weakness?: No Are you experiencing any nausea/vomitting?: No Do you have any diarrhea?: No Are you experiencing any unusual bleeding?: No Do you have any muscle aches/pain?: No Do you have any abdominal pain?: No Are you experiencing loss of taste or smell?: No Other Medical History Have you received the Flu Vaccine for this season: No Have you received the Pneumonia Vaccine: No Meds Home Medications and Allergies Home Medications ?Medication ?Instructions ?Recorded ?Confirmed ?Type lactulose 10 gram/15 mL oral 30 ml PO DAILY PRN Bowel care 06/22/22 09/18/24 History solution acetaminophen 500 mg capsule 500 mg PO Q4H PRN Pain/Fe vargas 02/12/23 09/18/24 History atorvastatin 20 mg tablet 20 mg PO DAILY Cholesterol # 90 tabs 02/12/23 09/18/24 Rx clozapine 100 mg tablet 100 mg PO HS 02/12/23 History clozapine 50 mg tablet 50 mg PO HS 02/12/23 5 History dextromethorphan-guaifenesin 10 10 ml PO Q6HP PRN Coug h 02/12/23 09/18/24 History mg-100 mg/5 mL oral liquid (Diabetic Tussin DM) furosemide 40 mg tablet 40 mg PO DAILY edema 30 days #30 02/12/23 09/18/24 Rx tabs levothyroxine 100 mcg tablet 100 mcg PO DAILY 02/12/23 09/18/24 History omeprazole 20 mg capsule,delayed 20 mg PO DAILY 09/18/24 History release rivaroxaban 20 mg tablet (Xarelto) 20 mg PO QPMWITHMEA L Blood 02/12/23 09/18/24 History thinner/hx PE metformin 500 mg tablet 500 mg PO DAILY 02/19/23 History levofloxacin 750 mg tablet 750 mg PO DAILY 6 days #6 t abs 09/15/24 09/18/24 Rx New Prescriptions to Start Prescriptions: Allergies Allergy/AdvReac Type Severity Reaction Status Date / Time codeine Allergy Mild Unknown Verified 09/18/24 08:19 allergy reaction Penicillins Allergy Mild Unknown Verified 09/18/24 08:19 allergy reaction Exam Data for Last 24 hours Vital signs and Labs for Last 24 Hours: Temp Pulse Resp BP Pulse Ox O2 Del Method 98.2 F 100 H 20 137/77 99 Room Air 09/18/24 08:09 09/18/24 11:30 09/18/24 11:30 09/18/24 11:30 09/18/24 11:30 09/18/24 08:09 Laboratory Results - last 24 hr 09/18/24 07:59: WBC 9.3, RBC 3.96 L, Hgb 11.5 L, Hct 36.8 L, MCV 92.9, MCH 29.0, MCHC 31.3 L, RDW 15.2, Plt Count 231, MPV 10.3, Neut % (Auto) 41.7, Lymph % (Auto) 51.4 H, [place] % (Auto) 5.8, Eos % (Auto) 0.0 L, Baso % (Auto) 0.3, Neut # (Auto) 3.9, Lymph # (Auto) 4.8 H, [place] # (Auto) 0.5, Eos # (Auto) 0.0, Baso # (Auto) 0.0, VBG pH 7.27 L, VBG pCO2 45.1, VBG pO2 45.0 H, VBG HCO3 20.3 L, VBG Total CO2 21.7 L, VBG O2 Saturation 77.6 H, VBG Base Excess -6.6 L, VBG Lactic Acid 4.7 H, Sodium 140, Potassium 3.1 L, Chloride 106, Carbon Dioxide 25, Anion Gap 12.1, BUN 14, Creatinine 1.10 H, Estimated Creat Clear 66, Estimated GFR 49 L, Est GFR ( Amer) 59, Glucose 187 H, Calcium 8.6, Magnesium 1.6, Total Bilirubin 0.7, AST 30, ALT 18, Alkaline Phosphatase 127 H, Total Creatine Kinase 88, Troponin I < 0.01, Total Protein 6.2 L, Albumin 4.1, Globulin 2.1, Albumin/Globulin Ratio 2.0 H, Salicylates < 1.0 L, Acetaminophen < 10 L, Plasma/Serum Alcohol < 10 09/18/24 08:10: Urine Color Yellow, Urine Appearance Clear, Urine pH 6.5, Ur Specific [place] 1.015, Urine Protein Negative, Urine Glucose (UA) Negative, Urine Ketones Negative, Urine Blood Trace A, Urine Nitrate Negative, Urine Bilirubin Negative, Urine Urobilinogen 0.2, Ur Leukocyte Esterase Negative, Urine RBC 5-10, Urine WBC Occasional, Ur Squamous Epith Cells Occasional, Urine Bacteria Trace 09/18/24 08:11: Urine Opiates Screen Positive H, Urine Methadone Screen Negative, Ur Barbituates Screen Negative, Ur Phencyclidine Scrn Negative, Ur Amphetamines Screen Negative, U Benzodiazepines Scrn Negative, Urine Cocaine Screen Negative, U Marijuana (THC) Screen Negative 09/18/24 09:05: Ammonia 22 09/18/24 10:31: VBG pH 7.38, VBG pCO2 45.1, VBG pO2 63.2 H, VBG HCO3 26.2, VBG Total CO2 27.6 H, VBG O2 Saturation 91.9 H, VBG Base Excess 0.8, VBG Lactic Acid 2.5 H 09/18/24 11:20: Troponin I < 0.01 I & O for Last 24 hours: Intake & Output 09/15/24 09/16/24 09/17/24 09/18/24 23:59 23:59 23:59 23:59 Weight 90.718 kg Constitutional Constitutional: no acute distress and obese *Routine HEENT Exam Head: Present normocephalic Eye: Present EOMI and PERRL ENT: Present mucous membranes moist *Routine Neck Exam Neck: Present supple; Absent lymphadenopathy *Routine Respiratory Exam Respiratory: Present CTA bilaterally *Routine Cardiovascular Exam Cardiovascular: Present RRR *Routine Abdominal Exam Abdominal: Present soft and normoactive bowel sounds; Absent tenderness *Routine Rectal Exam Rectal:: deferred *Routine Genitalia Exam Genitalia:: deferred *Routine Extremities Exam Extremities: Absent cyanosis, clubbing or edema *Routine Skin Exam Skin: Present warm; Absent rash *Routine Neurological Exam Neurological: Present alert Assessment and Plan *Assessment and plan (1) Metabolic acidosis: Status: Acute Category: Medical Code(s): E87.20 - Acidosis, unspecified (2) Suicidal ideation: Status: Acute Category: Medical Code(s): R45.851 - Suicidal ideations (3) Acute metabolic encephalopathy: Status: Acute Category: Medical Code(s): G93.41 - Metabolic encephalopathy Plan Ramin Albert is a 73-year-old female with medical history significant for schizophrenia, type 2 diabetes, hypothyroidism, pulmonary embolism, GERD who presents from [facility] for a fall and altered mental status. Per nursing, patient was doing well until she was given her morning meds, and after 10 minutes was heard yelling from her room and altered. Per nursing, at baseline patient is alert and oriented, pleasant, and ambulates independently. On my evaluation, patient was quite confused, talking nonsensically, but also endorsing passive suicidal ideation. She stated she tried suicide attempt at home, and when asked why she said there is heaven and there is hell and there is only one way to get there . When asked to elaborate, patient was again speaking nonsensically. I called [facility] personally and they stated they gave patient her regular morning medications including atorvastatin, Lasix, levofloxacin, levothyroxine, metformin, omeprazole. UDS was positive for opioids here, so I inquired about that and they stated that was not part of her med list. Stated it may be false positive for getting Rocephin in our facility a few days ago. At this time, patient does not seem medically stable or at baseline mentation for psychiatric evaluation by empath in the ED. Therefore, I discussed case with ED provider and decision was made to admit patient for acute toxic encephalopathy and suicidal ideation. #Acute toxic encephalopathy #Suicidal ideation #History of schizophrenia #Metabolic acidosis #MARLIN ? Found to be encephalopathic after found fallen on the ground with contusion on forehead 10 minutes after administering morning medications at [facility]. ? CBC, CMP, VBG, CT head unremarkable for acute findings. ? Initial lactic 4.7, improved to 2.5 after 500 ml bolus in the ED. Initially also tachycardic. Creatinine slightly elevated to 1.1, baseline 0.80. ? Orthostatic vitals also positive. ? UDS positive for opioids, no opioids on MAR at detention. ? At this time it is unclear why patient is encephalopathic, though it is improving. Possibly from patient taking medications that do not belong to her, especially in the setting of suicidal ideation. ? At this time, patient is not medically stable for a psychiatric evaluation for inpatient psychiatry. Will reconsider tomorrow as patient's encephalopathy improves. ? Continue one-on-one sitter. ? Ordered additional 500 mL bolus. Patient tolerating diet, p.o. fluids. ? Follow-up morning CMP. ? Will hold home clozapine 150 mg, Lasix, metformin, levothyroxine and other medications pending improvement in encephalopathy. #Recent UTI ? UA grossly abnormal previous admission, though urine culture showed multiple organisms. However, given encephalopathy will treat with antibiotic. Patient received levofloxacin at the detention on day of admission. ? Continue IV ceftriaxone for 2 more days for total of 5 days. #Right arm pain ? Patient not tolerating much movement of the right arm after she fell on it. Plain films unremarkable for acute findings. ? Considered brain MRI in the setting of acute encephalopathy to rule out CVA, but patient vehemently opposed to it. Will likely not stay still, and would not be appropriate for sedation at this time. No other focal deficits, will reevaluate tomorrow. #Type 2 diabetes ? Hemoglobin A1c 5.8% in June 2024. ? Blood sugars normal. Will hold off on sliding scale at this time. ? Holding metformin in the setting of metabolic acidosis as above. #Hypothyroidism ? Hold home levothyroxine now until encephalopathy improves for possible drug overdose. #History of PE ? Continue home Xarelto. #GERD ? Continue home PPI. Full code DVT prophylaxis: Xarelto
--- NOTE | 2024-09-18 12:48 | PC.NURSE ---
arrived by stretcher from ED
--- NOTE | 2024-09-18 12:55 | SW/DCPLANNER ---
Addendum entered by Cassandra Demarco 09/19/24 10:57: I have updated Dominique w/ [facility] that patient will return this afternoon after Behavioral Health evaluation. Original Note: Patient currently resides at [facility] level of care. I will continue to follow up w/ Dominique at [place] until medically stable for discharge.
[2024-09-18] MEDS: MAGNESIUM SULFATE IN WATER 2 GM/50 ML PIGGYBACK IV ×2 (14:58→16:28)
--- NOTE | 2024-09-18 14:59 | HMH.PHAINT1 ---
Pharmacy Intervention Comments: HOME MEDICATION LIST VERIFIED USING LIST FROM OUTPATIENT FACILITY
[2024-09-18 15:09] LABS: Troponin I < 0.01 ng/ml (0.00-0.034)
[2024-09-18] MEDS: 0.9 % SODIUM CHLORIDE 1000ML 500 ML IV (16:18)
--- NOTE | 2024-09-18 18:41 | PC.NURSE ---
1430: notified MD of orthostatic BPs, see chart. 500 ml bolus ordered
[2024-09-18] MEDS: PANTOPRAZOLE 40MG TABLET 40 MG PO (20:12)
[2024-09-19] VITALS: BP 96/52; PULSE 110; PULSE 97; RESP 16; TEMP 37.1; O2SAT 98
[2024-09-19 04:00] VITALS: BP 142/58; PULSE 102; PULSE 90; RESP 16; TEMP 36.8; O2SAT 90; BMI 36.1
[2024-09-19 07:10] LABS: Hematocrit 31.2 % (37.0-47.0); Immature Granulocytes % 0.6 %; Mean Corpuscular HGB Conc 33.0 g/dL (31.8-35.4); Mean Corpuscular Hemoglobin 30.1 pg (27.0-31.2); Mean Corpuscular Volume 91.2 fl (81-99); Nucleated Red Blood Cells % 0 %; Platelet Count 208 K/mm3 (142-424); Red Blood Count 3.42 M/mm3 (4.20-5.40); Red Cell Distribution Width-SD 51.0 fL; White Blood Count 8.3 K/mm3 (4.8-10.8)
[2024-09-19 07:20] LABS: Alanine Aminotransferase 13 U/L (12-78); Albumin Level 3.5 g/dl (3.5-5.0); Albumin/Globulin Ratio 1.6 (1.1-1.8); Alkaline Phosphatase 89 U/L (38-126); Anion Gap 7.8 mEq/L (5-15); Aspartate Amino Transferase 23 U/L (14-36); Bilirubin,Total 0.7 mg/dl (0.2-1.3); Blood Urea Nitrogen 10 mg/dl (7-17); Calcium 8.0 mg/dl (8.4-10.2); Carbon Dioxide 27 mmol/L (22.0-30.0); Chloride 107 mmol/L (98-107); Creatinine Clearance Estimated 71 mL/min (50-200); Creatinine,Serum 1.00 mg/dl (0.52-1.04); Estimated Glomerular Filt Rate 55 ml/min (>60); GFR (African American) 66 ML/MIN (>60); Globulin 2.2 g/dL (1.3-3.2); Glucose 126 mg/dl (74-100); Potassium 3.8 mmoL/L (3.5-5.1); Sodium 138 mmol/L (136-145); Total Protein,Serum 5.7 g/dl (6.3-8.2)
[2024-09-19 08:00] VITALS: BP 102/76; PULSE 100; PULSE 98; RESP 12; TEMP 36.9; O2SAT 95
[2024-09-19] MEDS: CEFTRIAXONE 1 GM 1 GM in 0.9 % SODIUM CHLORIDE 50 ML IV (08:02)
[2024-09-19 08:27] LABS: Hemoglobin 10.3 g/dL (12.2-16.2)
[2024-09-19 09:13] LABS: Magnesium 2.3 mg/dl (1.6-2.3)
--- NOTE | 2024-09-19 10:42 | HMH.PTEV ---
Physical Therapy Evaluation Rehab PT IP Evaluation Start: 09/18/24 18:20 Freq: ONCE Status: Active Protocol: Document 09/19/24 09:00 CORI (Rec: 09/19/24 10:42 PHOANNE [id number]) Subjective/History History History 73-year-old female with medical history significant for schizophrenia, type 2 diabetes, hypothyroidism, pulmonary embolism, GERD who presents from [facility] for a fall and altered mental status. Per nursing, patient was doing well until she was given her morning meds, and after 10 minutes was heard yelling from her room and altered. Per nursing, at baseline patient is alert and oriented, pleasant, and ambulates independently. On my evaluation, patient was quite confused, talking nonsensically, but also endorsing passive suicidal ideation. She stated she tried suicide attempt at home, and when asked why she said there is heaven and there is hell and there is only one way to get there . When asked to elaborate, patient was again speaking nonsensically. I called [facility] personally and they stated they gave patient her regular morning medications including atorvastatin, Lasix, levofloxacin, levothyroxine, metformin, omeprazole. UDS was positive for opioids here, so I inquired about that and they stated that was not part of her med list. Stated it may be false positive for getting Rocephin in our facility a few days ago. Pt is a SNF resident at baseline and generally independent with all mobility using a rolator walker per her reports. Subjective Subjective Pt currently alert and oriented to person only and she requires considerable encouragement to perform OOB mobility assessment. Pt c/o pain in her R UE and refuses to move it independently despite full PROM. [facility] How much help from another person do you currently need... Turning from your None back to your side while in a flat bed without using bedrails? Moving from lying on A little back to sitting on the side of a flat bed without using bedrails? Moving to and from a A little bed to a chair ( including a wheelchair)? Standing up from a A little chair using your arms? (e.g., wheelchair, bedside chair) Walking in hospital A little room? Climbing 3-5 steps A lot with a railing? Mobility Score 18 Mobility Level [facility] Mobility 6 Walk 10 steps or more Mobility Calculator Rehab PT IP Eval Objective Appearance Patient Behavior Appropriate,Confused Patient Orientation Person Difficulty following mild instructions Speech Pattern Clear Ambulation Patient Able to Yes Ambulate Ambulation Observation IP General Gait Shuffling Step Pattern Observation Ambulation Distance 3 (feet) Ambulation Assistive Rolling Walker Device Ambulation Ability Contact Guard/Hand Hold Balance Ability to Arise Able, uses arms to help Sitting Balance Steady, safe Standing Balance Steady, wide stance Dynamic Sitting Good Balance Ability Dynamic Standing Fair Balance Ability Transfers Bed Transfer Ability Supervision/Stand by Chair Transfer Supervision/Stand by Ability Sit to Stand Bed Supervision/Stand by Transfer Ability Sit to Stand Chair Supervision/Stand by Transfer Ability ROM All Extremities PT ROM Status WFL MMT RUE PT MMT ABN Abnormal MMT Grade grossly 2/ this date due to pt c/o pain. Rehab PT IP prob,goals,plan Problems Date of Evaluation: 09/19/24 PT IP Problems Bed Mobility,Transfers,Gait Rehab Potential Rehab Potential Good Plan PT Intervention Plan Bed Mobility,Transfers,Gait,Therapeutic Exercise PT Plan Frequency Daily Duration LOS Discharge Goals Bed Transfer Ability Independent Sit to Stand Chair Independent Transfer Ability Ambulation Assistive Rolling Walker Device Ambulation Distance 20 (feet) Discharge Plan PT Discharge Plan Pt is currently appropriate to return to SNF once medically stable for d/c. Skilled acute therapy is indicated to improve general strength, transfers, and ambulation in order to aid pt return to PLOF with all ADLs and to facilitate independent ambulation. Eval Complexity Eval Charge Codes 22128 - High Complexity PHYSICIAN CERTIFICATION: I certify the specified therapy services for Ramin Albert are required, authorized, and reviewed every 30 days.
[2024-09-19 11:55] VITALS: BP 120/56; PULSE 97; RESP 16; TEMP 37.1; O2SAT 94
--- NOTE | 2024-09-19 12:57 | EXP.BH.CONS ---
History of Present Illness *Admission Date: 09/18/24 *History of present illness: Ramin Albert is a 73-year-old female with medical history significant for schizophrenia, type 2 diabetes, hypothyroidism, pulmonary embolism, GERD who presents from [facility] for a fall and altered mental status. Patient was asleep when walking into room for consult, patient is easily aroused and responds to voice. While conducting a mental status exam she was alert and oriented to self only. Patient states that she is in [place], [place] and she lives by herself. She thinks she is in the hospital and she is in the hospital because she fell and hurt her right arm. Patient states that she does have auditory hallucinations, she hears voices that tell her to do things she should not do; patient would not elaborate. Patient states that she tries not to listen to the voices. Patient denies suicidal or homicidal ideation and denies visual hallucinations. Patient also denies any issues with sleep. Patient is treated at [facility] by the psychiatric nurse practitioner there and is stable on medication. Patient does endorse that many years ago she used illegal drugs including; THC, speed, LSD, red devils and yellow jackets. Patient denies current illicit drug use. Patient is cooperative with exam and answers questions as she can. Patient was able to count backwards from 10 during mental status exam but was not able to spell world backwards. Patient states that she feels better about going back to [facility] at this time. Patient denies any issues with sleep. MENTAL STATUS EXAM:? IN THE HOSPITAL TODAY MOOD: Patient is calm, cooperative, and engaged in the consult today. ANXIETY: There are no apparent signs of anxiety.? APPEARANCE: Patient is normal in appearance with age appropriate dress and grooming and appears to be stated age.? APPETITE:? No issues with appetite.? No significant weight loss or weight gain. ENERGY: Energy is normal.? CONCENTRATION: WNL? IRRITABILITY: denies ?? AFFECT:? Full-range.? THOUGHT CONTENT AND PROCESS:? Patient endorses auditory hallucinations of hearing voices. Patient is alert and oriented to self only. ? SPEECH:? Speech is normal in rate, volume, and articulation and language skills are intact.??? PSYCHOMOTOR:? There is no apparent psychomotor retardation noted at this time. ORIENTATION:? Patient is alert and oriented to self only. ? SUICIDAL IDEATIONS:? Patient convincingly denies suicidal and self-injurious ideas or intentions. HOMICIDAL IDEATIONS: Homicidal or assaultive ideas or intentions are also denied.?? INSIGHT:? Insight appears to be intact.? JUDGMENT: unable to assess. ? [facility] Disclaimer: The information contained in this section may have been updated after the patient was seen, as this information can be updated by other users. Medical History Weight loss Pulmonary embolism Diabetes Schizo affective schizophrenia Hyperlipidemia Delirium due to general medical condition Weakness generalized COPD (chronic obstructive pulmonary disease) Hypothyroidism Pulmonary HTN Hypothyroidism (acquired) Obesity (BMI 30-39.9) Social History (Updated 09/18/24 @ 13:09 by Leanna Pedro RN) Smoking Status: Former smoker tobacco type: cigarettes packs per day: 0 second hand exposure: No alcohol intake: never current occupational status: disabled Travel in the last 8 weeks?: None household members: other housing: [facility] current occupational exposures/hazards: No caffeine: Yes Meds Home Medications and Allergies Home Medications ?Medication ?Instructions ?Recorded ?Confirmed ?Type lactulose 10 gram/15 mL oral 30 ml PO DAILY PRN Bowel care 06/22/22 09/18/24 History solution acetaminophen 500 mg capsule 500 mg PO Q4H PRN Pain/Fever 02/12/23 09/18/24 History atorvastatin 20 mg tablet 20 mg PO DAILY Cholesterol #90 tabs 02/12/23 09/18/24 Rx clozapine 100 mg tablet 100 mg PO HS 02/12/23 09/18/24 History clozapine 50 mg tablet 50 mg PO HS 02/12/23 09/18/24 History dextromethorphan-guaifenesin 10 10 ml PO Q6HP PRN Cough 02/12/23 09/18/24 History mg-100 mg/5 mL oral liquid (Diabetic Tussin DM) furosemide 40 mg tablet 40 mg PO DAILY edema 30 days #30 02/12/23 09/18/24 Rx tabs levothyroxine 100 mcg tablet 100 mcg PO DAILY 02/12/23 09/18/24 History omeprazole 20 mg capsule,delayed 20 mg PO DAILY 02/12/23 09/18/24 History release rivaroxaban 20 mg tablet (Xarelto) 20 mg PO QPMWITHMEAL Blood 02/12/23 09/18/24 History thinner/hx PE metformin 500 mg tablet 500 mg PO DAILY 02/19/23 09/18/24 History levofloxacin 750 mg tablet 750 mg PO DAILY 6 days #6 tabs 09/15/24 09/18/24 Rx New Prescriptions to Start Prescriptions: Allergies Allergy/AdvReac Type Severity Reaction Status Date / Time codeine Allergy Mild Unknown Verified 09/18/24 08:19 allergy reaction Penicillins Allergy Mild Unknown Verified 09/18/24 08:19 allergy reaction Assessment and Plan *Assessment and plan (1) Altered mental status: Status: Acute Category: Medical Code(s): R41.82 - Altered mental status, unspecified Plan: continue medications from [facility] and follow up with PMHNP at [facility] (2) Schizo affective schizophrenia: Problem Comment: continue medications from [facility] and follow up with PMHNP at [facility] Status: Chronic Category: Medical Code(s): F25.9 - Schizoaffective disorder, unspecified
--- NOTE | 2024-09-19 14:35 | P.DS_ITS ---
General Admission date:: 09/18/24 Discharge date: 09/19/24 HPI HPI HPI: Ramin Albert is a 73-year-old female with medical history significant for schizophrenia, type 2 diabetes, hypothyroidism, pulmonary embolism, GERD who presents from [facility] for a fall and altered mental status. Patient was asleep when walking into room for consult, patient is easily aroused and responds to voice. While conducting a mental status exam she was alert and oriented to self only. Patient states that she is in [place], [place] and she lives by herself. She thinks she is in the hospital and she is in the hospital because she fell and hurt her right arm. Patient states that she does have auditory hallucinations, she hears voices that tell her to do things she should not do; patient would not elaborate. Patient states that she tries not to listen to the voices. Patient denies suicidal or homicidal ideation and denies visual hallucinations. Patient also denies any issues with sleep. Patient is treated at [facility] by the psychiatric nurse practitioner there and is stable on medication. Patient does endorse that many years ago she used illegal drugs including; THC, speed, LSD, red devils and yellow jackets. Patient denies current illicit drug use. Patient is cooperative with exam and answers questions as she can. Patient was able to count backwards from 10 during mental status exam but was not able to spell world backwards. Patient states that she feels better about going back to [facility] at this time. Patient denies any issues with sleep. Hospital Course Hospital Course Hospital Course: Ramin Albert is a 73-year-old female with medical history significant for schizophrenia, type 2 diabetes, hypothyroidism, pulmonary embolism, GERD who presents from [facility] for a fall and altered mental status. Per nursing, patient was doing well until she was given her morning meds, and after 10 minutes was heard yelling from her room and altered. Per nursing, at baseline patient is alert and oriented, pleasant, and ambulates independently. On my evaluation, patient was quite confused, talking nonsensically, but also endorsing passive suicidal ideation. She stated she tried suicide attempt at home, and when asked why she said there is heaven and there is hell and there is only one way to get there . When asked to elaborate, patient was again speaking nonsensically. Meds were held overnight. Patient's mentation improved by morning. UDS was positive for opioids, confirmatory test sent as she is not on opioids at her nursing facility. Concern for possible false positive due to Levaquin. Given her improvement in mentation, clinical stability, will discharge back to [facility] for further care. No active SI at this time. Behavioral health evaluated and cleared patient to discharge back to her facility. #Acute toxic encephalopathy #Suicidal ideation #History of schizophrenia #Metabolic acidosis #MAR[place] ? Found to be encephalopathic after found fallen on the ground with contusion on forehead 10 minutes after administering morning medications at [facility]. Labs were unremarkable. CT head did not show any acute abnormalities. Initial lactate was elevated at 4.7 but improved after IV fluids. Monitored overnight. Back to baseline mentation by morning. Tolerating p.o. intake. Blood pressure had improved. UDS positive for opioids but no opioids on MAR from detention. At this time it is unclear why patient is encephalopathic, though it is improving. Possibly from patient taking medications that do not belong to her, especially in the setting of suicidal ideation. Evaluated by behavioral health. Denies any further thoughts of self-harm. Patient is pleasant and interactive. Stable to discharge back to facility. Resuming home medications, see med rec for full details. #Recent UTI ? UA grossly abnormal previous admission, though urine culture showed multiple organisms. However, given encephalopathy initiated on ceftriaxone. Improve mentation by morning. Complete Levaquin course at discharge when returns back to nursing facility #Right arm pain ? Patient not tolerating much movement of the right arm after she fell on it. Plain films unremarkable for acute findings. No other focal deficits, Suspect arm sore from trauma of fall. Range of motion intact. #Type 2 diabetes: Hemoglobin A1c 5.8% in June 2024. Blood sugars normal. Held sliding scale during admission. Held metformin during admission. Okay to resume at discharge #Hypothyroidism: Initially held levothyroxine. Encephalopathy resolved. Resume at discharge. #History of PE: Continue home Xarelto. #GERD: Continue home PPI. Exam Data for Last 24 hours Vital signs and Labs for Last 24 Hours: Temp Pulse Resp BP Pulse Ox O2 Del Method 98.7 F 97 H 16 120/56 L 94 L Room Air 09/19/24 11:55 09/19/24 11:55 09/19/24 11:55 09/19/24 11:55 09/19/24 11:55 09/19/24 13:00 Laboratory Results - last 24 hr 09/18/24 14:31: Troponin I < 0.01 09/19/24 06:35: WBC 8.3, RBC 3.42 L, Hgb 10.3 L D, Hct 31.2 L, MCV 91.2, MCH 30.1, MCHC 33.0, RDW 15.4, Plt Count 208, MPV 10.6 H, Neut % (Auto) 68.6, Lymph % (Auto) 23.3, [place] % (Auto) 7.3, Eos % (Auto) 0.0 L, Baso % (Auto) 0.2, Neut # (Auto) 5.7, Lymph # (Auto) 1.9, [place] # (Auto) 0.6, Eos # (Auto) 0.0, Baso # (Auto) 0.0, Sodium 138, Potassium 3.8 D, Chloride 107, Carbon Dioxide 27, Anion Gap 7.8, BUN 10 D, Creatinine 1.00, Estimated Creat Clear 71, Estimated GFR 55 L, Est GFR ( Amer) 66, Glucose 126 H D, Lactate 1.0, Calcium 8.0 L, Magnesium 2.3 D, Total Bilirubin 0.7, AST 23, ALT 13 D, Alkaline Phosphatase 89, Total Protein 5.7 L, Albumin 3.5 D, Globulin 2.2, Albumin/Globulin Ratio 1.6 I & O for Last 24 hours: Intake & Output 09/16/24 09/17/24 09/18/24 09/19/24 23:59 23:59 23:59 23:59 Intake Total 1610 / 1730 1566 / 1566 Output Total 1850 / 1850 350 / 350 Balance -240 / -120 1216 / 1216 Weight 85.332 kg 88.995 kg Microbiology Reports for the Last 24 Hours: Microbiology 09/18/24 08:53 Blood Blood Culture - Preliminary NO GROWTH AFTER 24 HOURS 09/18/24 08:45 Blood Blood Culture - Preliminary NO GROWTH AFTER 24 HOURS Constitutional Constitutional: no acute distress, obese, chronically ill appearing and cooperative *Routine HEENT Exam Head: Present normocephalic Eye: Present EOMI and PERRL ENT: Present mucous membranes moist *Routine Neck Exam Neck: Present supple; Absent lymphadenopathy *Routine Respiratory Exam Respiratory: Present CTA bilaterally; Absent rhonchi, wheezes or crackles *Routine Cardiovascular Exam Cardiovascular: Present RRR *Routine Abdominal Exam Abdominal: Present soft and normoactive bowel sounds; Absent tenderness *Routine Rectal Exam Patient deferred: visual exam *Routine Exam Patient deferred: external exam *Routine Extremities Exam Extremities: Absent cyanosis, clubbing or edema *Routine Skin Exam Skin: Present intact and warm; Absent rash *Routine Neurological Exam Neurological: Present alert and moving all extremities Comments: Oriented to name and date of . Knows she is at a hospital but does not know where Results Data Completed and Pending Labs on day of discharge: Labs from last 24 hours 09/19/24 09/18/24 06:35 14:31 WBC 8.3 RBC 3.42 L Hgb 10.3 L D Hct 31.2 L MCV 91.2 MCH 30.1 MCHC 33.0 RDW 15.4 Plt Count 208 MPV 10.6 H Neut % (Auto) 68.6 Lymph % (Auto) 23.3 [place] % (Auto) 7.3 Eos % (Auto) 0.0 L Baso % (Auto) 0.2 Neut # (Auto) 5.7 Lymph # (Auto) 1.9 [place] # (Auto) 0.6 Eos # (Auto) 0.0 Baso # (Auto) 0.0 Sodium 138 Potassium 3.8 D Chloride 107 Carbon Dioxide 27 Anion Gap 7.8 BUN 10 D Creatinine 1.00 Estimated Creat Clear 71 Estimated GFR 55 L Est GFR ( Amer) 66 Glucose 126 H D Lactate 1.0 Calcium 8.0 L Magnesium 2.3 D Total Bilirubin 0.7 AST 23 ALT 13 D Alkaline Phosphatase 89 Troponin I < 0.01 Total Protein 5.7 L Albumin 3.5 D Globulin 2.2 Albumin/Globulin Ratio 1.6 Preliminary micro results at discharge 09/18/24 08:53 Blood Culture - Preliminary Blood NO GROWTH AFTER 24 HOURS 09/18/24 08:45 Blood Culture - Preliminary Blood NO GROWTH AFTER 24 HOURS DS: Diagnosis Discharge Diagnosis (1) Altered mental status: Status: Acute Code(s): R41.82 - Altered mental status, unspecified (2) Schizo affective schizophrenia: Status: Chronic Code(s): F25.9 - Schizoaffective disorder, unspecified Meds Home Medications and Allergies Home Medications ?Medication ?Instructions ?Recorded ?Confirmed ?Type lactulose 10 gram/15 mL oral 30 ml PO DAILY PRN Bowel care 06/22/22 09/18/24 History solution acetaminophen 500 mg capsule 500 mg PO Q4H PRN Pain/Fe vargas 02/12/23 09/18/24 History atorvastatin 20 mg tablet 20 mg PO DAILY Cholesterol # 90 tabs 02/12/23 09/18/24 Rx clozapine 100 mg tablet 100 mg PO HS 02/12/23 History clozapine 50 mg tablet 50 mg PO HS 02/12/23 5 History dextromethorphan-guaifenesin 10 10 ml PO Q6HP PRN Coug h 02/12/23 09/18/24 History mg-100 mg/5 mL oral liquid (Diabetic Tussin DM) furosemide 40 mg tablet 40 mg PO DAILY edema 30 days #30 02/12/23 09/18/24 Rx tabs levothyroxine 100 mcg tablet 100 mcg PO DAILY 02/12/23 09/18/24 History omeprazole 20 mg capsule,delayed 20 mg PO DAILY 09/18/24 History release rivaroxaban 20 mg tablet (Xarelto) 20 mg PO QPMWITHMEA L Blood 02/12/23 09/18/24 History thinner/hx PE metformin 500 mg tablet 500 mg PO DAILY 02/19/23 History levofloxacin 750 mg tablet 750 mg PO DAILY 6 days #6 t abs 09/15/24 09/18/24 Rx New Prescriptions to Start Prescriptions: Allergies Allergy/AdvReac Type Severity Reaction Status Date / Time codeine Allergy Mild Unknown Verified 09/18/24 08:19 allergy reaction Penicillins Allergy Mild Unknown Verified 09/18/24 08:19 allergy reaction Discharge Plan Disposition Patient Disposition: Xfer Intermediate Care Fac Condition: Fair Discharge Order Discharge Orders: Discharge Order (Routine); Ordered 09/19/24 Ordered By: Jonn Romero Follow up Plan Follow up with: Provider,Referral, [Primary Care Provider, Medical] - Enter time for follow up Prescriptions/Medication Reconciliation: Continued acetaminophen 500 mg capsule 500 mg PO Q4H PRN (Reason: Pain/Fever) atorvastatin 20 mg tablet 20 mg PO DAILY Qty: 90 0RF clozapine 100 mg tablet 100 mg PO HS Rx Instructions: TAKE 1 TABLET BY MOUTH AT BEDTIME (PLEASE FAX CBC WITH DIFF TO PHARMACY EVERY 4 WEEKS) furosemide 40 mg tablet 40 mg PO DAILY 30 Days Qty: 30 0RF Rx Instructions: Take one tablet by mouth once daily levothyroxine 100 mcg tablet 100 mcg PO DAILY omeprazole 20 mg capsule,delayed release(DR/EC) 20 mg PO DAILY Xarelto 20 mg tablet 20 mg PO QPMWITHMEAL Rx Instructions: take one tab po at 5pm dextromethorphan-guaifenesin [Diabetic Tussin DM] 10-100 mg/5 mL liquid 10 ml PO Q6HP PRN (Reason: Cough) clozapine 50 mg tablet 50 mg PO HS Rx Instructions: TAKE 1 TABLET BY MOUTH AT BEDTIME, GIVE WITH 100MG TABLET TO TOTAL 150MG metformin 500 mg tablet 500 mg PO DAILY lactulose 10 gram/15 mL Solution 30 ml PO DAILY PRN (Reason: Bowel care) levofloxacin 750 mg tablet 750 mg PO DAILY 6 Days Qty: 6 0RF Problem Reconciliation Problems Reviewed?: Yes Patient Discharge Instructions ACTIVITY: Continue current activity DIET: continue same diet Patient Instructions: Exercises to Help Prevent Falls, Dehydration, How to Prevent Falls, DI for Suicidal Ideation-Adult, Stop Light Pneumonia, Stop Light COPD, Stop Light Heart Failure Print Language: [place] Providers Primary Care Provider: Provider,Referral Admit Provider: Lukas Cisse Attending Provider: Lukas Cisse
== END 2024-09-19 18:24 ==
LOC: ER 11:42 → 2ND 12:20
PROVIDERS: Internal Medicine Adolescent Medicine; Nurse Practitioner Family; Admitting Provider Student in an Organized Health Care Education/Training Program; Emergency Provider Student in an Organized Health Care Education/Training Program; Visit Provider Student in an Organized Health Care Education/Training Program
DX: G92.8 Other toxic encephalopathy (principal); E87.20 Acidosis, unspecified; R45.851 Suicidal ideations; N17.9 Acute kidney failure, unspecified; M79.601 Pain in right arm; N39.0 Urinary tract infection, site not specified; E11.9 Type 2 diabetes mellitus without complications; K21.9 Gastro-esophageal reflux disease without esophagitis; E03.9 Hypothyroidism, unspecified; I26.99 Other pulmonary embolism without acute cor pulmonale; E66.9 Obesity, unspecified; F25.9 Schizoaffective disorder, unspecified; I48.91 Unspecified atrial fibrillation; J44.9 Chronic obstructive pulmonary disease, unspecified; I27.20 Pulmonary hypertension, unspecified; Z87.891 Personal history of nicotine dependence; Z68.36 Body mass index [BMI] 36.0-36.9, adult; Z88.0 Allergy status to penicillin; Z88.5 Allergy status to narcotic agent; Z79.891 Long term (current) use of opiate analgesic; Z79.890 Hormone replacement therapy; Z79.01 Long term (current) use of anticoagulants; Z79.84 Long term (current) use of oral hypoglycemic drugs; Z79.899 Other long term (current) drug therapy; E78.5 Hyperlipidemia, unspecified; Z86.711 Personal history of pulmonary embolism; S00.83XA Contusion of other part of head, initial encounter; I48.20 Chronic atrial fibrillation, unspecified; I28.8 Other diseases of pulmonary vessels; M48.54XA Collapsed vertebra, not elsewhere classified, thoracic region, initial encounter for fracture; I47.10 Supraventricular tachycardia, unspecified
CPT/HCPCS: 36415; 70450; 71045; 71275; 72125; 72170; 73090; 73100; 74177; 80053; 80307; 80320; 80329; 80361; 81001; 82140; 82550; 82803; 83605; 83735; 84484; 85025; 87040; 93005; 96374; 96375; 96376; 97163; 99291; G0378; G0390; G0480; J0696; J3475; J3480; J7030; J7120; Q9967

== ENCOUNTER 2024-09-29 07:01 | Outpatient (CLI) | payer MEDICARE, MEDICAID, SELFPAY ==
--- OUTSIDE RECORDS SUMMARY | 2024-09-29 07:05 | XMS_ITS | Clinical Summary ---
Author Organization [facility] Address [address] [place] [address] Phone Care Team Providers Care Returns Processor Name Role Phone Unavailable Primary Care Provider [...] 8:24 AM EST) Cholesterol 196 <=200 mg/dL [facility] Comment: < 200 Desirable 200 - 239 Borderline High >= 240 High Triglyceride 95 <=150 mg/dL [facility] Comment: < 150 Normal 150 - 199 Borderline High 200 - 499 High >= 500 Very High HDL 55 >=40 mg/dL [facility] Comment: > 60 Optimal 40 - 60 Acceptable < 40 Low Blood specimen (specimen) UPPER LIMB STRUCTURE / Unknown 01/07/2011 8:24 AM EST 01/07/2011 2:35 PM EST us Mario Hardy MD CHEMISTRY ORDERABLES Final Resu lt [facility] [address] [place] [address] * (ABNORMAL) RENAL FUNCTION PANEL (01/07/2011 8:24 AM EST) Sodium 141 135 - 143 mmol/L [facility] Potassium 4.4 3.5 - 5.0 mmol/L [facility] Chloride 107 98 - 108 mmol/L [facility] Total CO2 29 22 - 31 mmol/L [facility] Anion Gap 5(L) 7 - 16 mmol/L [facility] Calcium 9.3 8.6 - 10.3 mg/dL [facility] Glucose Lvl 91 70 - 100 mg/dL [facility] BUN 15 7 - 19 mg/dL [facility] Creatinine 0.7 0.6 - 1.0 mg/dL [facility] Albumin 3.7 3.5 - 4.5 gm/dL [facility] Phosphorus 4.0 2.7 - 4.5 mg/dL [facility] GFR Afr Am >60 [facility] Comment: GFR is estimated using creatinine, [...] or less GFR Non Afr Am >60 [facility] Blood specimen (specimen) UPPER LIMB STRUCTURE / Unknown 01/07/2011 8:24 AM EST 01/07/2011 8:24 AM EST us Mario Hardy MD CHEMISTRY ORDERABLES Edited [facility] [address] [place] [address] * MM MAMMO DIGITAL DIAGNOSTIC W CAD BILAT (08/20/2010 9:45 AM EDT) Anatomical Region Laterality Modality Breast Bilateral Mammography 08/21/2010 12:3 8 PM EDT Impressions 08/21/2010 12:39 PM EDT : No radiographic evidence of malignancy ([id number]) Stable asymmetric right breast tissue. No direct/indirect [...] ~ IMPRESSION: No radiographic evidence of malignancy ([id number]) Stable asymmetric right breast tissue. No direct/indirect [...] AM EDT) Hgb A1c 5.4 <=7.0 % [facility] Comment: Reference Interval for Hgb A1c Hgb A1c Interpretation < 6.0 Non-Diabetic Range 6.0 - 7.0 ADA Therapeutic Target > 7.0 Action suggested Blood specimen (specimen) UPPER LIMB STRUCTURE / Unknown 01/01/2010 8:08 AM EDT 01/01/2010 2:27 PM EDT us Mario Hardy MD CHEMISTRY ORDERABLES Final Resu lt [facility] [address] [place] [address] from Last 3 Months or Most Recently Relevant to Health Maintenance Insurance [facility] [place] [address] [facility] [address] MEDICARE PART B [facility] [place] [address] MEDICARE PART B
--- OUTSIDE RECORDS SUMMARY | 2024-09-29 07:05 | XMS_ITS | Clinical Summary ---
Author Organization [facility] Address [address] [place] [address] [address] [place] [address] Phone Care Team Providers Care Field Service Consultant Name Role Phone Unavailable Unavailable Conditions or Problems No information available. Medications No information available. Medications Administered No information available. Allergies, Adverse Reactions, Alerts No information available. Results No information available. Plan of Care No information available. Procedures No information available. Vital Signs No information available. Immunizations No information available. Advance Directives No information available.
[2024-09-29 08:33] LABS: Hematocrit 32.2 % (37.0-47.0); Hemoglobin 10.1 g/dL (12.2-16.2); Immature Granulocytes % 1.5 %; Mean Corpuscular HGB Conc 31.4 g/dL (31.8-35.4); Mean Corpuscular Hemoglobin 29.2 pg (27.0-31.2); Mean Corpuscular Volume 93.1 fl (81-99); Nucleated Red Blood Cells % 0 %; Platelet Count 430 K/mm3 (142-424); Red Blood Count 3.46 M/mm3 (4.20-5.40); Red Cell Distribution Width-SD 51.7 fL; White Blood Count 8.2 K/mm3 (4.8-10.8)
== END 2024-09-29 23:59 | disposition home or self-care (01) ==
PROVIDERS: PCP Family Medicine; Visit Provider Family Medicine
DX: Z51.81 Encounter for therapeutic drug level monitoring (principal)
CPT/HCPCS: 36415; 85025

== ENCOUNTER 2024-10-10 10:38 | Outpatient (CLI) | payer MEDICARE, MEDICAID, SELFPAY ==
--- NOTE | 2024-10-10 10:41 | XR_ITS ---
FINAL REPORT CLINICAL HISTORY: right humerus fx COMPARISON: None FINDINGS: Two views of the right humerus show a transverse fracture of the humeral neck. There is up to 17 mm of displacement. Callus formation is noted. Pseudosubluxation of the glenohumeral joint is probably related to a joint effusion. IMPRESSION: Early subacute comminuted healing humeral fracture. Reviewed, Interpreted and Dictated by Vidhi Saxena MD Transcribed by Brinda García Authenticated and [facility]
--- OUTSIDE RECORDS SUMMARY | 2024-10-10 10:47 | XMS_ITS | Clinical Summary ---
Author Organization [facility] Address [address] [place] [address] [address] [place] [address] Phone Care Team Providers Care Metrology Engineer Name Role Phone Unavailable Unavailable Conditions or Problems No information available. Medications No information available. Medications Administered No information available. Allergies, Adverse Reactions, Alerts No information available. Results No information available. Plan of Care No information available. Procedures No information available. Vital Signs No information available. Immunizations No information available. Advance Directives No information available.
--- OUTSIDE RECORDS SUMMARY | 2024-10-10 10:48 | XMS_ITS | Clinical Summary ---
Author Organization [facility] Primary Care Address [address] [place] [address] Phone Care Team Providers Care Rubber Factory Worker Name Role Phone Unavailable Primary Care Provider [...] Last Done Comments Wellness Exam Medicare 12/19/1953 Diabetic Eye Exam 12/19/1969 Hepatitis C Screening 12/19/1969 Kidney Health: uACR 12/19/1969 Pneumococcal Vaccine 50+ (1 of 2 [...] 8:24 AM EST) Cholesterol 196 <=200 mg/dL [facility] Comment: < 200 Desirable 200 - 239 Borderline High >= 240 High Triglyceride 95 <=150 mg/dL [facility] Comment: < 150 Normal 150 - 199 Borderline High 200 - 499 High >= 500 Very High HDL 55 >=40 mg/dL [facility] Comment: > 60 Optimal 40 - 60 Acceptable < 40 Low Blood specimen (specimen) UPPER LIMB STRUCTURE / Unknown 01/07/2011 8:24 AM EST 01/07/2011 2:35 PM EST us Mario Hardy MD CHEMISTRY ORDERABLES Final Resu lt [facility] [address] [place] [address] * (ABNORMAL) RENAL FUNCTION PANEL (01/07/2011 8:24 AM EST) Sodium 141 135 - 143 mmol/L [facility] Potassium 4.4 3.5 - 5.0 mmol/L [facility] Chloride 107 98 - 108 mmol/L [facility] Total CO2 29 22 - 31 mmol/L [facility] Anion Gap 5(L) 7 - 16 mmol/L [facility] Calcium 9.3 8.6 - 10.3 mg/dL [facility] Glucose Lvl 91 70 - 100 mg/dL [facility] BUN 15 7 - 19 mg/dL [facility] Creatinine 0.7 0.6 - 1.0 mg/dL [facility] Albumin 3.7 3.5 - 4.5 gm/dL [facility] Phosphorus 4.0 2.7 - 4.5 mg/dL [facility] GFR Afr Am >60 [facility] Comment: GFR is estimated using [...] or less GFR Non Afr Am >60 [facility] Blood specimen (specimen) UPPER LIMB STRUCTURE / Unknown 01/07/2011 8:24 AM EST 01/07/2011 8:24 AM EST us Mario Hardy MD CHEMISTRY ORDERABLES Edited [facility] [address] [place] [address] * MM MAMMO DIGITAL DIAGNOSTIC W CAD BILAT (08/20/2010 9:45 AM EDT) Anatomical Region Laterality Modality Breast Bilateral Mammography 08/21/2010 12:3 8 PM EDT Impressions 08/21/2010 12:39 PM EDT : No radiographic evidence of malignancy ([id number]-[id number]-4) Stable asymmetric right breast tissue. No direct/indirect [...] ~ IMPRESSION: No radiographic evidence of malignancy ([id number]-[id number]-2) Stable asymmetric right breast tissue. No direct/indirect [...] AM EDT) Hgb A1c 5.4 <=7.0 % [facility] Comment: Reference Interval for Hgb A1c Hgb A1c Interpretation < 6.0 Non-Diabetic Range 6.0 - 7.0 ADA Therapeutic Target > 7.0 Action suggested Blood specimen (specimen) UPPER LIMB STRUCTURE / Unknown 01/01/2010 8:08 AM EDT 01/01/2010 2:27 PM EDT us Mario Hardy MD CHEMISTRY ORDERABLES Final Resu lt [facility] [address] [place] [address] from Last 3 Months or Most Recently Relevant to Health Maintenance Insurance [facility] [place] [address] [facility] [address] MEDICARE PART B AETNA [facility] [place] [address] MEDICARE PART B
== END 2024-10-10 23:59 | disposition home or self-care (01) ==
LOC: RAD 10:39
PROVIDERS: PCP Family Medicine; Visit Provider Physician Assistant
DX: S42.211D Unspecified displaced fracture of surgical neck of right humerus, subsequent encounter for fracture with routine healing (principal)
CPT/HCPCS: 73060

== ENCOUNTER 2024-10-24 09:00 | Outpatient (CLI) | payer MEDICARE, MEDICAID, SELFPAY ==
--- OUTSIDE RECORDS SUMMARY | 2024-10-24 09:03 | XMS_ITS | Clinical Summary ---
Author Organization [facility] Primary Care Address [address] [place] [address] Phone Care Team Providers Care Dough Braker Name Role Phone Unavailable Primary Care Provider [...] 8:24 AM EST) Cholesterol 196 <=200 mg/dL [facility] Comment: < 200 Desirable 200 - 239 Borderline High >= 240 High Triglyceride 95 <=150 mg/dL [facility] Comment: < 150 Normal 150 - 199 Borderline High 200 - 499 High >= 500 Very High HDL 55 >=40 mg/dL [facility] Comment: > 60 Optimal 40 - 60 Acceptable < 40 Low Blood specimen (specimen) UPPER LIMB STRUCTURE / Unknown 01/07/2011 8:24 AM EST 01/07/2011 2:35 PM EST us Mario Hardy MD CHEMISTRY ORDERABLES Final Resu lt [facility] [address] [place] [address] * (ABNORMAL) RENAL FUNCTION PANEL (01/07/2011 8:24 AM EST) Sodium 141 135 - 143 mmol/L [facility] Potassium 4.4 3.5 - 5.0 mmol/L [facility] Chloride 107 98 - 108 mmol/L [facility] Total CO2 29 22 - 31 mmol/L [facility] Anion Gap 5(L) 7 - 16 mmol/L [facility] Calcium 9.3 8.6 - 10.3 mg/dL [facility] Glucose Lvl 91 70 - 100 mg/dL [facility] BUN 15 7 - 19 mg/dL [facility] Creatinine 0.7 0.6 - 1.0 mg/dL [facility] Albumin 3.7 3.5 - 4.5 gm/dL [facility] Phosphorus 4.0 2.7 - 4.5 mg/dL [facility] GFR Afr Am >60 [facility] Comment: GFR is [...] or less GFR Non Afr Am >60 [facility] Blood specimen (specimen) UPPER LIMB STRUCTURE / Unknown 01/07/2011 8:24 AM EST 01/07/2011 8:24 AM EST us Mario Hardy MD CHEMISTRY ORDERABLES Edited [facility] [address] [place] [address] * MM MAMMO DIGITAL DIAGNOSTIC W CAD BILAT (08/20/2010 9:45 AM EDT) Anatomical Region Laterality Modality Breast Bilateral Mammography 08/21/2010 12:3 8 PM EDT Impressions 08/21/2010 12:39 PM EDT : No radiographic evidence of malignancy ([id number]) Stable asymmetric right breast tissue. No direct/indirect [...] ~ IMPRESSION: No radiographic evidence of malignancy (OGH-Buucbmmf-4) Stable asymmetric right breast tissue. No direct/indirect [...] AM EDT) Hgb A1c 5.4 <=7.0 % [facility] Comment: Reference Interval for Hgb A1c Hgb A1c Interpretation < 6.0 Non-Diabetic Range 6.0 - 7.0 ADA Therapeutic Target > 7.0 Action suggested Blood specimen (specimen) UPPER LIMB STRUCTURE / Unknown 01/01/2010 8:08 AM EDT 01/01/2010 2:27 PM EDT us Mario Hardy MD CHEMISTRY ORDERABLES Final Resu lt [facility] [address] [place] [address] from Last 3 Months or Most Recently Relevant to Health Maintenance Insurance [facility] [place] [address] [facility] [address] MEDICARE PART B AETNA [facility] [place] [address] MEDICARE PART B
--- NOTE | 2024-10-24 09:04 | XR_ITS ---
FINAL REPORT CLINICAL HISTORY: right humerus fx COMPARISON: 10/10/2024 FINDINGS: Two views of the right humerus were obtained. Again seen is a proximal humeral fracture. There has been no change to the alignment of the fracture compared to the prior exam. There has been some interval healing. No new abnormality identified. There is no acute soft tissue abnormality. IMPRESSION: Proximal humeral fracture with some interval healing. Reviewed, Interpreted and Dictated by Sena Mari MD Transcribed by Brinda García Authenticated and [facility]
== END 2024-10-24 23:59 | disposition home or self-care (01) ==
LOC: RAD 09:01
PROVIDERS: PCP Family Medicine; Visit Provider Physician Assistant
DX: S42.211D Unspecified displaced fracture of surgical neck of right humerus, subsequent encounter for fracture with routine healing (principal)
CPT/HCPCS: 73060

== ENCOUNTER 2024-11-20 08:10 | Outpatient (CLI) | payer MEDICARE, MEDICAID, SELFPAY ==
[2024-11-20 08:32] LABS: Hematocrit 38.2 % (37.0-47.0); Hemoglobin 12.3 g/dL (12.2-16.2); Immature Granulocytes % 0.3 %; Mean Corpuscular HGB Conc 32.2 g/dL (31.8-35.4); Mean Corpuscular Hemoglobin 29.8 pg (27.0-31.2); Mean Corpuscular Volume 92.5 fl (81-99); Nucleated Red Blood Cells % 0 %; Platelet Count 254 K/mm3 (142-424); Red Blood Count 4.13 M/mm3 (4.20-5.40); Red Cell Distribution Width-SD 51.8 fL; White Blood Count 7.3 K/mm3 (4.8-10.8)
[2024-11-20 08:50] LABS: Albumin Level 3.6 g/dl (3.5-5.0); Chloride 99 mmol/L (98-107); Sodium 140 mmol/L (136-145)
[2024-11-20 08:51] LABS: Potassium 3.9 mmoL/L (3.5-5.1)
[2024-11-20 08:53] LABS: Alanine Aminotransferase 12 U/L (12-78); Albumin/Globulin Ratio 1.5 (1.1-1.8); Alkaline Phosphatase 101 U/L (38-126); Anion Gap 12.9 mEq/L (5-15); Aspartate Amino Transferase 21 U/L (14-36); Bilirubin,Total 0.5 mg/dl (0.2-1.3); Blood Urea Nitrogen 17 mg/dl (7-17); Calcium 8.7 mg/dl (8.4-10.2); Carbon Dioxide 32 mmol/L (22.0-30.0); Creatinine,Serum 0.70 mg/dl (0.52-1.04); Estimated Glomerular Filt Rate 82 ml/min (>60); GFR (African American) 100 ML/MIN (>60); Globulin 2.4 g/dL (1.3-3.2); Glucose 111 mg/dl (74-100); Iron 42 ug/dL (37-170); Total Protein,Serum 6.0 g/dl (6.3-8.2)
[2024-11-20 09:07] LABS: Free T4 (Free Thyroxine) 1.71 ng/dl (0.78-2.19)
[2024-11-20 09:22] LABS: Thyroid Stimulating Hormone 0.40 uIU/mL (0.465-4.68)
[2024-11-20 09:26] LABS: Ferritin 23.4 ng/ml (11.1-264)
[2024-11-20 09:59] LABS: Folate 6.49 ng/mL
[2024-11-20 10:32] LABS: Hemoglobin A1C 5.8 % (4.0-6.0)
[2024-11-20 10:34] LABS: Vitamin B12 275 pg/mL (239-931)
== END 2024-11-20 23:59 | disposition home or self-care (01) ==
PROVIDERS: PCP Family Medicine; Visit Provider Family Medicine
DX: D64.9 Anemia, unspecified (principal); E11.9 Type 2 diabetes mellitus without complications; E03.9 Hypothyroidism, unspecified
CPT/HCPCS: 36415; 80053; 82607; 82728; 82746; 83036; 83540; 84439; 84443; 85025

== ENCOUNTER 2024-11-27 09:18 | Outpatient (CLI) | payer MEDICARE, MEDICAID, SELFPAY ==
--- NOTE | 2024-11-27 09:20 | XR_ITS ---
FINAL REPORT CLINICAL HISTORY: Right humerus fx COMPARISON: 10/10/2024, 10/24/2024 FINDINGS: 3 images of the right humerus were obtained. There is a displaced transverse fracture of the surgical neck of the humerus, with alignment not significantly changed since the prior exam. The humeral head shows slight increased sclerosis and irregularity, and avascular necrosis cannot be excluded. The callus noted on the previous exam is more evident than on the previous views. The humeral head is displaced inferiorly with widening of the subacromial space, that may be secondary to tendinous injury or fluid in the subacromial/subdeltoid bursa. IMPRESSION: Displaced transverse fracture of the cervical neck of the humerus as described above. The humeral head shows slightly increased sclerosis and irregularity, and developing avascular necrosis cannot be excluded. Reviewed, Interpreted and Dictated by Mohan Bowers MD Transcribed by Varsha Jiménez Authenticated and [facility]
--- OUTSIDE RECORDS SUMMARY | 2024-11-27 09:31 | XMS_ITS | Clinical Summary ---
Author Organization [facility] Address [address] [place] [address] [address] [place] [address] Phone Care Team Providers Care Preparation Operator Name Role Phone Unavailable Unavailable Conditions or Problems No information available. Medications No information available. Medications Administered No information available. Allergies, Adverse Reactions, Alerts No information available. Results No information available. Plan of Care No information available. Procedures No information available. Vital Signs No information available. Immunizations No information available. Advance Directives No information available.
--- OUTSIDE RECORDS SUMMARY | 2024-11-27 09:33 | XMS_ITS | Clinical Summary ---
Author Organization [facility] Primary Care Address [address] [place] [address] Phone Care Team Providers Care Nursing Program Coordinator Name Role Phone Unavailable Primary Care Provider [...] on file Sexual Orientation Not on file Last Filed Vital Signs Vital Sign Reading [...] Tdap) 06/20/2020 06/20/2010 COVID-19 Vaccine ( season) 2024 Influenza Vaccine (#1) 2024 Hepatitis B Vaccine [...] AM EST) Cholesterol 196 <=200 mg/dL [facility] Comment: < 200 Desirable 200 - 239 Borderline High >= 240 High Triglyceride 95 <=150 mg/dL [facility] Comment: < 150 Normal 150 - 199 Borderline High 200 - 499 High >= 500 Very High HDL 55 >=40 mg/dL [facility] Comment: > 60 Optimal 40 - 60 Acceptable < 40 Low Blood specimen (specimen) UPPER LIMB STRUCTURE / Unknown 01/07/2011 8:24 AM EST 01/07/2011 2:35 PM EST us Mario Hardy MD CHEMISTRY ORDERABLES Final Resu lt [facility] [address] [place] [address] * (ABNORMAL) RENAL FUNCTION PANEL (01/07/2011 8:24 AM EST) Sodium 141 135 - 143 mmol/L [facility] Potassium 4.4 3.5 - 5.0 mmol/L [facility] Chloride 107 98 - 108 mmol/L [facility] Total CO2 29 22 - 31 mmol/L [facility] Anion Gap 5(L) 7 - 16 mmol/L [facility] Calcium 9.3 8.6 - 10.3 mg/dL [facility] Glucose Lvl 91 70 - 100 mg/dL [facility] BUN 15 7 - 19 mg/dL [facility] Creatinine 0.7 0.6 - 1.0 mg/dL [facility] Albumin 3.7 3.5 - 4.5 gm/dL [facility] Phosphorus 4.0 2.7 - 4.5 mg/dL [facility] GFR Afr Am >60 [facility] Comment: GFR is estimated using creatinine, [...] less GFR Non Afr Am >60 [facility] Blood specimen (specimen) UPPER LIMB STRUCTURE / Unknown 01/07/2011 8:24 AM EST 01/07/2011 8:24 AM EST us Mario Hardy MD CHEMISTRY ORDERABLES Edited [facility] [address] [place] [address] * MM MAMMO DIGITAL DIAGNOSTIC W CAD BILAT (08/20/2010 9:45 AM EDT) Anatomical Region Laterality Modality Breast Bilateral Mammography 08/21/2010 12:3 8 PM EDT Impressions 08/21/2010 12:39 PM EDT : No radiographic evidence of malignancy ([id number]-[id number]) Stable asymmetric right breast tissue. No direct/indirect [...] mass or architectural change. ~ Procedure Note Eiseman, Gilbert R - 08/21/2010 Procedure:MM MAMMO DIGITAL DIAGNOSTIC [...] ~ IMPRESSION: No radiographic evidence of malignancy ([id number]-3) Stable asymmetric right breast tissue. No direct/indirect [...] EDT) Hgb A1c 5.4 <=7.0 % [facility] Comment: Reference Interval for Hgb A1c Hgb A1c Interpretation < 6.0 Non-Diabetic Range 6.0 - 7.0 ADA Therapeutic Target > 7.0 Action suggested Blood specimen (specimen) UPPER LIMB STRUCTURE / Unknown 01/01/2010 8:08 AM EDT 01/01/2010 2:27 PM EDT us Mario Hardy MD CHEMISTRY ORDERABLES Final Resu lt [facility] [address] [place] [address] from Last 3 Months or Most Recently Relevant to Health Maintenance Insurance [facility] [address] [facility] [address] MEDICARE PART B AETNA [facility] [place] [address] MEDICARE PART B
== END 2024-11-27 23:59 | disposition home or self-care (01) ==
LOC: RAD 09:19
PROVIDERS: Visit Provider Orthopaedic Surgery
DX: S42.211A Unspecified displaced fracture of surgical neck of right humerus, initial encounter for closed fracture (principal); R93.6 Abnormal findings on diagnostic imaging of limbs
CPT/HCPCS: 73060

== ENCOUNTER 2025-01-19 08:58 | Outpatient (CLI) | payer MEDICARE, MEDICAID, SELFPAY ==
--- OUTSIDE RECORDS SUMMARY | 2025-01-19 09:02 | XMS_ITS | Clinical Summary ---
Author Organization [facility] Address [address] [place] [address] [address] [place] [address] Phone Care Team Providers Care Cable Tower Operator Name Role Phone Unavailable Unavailable Conditions or Problems No information available. Medications No information available. Medications Administered No information available. Allergies, Adverse Reactions, Alerts No information available. Results No information available. Plan of Care No information available. Procedures No information available. Vital Signs No information available. Immunizations No information available. Advance Directives No information available.
--- OUTSIDE RECORDS SUMMARY | 2025-01-19 09:03 | XMS_ITS | Clinical Summary ---
Author Organization [facility] Primary Care Address [address] [place] [address] Phone Care Team Providers Care Grinder Set Up Operator Universal Name Role Phone Unavailable Primary Care Provider [...] (2 - Tdap) 06/20/2020 06/20/2010 COVID-19 Vaccine (1 - season) 2024 Influenza Vaccine (#1) 2024 Hepatitis [...] 8:24 AM EST) Cholesterol 196 <=200 mg/dL [facility] Comment: < 200 Desirable 200 - 239 Borderline High >= 240 High Triglyceride 95 <=150 mg/dL [facility] Comment: < 150 Normal 150 - 199 Borderline High 200 - 499 High >= 500 Very High HDL 55 >=40 mg/dL [facility] Comment: > 60 Optimal 40 - 60 Acceptable < 40 Low Blood specimen (specimen) UPPER LIMB STRUCTURE / Unknown 01/07/2011 8:24 AM EST 01/07/2011 2:35 PM EST us Mario Hardy MD CHEMISTRY ORDERABLES Final Resu lt [facility] [address] [place] [address] * (ABNORMAL) RENAL FUNCTION PANEL (01/07/2011 8:24 AM EST) Sodium 141 135 - 143 mmol/L [facility] Potassium 4.4 3.5 - 5.0 mmol/L [facility] Chloride 107 98 - 108 mmol/L [facility] Total CO2 29 22 - 31 mmol/L [facility] Anion Gap 5(L) 7 - 16 mmol/L [facility] Calcium 9.3 8.6 - 10.3 mg/dL [facility] Glucose Lvl 91 70 - 100 mg/dL [facility] BUN 15 7 - 19 mg/dL [facility] Creatinine 0.7 0.6 - 1.0 mg/dL [facility] Albumin 3.7 3.5 - 4.5 gm/dL [facility] Phosphorus 4.0 2.7 - 4.5 mg/dL [facility] GFR Afr Am >60 [facility] Comment: GFR is estimated using [...] or less GFR Non Afr Am >60 [facility] Blood specimen (specimen) UPPER LIMB STRUCTURE / Unknown 01/07/2011 8:24 AM EST 01/07/2011 8:24 AM EST us Mario Hardy MD CHEMISTRY ORDERABLES Edited [facility] [address] [place] [address] * MM MAMMO DIGITAL DIAGNOSTIC W CAD BILAT (08/20/2010 9:45 AM EDT) Anatomical Region Laterality Modality Breast Bilateral Mammography 08/21/2010 12:3 8 PM EDT Impressions 08/21/2010 12:39 PM EDT : No radiographic evidence of malignancy ([id number]-5) Stable asymmetric right breast tissue. No direct/indirect [...] ~ IMPRESSION: No radiographic evidence of malignancy ([id number]-Diufavhc-6) Stable asymmetric right breast tissue. No direct/indirect [...] AM EDT) Hgb A1c 5.4 <=7.0 % [facility] Comment: Reference Interval for Hgb A1c Hgb A1c Interpretation < 6.0 Non-Diabetic Range 6.0 - 7.0 ADA Therapeutic Target > 7.0 Action suggested Blood specimen (specimen) UPPER LIMB STRUCTURE / Unknown 01/01/2010 8:08 AM EDT 01/01/2010 2:27 PM EDT us Mario Hardy MD CHEMISTRY ORDERABLES Final Resu lt [facility] [address] [place] [address] from Last 3 Months or Most Recently Relevant to Health Maintenance Insurance [facility] [address] [facility] [address] MEDICARE PART B AETNA [facility] [place] [address] MEDICARE PART B
--- OUTSIDE RECORDS SUMMARY | 2025-01-19 09:03 | XMS_ITS ---
Author Organization Unknown ENCOUNTERS Encounter Performer Location Date Diagnosis Diagnosis Status Outpatient [facility] [address] [facility] [address] [place] [address] [id number] [facility] Emergency [facility] [address] [facility] [address] [place] [address] [id number] A Pre Admit [facility] [address] [facility] [address] [place] [address] [id number] Outpatient [facility] [address] [place] [address] [address] [place] [address] [id number] XI Emergency [facility] [address] [facility] [address] [place] [address] [id number] A Pre Admit [facility] [address] [facility] [address] [place] [address] [id number] Outpatient Sarah Orellana [facility] [address] [facility] [address] [place] [address] [id number] XI Emergency [facility] (ED) [facility] [address] [facility] [address] [place] [address] [id number] AIP Emergency Dante Omalley [facility] [address] [facility] [address] [place] [address] [id number] [facility] Emergency Gayla Ivey [place] [id number] [facility] [address] [place] [address] [id number] KAELYN *Note: Encounters from your own facility or health system may be excluded. Allergies, Adverse Reactions, Alerts Allergen Type Severity Identification Date Penicillins drug allergy 2 20181103 PCN (PENICILLIN) propensity to adverse reactions 2 20170216 CODEINE propensity to adverse reactions 2 [id number] Medications Name Date Quantity Days Supplied GPI Number
[2025-01-19 09:09] LABS: Hematocrit 35.8 % (37.0-47.0); Hemoglobin 11.5 g/dL (12.2-16.2); Mean Corpuscular HGB Conc 32.1 g/dL (31.8-35.4); Mean Corpuscular Hemoglobin 28.8 pg (27.0-31.2); Mean Corpuscular Volume 89.7 fl (81-99); Nucleated Red Blood Cells % 0 %; Platelet Count 241 K/mm3 (142-424); Red Blood Count 3.99 M/mm3 (4.20-5.40); Red Cell Distribution Width-SD 49.6 fL; White Blood Count 7.1 K/mm3 (4.8-10.8)
== END 2025-01-19 23:59 | disposition home or self-care (01) ==
LOC: LAB.DROPOF 08:58
PROVIDERS: PCP Family Medicine; Visit Provider Nurse Practitioner Family
DX: R71.8 Other abnormality of red blood cells (principal)
CPT/HCPCS: 36415; 85027

== ENCOUNTER 2025-02-28 08:08 | Outpatient (CLI) | payer MEDICARE, MEDICAID, SELFPAY ==
--- OUTSIDE RECORDS SUMMARY | 2025-02-28 08:10 | XMS_ITS | Clinical Summary ---
Author Organization [facility] Address [address] [place] [address] [address] [place] [address] Phone Care Team Providers Care Store Cashier Name Role Phone Unavailable Unavailable Conditions or Problems No information available. Medications No information available. Medications Administered No information available. Allergies, Adverse Reactions, Alerts No information available. Results No information available. Plan of Care No information available. Procedures No information available. Vital Signs No information available. Immunizations No information available. Advance Directives No information available.
--- OUTSIDE RECORDS SUMMARY | 2025-02-28 08:10 | XMS_ITS ---
Author Organization Unknown ENCOUNTERS Encounter Performer Location Date Diagnosis Diagnosis Status Outpatient [facility] [address] [facility] [address] [place] [address] [id number] [facility] Emergency [facility] [address] [facility] [address] [place] [address] [id number] A Pre Admit [facility] [address] [facility] [address] [place] [address] [id number] Outpatient [facility] [address] [place] [address] [address] [place] [address] [id number] XI Emergency [facility] [address] [facility] [address] [place] [address] [id number] A Pre Admit [facility] [address] [facility] [address] [place] [address] [id number] Outpatient Sarah Orellana [facility] [address] [facility] [address] [place] [address] [id number] XI Emergency [facility] (ED) [facility] [address] [facility] [address] [place] [address] [id number] AIP Emergency Dante Omalley [facility] [address] [facility] [address] [place] [address] [id number] [facility] Emergency Gayla Ivey [place] [id number] [facility] [address] [place] [address] [id number] KAELYN *Note: Encounters from your own facility or health system may be excluded. Allergies, Adverse Reactions, Alerts Allergen Type Severity Identification Date Penicillins drug allergy 2 20181103 PCN (PENICILLIN) propensity to adverse reactions 2 [id number] CODEINE propensity to adverse reactions 2 [id number] Medications Name Date Quantity Days Supplied GPI Number
--- OUTSIDE RECORDS SUMMARY | 2025-02-28 08:10 | XMS_ITS | Clinical Summary ---
Author Organization [facility] Primary Care Address [address] [place] [address] Phone Care Team Providers Care Safety Leader Name Role Phone Unavailable Primary Care Provider [...] 8:24 AM EST) Cholesterol 196 <=200 mg/dL [facility] Comment: < 200 Desirable 200 - 239 Borderline High >= 240 High Triglyceride 95 <=150 mg/dL [facility] Comment: < 150 Normal 150 - 199 Borderline High 200 - 499 High >= 500 Very High HDL 55 >=40 mg/dL [facility] Comment: > 60 Optimal 40 - 60 Acceptable < 40 Low Blood specimen (specimen) UPPER LIMB STRUCTURE / Unknown 01/07/2011 8:24 AM EST 01/07/2011 2:35 PM EST us Mario Hardy MD CHEMISTRY ORDERABLES Final Resu lt [facility] [address] [place] [address] * (ABNORMAL) RENAL FUNCTION PANEL (01/07/2011 8:24 AM EST) Sodium 141 135 - 143 mmol/L [facility] Potassium 4.4 3.5 - 5.0 mmol/L [facility] Chloride 107 98 - 108 mmol/L [facility] Total CO2 29 22 - 31 mmol/L [facility] Anion Gap 5(L) 7 - 16 mmol/L [facility] Calcium 9.3 8.6 - 10.3 mg/dL [facility] Glucose Lvl 91 70 - 100 mg/dL [facility] BUN 15 7 - 19 mg/dL [facility] Creatinine 0.7 0.6 - 1.0 mg/dL [facility] Albumin 3.7 3.5 - 4.5 gm/dL [facility] Phosphorus 4.0 2.7 - 4.5 mg/dL [facility] GFR Afr Am >60 [facility] Comment: GFR is estimated using creatinine, [...] or less GFR Non Afr Am >60 [facility] Blood specimen (specimen) UPPER LIMB STRUCTURE / Unknown 01/07/2011 8:24 AM EST 01/07/2011 8:24 AM EST us Mario Hardy MD CHEMISTRY ORDERABLES Edited [facility] [address] [place] [address] * MM MAMMO DIGITAL DIAGNOSTIC W CAD BILAT (08/20/2010 9:45 AM EDT) Anatomical Region Laterality Modality Breast Bilateral Mammography 08/21/2010 12:3 8 PM EDT Impressions 08/21/2010 12:39 PM EDT : No radiographic evidence of malignancy ([id number]-[id number]-[id number]) Stable asymmetric right breast tissue. No direct/indirect [...] ~ IMPRESSION: No radiographic evidence of malignancy ([id number]) Stable asymmetric right breast tissue. No direct/indirect [...] AM EDT) Hgb A1c 5.4 <=7.0 % [facility] Comment: Reference Interval for Hgb A1c Hgb A1c Interpretation < 6.0 Non-Diabetic Range 6.0 - 7.0 ADA Therapeutic Target > 7.0 Action suggested Blood specimen (specimen) UPPER LIMB STRUCTURE / Unknown 01/01/2010 8:08 AM EDT 01/01/2010 2:27 PM EDT us Mario Hardy MD CHEMISTRY ORDERABLES Final Resu lt [facility] [address] [place] [address] from Last 3 Months or Most Recently Relevant to Health Maintenance Insurance [facility] [address] [facility] [address] MEDICARE PART B AETNA [facility] [place] [address] MEDICARE PART B
[2025-02-28 08:59] LABS: Free T4 (Free Thyroxine) 1.06 ng/dl (0.78-2.19)
[2025-02-28 09:14] LABS: Thyroid Stimulating Hormone 0.95 uIU/mL (0.465-4.68)
== END 2025-02-28 23:59 | disposition home or self-care (01) ==
LOC: LAB.DROPOF 08:08
PROVIDERS: PCP Family Medicine; Visit Provider Nurse Practitioner Family
DX: E03.9 Hypothyroidism, unspecified (principal)
CPT/HCPCS: 36415; 84439; 84443